=== PATIENT | male | born 1950 | race Caucasian/White ===

== ENCOUNTER 2017-02-02 18:11 | Emergency (ER) | payer OTHER, BC ==
[~2017-02-02] VITALS: Ht 188 cm; Wt 98.7 kg
[~2017-02-02 18:11] MED LIST: AMLO2.5T PO; ASPI81TA28 PO; BTP80 PO; CMD/25 PO; CYAN500T PO; METO1TAB66 PO; PRLSR20 PO; SIMV40TA2 PO; TYL325X PO; WARF5TAB90 PO
[2017-02-02 18:20] VITALS: TEMP 36.7; Ht 188 cm; Wt 98.7 kg
[2017-02-02] MEDS ORDERED: CMD/25 PO (18:49)
[2017-02-02] MEDS ORDERED: ACET-1311 PO (18:49)
[2017-02-02] MEDS ORDERED: SIMV20TA5 PO (18:52)
[2017-02-02] MEDS ORDERED: AMIO200T4 PO (18:52)
[2017-02-02] MEDS ORDERED: LEVO25TA5 PO (18:52)
[2017-02-02] MEDS ORDERED: AMLO-110 PO (18:52)
[2017-02-02] MEDS ORDERED: CHOL1000 PO (18:52)
--- NOTE | 2017-02-02 19:13 | EMERGENCY ROOM VISIT NOTE ---
History Report prepared by Jemal: Rafi Zuluaga Under the Supervision of: Benjamín ChungO. First contact with patient: 18:48 Chief Complaint: DIZZY Stated Complaint: LEFT WRIST TO ELBOW INJURY- Nursing Triage Summary: pt reports missed a step when walking down stairs landing on L fore arm , pain from wrist to elbow , denies striking head or LOC while sitting in weigh chair pt became pale clammy and states Im going to pass out , pt assisted to wc and to A9 History of Present Illness The patient is a 66 year old male who presents to the Emergency Room with complaints of constant, tingling and pain to his left hand beginning around 3 hours ago. The patient states that he was going up the stairs and missed a step. He reports that used his hands to break his fall, and he landed on his hands and knees. The patient notes that his left hand took most of the fall. He states that he went to dinner afterwards and then returned to work. The patient reports that he works at as a floor attendant, and he came to the ED because he could not stand the pain while working. He notes that he experienced diaphoresis , dizziness, and near syncope. The patient states that his right arm hurts from his hand all the way to his elbow. He reports that he felt fine before the fall. The patient denies shoulder pain, neck pain, back pain, hitting his head, and loss of consciousness. He notes that he did drink a soda 2 hours ago because he gets dehydrated easily. The patient states that he has a history of a cholecystectomy, pace maker, and a stent. The nurse reports that the patient was sitting in the waiting room and had another near syncopal episode. States pacemaker checked by moving worker last week. Source of History: patient, nursing staff Onset: about 3 hours ago Position: hand (left) Quality: tingling Timing: constant Associated Symptoms: + diaphoresis, No LOC, No neck pain, No back pain Note: Associated symptoms: dizziness and near loss of consciousness Denies: shoulder pain and hitting his head Review of Systems See HPI for pertinent positives & negatives. A total of 10 systems reviewed and were otherwise negative. Past Medical & Surgical Medical Problems: (1) Atrial fibrillation Social History Smoking Status: Never Smoker Marital Status: Housing Status: lives with family Occupation Status: employed Current/Historical Medications Scheduled Amiodarone Hcl (Cordarone), 200 MG PO DAILY Amlodipine (Norvasc), 5 MG PO DAILY Aspirin (Aspirin Ec), 81 MG PO DAILY Cholecalciferol (Vitamin D3), 1,000 UNITS PO DAILY Cyanocobalamin (Vitamin B-12), 500 MCG PO DAILY Levothyroxine Sodium (Levothyroxine Sodium), 25 MCG PO DAILY Metoprolol Succinate (Toprol Xl), 1 TAB PO DAILY Omeprazole (Prilosec), 20 MG PO QPM Simvastatin (Zocor), 20 MG PO QPM Warfarin Sod (Coumadin), 1 TAB PO 5XWK Warfarin Sod (Coumadin), 1.25 MG PO 2XWK Scheduled PRN Acetaminophen (Tylenol), 650 MG PO Q4H PRN for Pain or Fever Oxycodone/Acetaminophen 5MG/325MG (Percocet 5MG/325MG), 1 TAB PO Q6 PRN for Pain Allergies Coded Allergies: No Known Allergies (Verified , 02/02/17) Physical Exam Vital Signs Date Time Temp Pulse Resp B/P (MAP) Pulse Ox O2 Delivery O2 Flow Rate FiO2 02/02/17 23:04 61 18 137/88 96 02/02/17 21:21 59 139/98 02/02/17 21:21 60 18 139/98 98 Room Air 02/02/17 19:16 62 21 97 02/02/17 19:11 60 19 97 02/02/17 19:06 60 17 97 02/02/17 19:01 60 21 119/83 97 02/02/17 18:56 60 22 96 02/02/17 18:51 60 15 95 02/02/17 18:48 118/81 02/02/17 18:46 60 16 96 02/02/17 18:41 60 19 96 02/02/17 18:36 60 18 96 02/02/17 18:35 60 02/02/17 18:31 118/81 02/02/17 18:29 62 22 105/77 96 Room Air 02/02/17 18:20 36.7 62 18 97 Room Air Physical Exam GENERAL: alert, well appearing, well nourished, no distress, non-toxic EYE EXAM: normal conjunctiva, PERRL and EOM's grossly intact OROPHARYNX: no exudate, no erythema, lips, buccal mucosa, and tongue normal and mucous membranes are moist NECK: supple, no nuchal rigidity, no adenopathy, non-tender LUNGS: Clear to auscultation. Normal chest wall mechanics HEART: no murmurs, S1 normal and S2 normal, pace maker noted to the left anterior, superior chest wall ABDOMEN: abdomen soft, non-tender, normo-active bowel sounds, no masses, no rebound or guarding. BACK: Back is symmetrical on inspection and there is no deformity, no midline tenderness, no CVA tenderness. SKIN: no rashes and no bruising UPPER EXTREMITIES: Pain and edema to the left hand, pulse, motor, sensation intact. Decrease ROM secondary to pain, no pain or deformity to elbow and proximal joint. LOWER EXTREMITIES: No pitting edema. Mild abrasion to the left knee NEURO EXAM: Normal sensorium, cranial nerves II-XII grossly intact, normal speech, no gross weakness of arms, no gross weakness of legs. Medical Decision & Procedures ER Provider Diagnostic Interpretation: Radiology results have been interpreted by the radiologist and reviewed by me. LEFT WRIST MIN 3 VIEWS ROUTINE CLINICAL HISTORY: Left wrist pain following trauma. COMPARISON: None FINDINGS: Alignment of the left carpal bones is anatomic. There is no acute fracture. Deformity of the distal left radius is chronic. IMPRESSION: No acute fracture or dislocation of the left wrist. Electronically signed by: Billy Arevalo M.D. 02/02/2017 7:34 PM Dictated Date/Time: 02/02/2017 7:32 PM LEFT ELBOW MIN 3 VIEWS ROUTINE CLINICAL HISTORY: Left elbow pain following fall. COMPARISON: None FINDINGS: Alignment of left elbow is anatomic. There is spurring of the olecranon at the insertion of the triceps. There is no definite evidence for a left elbow joint effusion. However, there is subtle cortical irregularity of the left radial neck. This suggests a slightly impacted fracture. No additional fractures are identified. IMPRESSION: Suspected minimally impacted left radial neck fracture. Electronically signed by: Billy Arevalo M.D. 02/02/2017 7:32 PM Dictated Date/Time: 02/02/2017 7:31 PM CHEST ONE VIEW PORTABLE CLINICAL HISTORY: 66 years-old Male presenting with trauma, near syncope. TECHNIQUE: Portable upright AP view of the chest was obtained. COMPARISON: None. FINDINGS: Left-sided pacer with leads to the right atrium and right ventricular apex. Mild prominence of the cardiac silhouette. Mild tortuosity of the descending thoracic aorta. Lungs and pleural spaces clear. Osseous structures normal. Cholecystectomy clips noted. IMPRESSION: 1. No acute intrathoracic injury. Electronically signed by: Miguel Zepeda M.D. 02/02/2017 7:31 PM Dictated Date/Time: 02/02/2017 7:29 PM RENAL ULTRASOUND CLINICAL HISTORY: Acute renal failure. COMPARISON STUDY: None. TECHNIQUE: Sonography of the kidneys and the urinary bladder was performed. FINDINGS: The right kidney measures 9.6 x 4.5 x 4.9 cm and the left measures 10.4 x 5.1 x 4 cm. The kidneys are echogenic. There is moderate to marked renal cortical thinning. There is no hydronephrosis. A 1.3 cm right renal cyst is noted. Neither ureteral jet was identified. The bladder was otherwise normal. IMPRESSION: 1. No hydronephrosis. 2. Echogenic kidneys with moderate to marked bilateral renal cortical thinning. Electronically signed by: Billy Arevalo M.D. 02/02/2017 9:55 PM Dictated Date/Time: 02/02/2017 9:54 PM Laboratory Results 02/02/17 18:30 Red Blood Count 4.47, Mean Corpuscular Volume 87.9, Mean Corpuscular Hemoglobin 30.0, Mean Corpuscular Hemoglobin Concent 34.1, Mean Platelet Volume 10.7, Neutrophils (%) (Auto) 65.5, Lymphocytes (%) (Auto) 24.1, Monocytes (%) (Auto) 6.7, Eosinophils (%) (Auto) 3.2, Basophils (%) (Auto) 0.5, Neutrophils # (Auto) 4.11, Lymphocytes # (Auto) 1.51, Monocytes # (Auto) 0.42, Eosinophils # (Auto) 0.20, Basophils # (Auto) 0.03 02/02/17 18:30 Test 02/02/17 18:30 02/02/17 21:25 02/02/17 22:16 White Blood Count 6.27 K/uL (4.8-10.8) Red Blood Count 4.47 M/uL (4.7-6.1) Hemoglobin 13.4 g/dL (14.0-18.0) Hematocrit 39.3 % (42-52) Mean Corpuscular Volume 87.9 fL (80-100) Mean Corpuscular Hemoglobin 30.0 pg (25-34) Mean Corpuscular Hemoglobin Concent 34.1 g/dl (32-36) Platelet Count 201 K/uL (130-400) Mean Platelet Volume 10.7 fL (7.4-10.4) Neutrophils (%) (Auto) 65.5 % Lymphocytes (%) (Auto) 24.1 % Monocytes (%) (Auto) 6.7 % Eosinophils (%) (Auto) 3.2 % Basophils (%) (Auto) 0.5 % Neutrophils # (Auto) 4.11 K/uL (1.4-6.5) Lymphocytes # (Auto) 1.51 K/uL (1.2-3.4) Monocytes # (Auto) 0.42 K/uL (0.11-0.59) Eosinophils # (Auto) 0.20 K/uL (0-0.5) Basophils # (Auto) 0.03 K/uL (0-0.2) RDW Standard Deviation 46.2 fL (36.4-46.3) RDW Coefficient of Variation 14.3 % (11.5-14.5) Immature Granulocyte % (Auto) 0.0 % Immature Granulocyte # (Auto) 0.00 K/uL (0.00-0.02) Prothrombin Time 29.4 SECONDS (9.0-12.0) Prothromb Time International Ratio 2.6 (0.9-1.1) Anion Gap 9.0 mmol/L (3-11) Est Creatinine Clear Calc Drug Dose 34.6 ml/min Estimated GFR () 28.3 Estimated GFR (Non- 24.4 BUN/Creatinine Ratio 14.6 (10-20) Calcium Level 8.8 mg/dl (8.5-10.1) Total Bilirubin 0.4 mg/dl (0.2-1) Aspartate Amino Transf (AST/SGOT) 21 U/L (15-37) Alanine Aminotransferase (ALT/SGPT) 23 U/L (12-78) Alkaline Phosphatase 96 U/L (45-117) Troponin I < 0.015 ng/ml (0-0.045) Pro-B-Type Natriuretic Peptide 221 pg/ml (0-900) Total Protein 6.8 gm/dl (6.4-8.2) Albumin 3.6 gm/dl (3.4-5.0) Globulin 3.2 gm/dl (2.5-4.0) Albumin/Globulin Ratio 1.1 (0.9-2) Urine Color YELLOW Urine Appearance CLEAR (CLEAR) Urine pH 5.5 (4.5-7.5) Urine Specific [place] 1.020 (1.000-1.030) Urine Protein NEG (NEG) Urine Glucose (UA) NEG (NEG) Urine Ketones TRACE (NEG) Urine Occult Blood NEG (NEG) Urine Nitrite NEG (NEG) Urine Bilirubin NEG (NEG) Urine Urobilinogen NEG (NEG) Urine Leukocyte Esterase SMALL (NEG) Urine WBC (Auto) 5-10 /hpf (0-5) Urine RBC (Auto) 0-4 /hpf (0-4) Urine Hyaline Casts (Auto) 1-5 /lpf (0-5) Urine Epithelial Cells (Auto) 5-10 /lpf (0-5) Urine Bacteria (Auto) NEG (NEG) Bedside Troponin I < 0.030 ng/ml (0-0.045) Laboratory results per my review. Medications Administered Medications (Trade) Dose Ordered Sig/Payam Route Start Time Stop Time Status Last Admin Dose Admin Ondansetron HCl (Zofran Inj) 4 mg NOW STAT IV 02/02/17 20:48 02/02/17 20:50 DC 02/02/17 21:19 4 MG Oxycodone/ Acetaminophen (Percocet 5-325mg Tab) 1 tab NOW ONCE PO 02/02/17 21:00 02/02/17 21:01 DC 02/02/17 21:21 1 TAB ECG Indication: syncope (near) Rate (beats per minute): 62 Rhythm: other (pace maker) Findings: no acute ischemic change, other (Normal QRs and QTs) ED Course 1851: The patient was evaluated in room A09B. A complete history and physical exam was performed. 2044: I updated the patient on his exam findings and test results. He states that he does follow up with a kidney specialist. His last kidney number was 2.3. He is still having pain in the wrist. 2047: Ordered Zofran Inj 4 mg IV 2100: Ordered Oxycodone/Acetaminophen 1 tab PO 0: Upon reevaluation, the patient is feeling better. I discussed the findings and the treatment plan with the patient. She verbalizes agreement and understanding. The patient was discharged home. Medical Decision Differential diagnoses include major intracranial, cervical, spinal, thoracic, abdominal, pelvic and neurologic injury. Fracture, contusion, sprain, strain, laceration, abrasions included as well. Medication Reconciliation: I attest that I have personally reviewed the patient' s current medication list. Blood pressure screening: Patient was found to have a slightly elevated blood pressure due to circumstances. I do not believe that the patient requires hypertension monitoring. Patient well-appearing here, labs and imaging reassuring. Patient made aware of possible subtle fracture noted on x-rays by radiology and placed in a splint sling as a precaution. Patient advised to follow closely with or so. Patient advised to follow-up with family doctor as well as cardiology given near- syncopal event today. No dysrhythmias noted on telemetry and pacemaker spikes noted. Doubt acute dysfunction of patient's device. Patient with no recurrent symptoms while here, was ambulatory with a steady gait and tolerating by mouth at bedside. Discussed symptoms possibly due to dehydration, pain response. Urine specimen suboptimal, patient with no symptoms doubt acute UTI. Troponins times to both negative, doubt ACS. Doubt dissection, tamponade, PE. Patient's INR therapeutic. Doubt occult infectious etiology, bacteremia/ sepsis. Doubt perforation, GI bleed. Doubt mesenteric ischemia. Patient with chronic kidney disease, or racing nephrology and aware of his baseline creatinine. Discussed creatinine level today, and he would like to follow-up with his welt rander as an outpatient. No other changes noted on ultrasound, doubt related to UTI or obstructive uropathy. Patient with localized pain at the right wrist secondary to fall on an outstretched hand. Discussed with patient at bedside symptoms to watch and return for, he verbalized understanding was agreeable with plan. Impression Primary Impression: Dizziness Additional Impressions: Near syncope Fall Left wrist pain Fracture of radial neck, left, closed Chronic kidney disease Scribe Attestation The scribe's documentation has been prepared under my direction and personally reviewed by me in its entirety. I confirm that the note above accurately reflects all work, treatment, procedures, and medical decision making performed by me. Departure Information Dispostion Home / Self-Care Prescriptions Oxycodone/Acetaminophen 5MG/325MG (PERCOCET 5MG/325MG) Tab 1 TAB PO Q6 Y for Pain, #20 TAB Prov: Melody Malloy, 02/02/17 Referrals Deborah Arreola M.D. (PCP) Patient Instructions My [facility] Additional Instructions Please call and follow-up with the orthopedic surgeon and with your family doctor and kidney doctor. You may use the pain medicine as prescribed. Please don't take it and drive. If you have any worsening pain, swelling,numbness/ tingling in the injured arm, develop nausea, chest pain, trouble breathing, vomiting, headaches, vision changes, or you have any other new or concerning symptoms, please return to the emergency room. Problem Qualifiers Additional Impressions: Fall Encounter type: initial encounter Qualified Codes: W19.XXXA - Unspecified fall, initial encounter Fracture of radial neck, left, closed Encounter type: initial encounter Fracture alignment: nondisplaced Qualified Codes: S52.135A - Nondisplaced fracture of neck of left radius, initial encounter for closed fracture Chronic kidney disease Chronic kidney disease stage: unspecified stage Qualified Codes: N18.9 - Chronic kidney disease, unspecified
--- NOTE | 2017-02-02 19:32 | DIAGNOSTIC IMAGING REPORT ---
CHEST ONE VIEW PORTABLE CLINICAL HISTORY: 66 years-old Male presenting with trauma, near syncope. TECHNIQUE: Portable upright AP view of the chest was obtained. COMPARISON: None. FINDINGS: Left-sided pacer with leads to the right atrium and right ventricular apex. Mild prominence of the cardiac silhouette. Mild tortuosity of the descending thoracic aorta. Lungs and pleural spaces clear. Osseous structures normal. Cholecystectomy clips noted. IMPRESSION: 1. No acute intrathoracic injury. Electronically signed by: Miguel Zepeda M.D. 02/02/2017 7:31 PM Dictated Date/Time: 02/02/2017 7:29 PM
--- NOTE | 2017-02-02 19:33 | DIAGNOSTIC IMAGING REPORT ---
LEFT ELBOW MIN 3 VIEWS ROUTINE CLINICAL HISTORY: Left elbow pain following fall. COMPARISON: None FINDINGS: Alignment of left elbow is anatomic. There is spurring of the olecranon at the insertion of the triceps. There is no definite evidence for a left elbow joint effusion. However, there is subtle cortical irregularity of the left radial neck. This suggests a slightly impacted fracture. No additional fractures are identified. IMPRESSION: Suspected minimally impacted left radial neck fracture. Electronically signed by: Billy Arevalo M.D. 02/02/2017 7:32 PM Dictated Date/Time: 02/02/2017 7:31 PM
--- NOTE | 2017-02-02 19:35 | DIAGNOSTIC IMAGING REPORT ---
LEFT WRIST MIN 3 VIEWS ROUTINE CLINICAL HISTORY: Left wrist pain following trauma. COMPARISON: None FINDINGS: Alignment of the left carpal bones is anatomic. There is no acute fracture. Deformity of the distal left radius is chronic. IMPRESSION: No acute fracture or dislocation of the left wrist. Electronically signed by: Billy Arevalo M.D. 02/02/2017 7:34 PM Dictated Date/Time: 02/02/2017 7:32 PM
[2017-02-02 19:57] LABS: BASO % 0.5 %; BASO ABS # 0.03 K/uL (0-0.2); COMPLETE YES; EOS % 3.2 %; HEMATOCRIT 39.3 % (42-52); LYMPH % 24.1 %; LYMPH ABS # 1.51 K/uL (1.2-3.4); MEAN CELL VOLUME 87.9 fL (80-100); MEAN CORPUSCULAR HGB CONC 34.1 g/dl (32-36); MEAN PLATELET VOLUME 10.7 fL (7.4-10.4); MONO % 6.7 %; NEUT % 65.5 %; PLATELET COUNT 201 K/uL (130-400); RED BLOOD COUNT 4.47 M/uL (4.7-6.1); WHITE BLOOD COUNT 6.27 K/uL (4.8-10.8)
[2017-02-02 20:00] LABS: INR 2.6 (0.9-1.1); PROTHROMBIN TIME (PATIENT) 29.4 SECONDS (9.0-12.0)
[2017-02-02 20:04] LABS: ALT/SGPT 23 U/L (12-78); BLOOD UREA NITROGEN 38 mg/dl (7-18); BUN/CREATININE RATIO 14.6 (10-20); CALCIUM 8.8 mg/dl (8.5-10.1); CARBON DIOXIDE 20 mmol/L (21-32); CHLORIDE 113 mmol/L (98-107); GLUCOSE 120 mg/dl (70-99); POTASSIUM 4.4 mmol/L (3.5-5.1); SODIUM 142 mmol/L (136-145)
[2017-02-02 20:09] LABS: ALB/GLOB RATIO 1.1 (0.9-2); ALKALINE PHOSPHATASE 96 U/L (45-117); AST/SGOT 21 U/L (15-37)
[2017-02-02] MEDS ORDERED: ONDANSETRON INJ 2 MG/ML 2 ML VIAL IV STA (20:48)
[2017-02-02] MEDS ORDERED: OXYCODONE/ACETAMINOPHEN 5-325 TAB PO ONE (21:00)
[2017-02-02 21:44] LABS: URINE APPEARANCE CLEAR (CLEAR); URINE BILIRUBIN NEG (NEG); URINE COLOR YELLOW; URINE NITRITE NEG (NEG); URINE PH 5.5 (4.5-7.5); UROBILINOGEN NEG (NEG); ZZUR CULT IF INDIC CLEAN CATCH NO
[2017-02-02 21:49] LABS: MANUAL MICROSCOPIC REQUIRED? NO; REVIEW REQ? NO
--- NOTE | 2017-02-02 21:57 | DIAGNOSTIC IMAGING REPORT ---
RENAL ULTRASOUND CLINICAL HISTORY: Acute renal failure. COMPARISON STUDY: None. TECHNIQUE: Sonography of the kidneys and the urinary bladder was performed. FINDINGS: The right kidney measures 9.6 x 4.5 x 4.9 cm and the left measures 10.4 x 5.1 x 4 cm. The kidneys are echogenic. There is moderate to marked renal cortical thinning. There is no hydronephrosis. A 1.3 cm right renal cyst is noted. Neither ureteral jet was identified. The bladder was otherwise normal. IMPRESSION: 1. No hydronephrosis. 2. Echogenic kidneys with moderate to marked bilateral renal cortical thinning. Electronically signed by: Billy Arevalo M.D. 02/02/2017 9:55 PM Dictated Date/Time: 02/02/2017 9:54 PM
[2017-02-02] MEDS ORDERED: OXYC-57 PO (21:59)
[2017-02-02 23:04] VITALS: BP 137/88; PULSE 61; O2SAT 96
== END 2017-02-02 23:07 | disposition home or self-care (01) ==
LOC: C.EDB 18:12 → C.EDA 23:07
DX: R42 Dizziness and giddiness (principal); R55 Syncope and collapse; W19.XXXA Unspecified fall, initial encounter; M25.532 Pain in left wrist; S52.135A Nondisplaced fracture of neck of left radius, initial encounter for closed fracture; N18.9 Chronic kidney disease, unspecified; Z51.81 Encounter for therapeutic drug level monitoring; Z79.01 Long term (current) use of anticoagulants; Z79.82 Long term (current) use of aspirin; I48.91 Unspecified atrial fibrillation

== ENCOUNTER → 2018-03-08 | Outpatient (CLI) | payer BC ==
[~2018-03-08] MED LIST changes: +ACET-1311 PO; -AMLO2.5T PO; +AMLO5TAB3 PO; -BTP80 PO; +CHOL1000 PO; +LEVO25TA5 PO; +LVQ750 PO; +METO-452 PO; +METO-478 PO; -METO1TAB66 PO; +SIMV20TA5 PO; -SIMV40TA2 PO; -TYL325X PO; -WARF5TAB90 PO
[2018-03-12 15:30] LABS: MICROSOMAL AB <1 IU/ML (<9); TSI <89 % baseline (<140)
== END | disposition home or self-care (01) ==
LOC: C.LAB1850 08:57
PROVIDERS: ATTEND Physician Assistant
DX: E05.90 Thyrotoxicosis, unspecified without thyrotoxic crisis or storm (principal)

== ENCOUNTER → 2018-03-10 | Outpatient (CLI) | payer BC ==
--- NOTE | 2018-03-10 08:09 | DIAGNOSTIC IMAGING REPORT ---
SOFT TISS HEAD/NECK-THYROID CLINICAL HISTORY: 67 years-old Male presenting with HYPERTHYROIDISM, THYROIDITIS. TECHNIQUE: Real-time grayscale and color Doppler ultrasound imaging of the thyroid and base of the neck was performed. COMPARISON: CT chest from 12/25/2017. FINDINGS: Right lobe: Normal echogenicity and echotexture. The right lobe of the thyroid measures 4.2 x 1.9 x 1.8 cm. No parenchymal hyperemia. No nodules. Left lobe: Normal echogenicity and echotexture. The left lobe of the thyroid measures 4.5 x 1.5 x 2.2 cm. No parenchymal hyperemia. Index nodule(s) enumerated below: 1. 0.4 x 0.3 x 0.4 cm interpolar cystic anechoic [id number] nodule with smooth margins. Large comet-tail artifacts suggesting colloid. TI-RADS 1: Benign. Isthmus: The isthmus measures 6 mm in thickness. No parenchymal hyperemia. No nodules. Reference: TI-RADS 1: No biopsy. TI-RADS 2: No biopsy. TI-RADS 3: FNA if > or = to 2.5 cm; follow if > or = to 1.5 cm. TI-RADS 4: FNA if > or = to 1.5 cm; follow if > or = to 1 cm. TI-RADS 5: FNA if > or = to 1 cm; follow if > or = to 0.5 cm. Eloy CARNES, Aramis WD, Darrell CLAUDIO. Thyroid Imaging Reporting and Data System (TI-RADS): A User's Guide. Radiology. 2018;287:29-36. Darrell Davis, Eloy CARNES, Ben PALOMO, et al. Thyroid Ultrasound Reporting Lexicon: White Paper of the ACR Thyroid Imaging, Reporting and Data System (TIRADS) Committee. J Am Luis Radiol. 2015;[id number]. IMPRESSION: Essentially normal thyroid ultrasound with a benign subcentimeter left thyroid lobe cyst. Electronically signed by: Miguel Zepeda M.D. 03/10/2018 8:08 AM Dictated Date/Time: 03/10/2018 8:06 AM
== END | disposition home or self-care (01) ==
LOC: C.ULTR 07:41
PROVIDERS: ATTEND Physician Assistant
DX: E05.90 Thyrotoxicosis, unspecified without thyrotoxic crisis or storm (principal)

== ENCOUNTER 2019-02-20 10:47 | Inpatient (IN) ==
[2019-02-20] MEDS ORDERED: SODIUM CHLORIDE 0.9% 500 ML IV ONE ×2 (11:09→12:23)
[2019-02-20] MEDS ORDERED: FAMOTIDINE 20MG IV PUSH 20 MG/5 ML SYR IV STA (11:09)
[2019-02-20] MEDS ORDERED: PROCHLORPERAZINE 2 ML IV ONE (11:09)
[2019-02-20 11:15] LABS: Basophils # (auto) 0.01 K/uL (0-0.2); Basophils % (auto) 0.2 %; Eosinophils # (auto) 0.03 K/uL (0-0.5); Eosinophils % (auto) 0.5 %; Hematocrit (blood only) 44.2 % (42-52); Hemoglobin 15.6 g/dL (14.0-18.0); Immature Granulocytes # (auto) 0.02 K/uL (0.00-0.02); Immature Granulocytes % (auto) 0.3 %; Lymphocytes # (auto) 0.53 K/uL (1.2-3.4); Lymphocytes % (auto) 8.1 %; Mean Corpuscular Hgb Conc 35.3 g/dL (32-36); Mean Corpuscular Volume 87.2 fL (80-100); Monocytes # (auto) 0.12 K/uL (0.11-0.59); Monocytes % (auto) 1.8 %; Neutrophils % (auto) 89.1 %; Platelet Count 172 K/uL (130-400); RDW Coefficient of Variation 13.7 % (11.5-14.5); RDW Standard Deviation 43.7 fL (36.4-46.3); Red Blood Count 5.07 M/uL (4.7-6.1); White Blood Count 6.51 K/uL (4.8-10.8)
[2019-02-20 11:27] LABS: INR 1.2 (0.9-1.1); Prothrombin Time 11.9 Seconds (9.0-12.0)
[2019-02-20 11:35] LABS: Alanine Aminotransferase 18 U/L (12-78); Albumin Level 3.6 gm/dl (3.4-5.0); Aspartate Aminotransferase 19 U/L (15-37); BUN Creatinine Ratio 18.8 (10-20); Bilirubin Direct 0.2 mg/dl (0-0.2); Blood Urea Nitrogen 36 mg/dl (7-18); Calcium 9.1 mg/dl (8.5-10.1); Carbon Dioxide 25 mmol/L (21-32); Chloride 106 mmol/L (98-107); Creatinine Clr Calc Pharmacy 43.9 ml/min; Est GFR (African American) 40.8; Est GFR (Non-African American) 35.2; Glucose 112 mg/dl (70-99); Magnesium 1.3 mg/dl (1.8-2.4); Potassium 3.8 mmol/L (3.5-5.1); Sodium 140 mmol/L (136-145)
--- NOTE | 2019-02-20 11:39 | XRay Report ---
XR chest 1V portable HISTORY: Atypical Chest Pain COMPARISON: Chest 08/25/2018. Chest CTA 12/25/2017. FINDINGS: Interval development of a right middle lobe airspace opacity. The left lung is clear. The h eart is normal in size. There is left-sided dual-chamber pacemaker. No pleural effusions. No pneumoth orax. IMPRESSION: A new right middle lobe airspace opacity. This likely represents a pneumonia. 1-2 month chest x-ray f ollow-up is recommended to ensure resolution. Electronically signed by: Phillip Lazaro M.D. 02/20/2019 11:38 AM
[2019-02-20 12:10] LABS: Albumin Globulin Ratio 1.1 (0.9-2); Alkaline Phosphatase 124 U/L (45-117); Bilirubin,Total 1.1 mg/dl (0.2-1); Globulin 3.4 gm/dl (2.5-4.0); Phosphorus 1.4 mg/dl (2.5-4.9); Troponin I < 0.015 ng/ml (0-0.045)
[2019-02-20] MEDS ORDERED: POTASSIUM PHOS 3 MMOL/1 ML INFUSION IV STA (12:23)
[2019-02-20] MEDS ORDERED: LEVOFLOXACIN/D5W 750 MG/150 ML BAG IV STA (12:26)
[2019-02-20] MEDS: MAGNESIUM SULFATE / D5W 1 GM/100 ML BAG IV SCH ×2 (12:46→14:20)
[2019-02-20] MEDS ORDERED: POTASSIUM PHOSPHATE 9 MMOL in SODIUM CHLORIDE 0.9% 250 ML IV ONE (13:00)
--- NOTE | 2019-02-20 14:21 | History & Physical Report ---
Date of Service February 20, 2019 Assessment & Plan (1) Pneumonia: -Admit to [facility] -Patient presenting from home with reports of fatigue, feeling feverish, cough, N/V -On presentation, low-grade fever at 37.6, tachycardic, borderline low BP; no leukocytosis, lactic acid normal -Possible early sepsis -? Aspiration from vomiting this morning -Received IV Levaquin in the ED, will start Unasyn due to concerns of possible aspiration -Saturating well on room air -Follow blood cultures (2) Hypomagnesemia: (3) Hypophosphatemia: -Likely due to GI losses -Replace, follow electrolytes (4) CKD (chronic kidney disease), stage IV: -Baseline creatinine ~ 1.6-1.7 -Noted to be 1.9 today -Mild elevation likely prerenal nature secondary to GI losses with vomiting -IVF, follow renal functions (5) Hypertension: -BP borderline low however improving after IVF -Continue home doses of diltiazem and metoprolol with holding parameters in place (6) Atrial fibrillation: -Rate controlled on metoprolol and diltiazem, continue both -Anticoagulated on Eliquis, will continue (7) Tachy-dario syndrome: (8) Pacemaker: -No acute issues (9) GERD (gastroesophageal reflux disease): -Continue PPI (10) DVT prophylaxis: -Anticoagulated on Eliquis History of Present Illness Chief Complaint: Fever, not feeling well Primary Care Provider: Sage Esdrsavj 68-year-old male who presents to the ED with fever and generally not feeling well. Patient reports he has not felt well for about the past 1 month. He reports feeling intermittently feverish however has not been monitoring his temperature. He has had increased fatigue. He has had a nonproductive cough. Patient reports he woke up around 4 AM and felt very nauseous and had a few episodes of vomiting. He denies hematemesis or coffee-ground emesis. No abdominal pain or diarrhea. Patient denies chest pain shortness of breath. No lightheadedness, dizziness, diaphoresis, syncopal events. He denies any urinary symptoms. In the ED, patient had a low-grade fever at 37.6, tachycardic HR 11 0s, BP borderline low, no leukocytosis, lactic acid normal. Hypomagnesemia (1.3) and hypophosphatemia (1.4) are also noted. CXR shows a right middle lobe opacity suggestive of pneumonia. Patient was given IV famotidine, IV Levaquin, IV magnesium and phosphorus replacement, IVF, IV prochlorperazine. Allergies Allergy/AdvReac Type Severity Reaction Status Date / Time No Known Allergies Allergy Verified 02/20/19 11:49 Home Medications Home Medications Medication Instructions Recorded Confirmed Type apixaban 5 mg PO BID 02/20/19 02/20/19 History aspirin [Aspirin Low Dose] 81 mg PO DAILY 02/20/19 02/20/19 History atorvastatin 20 mg PO DAILY 02/20/19 02/20/19 History cholecalciferol (vitamin D3) 1,000 unit PO DAILY 02/20/19 02/20/19 History [Vitamin D3] cyanocobalamin (vitamin B-12) 500 mcg PO DAILY 02/20/19 02/20/19 History diltiazem HCl 120 mg PO DAILY 02/20/19 02/20/19 History levothyroxine 50 mcg PO DAILY 02/20/19 02/20/19 History metoprolol tartrate 75 mg PO BID 02/20/19 02/20/19 History omeprazole 20 mg PO DAILY 02/20/19 02/20/19 History Past Med/Surg History Medical History Hypertension (Chronic) GERD (gastroesophageal reflux disease) (Chronic) CKD (chronic kidney disease), stage IV (Chronic) Hypothyroidism (Chronic) Hyperlipidemia (Chronic) Tachy-dario syndrome (Chronic) Atrial fibrillation (Chronic) Pacemaker (Chronic) Surgical History Hx of cholecystectomy (Chronic) S/P AAA repair (Chronic) Family History Mother Hypertension Social History Preferred Language: Amharic Communication Ability: Effective [employer] Required: No Beliefs That Will Affect Care: None marital status: Current Living Situation: Spouse current occupational status: employed Other Information That Helps Us Care for You: No Feels Safe at Home: Yes Safety Concerns: Feels Safe At This Time Smoking Status: Former smoker Do You Dip or Chew Tobacco: No Second Hand Exposure: No Tobacco Cessation Education Requested by Patient: No Hx Alcohol Use: No Hx Substance Use: No Review of Systems Review of Systems: ROS per HPI, all other systems reviewed and negative Physical Exam Constitutional: WD/WN, vitals as above Eyes: PERRL, conjunctivae normal, anicteric sclerae ENMT: external ear and nose normal, oropharynx normal Respiratory: normal respiratory effort; no respiratory distress Auscultation: + crackles (Mid-lower right lung duque) Cardiovascular: Rate/Rhythm: + tachycardic and + irregularly irregular Vessels: normal peripheral pulses Extremities: no edema Gastrointestinal (Abdomen): normal bowel sounds, soft, nontender, no hepatosplenomegaly Musculoskeletal: no cyanosis or clubbing, extremities motor strength 5/5 Skin: no rashes, warm and dry Neurologic: PERRL, EOMI, accommodation nl, no face palsy, no dysarthria Psychiatric: A+Ox3, euthymic affect Results & Data Vital Signs (Past 12 Hours) Vital Signs Temp Pulse Resp BP Pulse Ox 02/20/19 14:10 96 H 18 93 02/20/19 14:02 37.4 C 102 H 24 92/56 L 97 02/20/19 14:00 99 H 21 97 02/20/19 13:50 105 H 20 98 02/20/19 13:40 104 H 21 97 02/20/19 13:30 113 H 29 H 95 02/20/19 13:20 118 H 24 95 02/20/19 13:10 102 H 21 96 02/20/19 13:00 107 H 21 97/61 L 96 02/20/19 12:50 112 H 22 96 02/20/19 12:40 102 H 24 02/20/19 12:30 107 H 24 96 02/20/19 12:23 106 H 25 H 96 02/20/19 12:21 106 H 26 H 99/62 L 95 02/20/19 12:20 116 H 19 85/69 L 97 02/20/19 12:10 103 H 23 96 02/20/19 12:00 106 H 17 88/66 L 97 02/20/19 11:50 108 H 17 97 02/20/19 11:40 113 H 20 96 02/20/19 11:38 105 H 27 H 105/78 94 02/20/19 11:30 103 H 21 94 02/20/19 11:20 110 H 20 95 02/20/19 11:13 96 02/20/19 11:10 96 H 19 96 02/20/19 11:00 94 H 25 H 95 02/20/19 10:58 37.6 C H 102 H 28 H 101/75 94 02/20/19 10:56 103 H 21 02/20/19 10:54 105 H 25 H 101/75 95 Laboratory Results Short CBC 02/20/19 Range/Units 10:31 WBC 6.51 (4.8-10.8) K/uL Hgb 15.6 (14.0-18.0) g/dL Hct 44.2 (42-52) % Plt Count 172 (130-400) K/uL BMP 02/20/19 10:31 Sodium 140 Potassium 3.8 Chloride 106 Carbon Dioxide 25 BUN 36 H Creatinine 1.90 H Glucose 112 H Calcium 9.1 Cardiac Enzymes 02/20/19 Range/Units 10:31 Troponin I < 0.015 (0-0.045) ng/ml Liver Function 02/20/19 Range/Units 10:31 Total Bilirubin 1.1 H (0.2-1) mg/dl Direct Bilirubin 0.2 (0-0.2) mg/dl AST 19 (15-37) U/L ALT 18 (12-78) U/L Alkaline Phosphatase 124 H (45-117) U/L Albumin 3.6 (3.4-5.0) gm/dl Urine 02/20/19 Range/Units 15:02 Urine Color Yellow Urine Appearance Clear (Clear) Urine pH 5.0 (4.5-7.5) Ur Specific [place] 1.022 (1.000-1.030) Urine Protein Negative (Negative) Urine Glucose (UA) Negative (Negative) Diagnostic Findings CXR IMPRESSION: A new right middle lobe airspace opacity. This likely represents a pneumonia. 1- 2 month chest x-ray follow-up is recommended to ensure resolution. Code Status & VTE Plan Code Status Patient is a full code as per my discussion with him. VTE Prophylaxis Plan VTE Prophylaxis will be ordered: Yes Supervising Physician Co-Signing Physician Notes I saw this patient with the Nurse Practitioner, I participated in the history, physical, review of systems, and physical exam. I reviewed the medications with the patient and the Nurse Practitioner and helped reconcile the medications. I helped take a detailed family and social history as well. I formulated the assessment and plan personally with the Nurse Practitioner went over it with the patient. ROS-No Headache, No Visual Changes, No Nausea, No Vomiting, No Fever, No Chills, No Neck Pain or Stiffness, No Chest Pain, No Palpitations, No SOB, No [place], No Cough, No Sputum, No Wheezing, No Abdominal Pain, No Diarrhea, No Hematemesis, No Hemoptysis, No Unexpected Weight Loss, No Flank pain, No Melena, No Hematochezia, No Frequency, No Urgency, No Burning, No Hematuria, No Rashes, No Diaphoresis. Appetite is Normal Physical Exam Gen-AAO x 3, NAD, Afebrile Head-NCAT, EOMI, PERRLA, Anicteric Sclera, No Posterior Pharyngeal Erythema Neck-Supple, No JVD, No Thyromegaly, No Masses, No LAD, No Bruits Lungs-Clear to Auscultation Bilaterally, No Rales, No Rhonchi, No Wheezing, No Crepitus Chest-No S4, +S1, +S2, No S3, No Murmurs, No Rubs, No Gallops, No Ectopy Abdomen-Soft, Bowel Sounds Present, Non Tender, Non Distended, No Hepatomegaly, No Splenomegaly, No Palpable Masses, No Rebound, No Rigidity, No Guarding Musculoskeletal-Full Range of Motion Bilaterally, No CVAT Extremities-No Cyanosis, No Clubbing, No Edema Nuero-Cranial Nerves II-XII grossly intact, Motor WNL, DTRs WNL, Strength WNL, Non Focal Psych-Normal Mood (1) Pneumonia Laterality: right Lung location: middle lobe of lung Pneumonia type: due to unspecified organism Qualified Code(s): J18.1 - Lobar pneumonia, unspecified organism
[2019-02-20] MEDS ORDERED: ACETAMINOPHEN 325 MG TAB PO PRN (14:54)
[2019-02-20] MEDS: SODIUM CHLORIDE 0.9% 1000ML 1,000 ML IV SCH (15:06)
--- NOTE | 2019-02-20 15:25 | Emergency Department Note ---
Entered by Paola Ovalle acting as a scribe for History of Present Illness General Chief complaint: Illness Stated complaint: illness Time Seen by Provider: 02/20/19 11:05 Source: patient History of Present Illness Onset (ago): hour(s) (this morning) Location: chest Pain Consistency: + other (episode) Relieved By: not by medication (tylenol) Associated symptoms: + denies other symptoms (headache, dysuria) and + other (vomiting, indigestion, dizziness/nausea, chills, urinary leakage) The patient is a 68 year old male that is presenting to the Emergency Room with complaints of an episode of a generalized illness that started this morning around 0300. The patient reports that he has vomiting, indigestion, and dizziness/nausea. He states that he felt something fly into his mouth while he was sleeping last night. He notes that he tried to cough it up but was unable to. He states that he has felt unwell since that time. He reports that he has some associated chills and that he was unable to get warm with 4 blankets on him. He notes that he took some Tylenol without relief of his symptoms. He denies any headache or dysuria. He notes that he leaks urine after he goes to the bathroom but denies any dysuria. He states that he felt well yesterday. He denies being on O2 normally. He states that EMS put him on nasal cannula O2 en route. He denies any known history of prostate issues but does note that his urine stream has been weakening over the past couple of years. Home Medications Home Medications Medication Instructions Recorded Confirmed Type apixaban 5 mg PO BID 02/20/19 02/20/19 History aspirin [Aspirin Low Dose] 81 mg PO DAILY 02/20/19 02/20/19 History atorvastatin 20 mg PO DAILY 02/20/19 02/20/19 History cholecalciferol (vitamin D3) 1,000 unit PO DAILY 02/20/19 02/20/19 History [Vitamin D3] cyanocobalamin (vitamin B-12) 500 mcg PO DAILY 02/20/19 02/20/19 History diltiazem HCl 120 mg PO DAILY 02/20/19 02/20/19 History levothyroxine 50 mcg PO DAILY 02/20/19 02/20/19 History metoprolol tartrate 75 mg PO BID 02/20/19 02/20/19 History omeprazole 20 mg PO DAILY 02/20/19 02/20/19 History Allergies Allergy/AdvReac Type Severity Reaction Status Date / Time No Known Allergies Allergy Verified 02/20/19 11:49 Past Med/Surg History Medical History Hypertension (Chronic) GERD (gastroesophageal reflux disease) (Chronic) CKD (chronic kidney disease), stage IV (Chronic) Hypothyroidism (Chronic) Hyperlipidemia (Chronic) Tachy-dario syndrome (Chronic) Atrial fibrillation (Chronic) Pacemaker (Chronic) Surgical History Hx of cholecystectomy (Chronic) S/P AAA repair (Chronic) Family History Mother Hypertension Social History Preferred Language: Malagasy Communication Ability: Effective Legal Investigator Required: No Beliefs That Will Affect Care: None marital status: Current Living Situation: Spouse current occupational status: employed Other Information That Helps Us Care for You: No Feels Safe at Home: Yes Safety Concerns: Feels Safe At This Time Smoking Status: Former smoker Do You Dip or Chew Tobacco: No Second Hand Exposu re: No Tobacco Cessation Education Requested by Patient: No Hx Alcohol Use: No Hx Substance Use: No Review of Systems See HPI for pertinent positives & negatives. and A total of 10 systems reviewed and were otherwise negative Physical Exam Vital Signs Vital Signs - 24 hr 02/20/19 10:54 02/20/19 10:56 02/20/19 10:58 Temperature 37.6 C H Temperature Source Oral Sepsis Recent Fever Within 48 Hours Yes Sepsis New/Unexplained Change in Mental Status No Sepsis Action Taken by Nursing No Action Required Pulse Rate 105 H 103 H 102 H Pulse Rate from SpO2 Sensor 103 H Respiratory Rate 25 H 21 28 H Respiratory Effort / Characteristics Short of Breath SOB on Exertion Respiratory Depth Shallow Respiratory Pattern Tachypnea Blood Pressure 101/75 101/75 Blood Pressure Mean 83 83 Pulse Oximetry 95 94 Oxygen Delivery Method Room Air Oxygen Flow Rate 02/20/19 11:00 02/20/19 11:10 02/20/19 11:13 Temperature Temperature Source Sepsis Recent Fever Within 48 Hours Sepsis New/Unexplained Change in Mental Status Sepsis Action Taken by Nursing Pulse Rate 94 H 96 H Pulse Rate from SpO2 Sensor 100 H 93 H Respiratory Rate 25 H 19 Respiratory Effort / Characteristics Respiratory Depth Respiratory Pattern Blood Pressure Blood Pressure Mean Pulse Oximetry 95 96 96 Oxygen Delivery Method Nasal Cannula Oxygen Flow Rate 2 02/20/19 11:20 02/20/19 11:30 02/20/19 11:38 Temperature Temperature Source Sepsis Recent Fever Within 48 Hours Sepsis New/Unexplained Change in Mental Status Sepsis Action Taken by Nursing Pulse Rate 110 H 103 H 105 H Pulse Rate from SpO2 Sensor 101 H 108 H 113 H Respiratory Rate 20 21 27 H Respiratory Effort / Characteristics Respiratory Depth Respiratory Pattern Blood Pressure 105/78 Blood Pressure Mean 87 Pulse Oximetry 95 94 94 Oxygen Delivery Method Oxygen Flow Rate 02/20/19 11:40 02/20/19 11:50 02/20/19 12:00 Temperature Temperature Source Sepsis Recent Fever Within 48 Hours Sepsis New/Unexplained Change in Mental Status Sepsis Action Taken by Nursing Pulse Rate 113 H 108 H 106 H Pulse Rate from SpO2 Sensor 111 H 104 H 98 H Respiratory Rate 20 17 17 Respiratory Effort / Characteristics Respiratory Depth Respiratory Pattern Blood Pressure 88/66 L Blood Pressure Mean 73 Pulse Oximetry 96 97 97 Oxygen Delivery Method Oxygen Flow Rate 02/20/19 12:10 02/20/19 12:20 02/20/19 12:21 Temperature Temperature Source Sepsis Recent Fever Within 48 Hours Sepsis New/Unexplained Change in Mental Status Sepsis Action Taken by Nursing Pulse Rate 103 H 116 H 106 H Pulse Rate from SpO2 Sensor 106 H 104 H 107 H Respiratory Rate 23 19 26 H Respiratory Effort / Characteristics Respiratory Depth Respiratory Pattern Blood Pressure 85/69 L 99/62 L Blood Pressure Mean 74 74 Pulse Oximetry 96 97 95 Oxygen Delivery Method Oxygen Flow Rate 02/20/19 12:23 02/20/19 12:30 02/20/19 12:40 Temperature Temperature Source Sepsis Recent Fever Within 48 Hours Sepsis New/Unexplained Change in Mental Status Sepsis Action Taken by Nursing Pulse Rate 106 H 107 H 102 H Pulse Rate from SpO2 Sensor 104 H 106 H Respiratory Rate 25 H 24 24 Respiratory Effort / Characteristics Respiratory Depth Respiratory Pattern Blood Pressure Blood Pressure Mean Pulse Oximetry 96 96 Oxygen Delivery Method Oxygen Flow Rate 02/20/19 12:50 02/20/19 13:00 02/20/19 13:10 Temperature Temperature Source Sepsis Recent Fever Within 48 Hours Sepsis New/Unexplained Change in Mental Status Sepsis Action Taken by Nursing Pulse Rate 112 H 107 H 102 H Pulse Rate from SpO2 Sensor 105 H 104 H 97 H Respiratory Rate 22 21 21 Respiratory Effort / Characteristics Respiratory Depth Respiratory Pattern Blood Pressure 97/61 L Blood Pressure Mean 73 Pulse Oximetry 96 96 96 Oxygen Delivery Method Oxygen Flow Rate 02/20/19 13:20 02/20/19 13:30 02/20/19 13:40 Temperature Temperature Source Sepsis Recent Fever Within 48 Hours Sepsis New/Unexplained Change in Mental Status Sepsis Action Taken by Nursing Pulse Rate 118 H 113 H 104 H Pulse Rate from SpO2 Sensor 98 H 111 H 96 H Respiratory Rate 24 29 H 21 Respiratory Effort / Characteristics Respiratory Depth Respiratory Pattern Blood Pressure Blood Pressure Mean Pulse Oximetry 95 95 97 Oxygen Delivery Method Oxygen Flow Rate GENERAL: Awake, alert, uncomfortable and fatigued appearing, in no distress HENT: Normocephalic, atraumatic. Oropharynx with dry mucous membranes and otherwise unremarkable. EYES: Normal conjunctiva. Sclera non-icteric. NECK: Supple. No nuchal rigidity. FROM. No JVD. RESPIRATORY: Diminished breath sounds in the right lung field. CARDIAC: Regular rate, normal rhythm. Extremities warm and well perfused. Pulses equal. ABDOMEN: Soft, non-distended. No tenderness to palpation. No rebound or guarding. No masses. RECTAL: Deferred. MUSCULOSKELETAL: Chest examination reveals no tenderness. The back is symmetrical on inspection without obvious abnormality. There is no CVA tenderness to palpation. No joint edema. LOWER EXTREMITIES: Calves are equal size bilaterally and non-tender. No edema. No discoloration. NEURO: Normal sensorium. No sensory or motor deficits noted. SKIN: No rash or jaundice noted. Course 1107:The patient was evaluated in room C01B. A complete history and physical examination was performed. 1236: I discussed the patient's case with MELISSA Nathan, who will evaluate the patient for further management and care. 1245: Upon reevaluation, the patient is resting comfortably. I discussed laboratory and radiographic results with the patient. He verbalized agreement of the treatment plan. The patient will be evaluated for further management and care. Consultations Consultation #1: I discussed the patient's case with MELISSA Nathan, who will evaluate the patient for further management and care. Time: 12:36 Administered Medications Sodium Chloride (Nss 1000ml) 1,000 mls @ 100 mls/hr IV .Q10H SANDHYA Stop: 03/22/19 14:53 Last Admin: 02/20/19 15:06 Dose: 100 mls/hr Documented by: [id number] Ampicillin Sodium/Sulbactam Sodium 3,000 mg/ Sodium Chloride 108 mls @ 200 mls/hr IV Q6H SANDHYA; Protocol Stop: 02/27/19 15:59 Last Infusion: 02/20/19 17:05 Dose: 0 mls/hr Documented by: [id number] Admin: 02/20/19 16:21 Dose: 200 mls/hr Documented by: [id number] Cosigned by: [id number] Discontinued Medications Famotidine (Pepcid 20mg Iv Push) 20 mg in 5 mls @ 2.5 mls/min IV NOW STA Stop: 02/20/19 11:10 Last Admin: 02/20/19 11:46 Dose: 2.5 mls/min Documented by: [id number] Prochlorperazine (Compazine) 2 mls @ 1 mls/min IV ONE ONE Stop: 02/20/19 11:10 Last Admin: 02/20/19 11:46 Dose: 1 mls/min Documented by: [id number] Sodium Chloride (Nss) 500 mls @ 999 mls/hr IV .Q31M ONE Stop: 02/20/19 11:39 Last Infusion: 02/20/19 12:23 Dose: 0 mls/hr Documented by: [id number] Admin: 02/20/19 11:46 Dose: 999 mls/hr Documented by: [id number] Magnesium Sulfate/Dextrose (Magnesium Sulfate / D5w) 1 gm in 100 mls @ 100 mls/hr IV Q1H SANDHYA Stop: 02/20/19 14:29 Last Infusion: 02/20/19 16:21 Dose: 0 mls/hr Documented by: [id number] Cosigned by: [id number] Admin: 02/20/19 14:20 Dose: 100 mls/hr Documented by: [id number] Infusion: 02/20/19 14:04 Dose: 0 mls/hr Documented by: [id number] Admin: 02/20/19 12:46 Dose: 100 mls/hr Documented by: [id number] Levofloxacin/Dextrose (Levaquin/D5w) 750 mg in 150 mls @ 100 mls/hr IV NOW STA Stop: 02/20/19 13:55 Last Infusion: 02/20/19 14:20 Dose: 0 mls/hr Documented by: [id number] Admin: 02/20/19 12:46 Dose: 100 mls/hr Documented by: [id number] Sodium Chloride (Nss) 500 mls @ 999 mls/hr IV .Q31M ONE Stop: 02/20/19 12:53 Last Infusion: 02/20/19 13:41 Dose: 0 mls/hr Documented by: [id number] Admin: 02/20/19 12:47 Dose: 999 mls/hr Documented by: [id number] Potassium Phosphate 9 mmol/ (Sodium Chloride) 253 mls @ 88 mls/hr IV ONE ONE Stop: 02/20/19 15:52 Last Admin: 02/20/19 13:38 Dose: 88 mls/hr Documented by: [id number] Potassium Phosphate (Potassium Phosphate Replace) 9 mmol IV NOW STA Stop: 02/20/19 12:24 Last Admin: 02/20/19 13:39 Dose: Not Given Documented by: [id number] Medical Decision Making Differential Diagnosis Differential diagnosis: Etiologies such as metabolic, infection, hypo/hyperglycemia, electrolyte abnormalities, cardiac sources, intracerebral event, toxicologic, neurologic, as well as others were entertained. Medical Records Attestation: I reviewed the patient's medical records. Home Medications Current Medication List: was personally reviewed by me Laboratory Data Attestation: I reviewed the patient's lab results. Result diagrams: 02/20/19 10:31 02/20/19 10:31 Lab Results 02/20/19 02/20/19 02/20/19 Range/Units 10:31 10:31 10:31 WBC 6.51 (4.8-10.8) K/uL RBC 5.07 (4.7-6.1) M/uL Hgb 15.6 (14.0-18.0) g/dL Hct 44.2 (42-52) % MCV 87.2 (80-100) fL MCH 30.8 (25-34) pg MCHC 35.3 (32-36) g/dL RDW Std Deviation 43.7 (36.4-46.3) fL RDW Coeff of Kady 13.7 (11.5-14.5) % Plt Count 172 (130-400) K/uL MPV 11.0 H (7.4-10.4) fL Immature Gran % (Auto) 0.3 % Neut % (Auto) 89.1 % Lymph % (Auto) 8.1 % [place] % (Auto) 1.8 % Eos % (Auto) 0.5 % Baso % (Auto) 0.2 % Immature Gran # (Auto) 0.02 (0.00-0.02) K/uL Neut # (Auto) 5.80 (1.4-6.5) K/uL Lymph # (Auto) 0.53 L (1.2-3.4) K/uL [place] # (Auto) 0.12 (0.11-0.59) K/uL Eos # (Auto) 0.03 (0-0.5) K/uL Baso # (Auto) 0.01 (0-0.2) K/uL PT 11.9 (9.0-12.0) Seconds INR 1.2 H (0.9-1.1) Sodium 140 (136-145) mmol/L Potassium 3.8 (3.5-5.1) mmol/L Chloride 106 (98-107) mmol/L Carbon Dioxide 25 (21-32) mmol/L Anion Gap 9.0 (3-11) BUN 36 H (7-18) mg/dl Creatinine 1.90 H (0.6-1.4) mg/dl Est Cr Clr Drug Dosing 43.9 ml/min Est GFR ( Amer) 40.8 Est GFR (Non-Af Amer) 35.2 BUN/Creatinine Ratio 18.8 (10-20) Glucose 112 H (70-99) mg/dl Lactate (0.4-2.0) mmol/L Calcium 9.1 (8.5-10.1) mg/dl Phosphorus 1.4 L* (2.5-4.9) mg/dl Magnesium 1.3 L (1.8-2.4) mg/dl Total Bilirubin 1.1 H (0.2-1) mg/dl Direct Bilirubin 0.2 (0-0.2) mg/dl AST 19 (15-37) U/L ALT 18 (12-78) U/L Alkaline Phosphatase 124 H (45-117) U/L Troponin I < 0.015 (0-0.045) ng/ml Total Protein 7.0 (6.4-8.2) gm/dl Albumin 3.6 (3.4-5.0) gm/dl Globulin 3.4 (2.5-4.0) gm/dl Albumin/Globulin Ratio 1.1 (0.9-2) Lipase 218 (73-393) U/L 02/20/19 Range/Units 12:43 WBC (4.8-10.8) K/uL RBC (4.7-6.1) M/uL Hgb (14.0-18.0) g/dL Hct (42-52) % MCV (80-100) fL MCH (25-34) pg MCHC (32-36) g/dL RDW Std Deviation (36.4-46.3) fL RDW Coeff of Kady (11.5-14.5) % Plt Count (130-400) K/uL MPV (7.4-10.4) fL Immature Gran % (Auto) % Neut % (Auto) % Lymph % (Auto) % [place] % (Auto) % Eos % (Auto) % Baso % (Auto) % Immature Gran # (Auto) (0.00-0.02) K/uL Neut # (Auto) (1.4-6.5) K/uL Lymph # (Auto) (1.2-3.4) K/uL [place] # (Auto) (0.11-0.59) K/uL Eos # (Auto) (0-0.5) K/uL Baso # (Auto) (0-0.2) K/uL PT (9.0-12.0) Seconds INR (0.9-1.1) Sodium (136-145) mmol/L Potassium (3.5-5.1) mmol/L Chloride (98-107) mmol/L Carbon Dioxide (21-32) mmol/L Anion Gap (3-11) BUN (7-18) mg/dl Creatinine (0.6-1.4) mg/dl Est Cr Clr Drug Dosing ml/min Est GFR ( Amer) Est GFR (Non-Af Amer) BUN/Creatinine Ratio (10-20) Glucose (70-99) mg/dl Lactate 1.2 (0.4-2.0) mmol/L Calcium (8.5-10.1) mg/dl Phosphorus (2.5-4.9) mg/dl Magnesium (1.8-2.4) mg/dl Total Bilirubin (0.2-1) mg/dl Direct Bilirubin (0-0.2) mg/dl AST (15-37) U/L ALT (12-78) U/L Alkaline Phosphatase (45-117) U/L Troponin I (0-0.045) ng/ml Total Protein (6.4-8.2) gm/dl Albumin (3.4-5.0) gm/dl Globulin (2.5-4.0) gm/dl Albumin/Globulin Ratio (0.9-2) Lipase (73-393) U/L Imaging Data Radiologist's Impression: Radiology results as stated below per my review and the radiologist's interpretation: XR chest 1V portable HISTORY: Atypical Chest Pain COMPARISON: Chest 08/25/2018. Chest CTA 12/25/2017. FINDINGS: Interval development of a right middle lobe airspace opacity. The left lung is clear. The heart is normal in size. There is left-sided dual-chamber pacemaker. No pleural effusions. No pneumothorax. IMPRESSION: A new right middle lobe airspace opacity. This likely represents a pneumonia. 1- 2 month chest x-ray follow-up is recommended to ensure resolution. Electronically signed by: Phillip Lazaro M.D. 02/20/2019 11:38 AM ECG Data Attestation: I personally reviewed and interpreted this ECG as follows: Indication: vomiting Rate (beats per minute): 102 Rhythm: atrial fibrillation (with RVR) Findings: + other (ST and T-wave abnormalities); no ST depression, no ST elevation and no acute ischemic change Comparison ECG Date: from (12/26/2017) Change: no significant change Blood Pressure Blood Pressure Findings: Normal blood pressure MDM Narrative The patient is a pleasant 68-year-old gentleman with pmhx of afib on Eliquis, CKD, HTN who presents emergency department with generalized weakness, nausea, cough, dizziness over the past 24 hours per hpi. On arrival patient is fatigued appearing but no acute distress with low-grade temperature of 37.6 with HR 100s and otherwise stable vital signs. Patient appears clinically dry. Diminished BS right lung [place]. Abd benign. EKG with Afib with nonspecific ST abnormalities that are similar to prior though slightly more pronounced. Chest x-ray with right middle lobe infiltrate. WBC within normal limits. Creatinine 1.9 slightly increased from baseline range of values. Chemistry without acidosis. Lactate wnl. Mg 1.3 and phos 1.4 with repletion provided. Troponin negative. UA negative for infection. Patient with brief hypotension in 80s but fluid responsive with additional IVF hydration with BPs 90s/60s, mentating normally and feeling improved. Given no recent admissions will treat with Levofloxacin at this time. Case was discussed with Sylvia Lopez, who evaluate the patient for admission. Impression & Plan Pneumonia, Hypomagnesemia, Hypophosphatemia Critical Care Time Critical Care Time: Yes Total Critical Care Time: 35 I have personally spent greater than 35 minutes of critical care time in the direct management of this patient. This includes bedside care, interpretation of diagnostic studies, and testing, discussion with consultants, patient, and family members, and other required patient management activities. This 35 minutes is in excess of all separately billable procedures. Discharge Plan Visit Data *Final* Discharge Date/Time: 02/20/19 14:10 Chief Complaint: Illness Stated Complaint: illness ED Provider: Roe Wheeler Discharge Problem: Pneumonia, Hypomagnesemia, Hypophosphatemia Patient Disposition: Admitted As Inpatient Discharge Instructions Interventions: ED Discharge Assessment Last Done: 02/20/19 14:10 Discharge Problem: Pneumonia Qualifiers: Pneumonia type: due to unspecified organism Laterality: right Lung location: middle lobe of lung Qualified Code(s): J18.1 - Lobar pneumonia, unspecified organism The scribe's documentation has been prepared under my direction and personally reviewed by me in its entirety. I confirm that the note above accurately reflects all work, treatment, procedures, and medical decision making performed by me.
[2019-02-20 15:44] LABS: Appearance Urine Clear (Clear); Bilirubin Urine Negative (Negative); Blood Urine Negative (Negative); Color Urine Yellow; Glucose Urine UA Negative (Negative); Ketones Urine Negative (Negative); Leukocyte Esterase Urine Negative (Negative); Nitrite Urine Negative (Negative); Protein Urine Negative (Negative); Specific Gravity Urine 1.022 (1.000-1.030); Urobilinogen Urine Negative (Negative)
[2019-02-20] MEDS: AMPICILLIN/SULBACTAM SOD 3,000 MG in 0.9 % SODIUM CHLORIDE 100 ML IV SCH ×2 (16:21→21:57)
[2019-02-20] MEDS: APIXABAN 5 MG TABLET PO SCH (20:32)
[2019-02-20] MEDS: METOPROLOL TARTRATE 25 MG TAB PO SCH ×2 (20:32→20:38)
[2019-02-20] MEDS ORDERED: SODIUM CHLORIDE 0.9% 500 ML IV SCH (21:45)
[2019-02-21] MEDS: SODIUM CHLORIDE 0.9% 1000ML 1,000 ML IV SCH ×2 (00:13→10:19)
[2019-02-21] MEDS: AMPICILLIN/SULBACTAM SOD 3,000 MG in 0.9 % SODIUM CHLORIDE 100 ML IV SCH ×4 (03:41→21:45)
[2019-02-21] MEDS: LEVOTHYROXINE SODIUM 50 MCG TABLET PO SCH (03:42)
[2019-02-21 07:12] LABS: Hematocrit (blood only) 37.2 % (42-52); Hemoglobin 12.6 g/dL (14.0-18.0); Mean Corpuscular Hgb Conc 33.9 g/dL (32-36); Mean Corpuscular Volume 91.2 fL (80-100); Mean Platelet Volume 10.6 fL (7.4-10.4); Platelet Count 138 K/uL (130-400); Red Blood Count 4.08 M/uL (4.7-6.1); White Blood Count 14.12 K/uL (4.8-10.8)
[2019-02-21 07:38] LABS: BUN Creatinine Ratio 15.9 (10-20); Calcium 8.1 mg/dl (8.5-10.1); Creatinine Clr Calc Pharmacy 47.3 ml/min; Est GFR (African American) 44.7; Est GFR (Non-African American) 38.6; Magnesium 1.8 mg/dl (1.8-2.4); Potassium 3.9 mmol/L (3.5-5.1)
[2019-02-21 07:39] LABS: Phosphorus 2.2 mg/dl (2.5-4.9)
[2019-02-21] MEDS: PANTOprazole 40 MG TAB PO SCH (08:00)
[2019-02-21] MEDS: CYANOCOBALAMIN 500 MCG TABLET (VITAMIN B-12) PO SCH (08:00)
[2019-02-21] MEDS: CHOLECALCIFEROL 1,000 UNITS TAB PO SCH (08:00)
[2019-02-21] MEDS: METOPROLOL TARTRATE 25 MG TAB PO SCH ×2 (08:01→20:21)
[2019-02-21] MEDS: ATORVASTATIN 20 MG TAB PO SCH (08:01)
[2019-02-21] MEDS: ASPIRIN 81 MG ECTAB PO SCH (08:01)
[2019-02-21] MEDS: APIXABAN 5 MG TABLET PO SCH ×2 (08:01→20:21)
[2019-02-21] MEDS: dilTIAZem HCl 60 MG TAB PO SCH (08:01)
--- NOTE | 2019-02-21 13:12 | Hospitalist Progress Note ---
Date of Service February 21, 2019 Assessment & Plan (1) Pneumonia: -Patient presenting from home with reports of fatigue, feeling feverish, cough, N/V -On presentation, low-grade fever at 37.6, tachycardic, borderline low BP; no leukocytosis, lactic acid normals -? Aspiration from vomiting -Afebrile , leucocytosis worsening -Discontinue IVF -Received IV Levaquin in the ED--> On IV Unasyn - Day 2 -Follow blood cultures (2) Hypomagnesemia: (3) Hypophosphatemia: -Likely due to GI losses -Resolving -Monitor (4) CKD (chronic kidney disease), stage IV: -Baseline creatinine ~ 1.6-1.7, Near baseline -Slightly elevated at 1.9 on admission, could be sec to vomiting, trending down -Discontinue IVF -Monitor (5) Hypertension: -BP borderline low however improved after IVF -Continue home doses of diltiazem and metoprolol with holding parameters in place (6) Atrial fibrillation: -Rate controlled on metoprolol and diltiazem, continue both -Anticoagulated on Eliquis, will continue (7) Tachy-dario syndrome: (8) Pacemaker: -No acute issues (9) GERD (gastroesophageal reflux disease): -Continue PPI (10) DVT prophylaxis: -Anticoagulated on Eliquis DISPOSITION Likely discharge in AM Subjective Patient is feeling much better and eager to be discharged. Denies any chest pain, sob, cough, fever, chills. Not hypoxic Physical Exam Physical Exam: GENERAL- AAOX3, No acute distress LUNGS- Air entry decreased on right side. Rhonchi + HEART- Regular rate and rhythm. No murmurs EXTREMITIES- Good peripheral pulses, no edema NEUROMUSCULAR- AAOX3, Grossly no focal deficits SKIN- No rashes Results & Data Vital Signs (Past 12 Hours) Vital Signs Temp Pulse Pulse Resp BP Pulse Ox 02/21/19 08:00 36.5 C 107 H 16 113/89 96 02/21/19 07:55 81 118/82 (1) Pneumonia Laterality: right Lung location: middle lobe of lung Pneumonia type: due to unspecified organism Qualified Code(s): J18.1 - Lobar pneumonia, unspecified organism
[2019-02-22] MEDS: AMPICILLIN/SULBACTAM SOD 3,000 MG in 0.9 % SODIUM CHLORIDE 100 ML IV SCH ×2 (04:15→09:28)
[2019-02-22] MEDS: LEVOTHYROXINE SODIUM 50 MCG TABLET PO SCH (04:15)
[2019-02-22] MEDS: CYANOCOBALAMIN 500 MCG TABLET (VITAMIN B-12) PO SCH (09:25)
[2019-02-22] MEDS: ATORVASTATIN 20 MG TAB PO SCH (09:25)
[2019-02-22] MEDS: CHOLECALCIFEROL 1,000 UNITS TAB PO SCH (09:25)
[2019-02-22] MEDS: ASPIRIN 81 MG ECTAB PO SCH (09:26)
[2019-02-22] MEDS: dilTIAZem HCl 60 MG TAB PO SCH (09:26)
[2019-02-22] MEDS: APIXABAN 5 MG TABLET PO SCH (09:26)
[2019-02-22] MEDS: PANTOprazole 40 MG TAB PO SCH (09:26)
[2019-02-22] MEDS: METOPROLOL TARTRATE 25 MG TAB PO SCH (09:26)
[2019-02-22 10:07] LABS: Hemoglobin 12.8 g/dL (14.0-18.0); Mean Corpuscular Volume 89.8 fL (80-100); Mean Platelet Volume 10.4 fL (7.4-10.4); Platelet Count 136 K/uL (130-400); RDW Coefficient of Variation 13.9 % (11.5-14.5); RDW Standard Deviation 45.9 fL (36.4-46.3); Red Blood Count 4.12 M/uL (4.7-6.1); White Blood Count 9.46 K/uL (4.8-10.8)
[2019-02-22 10:23] LABS: BUN Creatinine Ratio 14.5 (10-20); Calcium 8.7 mg/dl (8.5-10.1); Creatinine Clr Calc Pharmacy 51.1 ml/min; Est GFR (African American) 49.1; Est GFR (Non-African American) 42.4; Potassium 3.8 mmol/L (3.5-5.1)
[2019-02-22 10:29] LABS: Mean Corpuscular Hgb Conc 34.6 g/dL (32-36)
--- NOTE | 2019-02-22 12:58 | Hospitalist Progress Note ---
Date of Service February 22, 2019 Assessment & Plan (1) Pneumonia: CXR:A new right middle lobe airspace opacity. This likely represents a pneumonia. 1-2 month chest x-ray follow-up is recommended to ensure resolution. Could have aspirated from vomiting Blood Cultures: No growth to date leucocytosis resolved Received IV fluids Clinically improved Advised repeat chest x-ray in 1 to 2 months to ensure resolution of Pneumonia (2) Hypomagnesemia: (3) Hypophosphatemia: Likely due to GI losses Monitor and replace as needed (4) CKD (chronic kidney disease), stage IV: Baseline Cr: ~ 1.6-1.7 Cr at baseline Monitor renal function (5) Hypertension: BP borderline low which improved with IVF Continue diltiazem, metoprolol with holding parameters (6) Atrial fibrillation: Rate controlled Continue metoprolol,diltiazem On Eliquis for anticoagulation (7) Tachy-dario syndrome: (8) Pacemaker: No acute issues (9) GERD (gastroesophageal reflux disease): Continue PPI (10) DVT prophylaxis: On Eliquis DISPOSITION Plan to discharge home today Subjective Patient is seen and examined at bedside Less cough with minimal expectoration Denies any chest pain, shortness of breath, dizziness, nausea, abdominal pain Eager to get discharged Leukocytosis normalized Review of Systems Review of Systems: All systems reviewed & are unremarkable except as noted in HPI & below Physical Exam Physical Exam: Physical Exam: Vitals signs as noted above General Appearance:Moderately built and nourished, no apparent distress Head: normocephalic, Atraumatic Eyes: normal inspection, EOMI Neck: supple, Trachea midline Respiratory/Chest: Mild decreased breath sounds on right side, CTA Cardiovascular: S1, S2, No murmur Abdomen/GI:Soft, Non tender, Bowel sounds present Extremities/Musculoskelatal:normal inspection, no edema Neurologic/Psych:AAOX3, grossly no focal neurological deficits Skin: normal color, warm Results & Data Vital Signs (Past 12 Hours) Vital Signs Temp Pulse Pulse Resp BP Pulse Ox 02/22/19 09:23 104 H 107/73 02/22/19 07:02 36.7 C 61 16 184/95 H 95 02/22/19 06:58 36.9 C 97 H 16 122/84 93 Laboratory Results Short CBC 02/22/19 Range/Units 09:53 WBC 9.46 (4.8-10.8) K/uL Hgb 12.8 L (14.0-18.0) g/dL Hct 37.0 L (42-52) % Plt Count 136 (130-400) K/uL [facility] 02/22/19 09:53 Sodium 141 Potassium 3.8 Chloride 109 H Carbon Dioxide 25 BUN 24 H Creatinine 1.63 H Glucose 136 H Calcium 8.7 (1) Pneumonia Laterality: right Lung location: middle lobe of lung Pneumonia type: due to unspecified organism Qualified Code(s): J18.1 - Lobar pneumonia, unspecified organism
--- NOTE | 2019-02-22 13:04 | Discharge Summary ---
Date of Service February 22, 2019 Admission HPI Per Admitting Provider 68-year-old male who presents to the ED with fever and generally not feeling well. Patient reports he has not felt well for about the past 1 month. He reports feeling intermittently feverish however has not been monitoring his temperature. He has had increased fatigue. He has had a nonproductive cough. Patient reports he woke up around 4 AM and felt very nauseous and had a few episodes of vomiting. He denies hematemesis or coffee-ground emesis. No abdominal pain or diarrhea. Patient denies chest pain shortness of breath. No lightheadedness, dizziness, diaphoresis, syncopal events. He denies any urinary symptoms. In the ED, patient had a low-grade fever at 37.6, tachycardic HR 110s, BP borderline low, no leukocytosis, lactic acid normal. Hypomagnesemia (1.3) and hypophosphatemia (1.4) are also noted. CXR shows a right middle lobe opacity suggestive of pneumonia. Patient was given IV famotidine, IV Levaquin, IV magnesium and phosphorus replacement, IVF, IV prochlorperazine. Admission Exam Per Admitting Provider Constitutional: WD/WN, vitals as above Eyes: PERRL, conjunctivae normal, anicteric sclerae ENMT: external ear and nose normal, oropharynx normal Respiratory: normal respiratory effort; no respiratory distress Auscultation: + crackles (Mid-lower right lung duque) Cardiovascular: Rate/Rhythm: + tachycardic and + irregularly irregular Vessels: normal peripheral pulses Extremities: no edema Gastrointestinal (Abdomen): normal bowel sounds, soft, nontender, no hepatosplenomegaly Musculoskeletal: no cyanosis or clubbing, extremities motor strength 5/5 Skin: no rashes, warm and dry Neurologic: PERRL, EOMI, accommodation nl, no face palsy, no dysarthria Psychiatric: A+Ox3, euthymic affect Principal Diagnosis Discharge Information Discharge Diagnosis Pneumonia Discharge Goals Decrease discomfort,Improve function,Improve disease control Discharge Activity Limitations Resume your previous actiVITY Discharge Data Allergies Allergy/AdvReac Type Severity Reaction Status Date / Time No Known Allergies Allergy Verified 02/20/19 11:49 Consultations 02/20/19 12:28 ED Decision to Admit Stat Procedures Performed cxr: A new right middle lobe airspace opacity. This likely represents a pneumonia. 1- 2 month chest x-ray follow-up is recommended to ensure resolution. Hospital Course (1) Pneumonia: CXR:A new right middle lobe airspace opacity. This likely represents a pneumonia. 1-2 month chest x-ray follow-up is recommended to ensure resolution. Could have aspirated from vomiting Blood Cultures: No growth to date leucocytosis resolved Received IV fluids Clinically improved Advised repeat chest x-ray in 1 to 2 months to ensure resolution of Pneumonia (2) Hypomagnesemia: (3) Hypophosphatemia: Likely due to GI losses Monitor and replace as needed (4) CKD (chronic kidney disease), stage IV: Baseline Cr: ~ 1.6-1.7 Cr at baseline Monitor renal function (5) Hypertension: BP borderline low which improved with IVF Continue diltiazem, metoprolol with holding parameters (6) Atrial fibrillation: Rate controlled Continue metoprolol,diltiazem On Eliquis for anticoagulation (7) Tachy-dario syndrome: (8) Pacemaker: No acute issues (9) GERD (gastroesophageal reflux disease): Continue PPI (10) DVT prophylaxis: On Eliquis DISPOSITION Plan to discharge home today Total Time Total Time Spent Total Time Spent (In Minutes): 38 MINUTES Discharge Plan Discharge Items Patient Disposition: Home - Self-Care Reason For Visit: PNEUMONIA Discharge Diagnosis: Pneumonia Discharge Goals: Decrease discomfort, Improve disease control and Improve function Activity: Resume your previous activity Exercise/Sports: Gradually increase as tolerated Non-emergency contact: Primary Care Provider Call non-emergency contact if: you have any medication questions, your symptoms worsen, your pain is not controlled, your pain is worsening, your pain is unusual for you, your pain is concerning for you and you have a fever Follow-up/Referrals: Sage Spann M.D. [Primary Care Provider] - Diet: Heart Healthy Add Provider Instructions: Follow-up with your primary care physician Dr. Spann in 1 week as advised Complete the antibiotic course as prescribed Your blood cultures are currently pending at the time of discharge, follow-up with your physician for results. Get repeat chest x-ray in 1 to 2 months to ensure resolution of Pneumonia Prescriptions: New amoxicillin-pot clavulanate [Augmentin] 875-125 mg tablet 1 tab PO BID 7 Days Qty: 14 RF: 0 Continued aspirin [Aspirin Low Dose] 81 mg Tablet,Delayed Release (Dr/Ec) 81 mg PO DAILY RF: 0 levothyroxine 50 mcg Tablet 50 mcg PO DAILY RF: 0 omeprazole 20 mg Capsule,Delayed Release(Dr/Ec) 20 mg PO DAILY RF: 0 cholecalciferol (vitamin D3) [Vitamin D3] 1,000 unit Capsule 1,000 unit PO DAILY RF: 0 apixaban 5 mg Tablet 5 mg PO BID RF: 0 atorvastatin 20 mg tablet 20 mg PO DAILY RF: 0 cyanocobalamin (vitamin B-12) 500 mcg Tablet 500 mcg PO DAILY RF: 0 metoprolol tartrate 50 mg tablet 75 mg PO BID RF: 0 diltiazem HCl 60 mg tablet 120 mg PO DAILY RF: 0 Stand-Alone Forms: [employer] Interactive/Other Patient Handouts: Hypertension Control, Tips Using Less Salt, Choices Low Salt, Pneumonia, DASH Plan Eat Heart Healthy Food, Hypertension Dc, Pneumonia Dc, Diet Low Salt Dc, Foods Heart Healthy Discharge Orders: Discharge Order (Routine); Ordered 02/22/19 Ordered By: Shahab Shanks Admission Data Admit Date/Time: 02/20/19 13:42 Attending Provider: Shahab Shanks Admit Provider: Alonzo Welch Primary Care Provider: Sage Spann Other Providers: Sage Jason ; Hyun Hernadez Service: Medical Other Interventions: Discharge Summary Assessment (RN) Last Done: 02/22/19 13:25 Pending Studies at Discharge: Yes Studies:: Blood cultures DC Date/Time DO NOT enter until pt leaves facility: 02/22/19 13:52
== END 2019-02-22 13:52 | disposition home or self-care (01) | DRG 178 ==
LOC: ED 10:47 → SUATTDRO 13:42 → 3N 13:42

== ENCOUNTER 2019-06-27 13:50 | Inpatient (IN) ==
[2019-06-27] MEDS ORDERED: PIPERACILL/TAZOBAC CONSULT ACTIVE PRN (14:34)
[2019-06-27] MEDS ORDERED: PIPERACILLIN/TAZOBACTAM 4.5 GM/120 ML BAG IV ONE (14:34)
[2019-06-27 14:40] LABS: Basophils # (auto) 0.02 K/uL (0-0.2); Basophils % (auto) 0.4 %; Eosinophils # (auto) 0.17 K/uL (0-0.5); Eosinophils % (auto) 3.7 %; Hematocrit (blood only) 43.5 % (42-52); Hemoglobin 14.5 g/dL (14.0-18.0); Immature Granulocytes # (auto) 0.01 K/uL (0.00-0.02); Immature Granulocytes % (auto) 0.2 %; Lymphocytes # (auto) 1.54 K/uL (1.2-3.4); Lymphocytes % (auto) 33.8 %; Mean Corpuscular Hemoglobin 29.7 pg (25-34); Mean Corpuscular Hgb Conc 33.3 g/dL (32-36); Mean Platelet Volume 10.5 fL (7.4-10.4); Monocytes # (auto) 0.47 K/uL (0.11-0.59); Monocytes % (auto) 10.3 %; Neutrophils # (auto) 2.34 K/uL (1.4-6.5); Neutrophils % (auto) 51.6 %; Platelet Count 172 K/uL (130-400); RDW Coefficient of Variation 14.3 % (11.5-14.5); RDW Standard Deviation 46.7 fL (36.4-46.3); Red Blood Count 4.89 M/uL (4.7-6.1); White Blood Count 4.55 K/uL (4.8-10.8)
[2019-06-27 14:57] LABS: Albumin Level 3.4 gm/dl (3.4-5.0); BUN Creatinine Ratio 17.3 (10-20); Calcium 9.4 mg/dl (8.5-10.1); Creatinine Clr Calc Pharmacy 50.7 ml/min; Est GFR (African American) 49.1; Est GFR (Non-African American) 42.4; Potassium 4.5 mmol/L (3.5-5.1)
[2019-06-27 15:00] LABS: Bilirubin,Total 1.1 mg/dl (0.2-1); Globulin 3.5 gm/dl (2.5-4.0); Total Protein 6.9 gm/dl (6.4-8.2)
--- NOTE | 2019-06-27 15:23 | Surgery Consultation ---
Date of Consultation June 27, 2019 Assessment & Plan (1) Pneumatosis of intestines: He does not have any acute abdominal findings, vitals and CBC are normal. CT report from [facility] indicates pneumatosis of small bowel loop in the pelvis with few tiny foci of peritoneal air. Will review the CT with radiology when it is available. No plans for surgical intervention, can be observed by medical service and evaluated by GI. History of Present Illness History of Present Illness 69 y/o male 2 yr s/p endovascular repair of AAA at [facility] had routine CT yesterday and referred to the ED today for possible small bowel perforation. He denies recent abdominal pain, N/V, fevers or chills, anorexia. He has had "thick" BMs that are darker and less frequent than normal for some time and an occasional feelings of indigestion. Has not had recent colonoscopy. Allergies Allergy/AdvReac Type Severity Reaction Status Date / Time [id number]-[id number] Reductase Allergy Verified 06/27/19 16:19 Inhibitor Home Medications Home Medications Medication Instructions Recorded Confirmed Type aspirin 81 mg tablet,delayed 81 mg PO DAILY tab 03/16/19 06/27/19 History release cholecalciferol (vitamin D3) 25 1,000 unit PO DAILY cap 03/16/19 06/27/19 History mcg (1,000 unit) capsule cyanocobalamin (vitamin B-12) 500 500 mcg PO DAILY tab 03/16/19 06/27/19 History mcg tablet omeprazole 20 mg capsule,delayed 20 mg PO DAILY cap 03/16/19 06/27/19 History release diltiazem HCl 120 mg tablet 120 mg PO DAILY tab 03/28/19 06/27/19 History apixaban [Eliquis] 5 mg PO BID 06/27/19 06/27/19 History atorvastatin 10 mg PO DAILY 06/27/19 06/27/19 History levothyroxine 25 mcg PO DAILYBB 06/27/19 06/27/19 History metoprolol tartrate 50 mg PO BID 06/27/19 06/27/19 History Patient History Medical History Atrial fibrillation (Chronic) CKD (chronic kidney disease), stage IV (Chronic) GERD (gastroesophageal reflux disease) (Chronic) Hyperlipidemia (Chronic) Hypertension (Chronic) Hypothyroidism (Chronic) Pacemaker (Chronic) Tachy-dario syndrome (Chronic) Surgical History Hx of cholecystectomy (Chronic) S/P AAA repair (Chronic) Family History Mother Hypertension Stroke Father Myocardial infarction, Onset Age: 51 Social History Preferred Language: Kazakh Communication Ability: Effective Manager Acquisition Required: No Beliefs That Will Affect Care: None marital status: Current Living Situation: Spouse current occupational status: employed Other Information That Helps Us Care for You: No Feels Safe at Home: Yes Safety Concerns: Feels Safe At This Time Smoking Status: Never smoker Second Hand Exposure: No ; Hx Alcohol Use: No Hx Substance Use: No Review of Systems Constitutional: no fever, no chills, no sweats, no malaise and no anorexia Gastrointestinal: + change in bowel habits; no abdominal pain, no bloating, no early satiety, no nausea, no vomiting, no hematemesis, no dysphagia, no blood in stools and no melena Physical Exam Constitutional: WD/WN, vitals as above Respiratory: normal respiratory effort, lungs clear to auscultation Cardiovascular: RRR, no murmur, no edema Gastrointestinal (Abdomen): Inspection/Auscultation: abdomen normal to inspection and + abdominal surgical scar (RUQ); abdomen not distended Percussion/Palpation: abdomen soft; abdomen nontender Results & Data Vital Signs (Past 12 Hours) Vital Signs Temp Pulse Resp BP Pulse Ox 06/27/19 14:19 96 06/27/19 13:52 36.4 C L 65 18 137/97 96 PG Care Time/CCT Total # of Minutes Spent Total Time Spent with Patient: Total time spent is greater than 50% in coordination of care (as documented) at patient's floor/unit and/or counseling patient:
--- NOTE | 2019-06-27 15:57 | History & Physical Report ---
Date of Service June 27, 2019 Assessment & Plan (1) Pneumatosis of intestines: Recent incidental finding on CT imaging of intraperitoneal free air. General surgery has seen him and in light of his normal exam and asymptomatic state, no procedure is planned at this time. We will continue Eliquis and aspirin. Will allow him to eat as tolerated. With recent stool changes and a gassy state, will continue to watch him overnight for serial abdominal exams and for any decompensation and will have gastroenterology see him in the morning. ABG, blood cultures, lactate are pending and expected to be normal. We will continue Zosyn for antibiotic prophylaxis but expect that this will either be discontinued altogether or downgraded to Flagyl or other antibiotic he can go home on pending follow-up imaging in 1 to 3 months to ensure resolution of imaging findings. Will defer this decision to gastroenterology when they see him. I did discuss the case with both general surgery on-call at [facility] and Dr. Alanis from vascular surgery in [facility]. (2) Hypertension: At goal, continue home regimen including diltiazem 120 mg daily, Lopressor 50 mg p.o. twice daily. (3) CKD (chronic kidney disease), stage IV: At baseline kidney function. Renally dose meds as appropriate and continue to avoid nephrotoxic substances. Low potassium diet ordered. (4) Hypothyroidism: Continue home regimen of Synthroid (5) Atrial fibrillation: Chronic, continue rate control with diltiazem and metoprolol as above. Continue Eliquis. (6) S/P AAA repair: [facility] in 2017, patient needs follow-up with vascular surgery upon discharge. (7) DVT prophylaxis: Eliquis Full code Disposition-likely to home once cleared by gastroenterology Inés Swenson DO [facility] History of Present Illness Chief Complaint: Abnormal CT finding Primary Care Provider: NO PCP The patient is a 69-year-old man who is status post EVAR in [address] scan in preparation for vascular follow-up. He has not been compliant with his q6-month follow-up and was last seen July 2017. The CT scan revealed evidence of pneumatosis intestinalis with possible small bowel perforation. The patient however is asymptomatic aside from a thick pasty bowel for the last 2 days and extensive bloating and gas. He denies any nausea vomiting or issues with tolerating p.o. He denies any fevers, chills, abdominal pain, chest pain, shortness of breath respiratory symptoms or any other issues at this point. I did contact his vascular surgeon in [place] and apprised her of his normal appearance and current lab studies and work-up. She agreed with baseline lactate, ABG and blood cultures as well as GI consultation. I spoke with the general surgery team who feel that at this point there is no need for an upcoming procedure, and we will continue his blood thinners. Allergies Allergy/AdvReac Type Severity Reaction Status Date / Time Zqdizni-Gkn-Kwo Reductase Allergy Verified 06/27/19 16:19 Inhibitor Home Medications Home Medications Medication Instructions Recorded Confirmed Type aspirin 81 mg tablet,delayed 81 mg PO DAILY tab 03/16/19 06/27/19 History release cholecalciferol (vitamin D3) 25 1,000 unit PO DAILY cap 03/16/19 06/27/19 History mcg (1,000 unit) capsule cyanocobalamin (vitamin B-12) 500 500 mcg PO DAILY tab 03/16/19 06/27/19 History mcg tablet omeprazole 20 mg capsule,delayed 20 mg PO DAILY cap 03/16/19 06/27/19 History release diltiazem HCl 120 mg tablet 120 mg PO DAILY tab 03/28/19 06/27/19 History apixaban [Eliquis] 5 mg PO BID 06/27/19 06/27/19 History atorvastatin 10 mg PO DAILY 06/27/19 06/27/19 History levothyroxine 25 mcg PO DAILYBB 06/27/19 06/27/19 History metoprolol tartrate 50 mg PO BID 06/27/19 06/27/19 History Past Med/Surg History Medical History Atrial fibrillation (Chronic) CKD (chronic kidney disease), stage IV (Chronic) GERD (gastroesophageal reflux disease) (Chronic) Hyperlipidemia (Chronic) Hypertension (Chronic) Hypothyroidism (Chronic) Pacemaker (Chronic) Tachy-dario syndrome (Chronic) Surgical History Hx of cholecystectomy (Chronic) S/P AAA repair (Chronic) Family History Mother Hypertension Stroke Father Myocardial infarction, Onset Age: 51 Social History Preferred Language: Tristanian Communication Ability: Effective Setter Induction Heating Equipment Required: No Beliefs That Will Affect Care: None marital status: Current Living Situation: Spouse current occupational status: employed Other Information That Helps Us Care for You: No Feels Safe at Home: Yes Safety Concerns: Feels Safe At This Time Smoking Status: Never smoker Second Hand Exposure: No ; Hx Alcohol Use: No Hx Substance Use: No Review of Systems Review of Systems: All systems reviewed & are unremarkable except as noted in HPI & below Physical Exam Physical Exam: CONSTITUTIONAL: WNWD, vitals as above, generally well- appearing EYES: EOMI bilaterally, PERRL, normal conjunctivae, no scleral icterus ENT: MMM NECK: trachea midline, no lymphadenopathy RESPIRATORY: clear to auscultation bilaterally, no crackles, rales or wheezes, normal respiratory effort CARDIOVASCULAR: regular rate and rhythm, S1 and 2 heard without murmurs, gallops or rubs, no JVD, no peripheral edema GASTROINTESTINAL: soft, nontender, nondistended, no guarding. MUSCULOSKELETAL: strength 5/5 throughout, head is normocephalic and atraumatic SKIN: warm and dry NEUROLOGIC: CN 2-12 grossly intact, no sensory deficit, normal cognition, normal speech, no gross focal deficits. PSYCHIATRIC: alert cooperative and oriented to person, place and time. Results & Data Vital Signs (Past 12 Hours) Vital Signs Temp Pulse Resp BP Pulse Ox 06/27/19 15:30 61 18 95 06/27/19 15:20 63 19 94 06/27/19 15:18 63 22 123/73 95 06/27/19 15:10 65 20 06/27/19 15:06 63 20 06/27/19 14:19 96 06/27/19 13:52 36.4 C L 65 18 137/97 96 Laboratory Results Short CBC 06/27/19 06/27/19 Range/Units 14:25 14:25 WBC 4.55 L (4.8-10.8) K/uL Hgb 14.5 (14.0-18.0) g/dL Hct 43.5 (42-52) % Plt Count 172 (130-400) K/uL Creatinine 1.62 H (0.6-1.4) mg/dl BMP 06/27/19 14:25 Sodium 142 Potassium 4.5 Chloride 107 Carbon Dioxide 31 BUN 28 H Creatinine 1.62 H Glucose 96 Calcium 9.4 Liver Function 06/27/19 Range/Units 14:25 Total Bilirubin 1.1 H (0.2-1) mg/dl AST 20 (15-37) U/L ALT 19 (12-78) U/L Alkaline Phosphatase 119 H (45-117) U/L Albumin 3.4 (3.4-5.0) gm/dl Diagnostic Findings CT ABD/PEL w/ IV and PO contrast (06/26): ANGIOGRAPHIC FINDINGS: THORACIC AORTA: Minimal atherosclerotic vascular calcification. ABDOMINAL AORTA: Status post aorto bi-iliac stent graft placement. Limited evaluation for patency due to the lack of contrast. Redemonstration of aneurysmal dilation of the [place] aorta with maximum caliber of 5.2 x 6.2 cm, previously 5.3 x 6 cm. No significant interval change when compared to previous study. Mild calcific plaque at the origin of the celiac and superior mesenteric arteries with mild progression involving the superior mesenteric artery. Mild atherosclerotic changes in the iliac arteries. LOWER CHEST: HEART(visualized): Trace pericardial effusion. Aortic annular calcification. Coronary calcification. Partially visualized pacer leads. LUNG BASES: Minimal basilar atelectasis. ABDOMEN/PELVIS: LINES AND DEVICES: None LIVER: Hepatic cysts. Too small to characterize hypodensities are also likely tiny cysts. BILE DUCTS: Unremarkable GALLBLADDER: Cholecystectomy. PANCREAS: Unremarkable SPLEEN: Unremarkable ADRENALS: Stable right adrenal myelolipoma. Left adrenal is within normal limits. KIDNEYS/URETERS: Unremarkable BLADDER: Partially distended limiting assessment. BOWEL: Sigmoid diverticulosis. Duodenal diverticula. Findings concerning for pneumatosis involving a small bowel loop in the pelvis on image 295 of series 3. A few tiny foci of peritoneal air concerning for perforation. LYMPH NODES: Unremarkable VESSELS: Atherosclerotic calcifications. REPRODUCTIVE ORGANS: Prostate size in the upper limits of normal range. PERITONEUM/RETROPERITONEUM: Unremarkable ABDOMINAL WALL/SOFT TISSUES: Small fat containing inguinal hernias. BONES: Degenerative osseous changes. Redemonstration of internal fixation hardware in the proximal right femur. IMPRESSION 1. Status post aorta bi-iliac stent graft placement. No significant interval change in the size of [place] aneurysmal sac diameter. No evidence of grass stent migration. 2. Additional findings as described above. ADDENDUM: Findings suggesting pneumatosis in a small bowel loop in the pelvis with trace peritoneal air concerning for ischemic bowel and perforation. .VASCULAR LAB RESULTS DATE OF EXAMINATION: 06/26/19 INDICATION: s/p EVAR This is an interpretation of an exam performed at the [facility]. AORTIC STENT GRAFT DUPLEX EXAMINATION Immediately before proceeding with the vascular lab procedure reported below, the identity of the patient, the correct exam and the correct procedural site were identified. Color flow Doppler and spectral analysis techniques were applied during this ultrasound image examination. The proximal aorta is patent with a velocity of 0.48 m/sec and a diameter of 2.3 cm by 2.3 cm. The proximal aortic graft located in the mid-aorta is patent with a velocity of 0.28 m/sec and a maximum aortic aneurysm sac diameter of 3.9 cm by 4.0 cm. The distal aorta patent with a velocity of 5.4 m/sec and a maximum aortic aneurysm sac diameter of 5.4 cm by 5.4 cm. The right iliac graft limb is patent with a velocity of 0.58 m/sec at the distal stent. The maximum diameter of the right limb is 1.6 cm by 1.6 cm. The right external iliac artery has a velocity of 0.63 m/sec with a triphasic waveform. The left iliac graft limb is patent with a velocity of 0.56 m/sec at the distal stent. The maximum diameter of the left limb is 1.5 cm by 1.5 cm. The left external iliac artery has a velocity of 0.56 m/sec with a triphasic waveform. The aneurysm sac has a maximum transverse dimension of 5.4 cm by 5.4 cm. The aneurysm sac has no color flow within its lumen indicating no evidence of an aneurysm. CONCLUSIONS: 5.4 cm by 5.4 cm aortic aneurysm sac surrounding an abdominal aortic stent graft. Patent abdominal aortic stent graft and stent graft limbs. No evidence of endoleak by color flow duplex in the aneurysm sac.
--- NOTE | 2019-06-27 16:27 | Emergency Department Note ---
Entered by Evita Rodney acting as a scribe for History of Present Illness General Chief complaint: Abnormal Labs/Diagnostic Testing Stated complaint: ABNORMAL CT OF ABD, POSSIBLE HOLE IN INTESTINES Source: patient Mode of arrival: ambulatory Limitations: no limitations History of Present Illness Provider complaint: Abnormal imaging Onset (ago): hour(s) (today) Pain Consistency: + other (episode) Quality: + other (abnormal imaging) Associated symptoms: + other (Additional symptoms: diarrhea. Denies: abdominal pain, urinary symptoms); no chest pain and no nausea/vomiting Treatments prior to arrival: none The patient is a 69 year old male with a history of an aortic aneurysm, cholecystectomy, atrial fibrillation, CKD, GERD, hyperlipidemia, hypertension, hypothyroidism, a pacemaker, and tachy-dario syndrome who presents to the Emergency Room with complaints of an episode of abnormal imaging occurring today. The patient reports that he had a US and CT done at [facility] as part of a routine check up on his stented aortic aneurysm. He states that his vascular surgeon called him back and noted that he might have a "hole in his intestine." He notes that he was referred to the ED for further evaluation. The patient currently complains of diarrhea and increased gas over the past few days but denies any abdominal pain, nausea, vomiting, urinary symptoms, and chest pain. Home Medications Home Medications Medication Instructions Recorded Confirmed Type aspirin 81 mg tablet,delayed 81 mg PO DAILY tab 03/16/19 06/27/19 History release cholecalciferol (vitamin D3) 25 1,000 unit PO DAILY cap 03/16/19 06/27/19 History mcg (1,000 unit) capsule cyanocobalamin (vitamin B-12) 500 500 mcg PO DAILY tab 03/16/19 06/27/19 History mcg tablet omeprazole 20 mg capsule,delayed 20 mg PO DAILY cap 03/16/19 06/27/19 History release diltiazem HCl 120 mg tablet 120 mg PO DAILY tab 03/28/19 06/27/19 History apixaban [Eliquis] 5 mg PO BID 06/27/19 06/27/19 History atorvastatin 10 mg PO DAILY 06/27/19 06/27/19 History levothyroxine 25 mcg PO DAILYBB 06/27/19 06/27/19 History metoprolol tartrate 50 mg PO BID 06/27/19 06/27/19 History Allergies Allergy/AdvReac Type Severity Reaction Status Date / Time Fdluwuy-Dbb-Rfo Reductase Allergy Verified 06/27/19 16:19 Inhibitor Past Med/Surg History Medical History Atrial fibrillation (Chronic) CKD (chronic kidney disease), stage IV (Chronic) GERD (gastroesophageal reflux disease) (Chronic) Hyperlipidemia (Chronic) Hypertension (Chronic) Hypothyroidism (Chronic) Pacemaker (Chronic) Tachy-dario syndrome (Chronic) Surgical History Hx of cholecystectomy (Chronic) S/P AAA repair (Chronic) Family History Mother Hypertension Stroke Father Myocardial infarction, Onset Age: 51 Social History Preferred Language: French Communication Ability: Effective 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 and A total of 10 systems reviewed and were otherwise negative Physical Exam Vital Signs Vital Signs - 24 hr 06/27/19 13:52 06/27/19 14:19 06/27/19 15:06 Temperature 36.4 C L Temperature Source Oral Pulse Rate 65 63 Pulse Rate from SpO2 Sensor Respiratory Rate 18 20 Blood Pressure 137/97 Blood Pressure Mean 110 Pulse Oximetry 96 96 Oxygen Delivery Method Room Air Sepsis Recent Fever Within 48 Hours No Sepsis Action Taken by Nursing No Action Required 06/27/19 15:10 06/27/19 15:18 06/27/19 15:20 Temperature Temperature Source Pulse Rate 65 63 63 Pulse Rate from SpO2 Sensor 62 64 Respiratory Rate 20 22 19 Blood Pressure 123/73 Blood Pressure Mean 85 Pulse Oximetry 95 94 Oxygen Delivery Method Room Air Sepsis Recent Fever Within 48 Hours Sepsis Action Taken by Nursing 06/27/19 15:30 06/27/19 15:40 06/27/19 15:50 Temperature Temperature Source Pulse Rate 61 61 60 Pulse Rate from SpO2 Sensor 61 60 61 Respiratory Rate 18 21 14 Blood Pressure Blood Pressure Mean Pulse Oximetry 95 95 95 Oxygen Delivery Method Sepsis Recent Fever Within 48 Hours Sepsis Action Taken by Nursing 06/27/19 16:00 06/27/19 16:01 06/27/19 16:10 Temperature Temperature Source Pulse Rate 60 60 60 Pulse Rate from SpO2 Sensor 63 60 60 Respiratory Rate 15 18 19 Blood Pressure 117/87 Blood Pressure Mean 95 Pulse Oximetry 97 97 93 Oxygen Delivery Method Sepsis Recent Fever Within 48 Hours Sepsis Action Taken by Nursing GENERAL: Sitting up in bed, disheveled, no distress, non-toxic EYE EXAM: normal conjunctiva OROPHARYNX: no exudate, no erythema, lips, buccal mucosa, and tongue normal and mucous membranes are moist NECK: supple, no nuchal rigidity, no adenopathy, non-tender LUNGS: Clear to auscultation. Normal chest wall mechanics HEART: no murmurs, S1 normal and S2 normal ABDOMEN: abdomen soft, non-tender, normo-active bowel sounds, no masses, no rebound or guarding. BACK: Back is symmetrical on inspection and there is no deformity, no midline tenderness, no CVA tenderness. SKIN: no rashes and no bruising UPPER EXTREMITIES: upper extremities are grossly normal. LOWER EXTREMITIES: No pitting edema. NEURO EXAM: Normal sensorium, cranial nerves II-XII grossly intact, normal speech, no gross weakness of arms, no gross weakness of legs. Gross sensation intact. Course Course ED COURSE: Vital signs were reviewed and showed situational hypertension. The patients medical record was reviewed The above diagnostic studies were performed and reviewed. ED treatments and interventions as stated above. 1405: The patient was evaluated in room B11A. A complete history and physical examination was performed. 1434: I reviewed the patient's case with Sylvia Christine PA-C. Waldo recommends admission to hospitalist and consult with GI. 1534: I reviewed the patient's case with Sylvia Bai PA-C. Dr. Swenson - Sylvia Ellsworth will evaluate the patient for further management. The hospitalist will follow up with GI. Based on the patients age, coexisting illnesses, exam and lab findings the decision to treat as an inpatient was made. The patient remained stable while under my care. The patient will be evaluated for further management. Consultations Consultation #1: I reviewed the patient's case with Sylvia Christine PA-C. Waldo recommends admission to hospitalist and consult with GI. Time: 14:34 Consultation #2: I reviewed the patient's case with Sylvia Bai PA-C. Dr. Swenson - Sylvia Ellsworth will evaluate the patient for further management. The hospitalist will follow up with GI. Time: 15:34 Administered Medications Discontinued Medications Piperacillin Sod/Tazobactam Sod (Zosyn) 4.5 gm in 120 mls @ 240 mls/hr IV NOW ONE; Protocol Stop: 06/27/19 15:03 Last Infusion: 06/27/19 15:49 Dose: 0 mls/hr Documented by: [id number] Admin: 06/27/19 15:01 Dose: 240 mls/hr Documented by: [id number] Medical Decision Making Differential Diagnosis Differential diagnoses includes but is not limited to gastritis, peptic ulcer di sease, GERD, gallbladder disease, pancreatitis, small bowel obstruction, acute coronary syndrome, pericarditis, ischemic bowel, irritable bowel disease, irritable bowel syndrome, appendicitis, diverticulitis, malignancy, hernia, urinary tract infection, torsion, perforation, trauma, infectious. Medical Records Attestation: I reviewed the patient's medical records. Home Medications Current Medication List: was personally reviewed by me Laboratory Data Attestation: I reviewed the patient's lab results. Result diagrams: 06/27/19 14:25 06/27/19 14:25 Lab Results 06/27/19 06/27/19 Range/Units 14:25 14:25 WBC 4.55 L (4.8-10.8) K/uL RBC 4.89 (4.7-6.1) M/uL Hgb 14.5 (14.0-18.0) g/dL Hct 43.5 (42-52) % MCV 89.0 (80-100) fL MCH 29.7 (25-34) pg MCHC 33.3 (32-36) g/dL RDW Std Deviation 46.7 H (36.4-46.3) fL RDW Coeff of Kady 14.3 (11.5-14.5) % Plt Count 172 (130-400) K/uL MPV 10.5 H (7.4-10.4) fL Immature Gran % (Auto) 0.2 % Neut % (Auto) 51.6 % Lymph % (Auto) 33.8 % Scurry % (Auto) 10.3 % Eos % (Auto) 3.7 % Baso % (Auto) 0.4 % Immature Gran # (Auto) 0.01 (0.00-0.02) K/uL Neut # (Auto) 2.34 (1.4-6.5) K/uL Lymph # (Auto) 1.54 (1.2-3.4) K/uL Scurry # (Auto) 0.47 (0.11-0.59) K/uL Eos # (Auto) 0.17 (0-0.5) K/uL Baso # (Auto) 0.02 (0-0.2) K/uL Sodium 142 (136-145) mmol/L Potassium 4.5 (3.5-5.1) mmol/L Chloride 107 (98-107) mmol/L Carbon Dioxide 31 (21-32) mmol/L Anion Gap 4.0 (3-11) BUN 28 H (7-18) mg/dl Creatinine 1.62 H (0.6-1.4) mg/dl Est Cr Clr Drug Dosing 50.7 ml/min Est GFR ( Amer) 49.1 Est GFR (Non-Af Amer) 42.4 BUN/Creatinine Ratio 17.3 (10-20) Glucose 96 (70-99) mg/dl Calcium 9.4 (8.5-10.1) mg/dl Total Bilirubin 1.1 H (0.2-1) mg/dl AST 20 (15-37) U/L ALT 19 (12-78) U/L Alkaline Phosphatase 119 H (45-117) U/L Total Protein 6.9 (6.4-8.2) gm/dl Albumin 3.4 (3.4-5.0) gm/dl Globulin 3.5 (2.5-4.0) gm/dl Albumin/Globulin Ratio 1.0 (0.9-2) Lipase 167 (73-393) U/L Blood Pressure Blood Pressure Findings: Elevated blood pressure Blood Pressure Disposition: elevated BP felt to be situational MDM Narrative Patient is a 69-year-old male who presents the ER referred in by his vascular surgeon as he had imaging to follow-up on AAA stent. Patient notes that they called him and questioned if he had a perforation of his gut. Only complaint is he admits to diarrhea and some mild abdominal discomfort for the past 2 to 3 days but notes that has now resolved today. Denies any chest pain shortness of breath nausea or vomiting. Reviewed CT report from [facility] which showed pneumatosis and free air. Immediately consulted our general surgeon. Patient was given IV fluids and IV Zosyn. They recommend hospitalist admission and requested a GI consult. Discussed with the hospitalist and they will follow-up and consult GI as well. Labs show a mild leukopenia at 4.5 thousand. No significant anemia. BMP with creatinine 1.6. Bilirubin slightly elevated at 1.1. LFTs were unremarkable. Lipase was normal. Patient rested comfortably in the ER and was discussed with the hospitalist and general surgeon and will be brought into the hospital for further work-up. Impression & Plan Pneumatosis of intestines, Diarrhea, Pneumoperitoneum Discharge Plan Visit Data *Final* Discharge Date/Time: 06/27/19 17:18 Chief Complaint: Abnormal Labs/Diagnostic Testing Stated Complaint: ABNORMAL CT OF ABD, POSSIBLE HOLE IN INTESTINES ED Provider: Jorge Doty Discharge Problem: Pneumatosis of intestines, Diarrhea, Pneumoperitoneum Patient Disposition: Admitted As Inpatient Discharge Instructions Interventions: ED Discharge Assessment Last Done: 06/27/19 17:18 Discharge Problem: Diarrhea Qualifiers: Diarrhea type: unspecified type Qualified Code(s): R19.7 - Diarrhea, unspecified The scribe's documentation has been prepared under my direction and personally reviewed by me in its entirety. I confirm that the note above accurately r eflects all work, treatment, procedures, and medical decision making performed by me.
[2019-06-27] MEDS ORDERED: POLYETHYLENE (MIRALAX) 17 GM PACK PO PRN (17:37)
[2019-06-27] MEDS ORDERED: ACETAMINOPHEN 325 MG TAB PO PRN (17:37)
[2019-06-27 18:25] LABS: Base Excess ABG 2.6 mEq/L (-9-1.8); HCO3 ABG 27 mmol/L (19-24); Oxygen Saturation ABG 95.4 % (90-95); PCO2 ABG 40 mmHg (35-46); PO2 ABG 74 mm/Hg (80-95); pH ABG 7.45 (7.35-7.45)
[2019-06-27 18:30] LABS: Allen Test POS (Pos)
[2019-06-27] MEDS: dilTIAZem HCl 60 MG TAB PO SCH (20:33)
[2019-06-27] MEDS: PIPERACILLIN/TAZOBACTAM 3.375 GM in DEXTROSE 5% 100 ML IV SCH (20:33)
[2019-06-27] MEDS: APIXABAN 5 MG TABLET PO SCH (20:34)
[2019-06-27] MEDS: METOPROLOL TARTRATE 50 MG TAB PO SCH (20:34)
[2019-06-27 22:05] LABS: Appearance Urine Clear (Clear); Bilirubin Urine Negative (Negative); Blood Urine Negative (Negative); Color Urine Yellow; Glucose Urine UA Negative (Negative); Ketones Urine Negative (Negative); Leukocyte Esterase Urine Negative (Negative); Nitrite Urine Negative (Negative); Protein Urine Negative (Negative); Specific Gravity Urine 1.019 (1.000-1.030); Urobilinogen Urine Negative (Negative); pH Urine 7.5 (4.5-7.5)
[2019-06-28] MEDS: PIPERACILLIN/TAZOBACTAM 3.375 GM in DEXTROSE 5% 100 ML IV SCH ×2 (04:04→12:06)
[2019-06-28] MEDS: LEVOTHYROXINE SODIUM 25 MCG TABLET PO SCH (05:16)
[2019-06-28 07:04] LABS: Hematocrit (blood only) 42.2 % (42-52); Mean Corpuscular Hemoglobin 28.9 pg (25-34); Mean Corpuscular Hgb Conc 33.2 g/dL (32-36); Mean Corpuscular Volume 87.2 fL (80-100); Mean Platelet Volume 10.4 fL (7.4-10.4); Platelet Count 156 K/uL (130-400); RDW Coefficient of Variation 14.1 % (11.5-14.5); RDW Standard Deviation 45.1 fL (36.4-46.3); Red Blood Count 4.84 M/uL (4.7-6.1); White Blood Count 4.75 K/uL (4.8-10.8)
[2019-06-28 07:39] LABS: BUN Creatinine Ratio 16.9 (10-20); Calcium 9.4 mg/dl (8.5-10.1); Creatinine Clr Calc Pharmacy 54.8 ml/min; Est GFR (African American) 53.9; Est GFR (Non-African American) 46.5; Potassium 3.9 mmol/L (3.5-5.1)
[2019-06-28] MEDS: METOPROLOL TARTRATE 50 MG TAB PO SCH (08:13)
[2019-06-28] MEDS: dilTIAZem HCl 60 MG TAB PO SCH (08:13)
[2019-06-28] MEDS: APIXABAN 5 MG TABLET PO SCH (08:13)
[2019-06-28] MEDS ORDERED: CHOLECALCIFEROL 1,000 UNITS TAB PO SCH (09:00)
[2019-06-28] MEDS ORDERED: PANTOprazole 40 MG TAB PO SCH (09:00)
[2019-06-28] MEDS ORDERED: ASPIRIN 81 MG ECTAB PO SCH (09:00)
[2019-06-28] MEDS ORDERED: ATORVASTATIN 10 MG TAB PO SCH (09:00)
[2019-06-28] MEDS ORDERED: CYANOCOBALAMIN 500 MCG TABLET (VITAMIN B-12) PO SCH (09:00)
--- NOTE | 2019-06-28 11:54 | Gastrointestinal Consultation ---
Date of Consultation June 28, 2019 Assessment & Plan (1) Pneumatosis of intestines: (2) S/P AAA repair: Pt is a 69 y/o male seen for incidental outpt CT scan findings of pneumoatosis coli involving small bowel loop in pelvis concerning for small bowel ischemia/perforation. On exam he is hemodynamically stable, no leukocytosis or elevated lactate. He is denying any other concerning symptoms such as abd pain, n/v, GI bleeding, fever, chills. - No plans for GI intervention at this time. - PCP may consider repeat abd imaging for f/u - Continue antibx support x 7-10 days. - Will sign off, recall prn Supervising Physician Co-Signing Physician Notes I have seen and examined the patient and discussed the management with MELISSA Burks. GI consulted for abnormal outpatient CT on 06/26/19 showing pneumotosis of the colon leading to current admission. 69 yo male with a history of aaa repair in 2017 on eliquis, with mild ckdz, admitted for abnormal outpatient CT. Clinically he endorses no hematemesis, no abdominal pain, no nausea, vomiting, no diarrhea, no hematochezia. He is passing gas. and granddaughter at bedside. PE - well nourished elderly male in nad, HEENT - perrla, CV- rrr no mrg, Pulm- CTAB, Abd - soft nt nd +bs, Ext - no lower leg swelling Outpatient CT abdomen reviewed Labs reviewed- stable hgb, otherwise unremarkable Do not think GI endoscopy is warranted in this situation given reports of pneumatosis - this could be from his prior vascular surgery. He is clinically well appearing. Empiric abx. Would defer further imaging to vascular input if needed. History of Present Illness Reason for Consultation: Pneumatosis intestinalis Requesting Physician: Dr. Shahab Shanks Attending Physician: Dr. Samantha He History of Present Illness Pt is a 69 y/o male who was referred to ED yesterday for further eval after outpt CT scan (at [facility]) showed pneumoatosis intestinalis in pelvis ? small bowel perforation. He also has evidence of sigmoid diverticulosis and duodenal diverticulum. He is s/p EVAR in 2017, had routine CT abd for Vascular appt f/u. The pneumatosis coli was noted incidentally on CT scan. He is denying any fever, chills, abd pain, bloating, n/v symptoms. Report stools are generally soft, pasty but denies any rectal bleeding. He is on Eliquis and ASA, s/p pacemaker for hx of Afib. These meds have been continued while he's admitted and he's been fed regular consistency diet w/o changes in his symptoms above. VS, labs reviewed. He is hemodynamically stable. No signs of leukocytosis, anemia, his lactate is normal. He had been evaluated by Surgery team and no surgical intervention is planned. Allergies Allergy/AdvReac Type Severity Reaction Status Date / Time Vflldzc-Etx-Pje Reductase Allergy Verified 06/27/19 16:19 Inhibitor Home Medications Home Medications Medication Instructions Recorded Confirmed Type aspirin 81 mg tablet,delayed 81 mg PO DAILY tab 03/16/19 06/27/19 History release cholecalciferol (vitamin D3) 25 1,000 unit PO DAILY cap 03/16/19 06/27/19 History mcg (1,000 unit) capsule cyanocobalamin (vitamin B-12) 500 500 mcg PO DAILY tab 03/16/19 06/27/19 History mcg tablet omeprazole 20 mg capsule,delayed 20 mg PO DAILY cap 03/16/19 06/27/19 History release diltiazem HCl 120 mg tablet 120 mg PO DAILY tab 03/28/19 06/27/19 History apixaban [Eliquis] 5 mg PO BID 06/27/19 06/27/19 History atorvastatin 10 mg PO DAILY 06/27/19 06/27/19 History levothyroxine 25 mcg PO DAILYBB 06/27/19 06/27/19 History metoprolol tartrate 50 mg PO BID 06/27/19 06/27/19 History Patient History Medical History Atrial fibrillation (Chronic) CKD (chronic kidney disease), stage IV (Chronic) GERD (gastroesophageal reflux disease) (Chronic) Hyperlipidemia (Chronic) Hypertension (Chronic) Hypothyroidism (Chronic) Pacemaker (Chronic) Tachy-dario syndrome (Chronic) Surgical History Hx of cholecystectomy (Chronic) S/P AAA repair (Chronic) Family History Mother Hypertension Stroke Father Myocardial infarction, Onset Age: 51 Social History Preferred Language: [place] Communication Ability: Effective 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 Beliefs That Will Affect Care: None marital status: Current Living Situation: Spouse current occupational status: employed Other Information That Helps Us Care for You: No Feels Safe at Home: Yes Safety Concerns: Feels Safe At This Time Smoking Status: Never smoker Second Hand Exposure: No ; Hx Alcohol Use: No Hx Substance Use: No Review of Systems Review of Systems: All systems reviewed & are unremarkable except as noted in HPI & below Physical Exam Constitutional: WD/WN, vitals as above well groomed, cooperative and comfortable Eyes: PERRL, conjunctivae normal, anicteric sclerae ENMT: external ear and nose normal, oropharynx normal Respiratory: normal respiratory effort, lungs clear to auscultation Cardiovascular: RRR, no murmur, no edema Gastrointestinal (Abdomen): normal bowel sounds, soft, nontender, no hepatosplenomegaly Skin: no rashes, warm and dry + jaundice Psychiatric: A+Ox3, euthymic affect Lymphatic: no lymphedema Results & Data Vital Signs (Past 12 Hours) Vital Signs Temp Pulse Pulse Resp BP Pulse Ox 06/28/19 11:25 36.7 C 57 L 18 122/85 93 06/28/19 08:00 73 06/28/19 07:49 36.8 C 63 18 115/75 97 06/28/19 00:46 65
--- NOTE | 2019-06-28 13:59 | Surgery Progress Note ---
Date of Service June 28, 2019 Assessment & Plan (1) Pneumatosis of intestines: ? etiology. idiopathic. no indication for surgical intervention ok from my standpoint for d/c f/u with pcp. Subjective pt seen. feeling fine/no complaints. no abdominal pain. no n/v Physical Exam Physical Exam: alert. nad no respiratory distress abd: soft. nt. nd. no g/r/r ext: no c/c/e Results & Data Vital Signs (Past 12 Hours) Vital Signs Temp Pulse Pulse Resp BP Pulse Ox 06/28/19 11:25 36.7 C 57 L 18 122/85 93 06/28/19 08:00 73 06/28/19 07:49 36.8 C 63 18 115/75 97 PG Care Time/CCT Total # of Minutes Spent Total Time Spent with Patient: Total time spent is greater than 50% in coordination of care (as documented) at patient's floor/unit and/or counseling patient:
--- NOTE | 2019-06-28 15:54 | Hospitalist Progress Note ---
Date of Service June 28, 2019 Assessment & Plan (1) Pneumatosis of intestines: Pneumatosis intestinalis Incidental finding on outpatient CT imaging No indication for surgery/intervention as per surgery Appreciate GI, surgery input On Zosyn empirically Plan to discharge on p.o. antibiotics as per GI recommendations May need repeat CT scan as outpatient--to be determined by vascular Advised patient to seek immediate medical attention if he develops any symptoms (2) Hypertension: Stable Continue diltiazem 120 mg daily, Lopressor 50 mg p.o. BID (3) CKD (chronic kidney disease), stage IV: Cr at baseline Monitor renal function Avoid nephrotoxic agents as able (4) Hypothyroidism: Continue levothyroxine (5) Atrial fibrillation: Chronic Continue diltiazem, metoprolol On Eliquis for anticoagulation (6) S/P AAA repair: EVAR in 2017, patient needs follow-up with vascular surgery upon discharge. (7) DVT prophylaxis: Eliquis CODE STATUS Full code Disposition Plan to discharge home today Subjective Patient is seen and examined at bedside Doing well this morning Denies any nausea, vomiting, abdominal pain, diarrhea, chest pain, shortness of breath Discussed with gastroenterology today Family at bedside Offers no other complaints Review of Systems Review of Systems: All systems reviewed & are unremarkable except as noted in HPI & below Physical Exam Physical Exam: Physical Exam: Vitals signs as noted above General Appearance:Moderately built and nourished, no apparent distress Head: normocephalic, Atraumatic Eyes: normal inspection, EOMI Neck: supple, Trachea midline Respiratory/Chest: Normal breath sounds, CTA Cardiovascular: S1, S2, No murmur Abdomen/GI:Soft, Non tender, Bowel sounds present Extremities/Musculoskelatal:normal inspection, no edema Neurologic/Psych:AAOX3, grossly no focal neurological deficits Skin: normal color, warm Results & Data Vital Signs (Past 12 Hours) Vital Signs Temp Pulse Pulse Resp BP BP Pulse Ox 06/28/19 15:26 36.8 C 64 20 124/85 97 06/28/19 11:25 36.7 C 57 L 18 122/85 93 06/28/19 08:00 73 06/28/19 07:49 36.8 C 63 18 115/75 97 Laboratory Results Short CBC 06/28/19 Range/Units 06:33 WBC 4.75 L (4.8-10.8) K/uL Hgb 14.0 (14.0-18.0) g/dL Hct 42.2 (42-52) % Plt Count 156 (130-400) K/uL BMP 06/28/19 06:33 Sodium 138 Potassium 3.9 Chloride 106 Carbon Dioxide 27 BUN 25 H Creatinine 1.50 H Glucose 97 Calcium 9.4 Urine 06/27/19 Range/Units 21:35 Urine Color Yellow Urine Appearance Clear (Clear) Urine pH 7.5 (4.5-7.5) Ur Specific Sundance 1.019 (1.000-1.030) Urine Protein Negative (Negative) Urine Glucose (UA) Negative (Negative)
--- NOTE | 2019-06-28 16:10 | Discharge Summary ---
Date of Service June 28, 2019 Admission HPI Per Admitting Provider The patient is a 69-year-old man who is status post EVAR in [address] scan in preparation for vascular follow-up. He has not been compliant with his q6-month follow-up and was last seen July 2017. The CT scan revealed evidence of pneumatosis intestinalis with possible small bowel perforation. The patient however is asymptomatic aside from a thick pasty bowel for the last 2 days and extensive bloating and gas. He denies any nausea vomiting or issues with tolerating p.o. He denies any fevers, chills, abdominal pain, chest pain, shortness of breath respiratory symptoms or any other issues at this point. I did contact his vascular surgeon in [place] and apprised her of his normal appearance and current lab studies and work-up. She agreed with baseline lactate, ABG and blood cultures as well as GI consultation. I spoke with the general surgery team who feel that at this point there is no need for an upcoming procedure, and we will continue his blood thinners. Admission Exam Per Admitting Provider CONSTITUTIONAL: WNWD, vitals as above, generally well-appearing EYES: EOMI bilaterally, PERRL, normal conjunctivae, no scleral icterus ENT: MMM NECK: trachea midline, no lymphadenopathy RESPIRATORY: clear to auscultation bilaterally, no crackles, rales or wheezes, normal respiratory effort CARDIOVASCULAR: regular rate and rhythm, S1 and 2 heard without murmurs, gallops or rubs, no JVD, no peripheral edema GASTROINTESTINAL: soft, nontender, nondistended, no guarding. MUSCULOSKELETAL: strength 5/5 throughout, head is normocephalic and atraumatic SKIN: warm and dry NEUROLOGIC: CN 2-12 grossly intact, no sensory deficit, normal cognition, normal speech, no gross focal deficits. PSYCHIATRIC: alert cooperative and oriented to person, place and time. Principal Diagnosis Pneumatosis intestinalis Discharge Data Allergies Allergy/AdvReac Type Severity Reaction Status Date / Time Dyipikt-Fdh-Tvy Reductase Allergy Verified 06/27/19 16:19 Inhibitor Consultations 06/27/19 14:34 Consult General Surgery Stat 06/27/19 15:32 ED Decision to Admit Stat 06/27/19 17:37 Consult Case Management - Discharge Planning Routine Consult Gastroenterology Routine Hospital Course (1) Pneumatosis of intestines: Pneumatosis intestinalis Incidental finding on outpatient CT imaging No indication for surgery/intervention as per surgery Appreciate GI, surgery input On Zosyn empirically Plan to discharge on p.o. antibiotics as per GI recommendations May need repeat CT scan as outpatient--to be determined by vascular Advised patient to seek immediate medical attention if he develops any symptoms (2) Hypertension: Stable Continue diltiazem 120 mg daily, Lopressor 50 mg p.o. BID (3) CKD (chronic kidney disease), stage IV: Cr at baseline Monitor renal function Avoid nephrotoxic agents as able (4) Hypothyroidism: Continue levothyroxine (5) Atrial fibrillation: Chronic Continue diltiazem, metoprolol On Eliquis for anticoagulation (6) S/P AAA repair: EVAR in 2017, patient needs follow-up with vascular surgery upon discharge. (7) DVT prophylaxis: Eliquis CODE STATUS Full code Disposition Plan to discharge home today Total Time Total Time Spent Total Time Spent (In Minutes): 38 minutes Total Time Includes: Examination of the Patient, Discharge Planning, Medication Reconciliation, Communication With Other Providers and Other Discharge Plan Discharge Items Patient Disposition: Home - Self-Care Reason For Visit: PNEUMATOSIS OF INTESTINES Discharge Diagnosis: Pneumatosis intestinalis Activity: Resume your previous activity Exercise/Sports: Gradually increase as tolerated Non-emergency contact: Primary Care Provider and Surgeon Call non-emergency contact if: you have any medication questions, your symptoms worsen, your pain is not controlled, your pain is worsening, your pain is unusual for you, your pain is concerning for you and you have a fever Follow-up/Referrals: PCP,NO [Primary Care Provider] - Diet: Heart Healthy Addtl Attending Provider Instructions: Follow-up with your primary care physician at [place] in 1 week as advised Get repeat CT abdomen as per the recommendations of your vascular surgeon and follow-up with results in 2 weeks Complete the antibiotic course as prescribed. Seek immediate medical attention if your symptoms reoccur or worsen Pending Studies at Discharge: No Stand-Alone Forms: My [employer], Work/School Release (Inpt), Smoking Cessation Medications and DC Order Prescriptions: New amoxicillin-pot clavulanate 875-125 mg Tablet 1 tab PO BIDM Qty: 12 RF: 0 Continued diltiazem HCl 120 mg tablet 120 mg PO DAILY RF: 0 aspirin [Aspirin Low Dose] 81 mg tablet,delayed release (DR/EC) 81 mg PO DAILY RF: 0 omeprazole 20 mg capsule,delayed release(DR/EC) 20 mg PO DAILY RF: 0 cyanocobalamin (vitamin B-12) 500 mcg tablet 500 mcg PO DAILY RF: 0 cholecalciferol (vitamin D3) [Vitamin D3] 1,000 unit capsule 1,000 unit PO DAILY RF: 0 metoprolol tartrate 50 mg tablet 50 mg PO BID RF: 0 atorvastatin 20 mg tablet 10 mg PO DAILY RF: 0 Eliquis 5 mg tablet 5 mg PO BID RF: 0 levothyroxine 25 mcg capsule 25 mcg PO DAILYBB RF: 0 Discharge Orders: Discharge Order (Routine); Ordered 06/28/19 Ordered By: Shahab Shanks Admission Data Admit Date/Time: 06/27/19 16:20 Attending Provider: Shahab Shanks Admit Provider: Inés Swenson Primary Care Provider: PCP,NO Other Providers: Azar Villalta ; Inés Swenson ; Samantha He Other Interventions: Discharge Summary Assessment (RN) Last Done: 06/28/19 16:17 DC Date/Time DO NOT enter until pt leaves facility: 06/28/19 17:20
[2019-06-28] MEDS ORDERED: AMOXICILLIN/CLAVULANATE 875 MG TAB PO SCH (17:00)
== END 2019-06-28 17:20 | disposition home or self-care (01) | DRG 394 ==
LOC: ED 13:50 → 2N 16:20 → INTOOBSV 16:20 → SUATTDRO 16:20 → OBSVTOIN 16:20 → 2N 17:18

== ENCOUNTER 2025-02-05 06:25 | Inpatient (IN) ==
--- NOTE | 2025-02-05 06:52 | Emergency Department Note ---
Impression & Plan BRBPR (bright red blood per rectum) ED Provider Note HISTORY OF PRESENT ILLNESS: Patient is a 74-year-old male presenting with bright red blood per rectum. Patient reports he had a colonoscopy on 02/20/2025 at [facility]. He reports he had a few polyps removed. He states that he initially had some very small amounts of blood with his stools and bowel movements initially after the procedure, as he was told he might. However, he states that he stopped bleeding from his rectum over the last few days and was doing well. However, he woke up this morning at 4 AM with the urge to defecate and went to the bathroom and had a bright red bloody bowel movement. He reports he is had 4 episodes of bright red bloody stool over the last 2 hours. He states that there is no stool in the bowel movement is just liquid bright red blood with occasional clots. Patient is on Eliquis but reports he has not taken his dose today. He does report some left lower quadrant abdominal pain. Denies any nausea or vomiting. Denies any lightheadedness or dizziness. He reports just feeling generally unwell. ROS: as above PHYSICAL EXAM: Constitutional: Patient appears in no acute distress. HENT: Head: Normocephalic and atraumatic. Eyes: EOMI, PERRL Mouth/Throat: Mucous membranes moist. Neck: Trachea midline. Neck supple. Cardiovascular: RRR, No murmurs, rubs or gallops. Intact distal pulses. Pulmonary/Chest: No respiratory distress. Breath sounds clear and equal bilaterally. No wheezes or rales. Abdominal: Abdomen soft, no rebound or guarding. LLQ TTP Musculoskeletal: No edema, tenderness or deformity noted. Skin: Warm and dry. No rash, erythema, pallor or cyanosis Psychiatric: Appropriate mood and affect for situation. Neurological: Alert and keenly responsive. CN II-XII grossly intact, moving all extremities equally and fully. MDM: - Vitals signs showed tachycardia - History obtained via patient. History as above. - Chronic conditions affecting care: Atrial fibrillation; tachy-dario syndrome (s/p pacemaker); HLD; CKD; AAA (s/p repair); HTN - Differential diagnoses include, but are not limited to: Diverticular bleed; bleed from polyp removal site; coagulopathy; hemorrhage - Order placed for continuous cardiac monitoring. At this time, monitor showed rate of 81 bpm with normal sinus rhythm, per my interpretation. - External medical records reviewed. Colonoscopy report from [facility] dated 01/24/2025 was reviewed. Patient had a flexible sigmoidoscopy for therapy of colon polyps performed. Patient had removal of a 50 mm polyp in the anorectum which was removed via endoscopic submucosal dissection. Also had some endoscopic suturing performed for closure. - Laboratory workup interpreted by myself showed normal WBC; stable hemoglobin (13.8); stable electrolytes; YOVANA on CKD (Cr 1.70); normal AST/ALT; normal lipase - Type and screen ordered - CT abdomen/pelvis with IV contrast showed no active extravasation, but noted to have hyperdense material in the rectosigmoid lumen concerning for blood products. Noted to have metallic foreign body or surgical clip in the rectum. 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 The vessels opacified distally by retrograde flow per radiology. - Patient had 3+ episodes of bright red blood per rectum in the emergency department and required multiple changes by nursing staff. - Discussed case with welding rod coater on-call, Dr. Gatica, at 9:07 AM. He reports that they will do an unprepped flex sigmoidoscopy emergently. - Patient will require mission to hospitalist service postprocedure. - Discussion was had with case management rn about patient's case and need for admission - Hospitalist consulted for admission at 09:09 AM - [facility] ASSESSMENT AND PLAN: Diagnosis: Bright red blood per rectum Plan: to OR with GI then admit Past Med/Surg History Problem List (Updated 02/05/25 @ 09:29 by Haven Harman MD) BRBPR (bright red blood per rectum) (Acute) Rectal bleeding Pneumoperitoneum (Acute) Pneumatosis of intestines (Acute) Hypertension (Chronic) Hx of cholecystectomy (Chronic) S/P AAA repair (Chronic) GERD (gastroesophageal reflux disease) (Chronic) CKD (chronic kidney disease), stage IV (Chronic) Hypothyroidism (Chronic) Hyperlipidemia (Chronic) Pneumonia (Acute) Hypomagnesemia (Acute) Hypophosphatemia (Acute) Tachy-dario syndrome (Chronic) Atrial fibrillation (Chronic) Pacemaker (Chronic) Family History Mother Hypertension Stroke Father Myocardial infarction, Onset Age: 51 Social History Smoking Status: Former smoker Second Hand Exposure: No; Do You Dip or Chew Tobacco: No; Hx Alcohol Use: No Hx Substance Use: No Preferred Language: Khmer Communication Ability: Effective [employer] Required: No Beliefs That Will Affect Care: None marital status: Current Living Situation: Spouse current occupational status: employed Feels Safe at Home: Yes Assistive Devices: None Allergies Allergies Allergy/AdvReac Type Severity Reaction Status Date / Time Sfzdjys-ULR-UaV Reductase Allergy Verified 02/05/25 08:29 Inhibitor [Ueipapw-Wbd-Dur Reductase Inhibitor] Home Meds Home Medications Medication Instructions Recorded Confirmed cyanocobalamin (vitamin B-12) 500 500 mcg PO DAILY 03/16/19 02/05/25 mcg tablet omeprazole 20 mg capsule,delayed 20 mg PO DAILY 03/16/19 02/05/25 release apixaban 5 mg tablet (Eliquis) 5 mg PO BID 06/27/19 02/05/25 levothyroxine 25 mcg capsule 25 mcg PO DAILYBB 06/27/19 02/05/25 budesonide-formoterol HFA 80 1 inh inhalation BID 04/06/23 02/05/25 mcg-4.5 mcg/actuation aerosol inhaler (Symbicort) rosuvastatin 40 mg tablet 40 mg PO DAILY 04/06/23 02/05/25 diltiazem HCl 120 mg 120 mg PO QAM 02/05/25 02/05/25 capsule,extended release 24 hr metoprolol tartrate 50 mg tablet 50 mg PO BID 02/05/25 02/05/25 Previous Rx's Medication Instructions Recorded cholecalciferol (vitamin D3) 25 1,000 unit PO DAILY #30 caps 04/11/20 mcg (1,000 unit) capsule (Vitamin D3) Results & Data (ED) Vital Signs Vital Signs - 24 hr 02/05/25 06:27 02/05/25 06:36 02/05/25 07:04 Temperature 36.9 C Temperature Source Temporal Artery Scan Pulse Rate 77 94 H Pulse Rate [Apical] Pulse Rhythm Regular Pulse Strength Normal Respiratory Rate 18 Respiratory Effort / Characteristics Non-Labored Spontaneous Respiratory Depth Normal Respiratory Pattern Regular Blood Pressure 103/73 Blood Pressure [Right Arm] Blood Pressure Mean 83 Blood Pressure Mean [Right Arm] Blood Pressure Position Sitting Blood Pressure Position [Right Arm] Pulse Oximetry 96 95 Oxygen Delivery Method Room Air Room Air Sepsis Recent Fever Within 48 Hours No Sepsis New/Unexplained Change in Mental Status N/A Sepsis Action Taken by Nursing No Action Required 02/05/25 08:13 Temperature Temperature Source Pulse Rate Pulse Rate [Apical] 81 Pulse Rhythm Pulse Strength Respiratory Rate 16 Respiratory Effort / Characteristics Non-Labored Spontaneous Respiratory Depth Normal Respiratory Pattern Blood Pressure Blood Pressure [Right Arm] 144/88 H Blood Pressure Mean Blood Pressure Mean [Right Arm] 106 Blood Pressure Position Blood Pressure Position [Right Arm] Semi-fowlers Pulse Oximetry 99 Oxygen Delivery Method Room Air Sepsis Recent Fever Within 48 Hours Sepsis New/Unexplained Change in Mental Status Sepsis Action Taken by Nursing Laboratory Data 02/05/25 06:43 02/05/25 06:43 Lab Results 02/05/25 Range/Units 06:43 WBC 7.72 (4.8-10.8) K/ul RBC 4.73 (4.70-6.10) M/uL Hgb 13.8 L (14.0-18.0) g/dl Hct 41.3 L (42.0-52.0) % MCV 87.3 (80.0-100.0) fL MCH 29.2 (25.0-34.0) pg MCHC 33.4 (32.0-36.0) g/dL RDW Std Deviation 45.6 (36.4-46.3) fL RDW Coeff of Kady 14.2 (11.5-14.5) % Plt Count 224 (130-400) K/uL MPV 10.3 (9.4-12.4) fL Immature Gran % (Auto) 0.3 % Neut % (Auto) 68.5 % Lymph % (Auto) 19.9 % Conway % (Auto) 8.9 % Eos % (Auto) 1.6 % Baso % (Auto) 0.8 % Neut # (Auto) 5.29 (1.40-6.50) K/uL Lymph # (Auto) 1.54 (1.20-3.40) K/uL Conway # (Auto) 0.69 H (0.11-0.59) K/uL Eos # (Auto) 0.12 (0.00-0.50) K/uL Baso # (Auto) 0.06 (0.00-0.20) K/uL Immature Gran # (Auto) 0.02 (0.01-0.20) K/uL Sodium 142 (136-145) mmol/L Potassium 3.5 (3.5-5.1) mmol/L Chloride 109 H (98-107) mmol/L Carbon Dioxide 26 (21-32) mmol/L Anion Gap 7 (3-11) BUN 24 H (6-23) mg/dl Creatinine 1.70 H (0.6-1.4) mg/dl Est Cr Clr Drug Dosing 44.9 ml/min eGFR 41.52 BUN/Creatinine Ratio 14.1 (10-20) Glucose 98 (70-99(Fasting)) mg/dl Lactate 1.0 (0.4-2.0) mmol/L Calcium 8.6 (8.6-10.3) mg/dl Total Bilirubin 0.9 (0.2-1.0) mg/dl AST 16 (13-39) U/L ALT 10 (7-52) U/L Alkaline Phosphatase 59 (34-104) U/L Total Protein 6.5 (6.0-8.3) gm/dl Albumin 3.5 (3.4-5.0) gm/dl Globulin 3.0 (2.5-4.0) gm/dl Albumin/Globulin Ratio 1.2 (0.9-2) Lipase 27 (11-82) U/L Blood Type A Positive Antibody Screen NEGATIVE Administered Medications Discontinued Medications Ioversol (Optiray 320 125ml) 120 ml IV ONCE ONE Stop: 02/05/25 08:04 Last Admin: 02/05/25 08:03 Dose: 120 ml Documented By: BR Imaging Data Radiologist's Impression: Abdomen/Pelvis CTA 02/05/25 06:44 CT ANGIOGRAM OF THE ABDOMEN AND PELVIS CLINICAL HISTORY: Left lower quadrant abdominal pain. Hematochezia. COMPARISON STUDY: Abdominal CT dated 06/26/2019 TECHNIQUE: Following the IV administration of 120 cc of Optiray 320, CT angiogram of the abdomen and pelvis was performed from the lung bases the proximal femora. Images are reviewed in the axial, sagittal, and coronal planes. 3-D MIPS images are created and assessed. IV contrast was administered without complication. A dose lowering technique was utilized adhering to the principles of ALARA. CT DOSE: 1665.94 mGy.cm FINDINGS: Lower chest: The heart is enlargement noting a small pericardial effusion. Pacemaker leads are in place. The coronary arteries are densely calcified. There is bibasilar scarring/atelectasis. No airspace consolidation or pleural effusion is identified. There is a small hiatal hernia. Liver: The contrast-enhanced liver is normal in size, contour, and attenuation. There is no intrahepatic biliary ductal dilatation. The main portal veins appear patent. There is a 4.5 cm left lobe cyst. Additional subcentimeter hepatic hypodensities also likely represent cysts but are too small for definitive characterization. Gallbladder: Surgically absent noting clips in the gallbladder fossa. Spleen: Normal in size and attenuation noting heterogeneous arterial phase enhancement. Pancreas: Moderately atrophic and grossly unremarkable. Adrenal glands: A 4.3 cm right adrenal lesion containing macroscopic fat is similar to previous. The left adrenal gland is normal in appearance. Kidneys: The contrast enhanced kidneys demonstrate cortical atrophy and are without hydronephrosis. The kidneys enhance symmetrically. There are 2 indeterminate lesions arising from the lower pole of the right kidney which measure up to 2.3 cm. Abdominal aorta and iliac arteries: There is advanced atherosclerotic calcification of the abdominal aorta. The patient is status post aortobiiliac stent graft repair of an infrarenal abdominal aortic aneurysm. The residual aneurysm sac measures 5.4 x 5.2 cm (AP x transverse). The stent graft is widely patent. There is no evidence of endoleak on this single phase examination. The abdominal aorta is normal in course and caliber. The iliac arteries are widely patent bilaterally. Major branches of the abdominal aorta: The celiac trunk and superior mesenteric artery are patent. 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 This is opacified distally via retrograde flow. Hepatic arterial anatomy is conventional. The splenic artery is patent. There are 2 right renal arteries and a single left renal artery. These arise from the interstices of the stent and are patent. There is at least moderate stenosis at the origin of the dominant right renal artery. Bowel: There is moderate colonic diverticulosis without CT evidence of acute diverticulitis. No bowel obstruction is seen. A metallic foreign body/clip is noted in the rectum. Moderate fecal retention is seen throughout the colon. There are large duodenal diverticula. The appendix is well-visualized and normal. There is mild wall thickening of the rectosigmoid with surrounding infiltration. Hyperdense intraluminal material within the rectosigmoid there is an blood products. No active extravasation is seen at this time. Peritoneum: There is no intraperitoneal free air or abdominal ascites. There is a fat-containing umbilical hernia. Lymphadenopathy: None. Pelvic viscera: The prostate gland is enlarged and heterogeneous. The bladder wall is thickened/trabeculated indicating chronic outlet obstruction. There are bilateral fat-containing groin hernias. Skeletal structures: The skeletal structures are osteopenic. There is mild lumbosacral spondylosis. Degenerative sclerosis is seen in the sacroiliac joints. No lytic or blastic bony lesions are seen. Chronic deformity and postsurgical change is noted in the right proximal femur. There are chronic/healed right-sided rib fractures. IMPRESSION: 1. A metallic foreign body or surgical clip is noted in the rectum. Correlate clinically. 2. There is mild wall thickening of the rectosigmoid colon with surrounding infiltration. Correlate clinically for evidence of a nonspecific proctocolitis. 3. Mildly hyperdense material within the rectosigmoid lumen may represent blood products. There is no contrast extravasation to suggest active GI bleeding at the time of examination. 4. Colonic diverticulosis without CT evidence of acute diverticulitis. 5. The patient is status post aortobiiliac stent graft repair of an infrarenal abdominal aortic aneurysm. The residual aneurysm sac measures 5.4 x 5.2 cm. 6. There is at least moderate stenosis at the origin of the dominant right renal artery. 7. 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 The vessel is opacified distally by retrograde flow. 8. Cardiomegaly noting a small to moderate pericardial effusion. 9. There are 2 indeterminate right lower pole renal lesions which likely represent cysts but are difficult to definitively characterize. A nonemergent renal ultrasound is recommended in follow-up. 10. Additional findings as above. ACT 112: Negative or not required by law. Electronically signed by: Willie Maurer M.D. 02/05/2025 8:50 AM Discharge Plan Visit Data Chief Complaint: Rectal Bleed Stated Complaint: RECTAL BLEED ED Provider: Haven Harman Discharge Problem: BRBPR (bright red blood per rectum) Condition: Serious Forms Stand Alone Forms: My [facility] [employer] IP Prescriptions Prescriptions: No Action cholecalciferol (vitamin D3) [Vitamin D3] 25 mcg (1,000 unit) capsule 1,000 unit PO DAILY Qty: 30 5RF omeprazole 20 mg capsule,delayed release(DR/EC) 20 mg PO DAILY cyanocobalamin (vitamin B-12) 500 mcg tablet 500 mcg PO DAILY Eliquis 5 mg tablet 5 mg PO BID levothyroxine 25 mcg capsule 25 mcg PO DAILYBB rosuvastatin 40 mg Tablet 40 mg PO DAILY budesonide-formoterol [Symbicort] 80-4.5 mcg/actuation Hfa Aerosol Inhaler 1 inh INHALATION BID metoprolol tartrate 50 mg tablet 50 mg PO BID diltiazem HCl 120 mg capsule,extended release 24hr 120 mg PO QAM Referrals Referrals: Palomo [place], [facility] [Outside Practitioners] -
[2025-02-05 06:57] LABS: Hematocrit (blood only) 41.3 % (42.0-52.0); Hemoglobin 13.8 g/dl (14.0-18.0); Immature Granulocytes # (auto) 0.02 K/uL (0.01-0.20); Immature Granulocytes % (auto) 0.3 %; Mean Corpuscular Hemoglobin 29.2 pg (25.0-34.0); Mean Corpuscular Volume 87.3 fL (80.0-100.0); Platelet Count 224 K/uL (130-400); RDW Standard Deviation 45.6 fL (36.4-46.3); Red Blood Count 4.73 M/uL (4.70-6.10); White Blood Count 7.72 K/ul (4.8-10.8)
[2025-02-05 07:27] LABS: Alanine Aminotransferase 10.0 U/L (7-52); Albumin Globulin Ratio 1.2 (0.9-2); Alkaline Phosphatase 59.0 U/L (34-104); Anion Gap 7.0 (3-11); Bilirubin,Total 0.9 mg/dl (0.2-1.0); Blood Urea Nitrogen 24.0 mg/dl (6-23); Calcium 8.6 mg/dl (8.6-10.3); Carbon Dioxide 26.0 mmol/L (21-32); Chloride 109.0 mmol/L (98-107); Creatinine Clr Calc Pharmacy 44.9 ml/min; Globulin 3.0 gm/dl (2.5-4.0); Glucose 98.0 mg/dl (70-99(Fasting)); Lipase 27.0 U/L (11-82); Potassium 3.5 mmol/L (3.5-5.1); Sodium 142.0 mmol/L (136-145); Total Protein 6.5 gm/dl (6.0-8.3)
[2025-02-05] MEDS: OPTIRAY 320 125ml IV ONE (08:03)
--- NOTE | 2025-02-05 08:51 | CT Scan Report ---
CT ANGIOGRAM OF THE ABDOMEN AND PELVIS CLINICAL HISTORY: Left lower quadrant abdominal pain. Hematochezia. COMPARISON STUDY: Abdominal CT dated 06/26/2019 TECHNIQUE: Following the IV administration of 120 cc of Optiray 320, CT angiogram of the abdomen and pelvis was performed from the lung bases the proximal femora. Images are reviewed in the axial, sagit pepe, and coronal planes. 3-D MIPS images are created and assessed. IV contrast was administered witho ut complication. A dose lowering technique was utilized adhering to the principles of ALARA. CT DOSE: 1665.94 mGy.cm FINDINGS: Lower chest: The heart is enlargement noting a small pericardial effusion. Pacemaker leads are in claire ce. The coronary arteries are densely calcified. There is bibasilar scarring/atelectasis. No airspace consolidation or pleural effusion is identified. There is a small hiatal hernia. Liver: The contrast-enhanced liver is normal in size, contour, and attenuation. There is no intrahepa tic biliary ductal dilatation. The main portal veins appear patent. There is a 4.5 cm left lobe cyst. Additional subcentimeter hepatic hypodensities also likely represent cysts but are too small for def initive characterization. Gallbladder: Surgically absent noting clips in the gallbladder fossa. Spleen: Normal in size and attenuation noting heterogeneous arterial phase enhancement. Pancreas: Moderately atrophic and grossly unremarkable. Adrenal glands: A 4.3 cm right adrenal lesion containing macroscopic fat is similar to previous. The left adrenal gland is normal in appearance. Kidneys: The contrast enhanced kidneys demonstrate cortical atrophy and are without hydronephrosis. T he kidneys enhance symmetrically. There are 2 indeterminate lesions arising from the lower pole of th e right kidney which measure up to 2.3 cm. Abdominal aorta and iliac arteries: There is advanced atherosclerotic calcification of the abdominal aorta. The patient is status post aortobiiliac stent graft repair of an infrarenal abdominal aortic a neurysm. The residual aneurysm sac measures 5.4 x 5.2 cm (AP x transverse). The stent graft is widely patent. There is no evidence of endoleak on this single phase examination. The abdominal aorta is no rmal in course and caliber. The iliac arteries are widely patent bilaterally. Major branches of the abdominal aorta: The celiac trunk and superior mesenteric artery are patent. 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 This is opacified distally via retrograde flow. Hepatic arterial anatomy is conventional. The spleni c artery is patent. There are 2 right renal arteries and a single left renal artery. These arise from the interstices of the stent and are patent. There is at least moderate stenosis at the origin of th e dominant right renal artery. Bowel: There is moderate colonic diverticulosis without CT evidence of acute diverticulitis. No bowel obstruction is seen. A metallic foreign body/clip is noted in the rectum. Moderate fecal retention i s seen throughout the colon. There are large duodenal diverticula. The appendix is well-visualized a nd normal. There is mild wall thickening of the rectosigmoid with surrounding infiltration. Hyperdens e intraluminal material within the rectosigmoid there is an blood products. No active extravasation i s seen at this time. Peritoneum: There is no intraperitoneal free air or abdominal ascites. There is a fat-containing umbi lical hernia. Lymphadenopathy: None. Pelvic viscera: The prostate gland is enlarged and heterogeneous. The bladder wall is thickened/trabe culated indicating chronic outlet obstruction. There are bilateral fat-containing groin hernias. Skeletal structures: The skeletal structures are osteopenic. There is mild lumbosacral spondylosis. D egenerative sclerosis is seen in the sacroiliac joints. No lytic or blastic bony lesions are seen. Ch ronic deformity and postsurgical change is noted in the right proximal femur. There are chronic/heale d right-sided rib fractures. IMPRESSION: 1. A metallic foreign body or surgical clip is noted in the rectum. Correlate clinically. 2. There is mild wall thickening of the rectosigmoid colon with surrounding infiltration. Correlate c linically for evidence of a nonspecific proctocolitis. 3. Mildly hyperdense material within the rectosigmoid lumen may represent blood products. There is no contrast extravasation to suggest active GI bleeding at the time of examination. 4. Colonic diverticulosis without CT evidence of acute diverticulitis. 5. The patient is status post aortobiiliac stent graft repair of an infrarenal abdominal aortic aneur ysm. The residual aneurysm sac measures 5.4 x 5.2 cm. 6. There is at least moderate stenosis at the origin of the dominant right renal artery. 7. 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 The vessel is opacified distally by retrograde flow. 8. Cardiomegaly noting a small to moderate pericardial effusion. 9. There are 2 indeterminate right lower pole renal lesions which likely represent cysts but are diff icult to definitively characterize. A nonemergent renal ultrasound is recommended in follow-up. 10. Additional findings as above. ACT 112: Negative or not required by law. Electronically signed by: Willie Maurer M.D. 02/05/2025 8:50 AM
--- NOTE | 2025-02-05 09:21 | Gastrointestinal Consultation ---
Date of Consultation February 05, 2025 Assessment & Plan (1) Rectal bleeding: (2) Acute blood loss anemia: (3) On anticoagulant therapy: (4) Hemorrhage of colon following colonoscopy: Plan Patient presents to the ED this morning with several episodes of rectal bleeding that started this morning. He reports a recent colonoscopy on 01/24 at [facility] with removal of a large polyp. He is on eliquis with last dosage being last evening. Case discussed with Dr. Gatica. - will plan for unprepped flex sig this morning for further evaluation. - follow hgb/hct. transfuse as needed. - further recommendations to follow. Supervising Physician Co-Signing Physician Notes Patient seen and examined with ALEXUS Orta as above and agree with assessment and plan. Abd: Bert, NT, ND, +BS Discussed case with Dr. Moraes at [facility] who performed his prior colonoscopy with large anorectal polyp removal. Patient did have closure post-polypectomy with endo sutures. 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 Will proceed with emergent flex sig in attempt to identify and stop bleeding source Will need to hold Eliquis for 5 days Further recommendations following above noted testing. History of Present Illness Reason for Consultation: rectal bleeding Requesting Physician: ED History of Present Illness Patient is a 74 year old male who presented to the ED this morning with sudden onset of large amounts of bright red blood per rectum. Patient reports he had a colonoscopy on 01/24/2025 at [facility] where he reports having had a large polyp removed. He states that he initially had some very small amounts of blood with his stools initially, but this had improved until this morning. He reports having passed several blood bowel movements this morning with clots. he does use eliquis as an outpatient with his last dosage being last evening. He has not had anything to eat or drink since last night. no nausea, vomiting, abdominal pain, melena, chest pain, sob. 02/05/25 Hgb 13.8, hct 41.3. Na 142, K 3.5, BUN 24, Creatinine 1.7. LFTs unremarkable. Lipase 27. EGD at [facility] 01/24/25 One 50 mm polyp in the anorectum, removed with endoscopic submucosal dissection. Resected and retrieved. Endoscopic suturing performed for closure. Allergies Allergy/AdvReac Type Severity Reaction Status Date / Time Dincokv-JYX-GiX Reductase Allergy Verified 02/05/25 08:29 Inhibitor [Alsxnpt-Lng-Ohs Reductase Inhibitor] Home Medications Medication Instructions Recorded Confirmed Type cyanocobalamin (vitamin B-12) 500 500 mcg PO DAILY 03/16/19 02/05/25 History mcg tablet omeprazole 20 mg capsule,delayed 20 mg PO DAILY 03/16/19 02/05/25 History release apixaban 5 mg tablet (Eliquis) 5 mg PO BID 06/27/19 02/05/25 History levothyroxine 25 mcg capsule 25 mcg PO DAILYBB 06/27/19 02/05/25 History cholecalciferol (vitamin D3) 25 1,000 unit PO DAILY #30 caps 04/11/20 02/05/25 Rx mcg (1,000 unit) capsule (Vitamin D3) budesonide-formoterol HFA 80 1 inh inhalation BID 04/06/23 02/05/25 History mcg-4.5 mcg/actuation aerosol inhaler (Symbicort) rosuvastatin 40 mg tablet 40 mg PO DAILY 04/06/23 02/05/25 History diltiazem HCl 120 mg 120 mg PO QAM 02/05/25 02/05/25 History capsule,extended release 24 hr metoprolol tartrate 50 mg tablet 50 mg PO BID 02/05/25 02/05/25 History Patient History Family History Mother Hypertension Stroke Father Myocardial infarction, Onset Age: 51 Social History Smoking Status: Former smoker Second Hand Exposure: No; Do You Dip or Chew Tobacco: No; Hx Alcohol Use: No Hx Substance Use: No Preferred Language: Senegalese Communication Ability: Effective 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 Beliefs That Will Affect Care: None marital status: Current Living Situation: Spouse current occupational status: employed Feels Safe at Home: Yes Assistive Devices: None Review of Systems Review of Systems: All systems reviewed & are unremarkable except as noted in HPI & below Physical Exam Constitutional: WD/WN, vitals as above Respiratory: normal respiratory effort, lungs clear to auscultation Cardiovascular: Rate/Rhythm: regular rate and regular rhythm Gastrointestinal (Abdomen): normal bowel sounds, soft, nontender, no hepa tosplenomegaly Psychiatric: Orientation: alert and oriented x 3 Affect: euthymic affect Results & Data Vital Signs (Past 12 Hours) Vital Signs Temp Pulse Pulse Resp BP BP Pulse Ox 02/05/25 08:13 81 16 144/88 H 99 02/05/25 07:04 95 02/05/25 06:36 94 H 02/05/25 06:27 98.4 F 77 18 103/73 96 O2 Del Method 02/05/25 08:13 Room Air 02/05/25 07:04 Room Air 02/05/25 06:36 02/05/25 06:27 Room Air Coding Level of Care Code 30426 INT INP/OBS CARE 2/55MIN Diagnoses Rectal bleeding K62.5 Acute blood loss anemia D62 On anticoagulant therapy Z79.01 Hemorrhage of colon following colonoscopy K91.840
[2025-02-05] MEDS ORDERED: PANTOPRAZOLE BOLUS/DRIP IV STA (09:35)
[2025-02-05] MEDS ORDERED: SODIUM CHLORIDE 0.9% 100 ML IV PRN (09:38)
[2025-02-05] MEDS ORDERED: SUCCINYLCHOLINE CHLORIDE 20 MG/ML 10 ML VIAL IV ONE (09:54)
[2025-02-05] MEDS ORDERED: PROPOFOL IV EMULSION 10 MG/ML 20 ML VIAL IV ONE (09:54)
[2025-02-05] MEDS ORDERED: LIDOCAINE 2% 2 ML VIAL/AMP(20MG/ML) INFIL ONE (09:55)
[2025-02-05] MEDS ORDERED: ATROPINE SULFATE 0.4 MG/ML 1 ML VIAL ONE (09:55)
--- NOTE | 2025-02-05 09:56 | History & Physical Report ---
Date of Service February 05, 2025 Assessment & Plan (1) Rectal bleeding: (2) Abnormal computed tomography angiography (CTA) of abdomen and pelvis: Plan Patient is a 74-year-old male with past medical history significant for AAA s/p EVAR in September 2016, permanent atrial fibrillation anticoagulated on Eliquis, CHB s/p pacemaker placement, history of nonischemic cardiomyopathy with reduced EF [TTE 02/2024: LVEF = 55%], left atrial enlargement, aortic valve sclerosis, HTN, HLD, hiatal hernia with GERD, CKD stage IIIb [baseline Cr 1.6-1.9] and other problems listed below who presented to the ED with complaint of diffuse rectal bleeding which began around 4AM this morning. #Rectal bleeding #History of recent colonscopy w/ polyp removal on 01/24/25 CTA abd/pelvis: mild wall thickening of the rectosigmoid colon w/ surrounding infiltration, mildly hyperdense material within the rectosigmoid lumen may represent blood products (there is no contrast extravasation to suggest active GI bleeding at the time of examination) Recent colonscopy performed at [facility] on 01/24/25, Dr. Moraes -50mm polyp in the anorectum removed via endoscopic submucosal dissection with endoscopic suturing required for closure -Pathology consistent with a tubulovillous adenoma Hgb 13.8 on admission GI consulted Case discussed b/n ED provider and GIDr. Case -Plan for unprepped flex sig this AM for further eval IV PPI bolus/drip ordered; hold home po PPI for now Hold Eliquis Follow H/H trend Q6H Will need to consider transfusion if Hgb drops <8 (coronary artery dense calcification noted on abd/pelvis CTA); no indication for transfusion at this time #Incidental CTA abd/pelvis findings 1. Cardiomegaly w/ small to moderate pericardial effusion -Pt asymptomatic in this regard; denies any CP/SOB -Prior TTE, 02/2024: LVEF = 55%, mildly increased concentric LV wall thick ness, mildly enlarged LA, mild AR, mild MR, mild TR, mildly enlarged aortic root/proximal ascending thoracic aorta -Check routine TTE --> ? poss cards eval pending these results 2. 4.5cm left lobe liver cyst -LFTs unremarkable -Outpt liver US advised 3. 4.3 cm right adrenal lesion containing macroscopic fat is similar to previous -Outpt monitoring advised 4. Advanced atherosclerotic calcification of the abdominal aorta -Continue statin therapy 5. 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 Moderate stenosis at the origin of the dominant right renal artery 7. 2 indeterminate right lower pole renal lesions which likely represent cysts but are difficult to definitively characterize -Outpt renal US advised -Renal fx currently stable, continue to monitor 8. Bladder wall is thickened/trabeculated indicating chronic outlet obstruction -Currently urinating w/o issue, continue to monitor #HTN #Permanent afib Holding Eliquis ISO above --> resume when able Continue BB w/ hold parameters Hold Cardizem for now, re: marginal BP --> resume when able Telemetry monitoring #HLD Continue statin #CKD stage IIIb Cr stable, baseline Cr 1.6-1.9 per chart review Continue to monitor Avoid nephrotoxic agents when able #Hypothyroidism Continue levothyroxine Check AM TSH/reflex T4 #Asthma No s/sx of acute exacerbation Continue home inhaler #H/o AAA s/p EVAR in 09/2016 F/w [facility] vasc surgery; appears stable --> residual aneurysm sac measures 5.4 x 5.2cm on abd/pelvis CTA DVT Prophylaxis: SCDs/TEDs only ISO above, Eliquis on hold PCP: Mariano Spicer MD Disposition: Admit to PCU Patient seen in collaboration with Dr. Duenas. Please see addendum. I spent a total of 64 minutes coordinating, documenting, and providing care for this patient excluding time spent in the performance of separately billed services or time spent by another provider/QHP. This included personally review ing all current laboratories and imaging studies, medical reconciliation, outpatient chart review and discussion with specialists. This chart was completed in part utilizing Speech Voice Recognition Software. Grammatical errors, random word insertions, pronoun errors, and incomplete sentences are an occasional consequence of this system due to software limitations, ambient noise, and hardware issues. Any formal questions or concerns about the content, text, or information contained within the body of this dictation should be directly addressed to the provider for clarification. History of Present Illness Chief Complaint: Rectal bleeding Primary Care Provider: Mariano Spicer MD Patient is a 74-year-old male with past medical history significant for AAA s/p EVAR in September 2016, permanent atrial fibrillation anticoagulated on Eliquis, CHB s/p pacemaker placement, history of nonischemic cardiomyopathy with reduced EF [TTE 02/2024: LVEF = 55%], left atrial enlargement, aortic valve sclerosis, HTN, HLD, hiatal hernia with GERD, CKD stage IIIb [baseline Cr 1.6-1.9] and other problems listed below who presented to the ED with complaint of diffuse rectal bleeding. History obtained from the patient, discussion with the ED provider and associated chart review. Patient endorses diffuse, anisha red rectal bleeding which started spontaneously this morning around 4AM and has since then been incessant in nature. Mentions it awoke him from sleep. Currently on anticoagulation therapy with Eliquis 5mg BID given history of permanent atrial fibrillation. Last took Eliquis yesterday around 8PM. Has not yet taken any of his home medications today. Denies any lightheadedness/dizziness, SOB or chest pain. Describes some mild cramping in his left lower abdominal region. Recently underwent colonoscopy performed by Dr. Moraes at [facility] on 01/24/2025. Had a 50mm polyp in the anorectum removed via endoscopic submucosal dissection with endoscopic suturing required for closure. Pathology consistent with a tubulovillous adenoma. Patient states he initially had a small amount of anisha blood in his stools following the colonoscopy however this resolved in 1-2 days. This morning is the first time he has experienced any further rectal bleeding since the procedure. Allergies Allergy/AdvReac Type Severity Reaction Status Date / Time Ldgnrxg-CTQ-HhQ Reductase Allergy Verified 02/05/25 08:29 Inhibitor [Psxpzan-Eej-Llq Reductase Inhibitor] Home Medications Medication Instructions Recorded Confirmed Type cyanocobalamin (vitamin B-12) 500 500 mcg PO DAILY 03/16/19 02/05/25 History mcg tablet omeprazole 20 mg capsule,delayed 20 mg PO DAILY 03/16/19 02/05/25 History release apixaban 5 mg tablet (Eliquis) 5 mg PO BID 06/27/19 02/05/25 History levothyroxine 25 mcg capsule 25 mcg PO DAILYBB 06/27/19 02/05/25 History cholecalciferol (vitamin D3) 25 1,000 unit PO DAILY #30 caps 04/11/20 02/05/25 Rx mcg (1,000 unit) capsule (Vitamin D3) budesonide-formoterol HFA 80 1 inh inhalation BID 04/06/23 02/05/25 History mcg-4.5 mcg/actuation aerosol inhaler (Symbicort) rosuvastatin 40 mg tablet 40 mg PO DAILY 04/06/23 02/05/25 History diltiazem HCl 120 mg 120 mg PO QAM 02/05/25 02/05/25 History capsule,extended release 24 hr metoprolol tartrate 50 mg tablet 50 mg PO BID 02/05/25 02/05/25 History Past Med/Surg History Problem List (Updated 02/05/25 @ 10:32 by Treasure Gomez PA-C) Abnormal computed tomography angiography (CTA) of abdomen and pelvis Hemorrhage of colon following colonoscopy On anticoagulant therapy Acute blood loss anemia BRBPR (bright red blood per rectum) (Acute) Rectal bleeding Pneumoperitoneum (Acute) Pneumatosis of intestines (Acute) Hypertension (Chronic) Hx of cholecystectomy (Chronic) S/P AAA repair (Chronic) GERD (gastroesophageal reflux disease) (Chronic) CKD (chronic kidney disease), stage IV (Chronic) Hypothyroidism (Chronic) Hyperlipidemia (Chronic) Pneumonia (Acute) Hypomagnesemia (Acute) Hypophosphatemia (Acute) Tachy-dario syndrome (Chronic) Atrial fibrillation (Chronic) Pacemaker (Chronic) Family History Mother Hypertension Stroke Father Myocardial infarction, Onset Age: 51 Social History Smoking Status: Former smoker Second Hand Exposure: No; Do You Dip or Chew Tobacco: No; Hx Alcohol Use: No Hx Substance Use: No Preferred Language: Arabic Communication Ability: Effective Display Artist Required: No Beliefs That Will Affect Care: None marital status: Current Living Situation: Spouse current occupational status: employed Feels Safe at Home: Yes Assistive Devices: None Review of Systems Review of Systems: At least ten systems reviewed and negative, except as noted in the HPI. Physical Exam Physical Exam: General: Elderly M, NAD, laying down in bed, A&Ox3, pleasant, conversing appropriately, family at bedside. HEENT: Normocephalic, atraumatic, external ear and nose normal, oropharynx moist. Respiratory: Normal respiratory effort, lungs clear to auscultation bilaterally, no accessory muscle use. Cardiovascular: Regular rate, rhythm, normal peripheral pulses, no BLE edema. Abdomen/GI: Active bowel sounds, soft, nontender to palpation in all quadrants. Extremities/MSK: No cyanosis or clubbing, extremities motor strength intact, moves all extremities. Neurologic: No overt focal deficits, CN's II-XI not formally tested but appear grossly intact bilaterally. Results & Data Results & Data Vital Signs (Past 12 Hours) Vital Signs Temp Pulse Pulse Resp BP BP Pulse Ox 02/05/25 08:13 81 16 144/88 H 99 02/05/25 07:04 95 02/05/25 06:36 94 H 02/05/25 06:27 36.9 C 77 18 103/73 96 O2 Del Method 02/05/25 08:13 Room Air 02/05/25 07:04 Room Air 02/05/25 06:36 02/05/25 06:27 Room Air Laboratory Results Short CBC 02/05/25 Range/Units 06:43 WBC 7.72 (4.8-10.8) K/ul Hgb 13.8 L (14.0-18.0) g/dl Hct 41.3 L (42.0-52.0) % Plt Count 224 (130-400) K/uL BMP 02/05/25 06:43 Sodium 142 Potassium 3.5 Chloride 109 H Carbon Dioxide 26 BUN 24 H Creatinine 1.70 H Glucose 98 Calcium 8.6 Liver Function 02/05/25 Range/Units 06:43 Total Bilirubin 0.9 (0.2-1.0) mg/dl AST 16 (13-39) U/L ALT 10 (7-52) U/L Alkaline Phosphatase 59 (34-104) U/L Albumin 3.5 (3.4-5.0) gm/dl Diagnostic Findings Abdomen/Pelvis CTA 02/05/25 06:44 CT ANGIOGRAM OF THE ABDOMEN AND PELVIS CLINICAL HISTORY: Left lower quadrant abdominal pain. Hematochezia. COMPARISON STUDY: Abdominal CT dated 06/26/2019 TECHNIQUE: Following the IV administration of 120 cc of Optiray 320, CT angiogram of the abdomen and pelvis was performed from the lung bases the proximal femora. Images are reviewed in the axial, sagittal, and coronal planes. 3-D MIPS images are created and assessed. IV contrast was administered without complication. A dose lowering technique was utilized adhering to the principles of ALARA. CT DOSE: 1665.94 mGy.cm FINDINGS: Lower chest: The heart is enlargement noting a small pericardial effusion. Pacemaker leads are in place. The coronary arteries are densely calcified. There is bibasilar scarring/atelectasis. No airspace consolidation or pleural effusion is identified. There is a small hiatal hernia. Liver: The contrast-enhanced liver is normal in size, contour, and attenuation. There is no intrahepatic biliary ductal dilatation. The main portal veins appear patent. There is a 4.5 cm left lobe cyst. Additional subcentimeter hepatic hypodensities also likely represent cysts but are too small for definitive characterization. Gallbladder: Surgically absent noting clips in the gallbladder fossa. Spleen: Normal in size and attenuation noting heterogeneous arterial phase enhancement. Pancreas: Moderately atrophic and grossly unremarkable. Adrenal glands: A 4.3 cm right adrenal lesion containing macroscopic fat is similar to previous. The left adrenal gland is normal in appearance. Kidneys: The contrast enhanced kidneys demonstrate cortical atrophy and are without hydronephrosis. The kidneys enhance symmetrically. There are 2 indeterminate lesions arising from the lower pole of the right kidney which measure up to 2.3 cm. Abdominal aorta and iliac arteries: There is advanced atherosclerotic calcification of the abdominal aorta. The patient is status post aortobiiliac stent graft repair of an infrarenal abdominal aortic aneurysm. The residual aneurysm sac measures 5.4 x 5.2 cm (AP x transverse). The stent graft is widely patent. There is no evidence of endoleak on this single phase examination. The abdominal aorta is normal in course and caliber. The iliac arteries are widely patent bilaterally. Major branches of the abdominal aorta: The celiac trunk and superior mesenteric artery are patent. 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 This is opacified distally via retrograde flow. Hepatic arterial anatomy is conventional. The splenic artery is patent. There are 2 right renal arteries and a single left renal artery. These arise from the interstices of the stent and are patent. There is at least moderate stenosis at the origin of the dominant right renal artery. Bowel: There is moderate colonic diverticulosis without CT evidence of acute diverticulitis. No bowel obstruction is seen. A metallic foreign body/clip is noted in the rectum. Moderate fecal retention is seen throughout the colon. There are large duodenal diverticula. The appendix is well-visualized and normal. There is mild wall thickening of the rectosigmoid with surrounding infiltration. Hyperdense intraluminal material within the rectosigmoid there is an blood products. No active extravasation is seen at this time. Peritoneum: There is no intraperitoneal free air or abdominal ascites. There is a fat-containing umbilical hernia. Lymphadenopathy: None. Pelvic viscera: The prostate gland is enlarged and heterogeneous. The bladder wall is thickened/trabeculated indicating chronic outlet obstruction. There are bilateral fat-containing groin hernias. Skeletal structures: The skeletal structures are osteopenic. There is mild lumbosacral spondylosis. Degenerative sclerosis is seen in the sacroiliac joints. No lytic or blastic bony lesions are seen. Chronic deformity and postsurgical change is noted in the right proximal femur. There are chronic/healed right-sided rib fractures. IMPRESSION: 1. A metallic foreign body or surgical clip is noted in the rectum. Correlate clinically. 2. There is mild wall thickening of the rectosigmoid colon with surrounding infiltration. Correlate clinically for evidence of a nonspecific proctocolitis. 3. Mildly hyperdense material within the rectosigmoid lumen may represent blood products. There is no contrast extravasation to suggest active GI bleeding at the time of examination. 4. Colonic diverticulosis without CT evidence of acute diverticulitis. 5. The patient is status post aortobiiliac stent graft repair of an infrarenal abdominal aortic aneurysm. The residual aneurysm sac measures 5.4 x 5.2 cm. 6. There is at least moderate stenosis at the origin of the dominant right renal artery. 7. 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 The vessel is opacified distally by retrograde flow. 8. Cardiomegaly noting a small to moderate pericardial effusion. 9. There are 2 indeterminate right lower pole renal lesions which likely represent cysts but are difficult to definitively characterize. A nonemergent renal ultrasound is recommended in follow-up. 10. Additional findings as above. ACT 112: Negative or not required by law. Electronically signed by: Willie Maurer M.D. 02/05/2025 8:50 AM Medications Administered Discontinued Medications Ioversol (Optiray 320 125ml) 120 ml IV ONCE ONE Stop: 02/05/25 08:04 Last Admin: 02/05/25 08:03 Dose: 120 ml Documented By: BRM Code Status & VTE Plan Code Status FULL CODE - As per direct discussion w/ the pt at bedside in the ED. VTE Prophylaxis Plan VTE Prophylaxis will be ordered: Yes Supervising Physician Co-Signing Physician Notes Attending addendum: The patient was seen and examined in telemetry infusion Recently he has had colonoscopy and removal of a 50 mm polyp and he was put back on Eliquis following the procedure in due time. He came to the emergency room with bright rectal bleed since this morning without any other associated symptoms He was taken to the OR for emergent sigmoidoscopy On examination Lying in bed without any acute distress Hemodynamically stable Chestclear to auscultate bilaterally HeartS1-S2, regular Abdomenbenign Extremitiesno edema His admission labs, medications and imaging studies reviewed Hemoglobin remains stable and hemoglobin is stable as well without any acute symptoms Assessment plan Resent Colonoscopy and removal of a huge polyp Bright red rectal bleed- status post sigmoidoscopy and cauterization of the oozing area in the rectum Will observe for at least 24 hours to make sure hemoglobin is stable before discharge Syncopal episodes(Vagovegal)has had 1 episode of syncope in the emergency room when the blood pressure went down to 50s and the patient received fluid bolus and also 2 units of PRBC Another syncopal episode happened at the bathroom following the procedure and when the patient was in the floor He went to move bowel and had to strain during bowel movement and ended up with loss of consciousness preceded by dizziness and no other symptoms Code purple was called and he was a stabilized on lying down and receiving some IV fluidwill get an EKG and also troponin and CBC will be checked Agree with assessment plan as outlined above by Treasure Vizcaino PA-C and take the full responsibility of care in the hospital Dr Alejandro Duenas
[2025-02-05 10:09] LABS: INR 1.1 (0.9-1.1); Prothrombin Time 12.2 Seconds (9.0-12.0)
[2025-02-05] MEDS: SODIUM CHLORIDE 0.9% 1,000 ML IV STA (10:31)
--- NOTE | 2025-02-05 10:35 | Anesthesiology Consultation ---
Date of Service February 05, 2025 Assessment & Plan Chart Review Chart Review: Acceptable Risk for Surgery Consults Requested none History Surgery Operation Date: 02/05/25 10:55 Proposed Procedures p Flexible Sigmoidoscopy - Dylan Hua Case, DO Height/Weight Height: 6 ft 3 in Weight: 100.7 kg Allergies Allergy/AdvReac Type Severity Reaction Status Date / Time Unxxeiv-HGE-MoY Reductase Allergy Verified 02/05/25 08:29 Inhibitor [Kojesmq-Xff-Qmz Reductase Inhibitor] Medications Home Medications Medication Instructions Recorded Confirmed Last Taken cyanocobalamin (vitamin B-12) 500 500 mcg PO DAILY 03/16/19 02/05/25 02/04/25 mcg tablet omeprazole 20 mg capsule,delayed 20 mg PO DAILY 03/16/19 02/05/25 02/04/25 release apixaban 5 mg tablet (Eliquis) 5 mg PO BID 06/27/19 02/05/25 02/04/25 levothyroxine 25 mcg capsule 25 mcg PO DAILYBB 06/27/19 02/05/25 02/04/25 cholecalciferol (vitamin D3) 25 1,000 unit PO DAILY #30 caps 04/11/20 02/05/25 02/04/25 mcg (1,000 unit) capsule (Vitamin D3) budesonide-formoterol HFA 80 1 inh inhalation BID 04/06/23 02/05/25 02/04/25 mcg-4.5 mcg/actuation aerosol inhaler (Symbicort) rosuvastatin 40 mg tablet 40 mg PO DAILY 04/06/23 02/05/25 02/04/25 diltiazem HCl 120 mg 120 mg PO QAM 02/05/25 02/05/25 Unknown capsule,extended release 24 hr metoprolol tartrate 50 mg tablet 50 mg PO BID 02/05/25 02/05/25 02/04/25 Active Medications Generic Name Dose Route Start Last Admin Trade Name Freq PRN Reason Stop Dose Admin Sodium Chloride 1,000 mls @ 15 mls/hr 02/05/25 10:27 02/05/25 10:31 Nss IV 02/06/25 10:26 15 mls/hr .Q24H STA Administration NPO Date Last Intake of Fluids: 02/04/25 Time Last Intake of Fluids: 20:00 Date Last Intake of Solids: 02/04/25 Time Last Intake of Solids: 18:00 Past Family History Family History Mother Hypertension Stroke Father Myocardial infarction, Onset Age: 51 Social History Smoking Status: Former smoker Do You Dip or Chew Tobacco: No Hx Alcohol Use: No Hx Substance Use: No substance use type: does not use Physical Exam Vital Signs Last Vital Signs Temp 36.5 C 02/05/25 10:20 Pulse 86 02/05/25 10:20 Resp 20 02/05/25 10:20 BP 127/79 02/05/25 10:20 Pulse Ox 98 02/05/25 10:20 O2 Del Method Room Air 02/05/25 10:20 Testing Laboratory Results 02/05/25 06:43 02/05/25 06:43 PT 12.2 Seconds (9.0-12.0) H 02/05/25 06:44 INR 1.1 (0.9-1.1) 02/05/25 06:44 Blood Type A Positive 02/05/25 06:43 Antibody Screen NEGATIVE 02/05/25 06:43
[2025-02-05] MEDS ORDERED: PROMETHAZINE HCL 6.25 MG in SODIUM CHLORIDE 0.9% 50 ML IV PRN (10:36)
[2025-02-05] MEDS ORDERED: ATROPINE SULFATE 0.1 MG/ML 10ML SYR IV PRN (10:36)
[2025-02-05] MEDS ORDERED: ONDANSETRON INJ 2 MG/ML 2 ML VIAL IV PRN ×2 (10:36→13:37)
[2025-02-05] MEDS ORDERED: HYDROmorphone INJ 2 MG/ML SYR/VIAL IV PRN (10:36)
[2025-02-05] MEDS ORDERED: PHENYLEPHRINE 100MCG/ML 5ML SYR ONE ×2 (10:50→11:28)
--- NOTE | 2025-02-05 11:31 | Communication Note ---
Date of Service: February 05, 2025 Patient was taken to OR 2 and unprepped flex sig was performed. A large ulcerated area with retained suture material was noted. The ulcer was covered initially with a large adherent clot. The base of the ulcer was injected with epinephrine to control active bleeding, as well as placement of 3 endoclips. The clot was carefully removed whice revealed a visible vessel. This was treated with cautery via heater probe. There was no active bleeding at the end of the procedure. Plan: Recommend Broad spectrum Abx coverage for 5 days. Recommend holding Eliquis for 5 days. Clear liquid diet today. Further recommendations to follow.
--- NOTE | 2025-02-05 11:56 | Communication Note ---
Date of Service: February 05, 2025 Addendum to H&P: Patient with significant drop in BP down to 56/39 at its lowest around 9:34AM. This was not alerted to the undersigned provider. ED provider, Dr. Harman, was made aware and a bolus of IV fluids was promptly administered with improvement of the patient's blood pressure to 127/98 around 9:43AM. Dr. Harman also ordered 2U of PRBCs which have since been transfused. Once stabilized, patient was transferred to the OR where he underwent unprepped flex sigmoidoscopy performed by Dr. Gatica. This was notable for a large ulcerated area which was injected with epinephrine to control active bleeding and 3 Endoclips were placed. There was a visible clot adhered to this area which was removed and additional areas of active bleeding were treated with cautery. There was no active bleeding at the end of the procedure. Discussed GI recommendations moving forward with GI UMANG, Jamari Schwarz, via TT. Plan to cover empirically with broad-spectrum antibiotics including IV Cipro/Flagyl x 5 days. Clear liquid diet for now. Hold Eliquis x 5 days. Will hold BB for now in addition to diltiazem with routine BP monitoring. Will hold off on additional PRBC transfusions for now pending H/H trend. Treasure Gomez PA-C [facility] Medicine Service Evaluated by me and agree with the assessmentand plan. Dr Alejandro Duenas
--- NOTE | 2025-02-05 12:51 | GI REPORT ---
[facility] Patient: OSCAR CAGE : 1950 Sex at : Male Age: 74 Years Procedure: Flexible Sigmoidoscopy Date: 02/05/2025 Attending Physician: Dylan Gatica DO Referring MD: Haven Harman Md Indications: - Rectal hemorrhage - Treatment of bleeding from polypectomy site Medications: - See the Anesthesia note for documentation of the administered medications Complications: - No immediate complications. Estimated Blood Loss: - Estimated blood loss: Greater than 100 mL. Procedure: - Prior to the procedure, a History and Physical was performed, and patient medications and allergies were reviewed. The patient's tolerance of previous anesthesia was also reviewed. The risks and benefits of the procedure and the sedation options and risks were discussed with the patient. All questions were answered, and informed consent was obtained. Prior Anticoagulants: The patient has taken Eliquis (apixaban), last dose was 1 day prior to procedure. ASA Grade Assessment: III - A patient with severe systemic disease. After reviewing the risks and benefits, the patient was deemed in satisfactory condition to undergo the procedure. - The pediatric colonoscope was introduced through the anus and advanced to the sigmoid colon. - The flexible sigmoidoscopy was accomplished without difficulty. - The patient tolerated the procedure well. Findings: - Spurting blood was seen in the distal rectum, secondary to previous polypectomy procedure. Area was successfully injected with 6 mL of a 0.1 mg/mL solution of epinephrine for hemostasis. For hemostasis, three hemostatic clips were successfully placed. Clip loading dock helper: [employer]. Fulguration to ablate the lesion to prevent bleeding by heater probe was successful. Impression: - Bleeding in the distal rectum secondary to previous polypectomy. Injected. Clips were placed. Clip loading dock helper: [employer]. Treated with a heater probe. - No specimens collected. Recommendation: - Admit the patient to [facility] care. - Clear liquid diet today. - Resume Eliquis (apixaban) at prior dose in 5 days. - Continue present medications Start Cipro/Flagyl for 5 days. Procedure Code(s): - 90664-28, Sigmoidoscopy, flexible; with control of bleeding, any method Diagnosis Code(s): - K62.5, Hemorrhage of anus and rectum - K91.840, Postprocedural hemorrhage of a digestive system organ or structure following a digestive system procedure CPT(R) - 2023 copyright [employer]. All Rights Reserved. The CPT codes, CCI edits and ICD codes generated are intended as suggestions and were generated based on input data. These codes are preliminary and upon project engineering manager review may be revised to meet current compliance and payer requirements. The provider is responsible for the final determination of appropriate codes, and modifiers. Dr. Dylan Gatica, DO This document has been electronically signed. Note Initiated:02/05/2025 Note Completed:02/05/2025 12:50 PM \\[email or web address]\Central\InterfaceData\Data\Provation\Results\LIVE\[id number]
[2025-02-05] MEDS ORDERED: POLYETHYLENE (MIRALAX) 17 GM PACK PO PRN (13:37)
[2025-02-05] MEDS ORDERED: MAGNESIUM HYDROXIDE SUSP 30 ML UDC PO PRN (13:37)
[2025-02-05] MEDS ORDERED: ACETAMINOPHEN 325 MG TAB PO PRN (13:37)
[2025-02-05] MEDS: PANTOprazole 40 MG in DEXTROSE 5% MINI-B 100 ML IV SCH (13:41)
[2025-02-05] MEDS: SODIUM CHLORIDE 0.9% 1,000 ML IV SCH (13:55)
[2025-02-05] MEDS: CIPROFLOXACIN / D5W 400 MG/200 ML BAG IV SCH (14:06)
[2025-02-05 14:15] LABS: Hematocrit (blood only) 36.6 % (42.0-52.0); Hemoglobin 12.2 g/dl (14.0-18.0)
[2025-02-05] MEDS: metroNIDAZOLE 500 MG/100 ML BAG IV SCH (15:19)
--- NOTE | 2025-02-05 18:59 | Communication Note ---
Date of Service: February 05, 2025 Patient had been called a code purple earlier this afternoon around 2PM after significant icing while on the toilet. Suspect vasovagal reaction while strain ing during defecation in the setting of rectal bleeding. IVF initiated and patient placed on bedrest. Repeat BP following syncopal event in the 120s/80s and patient appeared to be back at his baseline shortly following this. TTE completed after CTA chest/pelvis raised concern for a possible small to moderate pericardial effusion. TTE: LVEF = >70%, moderate concentric LVH, moderately dilated LA, mild AR, mild MR, trivial loculated anterior pericardial effusion. No evidence of cardiac tamponade. -Will hold off on inpatient cardiology evaluation for now. Will need serial TTEs as an outpatient to monitor this. Repeat Hgb 12.2 at 14:02 --> no need for additional transfusions at this time, continue to monitor H/H trend. Treasure Gomez PA-C [facility] Medicine Team Above noted and attended. Agree with the assessment and plan. Dr Alejandro Duenas
[2025-02-05] MEDS: FLUTICASONE/VILANTEROL 100/25MCG 14 PUFFS/INHALER INH SCH (20:34)
[2025-02-05] MEDS ORDERED: METOPROLOL TARTRATE 50 MG TAB PO SCH (21:00)
[2025-02-05 21:41] LABS: Hematocrit (blood only) 32.3 % (42.0-52.0); Hemoglobin 11.1 g/dl (14.0-18.0)
[2025-02-06] MEDS: DIGOXIN 250 MCG in SYRINGE 9 ML IV STA (00:30)
[2025-02-06] MEDS: POTASSIUM CHLORIDE 20 MEQ in LACTATED RINGER'S 1,000 ML IV ONE (00:30)
[2025-02-06] MEDS: POTASSIUM CHLORIDE CRTAB 20 MEQ TABCR PO STA (00:30)
[2025-02-06 00:35] LABS: Magnesium 1.8 mg/dl (1.7-2.4)
[2025-02-06 01:52] LABS: Hematocrit (blood only) 31.6 % (42.0-52.0); Hemoglobin 10.7 g/dl (14.0-18.0)
[2025-02-06] MEDS ORDERED: POTASSIUM CHLORIDE CRTAB 20 MEQ TABCR PO ONE (02:00)
[2025-02-06 02:41] LABS: Appearance Urine Clear (Clear); Bacteria Urine Automated None Seen (None Seen); Cast Urine Automated 0-2 /lpf (0-2); Epithelial Cell Urine Auto 0-2 /hpf (0-2); Glucose Urine UA Negative (Negative); RBC Urine Automated 0-2 /hpf (0-2); WBC Urine Automated 0-5 /hpf (0-5)
[2025-02-06] MEDS: LEVOTHYROXINE SODIUM 25 MCG TABLET PO SCH (05:13)
[2025-02-06] MEDS: METOPROLOL TARTRATE 25 MG TAB PO STA (05:13)
[2025-02-06] MEDS: MAGNESIUM SULFATE / D5W 1 GM/100 ML BAG IV ONE (05:13)
[2025-02-06 05:40] LABS: Hematocrit (blood only) 29.7 % (42.0-52.0); Hemoglobin 9.9 g/dl (14.0-18.0); Immature Granulocytes # (auto) 0.03 K/uL (0.01-0.20); Immature Granulocytes % (auto) 0.5 %; Mean Corpuscular Hemoglobin 28.4 pg (25.0-34.0); Mean Corpuscular Volume 85.3 fL (80.0-100.0); Platelet Count 145 K/uL (130-400); RDW Standard Deviation 47.7 fL (36.4-46.3); Red Blood Count 3.48 M/uL (4.70-6.10); White Blood Count 6.57 K/ul (4.8-10.8)
[2025-02-06 05:57] LABS: Alanine Aminotransferase 6.0 U/L (7-52); Albumin Globulin Ratio 1.3 (0.9-2); Alkaline Phosphatase 37.0 U/L (34-104); Anion Gap 3.0 (3-11); Bilirubin,Total 0.8 mg/dl (0.2-1.0); Blood Urea Nitrogen 21.0 mg/dl (6-23); Calcium 7.2 mg/dl (8.6-10.3); Carbon Dioxide 24.0 mmol/L (21-32); Chloride 112.0 mmol/L (98-107); Creatinine Clr Calc Pharmacy 56.8 ml/min; Globulin 1.8 gm/dl (2.5-4.0); Glucose 130.0 mg/dl (70-99(Fasting)); Magnesium 2.3 mg/dl (1.7-2.4); Potassium 3.7 mmol/L (3.5-5.1); Sodium 139.0 mmol/L (136-145); Total Protein 4.2 gm/dl (6.0-8.3)
[2025-02-06 06:12] LABS: Thyroid Stimulating Hormone 2.214 uIu/ml (0.300-4.500)
[2025-02-06] MEDS: CYANOCOBALAMIN (B-12) 500 MCG TABLET PO SCH (08:12)
[2025-02-06] MEDS: CHOLECALCIFEROL 25 MCG (1000 UNITS) TAB PO SCH (08:12)
[2025-02-06] MEDS: ROSUVASTATIN CALCIUM 20 MG TAB PO SCH (08:12)
[2025-02-06] MEDS ORDERED: SODIUM PHOSPHATE 3 MMOL/1 ML INFUSION IV STA (08:48)
[2025-02-06] MEDS ORDERED: METOPROLOL TARTRATE 25 MG TAB PO SCH (09:00)
[2025-02-06] MEDS: CALCIUM GLUCONATE 1,000 MG/60 ML BAG IV STA (09:36)
[2025-02-06] MEDS: SODIUM PHOSPHATE 12 MMOL in SODIUM CHLORIDE 0.9% 250 ML IV ONE (09:48)
[2025-02-06 10:43] LABS: Hematocrit (blood only) 33.3 % (42.0-52.0); Hemoglobin 11.1 g/dl (14.0-18.0)
--- NOTE | 2025-02-06 12:54 | Electrocardiogram Report ---
Test Reason : Blood Pressure : */* mmHG Vent. Rate : 81 BPM Atrial Rate : * BPM P-R Int : * ms QRS Dur : 102 ms QT Int : 428 ms P-R-T Axes : * 7 -76 degrees QTcB Int : 497 ms Atrial fibrillation with premature ventricular or aberrantly conducted complexes QTcB >= 480 msec Abnormal ECG When compared with ECG of 06-Mar-2019 13:09, Atrial fibrillation has replaced Electronic ventricular pacemaker Confirmed by Jasiel Flores ([id number]) on 02/06/2025 12:53:57 PM Referred By: REFERRED SELF Confirmed By: Jasiel Flores
--- NOTE | 2025-02-06 13:21 | Gastroenterology Progress Note ---
Date of Service February 06, 2025 Assessment & Plan (1) BRBPR (bright red blood per rectum): (2) Hemorrhage of colon following colonoscopy: Plan -Continue to monitor H/H -Continue Cipro & Flagyl for a total of 5 days -Continue to hold Eliquis for a total of 5 days -Patient currently on a liquid diet -Continue to monitor rectal bleeding ADDENDUM: Worsening bleeding this afternoon. Will make NPO and take for flex sig this afternoon. Admission and Anticipated Discharge Date Admission Date: February 05, 2025 Supervising Physician Co-Signing Physician Notes Agree with ALEXUS Sen as above Patient with large amount of Bright red blood per rectum Abd: Soft, NT, ND, +BS Patient last had clear liquids at noon Will proceed with unprepped flex sig now to control acute blood loss at present. Subjective Patient is a 74 yo male with post-polypectomy bleed. He underwent an unprepped flex sig on 02/05 for treatment. Hgb dipped to 9.9 this AM, but has since been rechecked and is 11.1. Patient denies abdominal pain. He is eating a liquid diet at the time of my visit. He notes that he is still having some BRBPR, but it is lessening in severity. Review of Systems Gastrointestinal: + blood in stools; no abdominal pain Physical Exam Gastrointestinal (Abdomen): normal bowel sounds, soft, nontender, no hepatosplenomegaly Results & Data Results & Data Vital Signs (Past 12 Hours) Vital Signs Temp Pulse Resp BP BP Pulse Ox O2 Del Method 02/06/25 11:18 36.4 C L 106 H 18 116/81 94 Room Air 02/06/25 07:21 36.7 C 77 18 115/80 98 Room Air 02/06/25 03:40 36.9 C 68 18 107/72 96 Room Air PG Care Time/CCT Total # of Minutes Spent Total Time Spent with Patient: Total time spent is greater than 50% in coordination of care (as documented) at patient's floor/unit and/or counseling patient: Coding Level of Care Code 18856 SUB INP/OBS CARE 3/50MIN Diagnoses BRBPR (bright red blood per rectum) K62.5 Hemorrhage of colon following colonoscopy K91.840
--- NOTE | 2025-02-06 15:45 | Anesthesiology Consultation ---
Date of Service February 06, 2025 Assessment & Plan (1) Encounter for pre-operative examination: Chart Review Chart Review: Acceptable Risk for Surgery History Surgery Operation Date: 02/05/25 10:55 Proposed Procedures p Flexible Sigmoidoscopy Lily Hua Case, DO Operation Date: 02/06/25 16:45 Proposed Procedures p Flexible Sigmoidoscopy Dr En Hua Case, DO Height/Weight Height: 6 ft 3 in Weight: 102.7 kg Allergies Allergy/AdvReac Type Severity Reaction Status Date / Time Klleeja-ICU-AyZ Reductase Allergy Verified 02/05/25 08:29 Inhibitor [Jdbevip-Dnw-Afi Reductase Inhibitor] Medications Home Medications Medication Instructions Recorded Confirmed Last Taken cyanocobalamin (vitamin B-12) 500 500 mcg PO DAILY 03/16/19 02/05/25 02/04/25 mcg tablet omeprazole 20 mg capsule,delayed 20 mg PO DAILY 03/16/19 02/05/25 02/04/25 release apixaban 5 mg tablet (Eliquis) 5 mg PO BID 06/27/19 02/05/25 02/04/25 levothyroxine 25 mcg capsule 25 mcg PO DAILYBB 06/27/19 02/05/25 02/04/25 cholecalciferol (vitamin D3) 25 1,000 unit PO DAILY #30 caps 04/11/20 02/05/25 02/04/25 mcg (1,000 unit) capsule (Vitamin D3) budesonide-formoterol HFA 80 1 inh inhalation BID 04/06/23 02/05/25 02/04/25 mcg-4.5 mcg/actuation aerosol inhaler (Symbicort) rosuvastatin 40 mg tablet 40 mg PO DAILY 04/06/23 02/05/25 02/04/25 diltiazem HCl 120 mg 120 mg PO QAM 02/05/25 02/05/25 Unknown capsule,extended release 24 hr metoprolol tartrate 50 mg tablet 50 mg PO BID 02/05/25 02/05/25 02/04/25 Active Medications Generic Name Dose Route Start Last Admin Trade Name Freq PRN Reason Stop Dose Admin Cyanocobalamin 500 mcg 02/06/25 09:00 02/06/25 08:12 Cyanocobalamin (B-12) 500 Mcg Tablet PO 03/08/25 08:59 500 mcg DAILY SANDHYA Administration Fluticasone/Vilanterol 1 puffs 02/05/25 21:00 02/05/25 20:34 Fluticasone/Vilanterol 100/25mcg 14 Puffs/Inhaler INH 03/07/25 20:59 1 puffs Q24H SANDHYA Administration Protocol Pantoprazole Sodium 40 mg/ 100 mls @ 20 mls/hr 02/05/25 10:00 02/06/25 12:52 Dextrose IV 03/07/25 09:59 8 mg/hr Q5H SANDHYA 20 mls/hr Administration 8 MG/HR Ciprofloxacin 400 mg in 200 mls @ 100 mls/hr 02/05/25 14:00 02/06/25 14:14 Cipro / D5w IV 02/15/25 13:59 100 mls/hr Q12H SANDHYA Administration Protocol Metronidazole 500 mg in 100 mls @ 100 mls/hr 02/05/25 14:00 02/06/25 15:45 Flagyl IV 02/15/25 13:59 Infused Q12H SANDHYA Infusion Protocol Levothyroxine Sodium 25 mcg 02/06/25 06:30 02/06/25 05:13 Levothyroxine Sodium 25 Mcg Tablet PO 03/08/25 06:29 25 mcg DAILYBB SANDHYA Administration Rosuvastatin Calcium 40 mg 02/06/25 09:00 02/06/25 08:12 Rosuvastatin Calcium 20 Mg Tab PO 03/08/25 08:59 40 mg DAILY SANDHYA Administration Vitamin D 25 mcg 02/06/25 09:00 02/06/25 08:12 Cholecalciferol 25 Mcg (1000 Units) Tab PO 03/08/25 08:59 25 mcg DAILY SANDHYA Administration NPO Date Last Intake of Fluids: 02/04/25 Time Last Intake of Fluids: 20:00 Date Last Intake of Solids: 02/04/25 Time Last Intake of Solids: 18:00 Past Medical History Medical History (Updated 02/06/25 @ 16:09 by Keanu Mcgarry MD) Pacemaker Atrial fibrillation Hypertension CKD (chronic kidney disease), stage IV GERD (gastroesophageal reflux disease) Pneumatosis of intestines On anticoagulant therapy Acute blood loss anemia Past Family History Family History Mother Hypertension Stroke Father Myocardial infarction, Onset Age: 51 Past Surgical History Surgical History (Updated 02/06/25 @ 16:06 by Keanu Mcgarry MD) S/P AAA repair Hx of cholecystectomy Social History Smoking Status: Never smoker Do You Dip or Chew Tobacco: No Hx Alcohol Use: No Hx Substance Use: No substance use type: does not use Physical Exam Vital Signs Last Vital Signs Temp 36.6 C 02/06/25 15:59 Pulse 128 H 02/06/25 15:59 Resp 18 02/06/25 15:59 BP 127/77 02/06/25 15:59 Pulse Ox 98 02/06/25 15:59 O2 Del Method Room Air 02/06/25 15:59 Testing Laboratory Results 02/06/25 10:17 02/06/25 05:21 PT 12.2 Seconds (9.0-12.0) H 02/05/25 06:44 INR 1.1 (0.9-1.1) 02/05/25 06:44 Urine Color Yellow 02/06/25 02:08 Urine Appearance Clear (Clear) 02/06/25 02:08 Urine pH 5.0 (4.5-7.5) 02/06/25 02:08 Ur Specific Ione > 1.045 (1.000-1.030) H 02/06/25 02:08 Urine Protein Trace (Negative) H 02/06/25 02:08 Urine Glucose (UA) Negative (Negative) 02/06/25 02:08 Urine Ketones Trace (Negative) H 02/06/25 02:08 Urine Nitrite Negative (Negative) 02/06/25 02:08 Ur Leukocyte Esterase Negative (Negative) 02/06/25 02:08 Urine WBC (Auto) 0-5 /hpf (0-5) 02/06/25 02:08 Urine RBC (Auto) 0-2 /hpf (0-2) 02/06/25 02:08 U Hyaline Cast (Auto) 0-2 /lpf (0-2) 02/06/25 02:08 U Epithel Cells (Auto) 0-2 /hpf (0-2) 02/06/25 02:08 Urine Bacteria (Auto) None Seen (None Seen) 02/06/25 02:08 Blood Type A Positive 02/05/25 06:43 Antibody Screen NEGATIVE 02/05/25 06:43 02/06/25 02/06/25 11:57 07:58 POC Glucose 108 H 103 H Electrocardiogram Date: 02/05/25 Findings: + AFIB @ (81) Echocardiogram Date: 02/05/25 EF: >70% Other Findings: + LVH (moderate) Valvular Disease: + AI (mild) and + MR (mild) trivial effusion, no evidence tamponade
--- NOTE | 2025-02-06 16:45 | Hospitalist Progress Note ---
Date of Service February 06, 2025 Assessment & Plan (1) Rectal bleeding: (2) Abnormal computed tomography angiography (CTA) of abdomen and pelvis: Plan Patient is a 74-year-old male with past medical history significant for AAA s/p EVAR in September 2016, permanent atrial fibrillation anticoagulated on Eliquis, CHB s/p pacemaker placement, history of nonischemic cardiomyopathy with reduced EF [TTE 02/2024: LVEF = 55%], left atrial enlargement, aortic valve sclerosis, HTN, HLD, hiatal hernia with GERD, CKD stage IIIb [baseline Cr 1.6-1.9] and other problems listed below who presented to the ED with complaint of diffuse rectal bleeding which began around 4AM this morning. #Lower GI Bleeding, Rectum #History of recent colonscopy w/ polyp removal on 01/24/25 -CTA abd/pelvis: mild wall thickening of the rectosigmoid colon w/ surrounding infiltration, mildly hyperdense material within the rectosigmoid lumen may represent blood products (there is no contrast extravasation to suggest -active GI bleeding at the time of examination) -Recent colonscopy performed at [facility] on 01/24/25, Dr. Moraes -50mm polyp in the anorectum removed via endoscopic submucosal dissection with endoscopic suturing required for closure -Pathology consistent with a tubulovillous adenoma -Hgb 13.8 on admission -recurrent bleeding this morning post sigmoidoscopy yesterday Plan: -GI consulted, discussed case with GI today -repeat flex sign today -IV PPI bolus/drip ordered; hold home po PPI for now -Hold Eliquis -Follow H/H trend Q6H #Incidental CTA abd/pelvis findings 1. Cardiomegaly w/ small to moderate pericardial effusion -Pt asymptomatic in this regard; denies any CP/SOB -Prior TTE, 02/2024: LVEF = 55%, mildly increased concentric LV wall thickness, mildly enlarged LA, mild AR, mild MR, mild TR, mildly enlarged aortic root/proximal ascending thoracic aorta -Check routine TTE --> ? poss cards eval pending these results 2. 4.5cm left lobe liver cyst -LFTs unremarkable -Outpt liver US advised 3. 4.3 cm right adrenal lesion containing macroscopic fat is similar to previous -Outpt monitoring advised 4. Advanced atherosclerotic calcification of the abdominal aorta -Continue statin therapy 5. 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 Moderate stenosis at the origin of the dominant right renal artery 7. 2 indeterminate right lower pole renal lesions which likely represent cysts but are difficult to definitively characterize -Outpt renal US advised -Renal fx currently stable, continue to monitor 8. Bladder wall is thickened/trabeculated indicating chronic outlet obstruction -Currently urinating w/o issue, continue to monitor #HTN #Permanent afib -Holding Eliquis ISO above --> resume when able -Continue BB w/ hold parameters #HLD -Continue statin #CKD stage IIIb -Cr stable, baseline Cr 1.6-1.9 per chart review #Hypothyroidism -Continue levothyroxine #Asthma -No s/sx of acute exacerbation #H/o AAA s/p EVAR in 09/2016 -F/w [facility] vasc surgery; appears stable --> residual aneurysm sac measures 5.4 x 5.2cm on abd/pelvis CTA I spent a total of 50 minutes in direct patient care, including [id number] time with the patient and/or family, reviewing medical records, ordering and reviewing diagnostic tests, and coordinating care with other healthcare providers. This time includes: history taking, physical examination, medical decision making, counseling, ECG interpretation, imaging interpretation, lab interpretation, orders, and education, excluding time spent in the performance of separately billed services. Admission and Anticipated Discharge Date Admission Date: February 05, 2025 Subjective Patient seen and examined at bedside. Family present at bedside as well. Still having active rectal bleeding, bright red blood per rectum, lightheaded this morning on standing up. Review of Systems Review of Systems: CONSTITUTIONAL: Patient denies fevers, chills, sweats and weight changes. EYES: Patient denies any visual symptoms. EARS, NOSE, AND THROAT: No difficulties with hearing. No symptoms of rhinitis or sore throat. CARDIOVASCULAR: Patient denies chest pains, palpitations, orthopnea and paroxysmal nocturnal dyspnea. RESPIRATORY: No dyspnea on exertion, no wheezing or cough. GI: rectal bleeding, anisha red blood per rectum : No urinary hesitancy or dribbling. No nocturia or urinary frequency. No abnormal urethral discharge. MUSCULOSKELETAL: No myalgias or arthralgias. NEUROLOGIC: No chronic headaches, no seizures. Patient denies numbness, tingling or weakness. PSYCHIATRIC: Patient denies problems with mood disturbance. No problems with anxiety. ENDOCRINE: No excessive urination or excessive thirst. DERMATOLOGIC: Patient denies any rashes or skin changes. Physical Exam Physical Exam: Gen: A&O 3 NAD HEENT: NCAT, EOMI, not icteric. External ears normal. No rhinorrhea. Moist mucous membranes. Neck: Supple, full range of motion, no observable masses, No meningeal sign. Lungs: No Respiratory distress. CV: tachycardic, regular rhythm Abdomen: Soft, nondistended, No rebound tenderness. MSK: No joint swelling, no redness. Skin: No rashes, petechiae, lesions. Normal color per patient. Neuro: Normal Gait, Grossly intact. Psych: Appropriate for situation. Results & Data Results & Data Vital Signs (Past 12 Hours) Vital Signs Temp Pulse Pulse Resp BP BP Pulse Ox 02/06/25 16:41 110 H 02/06/25 15:59 36.6 C 128 H 18 127/77 98 02/06/25 15:15 36.3 C L 93 H 16 149/88 H 96 02/06/25 11:18 36.4 C L 106 H 18 116/81 94 02/06/25 07:21 36.7 C 77 18 115/80 98 O2 Del Method 02/06/25 16:41 02/06/25 15:59 Room Air 02/06/25 15:15 Room Air 02/06/25 11:18 Room Air 02/06/25 07:21 Room Air Laboratory Results -personally reviewed, Hgb declining, creatinine stablized Medications Administered Cyanocobalamin (Cyanocobalamin (B-12) 500 Mcg Tablet) 500 mcg PO DAILY SANDHYA Stop: 03/08/25 08:59 Last Admin: 02/06/25 08:12 Dose: 500 mcg Documented By: CARLIE Fluticasone/Vilanterol (Fluticasone/Vilanterol 100/25mcg 14 Puffs/Inhaler) 1 puffs INH Q24H SANDHYA; Protocol Stop: 03/07/25 20:59 Last Admin: 02/05/25 20:34 Dose: 1 puffs Documented By: ELOY Pantoprazole Sodium 40 mg/ (Dextrose) 100 mls @ 20 mls/hr IV Q5H [facility] Stop: 03/07/25 09:59 Last Admin: 02/06/25 12:52 Dose: 8 mg/hr, 20 mls/hr Documented By: Infusion: 02/06/25 12:52 Dose: Infused Documented By: Admin: 02/06/25 08:10 Dose: 8 mg/hr, 20 mls/hr Documented By: Infusion: 02/06/25 07:55 Dose: Infused Documented By: Admin: 02/06/25 02:55 Dose: 8 mg/hr, 20 mls/hr Documented By: Infusion: 02/06/25 02:55 Dose: Infused Documented By: Admin: 02/05/25 22:07 Dose: 8 mg/hr, 20 mls/hr Documented By: Infusion: 02/05/25 22:07 Dose: Infused Documented By: Admin: 02/05/25 17:46 Dose: 8 mg/hr, 20 mls/hr Documented By: Infusion: 02/05/25 17:46 Dose: Infused Documented By: Admin: 02/05/25 13:41 Dose: 8 mg/hr, 20 mls/hr Documented By: MIKE Ciprofloxacin (Cipro / D5w) 400 mg in 200 mls @ 100 mls/hr IV Q12H SANDHYA; Protocol Stop: 02/15/25 13:59 Last Admin: 02/06/25 14:14 Dose: 100 mls/hr Documented By: Infusion: 02/06/25 04:38 Dose: Infused Documented By: Admin: 02/06/25 01:38 Dose: 100 mls/hr Documented By: Infusion: 02/05/25 16:08 Dose: Infused Documented By: Admin: 02/05/25 14:06 Dose: 100 mls/hr Documented By: MIKE Metronidazole (Flagyl) 500 mg in 100 mls @ 100 mls/hr IV Q12H SANDHYA; Protocol Stop: 02/15/25 13:59 Last Infusion: 02/06/25 15:45 Dose: Infused Documented By: Admin: 02/06/25 14:14 Dose: 100 mls/hr Documented By: Infusion: 02/06/25 02:42 Dose: Infused Documented By: Admin: 02/06/25 01:38 Dose: 100 mls/hr Documented By: Infusion: 02/05/25 16:20 Dose: Infused Documented By: Admin: 02/05/25 15:19 Dose: 100 mls/hr Documented By: MIKE Levothyroxine Sodium (Levothyroxine Sodium 25 Mcg Tablet) 25 mcg PO DAILYBB [facility] Stop: 03/08/25 06:29 Last Admin: 02/06/25 05:13 Dose: 25 mcg Documented By: ELOY Rosuvastatin Calcium (Rosuvastatin Calcium 20 Mg Tab) 40 mg PO DAILY SANDHYA Stop: 03/08/25 08:59 Last Admin: 02/06/25 08:12 Dose: 40 mg Documented By: CARLIE Vitamin D (Cholecalciferol 25 Mcg (1000 Units) Tab) 25 mcg PO DAILY SANDHYA Stop: 03/08/25 08:59 Last Admin: 02/06/25 08:12 Dose: 25 mcg Documented By: CARLIE
[2025-02-06] MEDS ORDERED: SODIUM CHLORIDE 0.9% 100 ML IV PRN ×2 (16:59→20:35)
--- NOTE | 2025-02-06 17:01 | GI REPORT ---
[facility] Patient: OSCAR CAGE : 1950 Sex at : Male Age: 74 Years Procedure: Flexible Sigmoidoscopy Date: 02/06/2025 Attending Physician: Dylan Gatica DO Referring MD: Referred Self Indications: - Rectal hemorrhage - Treatment of bleeding from polypectomy site Medications: - See the Anesthesia note for documentation of the administered medications Complications: - Moderate bleeding Estimated Blood Loss: - Estimated blood loss: 200 mL. Procedure: - Prior to the procedure, a History and Physical was performed, and patient medications and allergies were reviewed. The patient's tolerance of previous anesthesia was also reviewed. The risks and benefits of the procedure and the sedation options and risks were discussed with the patient. All questions were answered, and informed consent was obtained. Prior Anticoagulants: The patient has taken Eliquis (apixaban), last dose was 2 days prior to procedure. ASA Grade Assessment: 3E - A patient with severe systemic disease, undergoing an emergency procedure. After reviewing the risks and benefits, the patient was deemed in satisfactory condition to undergo the procedure. - The pediatric colonoscope was introduced through the anus and advanced to the rectum. - The patient tolerated the procedure. - The flexible sigmoidoscopy was performed with moderate difficulty due to excessive bleeding. Findings: - A single (solitary) 30 mm ulcer was found in the distal rectum. Spurting bleeding was present. Stigmata of recent bleeding were present. Area was unsuccessfully injected with 6 mL of a 0.1 mg/mL solution of epinephrine for hemostasis. For hemostasis, three hemostatic clips were successfully placed. Clip vocal music teacher: [employer]. Fulguration to ablate the lesion by heater probe was unsuccessful. Impression: - A single (solitary) ulcer in the distal rectum. Treatment not successful. Clips were placed. Clip vocal music teacher: [employer]. Treated with a heater probe. Treatment not successful. - No specimens collected. Recommendation: - Transport patient to OR, as patient had active bleeding despite maximum endoscopic maneuvers. Patient discussed with Dr. Kessler who was at the bedside while procedure was performed. Procedure Code(s): - 84960-76,52, Sigmoidoscopy, flexible; with control of bleeding, any method Diagnosis Code(s): - K62.5, Hemorrhage of anus and rectum - K91.840, Postprocedural hemorrhage of a digestive system organ or structure following a digestive system procedure - K62.6, Ulcer of anus and rectum - K91.61, Intraoperative hemorrhage and hematoma of a digestive system organ or structure complicating a digestive system procedure CPT(R) - 2023 copyright [employer]. All Rights Reserved. The CPT codes, CCI edits and ICD codes generated are intended as suggestions and were generated based on input data. These codes are preliminary and upon it operations specialist review may be revised to meet current compliance and payer requirements. The provider is responsible for the final determination of appropriate codes, and modifiers. Dr. Dylan Gatica, DO This document has been electronically signed. Note Initiated:02/06/2025 Note Completed:02/06/2025 5:00 PM \\[email or web address]\Central\InterfaceData\Data\Provation\Results\LIVE\[id number]
[2025-02-06] MEDS ORDERED: SUCCINYLCHOLINE CHLORIDE 20 MG/ML 10 ML VIAL IV ONE (17:06)
[2025-02-06] MEDS ORDERED: LIDOCAINE 2% 2 ML VIAL/AMP(20MG/ML) INFIL ONE (17:06)
[2025-02-06] MEDS ORDERED: PROPOFOL IV EMULSION 10 MG/ML 20 ML VIAL IV ONE (17:06)
[2025-02-06] MEDS ORDERED: ROCURONIUM BROMIDE 10 MG/ML 5 ML VIAL IV ONE (17:08)
[2025-02-06] MEDS ORDERED: PHENYLEPHRINE 100MCG/ML 5ML SYR ONE (17:11)
[2025-02-06] MEDS ORDERED: ETOMIDATE 2 MG/ML 20 ML VIAL IV ONE (17:12)
[2025-02-06] MEDS ORDERED: VASOPRESSIN 20 UNIT/ML VIAL ONE (17:48)
[2025-02-06] MEDS ORDERED: SUGAMMADEX SODIUM 200 MG/2 ML VIAL IV ONE ×2 (17:59)
[2025-02-06] MEDS: GELATIN SPONGE SZ 100 ONE (18:02)
[2025-02-06] MEDS: THROMBIN 5000 UNITS KIT ONE (18:02)
--- NOTE | 2025-02-06 18:18 | Operative Report ---
PG Post Operative Report Pre & Post Diagnosis Operation Date: 02/06/25 16:45 Pre-Op Diagnosis: RECTAL BLEEDING/LGIB Post-Op Diagnosis: post polypectomy bleed I identified the patient and participated in the time-out.: Yes Procedure Operation Date: 02/06/25 16:45 Actual Procedures p EGD Hemostasis - Dylan Gatica, DO Surgeon Leonor Kessler DO Wallpaper Printer No rn surgical Estimated Blood Loss 0 Findings See Below Bleeding had stopped from the pressure dressing that was applied in the endoscopy suite. Clips placed endoscopically were still present. Cauterized tissue. Specimens None Anesthesia Type General Complications No immediate complications Indications Active brisk bleeding with inability to control endoscopically in the GI suite Description of Procedure The patient was brought emergently back to the operating room from the endoscopy suite as there was significant ongoing bleeding from a vessel and the lower part of the rectum that was unable to be controlled by the network architect manager endoscopically. Due to the emergent nature of the situation at that time, the patient bypassed preoperative holding and was taken straight to the operating room theater. In the operating room, he was administered general anesthesia and a secure airway was established. He was then placed on the operating room table in prone, jackknife position. The previously placed pressure gauze was removed and the area was prepped and draped in typical sterile fashion. A Brigitte Eaton retractor was inserted into the rectum and the area of concern was identified by cautery of the tissues and surrounding endoscopically placed clips. There was no further active bleeding. There was some old blood in the rectal vault and clot. A Gelfoam soaked with thrombin was inserted into the rectal vault and the Brigitte Eaton retractor was removed. The patient was awakened from anesthesia, the secure airway removed and is transferred to the ICU for closer monitoring secondary to his cardiac risks. I attest to the content of the Intraoperative Record and any orders documented therein. Any exceptions are noted below.
[2025-02-06] MEDS: ONDANSETRON INJ 2 MG/ML 2 ML VIAL IV PRN (18:24)
[2025-02-06] MEDS ORDERED: NALOXONE HCL 0.4 MG/1 ML VIAL/CARP IV PRN (18:32)
[2025-02-06] MEDS ORDERED: ATROPINE SULFATE 0.1 MG/ML 10ML SYR IV PRN (18:32)
[2025-02-06] MEDS ORDERED: FLUMAZENIL 0.1 MG/1 ML 10 ML VIAL IV PRN (18:32)
[2025-02-06] MEDS ORDERED: PROMETHAZINE HCL 6.25 MG in SODIUM CHLORIDE 0.9% 50 ML IV PRN (18:32)
[2025-02-06] MEDS ORDERED: STAT IV/IM STA (18:40)
[2025-02-06] MEDS: PROTHROMBIN COMP CONC- KCENTRA 2,000 UNITS in SYRINGE 0 ML IV STA (19:05)
--- NOTE | 2025-02-06 19:38 | Anesthesiology Progress Note ---
Date of Service February 06, 2025 Anesthesia Post Procedure Vital Signs Vital Signs: Temp Pulse Pulse Resp BP BP Pulse Ox 02/06/25 19:30 109 H 13 101/69 100 02/06/25 19:20 92 H 21 105/72 100 02/06/25 19:10 36.3 C L 115 H 19 94/65 L 100 02/06/25 19:00 107 H 16 103/67 100 02/06/25 18:50 92 H 18 90/68 L 92 02/06/25 18:40 105 H 21 83/69 L 94 02/06/25 18:30 90 18 109/72 99 02/06/25 18:22 36 C L 101 H 17 94/76 L 96 02/06/25 17:14 87 14 69/47 L 95 02/06/25 17:09 83 14 95/61 L 95 02/06/25 16:41 110 H 02/06/25 15:59 36.6 C 128 H 18 127/77 98 02/06/25 15:15 36.3 C L 93 H 16 149/88 H 96 02/06/25 11:18 36.4 C L 106 H 18 116/81 94 02/06/25 07:21 36.7 C 77 18 115/80 98 02/06/25 03:40 36.9 C 68 18 107/72 96 02/06/25 00:30 139 H 02/05/25 22:37 37.0 C 89 18 103/64 95 O2 Del Method O2 Flow Rate 02/06/25 19:30 Nasal Cannula 2 02/06/25 19:20 Nasal Cannula 2 02/06/25 19:10 Nasal Cannula 2 02/06/25 19:00 Nasal Cannula 2 02/06/25 18:50 Nasal Cannula 2 02/06/25 18:40 Nasal Cannula 2 02/06/25 18:30 Nasal Cannula 2 02/06/25 18:22 Nasal Cannula 2 02/06/25 17:14 Nasal Cannula 5 02/06/25 17:09 Nasal Cannula 5 02/06/25 16:41 02/06/25 15:59 Room Air 02/06/25 15:15 Room Air 02/06/25 11:18 Room Air 02/06/25 07:21 Room Air 02/06/25 03:40 Room Air 02/06/25 00:30 02/05/25 22:37 Room Air Pain Intensity Rectal: Pain Intensity: 3 Transfer of Care Handoff Completed per policy Notes Mental Status: alert / awake / arousable Patient Amnestic to Procedure: Yes Nausea / Vomiting: adequately controlled Pain: adequately controlled Airway Patency, RR, SpO2: stable & adequate BP & HR: stable & adequate Hydration State: stable & adequate Anesthetic Complications: no major complications apparent
[2025-02-06] MEDS: LIDOCAINE 2% 2 ML VIAL/AMP(20MG/ML) INFIL ONE (20:09)
[2025-02-06] MEDS: PROPOFOL IV EMULSION 10 MG/ML 20 ML VIAL IV ONE (20:09)
[2025-02-06] MEDS: PHENYLEPHRINE HCL 10 MG/ML VIAL ONE (20:09)
[2025-02-06 20:33] LABS: Hematocrit (blood only) 22.3 % (42.0-52.0); Hemoglobin 7.5 g/dl (14.0-18.0); Mean Corpuscular Hemoglobin 29.8 pg (25.0-34.0); Mean Corpuscular Volume 88.5 fL (80.0-100.0); Platelet Count 134 K/uL (130-400); RDW Standard Deviation 50.5 fL (36.4-46.3); Red Blood Count 2.52 M/uL (4.70-6.10); White Blood Count 7.52 K/ul (4.8-10.8)
[2025-02-06 20:41] LABS: Acanthocytes 2+; Immature Granulocytes # (auto) 0.05 K/uL (0.01-0.20); Immature Granulocytes % (auto) 0.7 %; Ovalocytes 1+
--- NOTE | 2025-02-06 20:44 | Critical Care Consultation ---
Date of Consultation February 06, 2025 Assessment & Plan (1) Rectal bleeding: (2) Hemorrhage of colon following colonoscopy: (3) Acute blood loss anemia: (4) Hypotension due to blood loss: Plan Reason Critically Ill: 1. Acute blood loss anemia 2. Rectal hemorrhage following colonoscopy 3. Hypotension 2/2 #1 4. CKD III Neuro - CAM ICU: Negative RASS GOAL 0 APAP PRN Cardiac - Hold antihypertensives pending clinical improvement, expect tachycardia to improve with resuscitation Continue to hold Eliquis Continue statin when taking PO MAP goal > 65mmHg 1U PRBC now, gentle IVF overnight Respiratory - HOB 30, aspiration precautions IS/Flutter SpO2 goal > 92% GI - Diet: NPO SUP: PPI infusion stopped, no indication with LGIB. Restart home PPI when taking PO Bowel regimen: Held Transfer for IR intervention if further bleeding. D/w Dr. Kessler GI on board, appreciate continued recommendations RENAL/LYTES - Repeat BMP pending Replete electrolytes as indicated White for accurate I/Os. Removal when clinically feasible Maintain net even to net negative ENDO - No acute concerns BG 140-180 per SCCM guidelines ISS if needed while inpatient HEME - Acute blood loss anemia Eliquis held ID - Continue Ciprofloxacin and Flagyl per GI x total 5 days Culture as indicated, UA WNL, WBC WNL LINES/TUBES/DRAINS - PIV x2 DVT PROPHYLAXIS - Contraindicated with active hemorrhage DISPOSITION - ICU pending clinical improvement CODE STATUS - FULL I have personally spent 38 minutes of critical care time in the direct management of this patient. This is a life/limb threatening event. This includes time spent evaluating patient, direct bedside care, chart review, placing orders, interpretation of diagnostic studies, discussion with consultants, patient, and family members, as well as other required patient management activities. This time is exclusive of all separately billable procedures, and teaching time and separate from and in addition to any other critical care service time. Thank you for allowing us to participate in the care of this patient. Please refer to my attending physician's documentation for any further recommendations. Supervising Physician Co-Signing Physician Notes Patient seen and examined. EMR reviewed. Discussed with overnight critical care DANIEL and agree with assessment and plan as noted. Please refer to my progress note from 02/07/2025 for additional details. History of Present Illness Reason for Consultation: Lower GI bleeding Requesting Physician: Checo Attending Physician: Jose Salazar MD History of Present Illness Mr. Bebo Andrew is a pleasant 74YOM with a history of permanent atrial fibrillation on Eliquis, AAA s/p EVAR, tachybrady syndrome s/p PPM, NICM (55%), HTN/HLD, hiatal hernia, CKD III (1.6-1.9) who was admitted to [facility] on 02/05/2025 with diffuse LGIB with recent polypectomy (01/24/25). Patient underwent sigmoidoscopy revealing large rectal ulcer which was treated with cautery, injection of epinephrine and placement of 3 hemostatic clips with hemostasis. Earlier this afternoon the patient developed recurrent rectal hemorrhage. Repeat Sigmoidoscopy with inability to endoscopically control bleeding, thus pressure dressing placed and patient transferred emergently to OR. The rectum was directly visualized with apparent hemostasis with prior intervention. Dr. Kessler placed Gelfoam embedded with thrombin into rectal vault. Per MAR, patient received small doses of vasopressor. No PRBC administered. Transferred to ICU for continuation of care. Patient was seen in ICU 103. He is AAOx3. No current complaints. Specifically denies abdominal pain, shortness of breath, chest pain. Does have some dizziness, rectal fullness. Requesting white catheter as he needs to sit up to urinate and feels he will syncopate with movement. Orthostatic with significant tachycardia with any movement. HR 120-170. SBP 82. Transfusing 1U PRBC now, 2g calcium gluconate. HGB 7.5 from 11.1. Repeat BMP pending. Allergies Allergy/AdvReac Type Severity Reaction Status Date / Time Etdtarl-TTI-JmA Reductase Allergy Verified 02/05/25 08:29 Inhibitor [Hkgojsj-Cmw-Hbc Reductase Inhibitor] Home Medications Medication Instructions Recorded Confirmed Type cyanocobalamin (vitamin B-12) 500 500 mcg PO DAILY 03/16/19 02/05/25 History mcg tablet omeprazole 20 mg capsule,delayed 20 mg PO DAILY 03/16/19 02/05/25 History release apixaban 5 mg tablet (Eliquis) 5 mg PO BID 06/27/19 02/05/25 History levothyroxine 25 mcg capsule 25 mcg PO DAILYBB 06/27/19 02/05/25 History cholecalciferol (vitamin D3) 25 1,000 unit PO DAILY #30 caps 04/11/20 02/05/25 Rx mcg (1,000 unit) capsule (Vitamin D3) budesonide-formoterol HFA 80 1 inh inhalation BID 04/06/23 02/05/25 History mcg-4.5 mcg/actuation aerosol inhaler (Symbicort) rosuvastatin 40 mg tablet 40 mg PO DAILY 04/06/23 02/05/25 History diltiazem HCl 120 mg 120 mg PO QAM 02/05/25 02/05/25 History capsule,extended release 24 hr metoprolol tartrate 50 mg tablet 50 mg PO BID 02/05/25 02/05/25 History Patient History Medical History (Updated 02/06/25 @ 21:07 by Lala Galo PA-C) Pacemaker Atrial fibrillation Hypertension CKD (chronic kidney disease), stage IV GERD (gastroesophageal reflux disease) Pneumatosis of intestines On anticoagulant therapy Surgical History (Updated 02/06/25 @ 16:06 by Keanu Mcgarry MD) S/P AAA repair Hx of cholecystectomy Family History Mother Hypertension Stroke Father Myocardial infarction, Onset Age: 51 Social History Smoking Status: Never smoker Second Hand Exposure: No; Do You Dip or Chew Tobacco: No; Hx Alcohol Use: No Hx Substance Use: No Preferred Language: Slovenian Communication Ability: Effective Relay Motorman Required: No Beliefs That Will Affect Care: None marital status: Current Living Situation: Spouse and Other Current Living Situation Comment: Lives with daughter as well as current occupational status: employed Other Information That Helps Us Care for You: No Feels Safe at Home: Yes Safety Concerns: Feels Safe At This Time Assistive Devices: None Review of Systems Review of Systems: All systems reviewed & are unremarkable except as noted in Subjective Physical Exam Constitutional: well developed, + frail appearing and cooperative; + not appropriately hydrated and not in distress Eyes: PERRL, conjunctivae normal, anicteric sclerae ENMT: Dry MM. Neck: trachea midline, no thyromegaly Respiratory: normal respiratory effort Auscultation: lungs clear to auscultation bilaterally Cardiovascular: Rate/Rhythm: + tachycardic and + irregularly irregular Heart Sounds: + murmur Vessels: no JVD Extremities: no edema Capillary refill 2-3 seconds. Gastrointestinal (Abdomen): Inspection/Auscultation: abdomen normal to inspection and + hyperactive bowel sounds Percussion/Palpation: abdomen soft; no guarding and abdomen not rigid Rectal packing in place without bleeding Musculoskeletal: no cyanosis or clubbing, extremities motor strength 5/5 Skin: + turgor decreased; no rashes, no lesion s and no ulcers Neurologic: PERRL, EOMI, accommodation nl, no face palsy, no dysarthria Genitourinary: WNL Results & Data Results & Data Vital Signs (Past 12 Hours) Vital Signs Temp Pulse Pulse Resp BP BP Pulse Ox 02/06/25 19:40 113 H 15 95/72 L 99 02/06/25 19:30 109 H 13 101/69 100 02/06/25 19:20 92 H 21 105/72 100 02/06/25 19:10 36.3 C L 115 H 19 94/65 L 100 02/06/25 19:00 107 H 16 103/67 100 02/06/25 18:50 92 H 18 90/68 L 92 02/06/25 18:40 105 H 21 83/69 L 94 02/06/25 18:30 90 18 109/72 99 02/06/25 18:22 36 C L 101 H 17 94/76 L 96 02/06/25 17:14 87 14 69/47 L 95 02/06/25 17:09 83 14 95/61 L 95 02/06/25 16:41 110 H 02/06/25 15:59 36.6 C 128 H 18 127/77 98 02/06/25 15:15 36.3 C L 93 H 16 149/88 H 96 02/06/25 11:18 36.4 C L 106 H 18 116/81 94 O2 Del Method O2 Flow Rate 02/06/25 19:40 Nasal Cannula 2 02/06/25 19:30 Nasal Cannula 02/06/25 19:20 Nasal Cannula 2 02/06/25 19:10 Nasal Cannula 2 02/06/25 19:00 Nasal Cannula 2 02/06/25 18:50 Nasal Cannula 2 02/06/25 18:40 Nasal Cannula 2 02/06/25 18:30 Nasal Cannula 2 02/06/25 18:22 Nasal Cannula 2 02/06/25 17:14 Nasal Cannula 5 02/06/25 17:09 Nasal Cannula 5 02/06/25 16:41 02/06/25 15:59 Room Air 02/06/25 15:15 Room Air 02/06/25 11:18 Room Air Laboratory Results Reviewed Diagnostic Findings Reviewed Medications Administered See MAR Coding Level of Care Code 75432 IN/OBS CONSULT LVL 4,60M Diagnoses Rectal bleeding K62.5 Hemorrhage of colon following colonoscopy K91.840 Acute blood loss anemia D62 Hypotension due to blood loss I95.89; R58 Time Spent (min) 38
[2025-02-06 21:12] LABS: Anion Gap 7.0 (3-11); Blood Urea Nitrogen 17.0 mg/dl (6-23); Calcium 7.5 mg/dl (8.6-10.3); Carbon Dioxide 22.0 mmol/L (21-32); Chloride 112.0 mmol/L (98-107); Creatinine Clr Calc Pharmacy 57.5 ml/min; Glucose 116.0 mg/dl (70-99(Fasting)); Magnesium 1.6 mg/dl (1.7-2.4); Potassium 3.7 mmol/L (3.5-5.1); Sodium 141.0 mmol/L (136-145)
[2025-02-06] MEDS: CALCIUM GLUCONATE 1,000 MG/60 ML BAG IV SCH (21:26)
[2025-02-06] MEDS: METOPROLOL TARTRATE 25 MG TAB PO SCH (21:28)
[2025-02-06] MEDS: LACTATED RINGER'S 1,000 ML IV SCH (22:16)
[2025-02-06] MEDS: POTASSIUM CHLORIDE / WTR 10 MEQ/100 ML PLCT IV SCH (22:18)
[2025-02-06] MEDS: MAGNESIUM SULFATE / D5W 1 GM/100 ML BAG IV SCH (22:19)
[2025-02-07 00:15] LABS: Hematocrit (blood only) 29.5 % (42.0-52.0); Hemoglobin 10.1 g/dl (14.0-18.0)
[2025-02-07] MEDS: METOPROLOL TARTRATE 25 MG TAB PO SCH (01:55)
[2025-02-07 04:48] LABS: Hematocrit (blood only) 28.0 % (42.0-52.0); Hemoglobin 9.3 g/dl (14.0-18.0); Mean Corpuscular Hemoglobin 28.4 pg (25.0-34.0); Mean Corpuscular Volume 85.6 fL (80.0-100.0); Platelet Count 140 K/uL (130-400); RDW Standard Deviation 47.0 fL (36.4-46.3); Red Blood Count 3.27 M/uL (4.70-6.10); White Blood Count 7.06 K/ul (4.8-10.8)
[2025-02-07 05:00] LABS: Anion Gap 3.0 (3-11); Blood Urea Nitrogen 15.0 mg/dl (6-23); Calcium 7.3 mg/dl (8.6-10.3); Carbon Dioxide 22.0 mmol/L (21-32); Chloride 113.0 mmol/L (98-107); Creatinine Clr Calc Pharmacy 57.9 ml/min; Glucose 128.0 mg/dl (70-99(Fasting)); Magnesium 2.3 mg/dl (1.7-2.4); Potassium 3.9 mmol/L (3.5-5.1); Sodium 138.0 mmol/L (136-145)
--- NOTE | 2025-02-07 10:14 | Critical Care Progress Note ---
Date of Service February 07, 2025 Assessment & Plan (1) Rectal bleeding: (2) Hemorrhage of colon following colonoscopy: (3) Acute blood loss anemia: (4) Hypotension due to blood loss: Plan Impression: 74-year-old male with rectal bleed treated with sigmoidoscopy and taken to the OR last night. Bleeding appeared controlled in the OR and thrombin-soaked Gelfoam was applied to the rectal vault. He was observed in the ICU overnight due to the A-fib. This morning he is doing well. No evidence of recurrent bleeding. He did receive 1 unit of packed cells overnight. Recommendations: Neuro -no current issues Cardiac -A-fib with RVR. He is on a low-dose of metoprolol but blood pressures are marginal. Given his rectal bleeding, he is not a candidate for anticoagulation which makes cardioversion or amiodarone somewhat less appealing. Will continue IV metoprolol as needed. Other considerations would be digoxin. Given his complexities, will consult cardiology for additional management. Holding Eliquis given bleeding Respiratory -no current issue GI -okay to advance diet. Restart PPI. If additional bleeding, the patient will need to go to a tertiary facility for consideration of interventional radiology as endoscopic options have been exhausted at our facility RENAL/LYTES -mild renal insufficiency. Continue to renally dose medications. Electrolytes, fluid status, and acid-base status acceptable. Discontinue Macario catheter ENDO - No acute concerns BG 140-180 per SCCM guidelines ISS if needed while inpatient HEME -rectal bleed. Continue to monitor serial hemoglobin and hematocrit. Last coagulation panel performed 2 days ago was adequate. If ongoing bleeding, repeating coagulation panel and checking fibrinogen would be appropriate. ID -patient was placed on Cipro and Flagyl by GI defer antibiotics to them LINES/TUBES/DRAINS - PIV x2 DVT PROPHYLAXIS - Contraindicated with active hemorrhage DISPOSITION - Okay to return to floor. Critical care services will sign off Admission and Anticipated Discharge Date Admission Date: February 05, 2025 Subjective Patient seen and examined. EMR reviewed. The patient reports he is doing well. He is not having any abdominal pain. He is not had any additional rectal bleeding since arriving to the ICU. He does feel some palpitations and went up to a chair this morning did develop rapid ventricular response which was symptomatic. He is not a candidate for anticoagulation. He has not been seen by cardiology. Review of Systems Review of Systems: All systems reviewed & are unremarkable except as noted in Subjective Physical Exam Constitutional: WD/WN, vitals as above Neck: trachea midline, no thyromegaly Respiratory: normal respiratory effort, lungs clear to auscultation Cardiovascular: Rate/Rhythm: + tachycardic and + irregularly irregular Heart Sounds: normal S1 and normal S2 Extremities: no edema Gastrointestinal (Abdomen): normal bowel sounds, soft, nontender, no hepatosplenomegaly Musculoskeletal: Extremities: extremities normal to inspection Skin: no rashes, warm and dry Neurologic: Nonfocal exam Lymphatic: no cervical lymphadenopathy Results & Data Results & Data Vital Signs (Past 12 Hours) Vital Signs Temp Pulse Resp BP Pulse Ox O2 Del Method O2 Flow Rate 02/07/25 08:57 120 H 02/07/25 08:00 114/69 02/07/25 08:00 37.4 C 121 H 16 91 02/07/25 07:30 Nasal Cannula 2 02/07/25 07:00 96/71 L 02/07/25 07:00 37.4 C 112 H 12 97 02/07/25 06:42 37.4 C 104 H 20 94 02/07/25 06:30 92/64 L 02/07/25 06:18 37.4 C 121 H 21 92 02/07/25 06:00 37.3 C 109 H 15 95 02/07/25 06:00 111/72 02/07/25 05:39 37.3 C 106 H 14 97 02/07/25 05:09 37.3 C 90 17 96 02/07/25 04:45 37.3 C 93 H 15 95 02/07/25 04:32 107/71 02/07/25 04:15 37.3 C 97 H 24 94 02/07/25 04:03 37.3 C 95 H 15 95 02/07/25 04:00 103/71 02/07/25 03:36 37.3 C 114 H 18 87 L 02/07/25 03:30 37.3 C 95 H 22 89 L 02/07/25 03:30 99/71 L 02/07/25 03:00 37.3 C 106 H 23 88 L 02/07/25 02:36 86/66 L 02/07/25 02:36 86/66 L 02/07/25 02:36 37.2 C 128 H 18 88 L 02/07/25 02:30 83/71 L 02/07/25 02:30 37.2 C 140 H 14 95 02/07/25 02:27 37.2 C 144 H 21 93 02/07/25 02:00 103/68 02/07/25 01:57 37.3 C 138 H 21 93 02/07/25 01:36 37.2 C 115 H 22 94 02/07/25 01:06 37.2 C 124 H 14 94 02/07/25 01:01 119/76 02/07/25 00:39 37.1 C 138 H 16 96 02/07/25 00:32 90/67 L 02/07/25 00:30 37.1 C 138 H 15 94 02/07/25 00:09 37.1 C 152 H 25 H 95 02/07/25 00:00 121 H 02/07/25 00:00 150/82 H 02/06/25 23:42 37.0 C 120 H 10 L 94 02/06/25 23:39 37.0 C 128 H 17 95 02/06/25 23:31 132/80 02/06/25 23:03 37 C 129 H 15 101/80 95 02/06/25 23:00 101/80 Critical Care Results & Data Vital Signs (Past 12 Hours) Vital Signs Temp Pulse Resp BP Pulse Ox O2 Del Method O2 Flow Rate 02/07/25 08:57 120 H 02/07/25 08:00 114/69 02/07/25 08:00 37.4 C 121 H 16 91 02/07/25 07:30 Nasal Cannula 2 02/07/25 07:00 96/71 L 02/07/25 07:00 37.4 C 112 H 12 97 02/07/25 06:42 37.4 C 104 H 20 94 02/07/25 06:30 92/64 L 02/07/25 06:18 37.4 C 121 H 21 92 02/07/25 06:00 37.3 C 109 H 15 95 02/07/25 06:00 111/72 02/07/25 05:39 37.3 C 106 H 14 97 02/07/25 05:09 37.3 C 90 17 96 02/07/25 04:45 37.3 C 93 H 15 95 02/07/25 04:32 107/71 02/07/25 04:15 37.3 C 97 H 24 94 02/07/25 04:03 37.3 C 95 H 15 95 02/07/25 04:00 103/71 02/07/25 03:36 37.3 C 114 H 18 87 L 02/07/25 03:30 37.3 C 95 H 22 89 L 02/07/25 03:30 99/71 L 02/07/25 03:00 37.3 C 106 H 23 88 L 02/07/25 02:36 86/66 L 02/07/25 02:36 86/66 L 02/07/25 02:36 37.2 C 128 H 18 88 L 02/07/25 02:30 83/71 L 02/07/25 02:30 37.2 C 140 H 14 95 02/07/25 02:27 37.2 C 144 H 21 93 02/07/25 02:00 103/68 02/07/25 01:57 37.3 C 138 H 21 93 02/07/25 01:36 37.2 C 115 H 22 94 02/07/25 01:06 37.2 C 124 H 14 94 02/07/25 01:01 119/76 02/07/25 00:39 37.1 C 138 H 16 96 02/07/25 00:32 90/67 L 02/07/25 00:30 37.1 C 138 H 15 94 02/07/25 00:09 37.1 C 152 H 25 H 95 02/07/25 00:00 121 H 02/07/25 00:00 150/82 H 02/06/25 23:42 37.0 C 120 H 10 L 94 02/06/25 23:39 37.0 C 128 H 17 95 02/06/25 23:31 132/80 02/06/25 23:03 37 C 129 H 15 101/80 95 02/06/25 23:00 101/80 Lab & Micro Results (Past 24 Hours) RBC 3.27 M/uL (4.70-6.10) L 02/07/25 WBC 7.06 K/ul (4.8-10.8) 02/07/25 Hgb 9.3 g/dl (14.0-18.0) L 02/07/25 Hct 28.0 % (42.0-52.0) L 02/07/25 MCV 85.6 fL (80.0-100.0) 02/07/25 MCH 28.4 pg (25.0-34.0) 02/07/25 MCHC 33.2 g/dL (32.0-36.0) 02/07/25 RDW Standard Deviation 47.0 fL (36.4-46.3) H 02/07/25 RDW Coefficient of Variation 15.1 % (11.5-14.5) H 02/07/25 Plt Count 140 K/uL (130-400) 02/07/25 MPV 10.7 fL (9.4-12.4) 02/07/25 Neutrophils (%) (Auto) 77.9 % 02/06/25 Lymphocytes (%) (Auto) 11.3 % 02/06/25 Monocytes # (Auto) 0.62 K/uL (0.11-0.59) H 02/06/25 Eosinophils # (Auto) 0.11 K/uL (0.00-0.50) 02/06/25 Immature Granulocyte % (Auto) 0.7 % 02/06/25 Neutrophils # (Auto) 5.86 K/uL (1.40-6.50) 02/06/25 Lymphocytes # (Auto) 0.85 K/uL (1.20-3.40) L 02/06/25 Monocytes # (Auto) 0.62 K/uL (0.11-0.59) H 02/06/25 Eosinophils # (Auto) 0.11 K/uL (0.00-0.50) 02/06/25 Basophils # (Auto) 0.03 K/uL (0.00-0.20) 02/06/25 Immature Granulocyte # (Auto) 0.05 K/uL (0.01-0.20) 5 Echinocytes 1+ 02/06/25 Ovalocytes 1+ 02/06/25 Acanthocytes 2+ 02/06/25 Na 138 mmol/L (136-145) 02/07/25 K 3.9 mmol/L (3.5-5.1) 02/07/25 Cl 113 mmol/L (98-107) H 02/07/25 CO2 22 mmol/L (21-32) 07/17/25 Anion Gap 3 (3-11) 02/07/25 BUN 15 mg/dl (6-23) 02/07/25 Creatinine 1.43 mg/dl (0.6-1.4) H 02/07/25 BUN/Creatinine Ratio 10.5 (10-20) 02/07/25 Glu 128 mg/dl (70-99(Fasting)) H 02/07/25 Ca 7.3 mg/dl (8.6-10.3) L 02/07/25 Phosphorus Level 2.8 mg/dl (2.5-4.9) 02/07/25 Mg 2.3 mg/dl (1.7-2.4) 02/07/25 04:24 Calcium Level 7.3 mg/dl (8.6-10.3) L 02/07/25 04:24 I & O Totals 24 Hours 02/06/25 02/07/25 02/08/25 06:59 06:59 06:59 Intake Total 3141.750 / 3141.750 5134.416 / 5134.416 Output Total 376 / 376 527 / 527 Balance 2765.750 / 2765.750 4607.416 / 4607.416 Cumulative 02/05/25 06:25 thru 02/07/25 06:00 Intake Total 8276.166 Output Total 903 Balance 7373.166 RT Ventilator Mngmt (Last Documented) Ventilator Ordered Settings Respiratory Rate 16 02/07/25 08:00 Ventilator - PT Measurements Respiratory Rate 16 Coding Level of Care Code 24537 SUB INP/OBS CARE 2/35MIN Diagnoses Rectal bleeding K62.5 Hemorrhage of colon following colonoscopy K91.840 Acute blood loss anemia D62 Hypotension due to blood loss I95.89; R58
--- NOTE | 2025-02-07 11:14 | Gastroenterology Progress Note ---
Date of Service February 07, 2025 Assessment & Plan (1) Hemorrhage of colon following colonoscopy: Plan: -Continue to monitor H/H -Continue to monitor for GI bleeding -Continue IV Cipro & Flagyl x 5 days as previously advised -Continue to hold anticoagulation -If patient re-bleeds, would need to transfer for IR intervention Admission and Anticipated Discharge Date Admission Date: February 05, 2025 Supervising Physician Co-Signing Physician Notes Patient seen and examined and agree with ALEXUS Sen as above Feeling better today. Only a small amount of bright red blood with BM Abd: Soft, NT, ND, +BS Continue current therapy and supportive care Appreciate input from Dr. Kessler Subjective Patient is a 74 yo male with a post-polypectomy bleed. He returned for a repeat flex sig on 02/06 for ongoing bleeding that was ultimately not amenable to [facility] er endoscopic treatment after clips and APC. He went to the OR and bleeding was improved. He was packed with gel foam. He has not bled overnight. Eliquis was reversed and anticoagulation is on hold. H/H presently 9.3/28.0. Patient notes he is feeling better from a GI standpoint. He notes he is not having further GI bleeding at this time. Review of Systems Constitutional: no fever and no chills Cardiovascular: no chest pain Gastrointestinal: no blood in stools Physical Exam Constitutional: well developed Respiratory: normal respiratory effort Gastrointestinal (Abdomen): normal bowel sounds, soft, nontender, no hepatosplenomegaly Results & Data Results & Data Vital Signs (Past 12 Hours) Vital Signs Temp Pulse Resp BP Pulse Ox O2 Del Method O2 Flow Rate 02/07/25 08:57 120 H 02/07/25 08:00 114/69 02/07/25 08:00 37.4 C 121 H 16 91 02/07/25 07:30 Nasal Cannula 2 02/07/25 07:00 96/71 L 02/07/25 07:00 37.4 C 112 H 12 97 02/07/25 06:42 37.4 C 104 H 20 94 02/07/25 06:30 92/64 L 02/07/25 06:18 37.4 C 121 H 21 92 02/07/25 06:00 37.3 C 109 H 15 95 02/07/25 06:00 111/72 02/07/25 05:39 37.3 C 106 H 14 97 02/07/25 05:09 37.3 C 90 17 96 02/07/25 04:45 37.3 C 93 H 15 95 02/07/25 04:32 107/71 02/07/25 04:15 37.3 C 97 H 24 94 02/07/25 04:03 37.3 C 95 H 15 95 02/07/25 04:00 103/71 02/07/25 03:36 37.3 C 114 H 18 87 L 02/07/25 03:30 37.3 C 95 H 22 89 L 02/07/25 03:30 99/71 L 02/07/25 03:00 37.3 C 106 H 23 88 L 02/07/25 02:36 86/66 L 02/07/25 02:36 86/66 L 02/07/25 02:36 37.2 C 128 H 18 88 L 02/07/25 02:30 83/71 L 02/07/25 02:30 37.2 C 140 H 14 95 02/07/25 02:27 37.2 C 144 H 21 93 02/07/25 02:00 103/68 02/07/25 01:57 37.3 C 138 H 21 93 02/07/25 01:36 37.2 C 115 H 22 94 02/07/25 01:06 37.2 C 124 H 14 94 02/07/25 01:01 119/76 02/07/25 00:39 37.1 C 138 H 16 96 02/07/25 00:32 90/67 L 02/07/25 00:30 37.1 C 138 H 15 94 02/07/25 00:09 37.1 C 152 H 25 H 95 02/07/25 00:00 121 H 02/07/25 00:00 150/82 H 02/06/25 23:42 37.0 C 120 H 10 L 94 02/06/25 23:39 37.0 C 128 H 17 95 02/06/25 23:31 132/80 PG Care Time/CCT Total # of Minutes Spent Total Time Spent with Patient: Total time spent is greater than 50% in coordination of care (as documented) at patient's floor/unit and/or counseling patient: Coding Level of Care Code 23864 SUB INP/OBS CARE 3/50MIN Diagnoses Hemorrhage of colon following colonoscopy K91.840
--- NOTE | 2025-02-07 11:25 | Surgery Progress Note ---
Date of Service February 07, 2025 Assessment & Plan (1) Acute blood loss anemia: Plan: No evidence of bleeding post procedures thus far. Contnue to follow up H/H Surgery will follow peripherally, please call with questions or concerns If he bleeds again, recommend packing the rectum with pressure gauze and transfer for embolization. (2) Rectal bleeding: Admission and Anticipated Discharge Date Admission Date: February 05, 2025 Subjective I have seen this patient this am. As per nursing and the patient, there has been no further rectal bleeding. Physical Exam Constitutional: + ill appearing and average body habitus ; not in distress and not diaphoretic Respiratory: normal respiratory effort; no respiratory distress and no labored breathing Cardiovascular: Rate/Rhythm: + tachycardic Extremities: + edema Psychiatric: Orientation: alert and oriented x 3 Results & Data Vital Signs (Past 12 Hours) Vital Signs Temp Pulse Resp BP Pulse Ox O2 Del Method O2 Flow Rate 02/07/25 08:57 120 H 02/07/25 08:00 114/69 02/07/25 08:00 37.4 C 121 H 16 91 02/07/25 07:30 Nasal Cannula 2 02/07/25 07:00 96/71 L 02/07/25 07:00 37.4 C 112 H 12 97 02/07/25 06:42 37.4 C 104 H 20 94 02/07/25 06:30 92/64 L 02/07/25 06:18 37.4 C 121 H 21 92 02/07/25 06:00 37.3 C 109 H 15 95 02/07/25 06:00 111/72 02/07/25 05:39 37.3 C 106 H 14 97 02/07/25 05:09 37.3 C 90 17 96 02/07/25 04:45 37.3 C 93 H 15 95 02/07/25 04:32 107/71 02/07/25 04:15 37.3 C 97 H 24 94 02/07/25 04:03 37.3 C 95 H 15 95 02/07/25 04:00 103/71 02/07/25 03:36 37.3 C 114 H 18 87 L 02/07/25 03:30 37.3 C 95 H 22 89 L 02/07/25 03:30 99/71 L 02/07/25 03:00 37.3 C 106 H 23 88 L 02/07/25 02:36 86/66 L 02/07/25 02:36 86/66 L 02/07/25 02:36 37.2 C 128 H 18 88 L 02/07/25 02:30 83/71 L 02/07/25 02:30 37.2 C 140 H 14 95 02/07/25 02:27 37.2 C 144 H 21 93 02/07/25 02:00 103/68 02/07/25 01:57 37.3 C 138 H 21 93 02/07/25 01:36 37.2 C 115 H 22 94 02/07/25 01:06 37.2 C 124 H 14 94 02/07/25 01:01 119/76 02/07/25 00:39 37.1 C 138 H 16 96 02/07/25 00:32 90/67 L 02/07/25 00:30 37.1 C 138 H 15 94 02/07/25 00:09 37.1 C 152 H 25 H 95 02/07/25 00:00 121 H 02/07/25 00:00 150/82 H 02/06/25 23:42 37.0 C 120 H 10 L 94 02/06/25 23:39 37.0 C 128 H 17 95 02/06/25 23:31 132/80 PG Care Time/CCT Total # of Minutes Spent Total Time Spent with Patient: Total time spent is greater than 50% in coordination of care (as documented) at patient's floor/unit and/or counseling patient: Coding Level of Care Code 74542 Post Operative Follow-Up Diagnoses Acute blood loss anemia D62 Rectal bleeding K62.5
[2025-02-07] MEDS: METOPROLOL TARTRATE 1 MG/ML VIAL IV STA (11:44)
--- NOTE | 2025-02-07 12:44 | Cardiology Consultation ---
Date of Consultation February 07, 2025 Assessment & Plan (1) Hypotension due to blood loss: (2) Hemorrhage of colon following colonoscopy: (3) Chronic atrial fibrillation: (4) Pacemaker: Plan Patient admitted with persistent GI bleed following colonoscopy after polpy removed, ultimately requiring general surgery intervention. Patient admitted to ICU due to hypotension due to acute blood loss. Received 3 units PRBC's since admission Hbg this morning at 9.3 Monitor Hbg. Per surgery and GI, if patient has additional bleeding - will need transferred for IR intervention. Patient with chronic afib, s/p dual chamber pacemaker (atrial lead turned off), RV pacing 50% -Metoprolol tartrate 50 mg BID held on admission due to hypotension -Diltiazem 120 mg daily - held on admission due to hypotension -Hold anticoagulation due to acute GI bleed. -This morning, BP improving and metoprolol tartrate 12.5 mg BID resumed. -He had recurrent episode of lightheadedness with hypotension and Afib RVR upon trying to get out of bed. Symptoms resolved when patient returning to bed. -Consider adding IV digoxin to aid with HR while patient is hypotensive. -Hopeful we can titrate metoprolol as BP improves and bleeding stabilizes. -Echo this admission with hyperdynamic LVEF in setting of volume depletion. Case discussed with Dr. Segovia I spent a total of 60 minutes on the date of service in preparation, delivery, and documentation of the care provided to this patient, excluding any time spent in the performance of separately billed services. Sharmaine Caal PA-C Department of Cardiology, [facility] This chart was completed in part utilizing Speech Voice Recognition Software. Grammatical errors, random word insertions, pronoun errors, and incomplete sentences are an occasional consequence of this system due to software limitations, ambient noise, and hardware issues. Any formal questions or concerns about the content, text, or information contained within the body of this dictation should be directly addressed to the provider for clarification. Supervising Physician Co-Signing Physician Notes Attending attestation: Case reviewed with the advanced practitioner. I have personally performed a history and physical examination on the patient. I have reviewed the advanced practitioner's documentation on the date of service referenced in note, and I agree with, and take responsibility for the plan of care. Subjective: Patient without any acute cardiac complaints during my assessment. Atrial fibrillation with a rate just around 100 bpm present during my assessment. Systolic blood pressure ranging from 80-100's. Denies subjective palpitations. Denies additional blood per rectum overnight last night or this morning. Exam: Cardiovascular: Irregular rhythm, no murmurs, no edema Data: Echocardiogram performed 02/05/2025 revealed hyperdynamic left ventricular ejection fraction, LVEF greater than 70%, moderate concentric left ventricular hypertrophy, moderate left atrial lodgment, moderate aortic valve sclerosis without stenosis, mild aortic valve regurgitation, mild mitral regurgitation, trivial loculated pericardial effusion without tamponade. EKG performed 02/05/2025 at 1357 interpreted independently: Atrial fibrillation 81 bpm, T wave inversions noted in the inferior leads as well as the precordial leads. Compared to the EKG dated 02/20/2019, the T wave changes were noted at that time as well. Impression/ Plan: -Permanent atrial fibrillation with underlying intermittent heart block status post permanent pacemaker, ventricular paces 56% the time per most recent device interrogation in Nov, 2024. -Acute GI bleed after removal of large polyp. --Agree with reinitiating low-dose metoprolol to tartrate 12.5 mg twice daily. -- Will proceed with 1 dose of IV digoxin 0.125 mg IV x 1 now and will follow. -- Vital signs certainly appear to have had a favorable trend since returning from the operating room on 02/06/2025. I spent a total of 20 minutes coordinating, documenting, and providing care for this patient excluding time spent in the performance of separately billed services or time spent by another provider. Agusto Segovia DO History of Present Illness Reason for Consultation: Afib RVR; GI bleed Requesting Physician: Sylvia Rincon Attending Physician: Jose Salazar MD History of Present Illness Patient is a 74 year old male who was admitted to [facility] due to GI bleeding after complications from a outpatient coloscopy after removal of a polyp. Required repeat sigmoidoscopy and bleeding not able to be controlled with clips, then sent to OR with general surgery for further treatment and packing. Bleeding resolved. Treated with 3 total units PRBC on 02/05 and 02/06. During admission patient hypotensive with acute GI blood loss. Oral home diltiazem and metoprolol on hold upon admission. Anticoagulation also discontinued. metoprolol tartrate 12.5 mg BID was resumed this morning. This morning, nursing staff was attempting to get patient out of bed. He became lightheaded and dizzy. HR margaux to 150-180's and SBP in the 70's. He was assisted back to bed. Vital signs improved. Patient denied chest pain/dyspnea. Cardiology consulted to assist with management of afib. Long history of afib, now persistent for many years. Underlying dual chamber pacer (atrial leads turned off), RV pacing about 50%. Had been on metoprolol and diltiazem. At time of consult, patient resting in bed. Feeling well from cardiac standpoint. Has not attempted to get out of bed again. HR in the 90-110s. BP acceptable. Nurse is concerned with HR spiking with minimal activity. History includes: 1. PAF, on Apixaban, sotalol initiation 04/2016 but having break through PAF; started on amiodarone 05/17/2016-stopped 02/2017 due to hyperthyroidism and Low DLCO2; back on metoprolol. Now chronic/persistent atrial fibrillation 2. NICM EF 45% 3. CHB/TBS S/P dual chamber ppm 10/16/2014, Gen change 03/2023 (occluded unable to upgrade) 4. HTN 5. HLD 6. History of AAA S/P EVAR Allergies Allergy/AdvReac Type Severity Reaction Status Date / Time Rszwrah-KVC-JpQ Reductase Allergy Verified 02/05/25 08:29 Inhibitor [Zoxslum-Ujl-Cfy Reductase Inhibitor] Home Medications Medication Instructions Recorded Confirmed Type cyanocobalamin (vitamin B-12) 500 500 mcg PO DAILY 03/16/19 02/05/25 History mcg tablet omeprazole 20 mg capsule,delayed 20 mg PO DAILY 03/16/19 02/05/25 History release apixaban 5 mg tablet (Eliquis) 5 mg PO BID 06/27/19 02/05/25 History levothyroxine 25 mcg capsule 25 mcg PO DAILYBB 06/27/19 02/05/25 History cholecalciferol (vitamin D3) 25 1,000 unit PO DAILY #30 caps 04/11/20 02/05/25 Rx mcg (1,000 unit) capsule (Vitamin D3) budesonide-formoterol HFA 80 1 inh inhalation BID 04/06/23 02/05/25 History mcg-4.5 mcg/actuation aerosol inhaler (Symbicort) rosuvastatin 40 mg tablet 40 mg PO DAILY 04/06/23 02/05/25 History diltiazem HCl 120 mg 120 mg PO QAM 02/05/25 02/05/25 History capsule,extended release 24 hr metoprolol tartrate 50 mg tablet 50 mg PO BID 02/05/25 02/05/25 History Patient History Medical History (Updated 02/07/25 @ 13:38 by Sharmaine Caal PA-C) Pacemaker Atrial fibrillation Hypertension CKD (chronic kidney disease), stage IV GERD (gastroesophageal reflux disease) Pneumatosis of intestines On anticoagulant therapy Surgical History (Updated 02/06/25 @ 16:06 by Keanu Mcgarry MD) S/P AAA repair Hx of cholecystectomy Family History Mother Hypertension Stroke Father Myocardial infarction, Onset Age: 51 Social History Smoking Status: Never smoker Second Hand Exposure: No; Do You Dip or Chew Tobacco: No; Hx Alcohol Use: No Hx Substance Use: No Preferred Language: Hungarian Communication Ability: Effective Adjustment Clerk Required: No Beliefs That Will Affect Care: None marital status: Current Living Situation: Spouse and Other Current Living Situation Comment: Lives with daughter as well as current occupational status: employed Other Information That Helps Us Care for You: No Feels Safe at Home: Yes Safety Concerns: Feels Safe At This Time Assistive Devices: None Review of Systems Review of Systems: All systems reviewed & are unremarkable except as noted in HPI & below Physical Exam Constitutional: WD/WN, vitals as above + ill appearing; no acute distress Neck: normal visual inspection Respiratory: normal respiratory effort, lungs clear to auscultation Cardiovascular: Rate/Rhythm: + irregularly irregular Heart Sounds: no murmur (No audible murmur) Vessels: no JVD Extremities: no edema Gastrointestinal (Abdomen): normal bowel sounds, soft, nontender, no hepatosplenomegaly Musculoskeletal: no cyanosis or clubbing, extremities motor strength 5/5 Neurologic: PERRL, EOMI, accommodation nl, no face palsy, no dysarthria Psychiatric: A+Ox3, euthymic affect Results & Data Vital Signs (Past 12 Hours) Vital Signs Temp Pulse Resp BP Pulse Ox O2 Del Method O2 Flow Rate 02/07/25 08:57 120 H 02/07/25 08:00 114/69 02/07/25 08:00 37.4 C 121 H 16 91 02/07/25 07:30 Nasal Cannula 2 02/07/25 07:00 96/71 L 02/07/25 07:00 37.4 C 112 H 12 97 02/07/25 06:42 37.4 C 104 H 20 94 02/07/25 06:30 92/64 L 02/07/25 06:18 37.4 C 121 H 21 92 02/07/25 06:00 37.3 C 109 H 15 95 02/07/25 06:00 111/72 02/07/25 05:39 37.3 C 106 H 14 97 02/07/25 05:09 37.3 C 90 17 96 02/07/25 04:45 37.3 C 93 H 15 95 02/07/25 04:32 107/71 02/07/25 04:15 37.3 C 97 H 24 94 02/07/25 04:03 37.3 C 95 H 15 95 02/07/25 04:00 103/71 02/07/25 03:36 37.3 C 114 H 18 87 L 02/07/25 03:30 37.3 C 95 H 22 89 L 02/07/25 03:30 99/71 L 02/07/25 03:00 37.3 C 106 H 23 88 L 02/07/25 02:36 86/66 L 02/07/25 02:36 86/66 L 02/07/25 02:36 37.2 C 128 H 18 88 L 02/07/25 02:30 83/71 L 02/07/25 02:30 37.2 C 140 H 14 95 02/07/25 02:27 37.2 C 144 H 21 93 02/07/25 02:00 103/68 02/07/25 01:57 37.3 C 138 H 21 93 02/07/25 01:36 37.2 C 115 H 22 94 02/07/25 01:06 37.2 C 124 H 14 94 02/07/25 01:01 119/76 02/07/25 00:39 37.1 C 138 H 16 96 02/07/25 00:32 90/67 L Laboratory Results CBC 02/06/25 02/06/25 02/07/25 Range/Units 19:10 23:48 04:24 WBC 7.52 7.06 (4.8-10.8) K/ul RBC 2.52 L 3.27 L (4.70-6.10) M/uL Hgb 7.5 L D 10.1 L 9.3 L (14.0-18.0) g/dl Hct 22.3 L 29.5 L 28.0 L (42.0-52.0) % Plt Count 134 140 (130-400) K/uL Neut # (Auto) 5.86 (1.40-6.50) K/uL Lymph # (Auto) 0.85 L (1.20-3.40) K/uL [place] # (Auto) 0.62 H (0.11-0.59) K/uL Eos # (Auto) 0.11 (0.00-0.50) K/uL Baso # (Auto) 0.03 (0.00-0.20) K/uL Comprehensive Metabolic Panel 02/06/25 02/07/25 Range/Units 20:40 04:24 Sodium 141 138 (136-145) mmol/L Potassium 3.7 3.9 (3.5-5.1) mmol/L Chloride 112 H 113 H (98-107) mmol/L Carbon Dioxide 22 22 (21-32) mmol/L BUN 17 15 (6-23) mg/dl Creatinine 1.44 H 1.43 H (0.6-1.4) mg/dl Glucose 116 H 128 H (70-99(Fasting)) mg/dl Calcium 7.5 L 7.3 L (8.6-10.3) mg/dl Intake and Output 02/06/25 02/07/25 02/07/25 22:59 06:59 14:59 Intake Total 1320 / 5134.416 1537.083 / 5134.416 571.25 / 571.25 Output Total 226 / 527 300 / 527 140 / 140 Balance 1094 / 4607.416 1237.083 / 4607.416 431.25 / 431.25 Intake: IV 520 / 3344.416 1227.083 / 3344.416 571.25 / 571.25 Calcium Gluconate 1,000 mg In 120 / 120 60 ml @ 240 mls/hr IV Q15M [facility] Rx#:[id number] Ciprofloxacin / D5w 400 mg In 200 / 398.333 198.333 / 398.333 200 ml @ 100 mls/hr IV Q12H [facility] Rx#:[id number] Lactated Ringer's 1,000 ml @ 75 428.75 / 428.75 571.25 / 571.25 mls/hr IV .[id number] [facility] Rx#: [id number] Magnesium Sulfate / D5w 1 gm In 300.000 / 300.000 100 ml @ 50 mls/hr IV Q2H [facility] Rx#:[id number] PANTOprazole 40 mg In Dextrose 100 / 300 5% Mini-B 100 ml @ 8 MG/HR 20 mls/hr IV Q5H [facility] Rx#:[id number] Potassium Chloride / Wtr 10 meq 200 / 200 In 100 ml @ 100 mls/hr IV Q1H [facility] Rx#:[id number] metroNIDAZOLE 500 mg In 100 ml 100 / 200 100 / 200 @ 100 mls/hr IV Q12H [facility] Rx#: [id number] IV Perioperative 800 / 800 Intake (Blood Product) Amt 0 / 310 310 / 310 Packed Cells, Leukoreduced 0 / 310 310 / 310 Unit [id number] Output: Estimated Blood Loss 0 / 0 Urine Amount (Catheter) 225 / 525 300 / 525 140 / 140 Temp Sensing Macario 225 / 525 300 / 525 140 / 140 # Bowel Movements 1 / 2 Other: Weight 102.7 kg Diagnostic Findings Telemetry reviewed: Afib with variable rates. Currently 90-110 at rest. Earlier today he had periods of afib RVR. EKG reviewed from 02/05/25: Afib with controlled rates on admission ST/T wave abnormality in anterolateral leads No significant change from prior EKG in Aug 2024 - scanned to [facility] Echo reviewed: Normal LVEF, EF > 70% Moderate concentric LVH Mild AI Mild MR Trivial loculated anterior pericardial effusion No evidence of tamponade Abdomen/Pelvis CTA 02/05/25 06:44 CT ANGIOGRAM OF THE ABDOMEN AND PELVIS CLINICAL HISTORY: Left lower quadrant abdominal pain. Hematochezia. COMPARISON STUDY: Abdominal CT dated 06/26/2019 TECHNIQUE: Following the IV administration of 120 cc of Optiray 320, CT angiogram of the abdomen and pelvis was performed from the lung bases the proximal femora. Images are reviewed in the axial, sagittal, and coronal planes. 3-D MIPS images are created and assessed. IV contrast was administered without complication. A dose lowering technique was utilized adhering to the principles of ALARA. CT DOSE: 1665.94 mGy.cm FINDINGS: Lower chest: The heart is enlargement noting a small pericardial effusion. Pacemaker leads are in place. The coronary arteries are densely calcified. There is bibasilar scarring/atelectasis. No airspace consolidation or pleural effusion is identified. There is a small hiatal hernia. Liver: The contrast-enhanced liver is normal in size, contour, and attenuation. There is no intrahepatic biliary ductal dilatation. The main portal veins appear patent. There is a 4.5 cm left lobe cyst. Additional subcentimeter hepatic hypodensities also likely represent cysts but are too small for definitive characterization. Gallbladder: Surgically absent noting clips in the gallbladder fossa. Spleen: Normal in size and attenuation noting heterogeneous arterial phase enhancement. Pancreas: Moderately atrophic and grossly unremarkable. Adrenal glands: A 4.3 cm right adrenal lesion containing macroscopic fat is similar to previous. The left adrenal gland is normal in appearance. Kidneys: The contrast enhanced kidneys demonstrate cortical atrophy and are without hydronephrosis. The kidneys enhance symmetrically. There are 2 indeterminate lesions arising from the lower pole of the right kidney which measure up to 2.3 cm. Abdominal aorta and iliac arteries: There is advanced atherosclerotic calcification of the abdominal aorta. The patient is status post aortobiiliac stent graft repair of an infrarenal abdominal aortic aneurysm. The residual aneurysm sac measures 5.4 x 5.2 cm (AP x transverse). The stent graft is widely patent. There is no evidence of endoleak on this single phase examination. The abdominal aorta is normal in course and caliber. The iliac arteries are widely patent bilaterally. Major branches of the abdominal aorta: The celiac trunk and superior mesenteric artery are patent. 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 This is opacified distally via retrograde flow. Hepatic arterial anatomy is conventional. The splenic artery is patent. There are 2 right renal arteries and a single left renal artery. These arise from the interstices of the stent and are patent. There is at least moderate stenosis at the origin of the dominant right renal artery. Bowel: There is moderate colonic diverticulosis without CT evidence of acute diverticulitis. No bowel obstruction is seen. A metallic foreign body/clip is noted in the rectum. Moderate fecal retention is seen throughout the colon. There are large duodenal diverticula. The appendix is well-visualized and normal. There is mild wall thickening of the rectosigmoid with surrounding infiltration. Hyperdense intraluminal material within the rectosigmoid there is an blood products. No active extravasation is seen at this time. Peritoneum: There is no intraperitoneal free air or abdominal ascites. There is a fat-containing umbilical hernia. Lymphadenopathy: None. Pelvic viscera: The prostate gland is enlarged and heterogeneous. The bladder wall is thickened/trabeculated indicating chronic outlet obstruction. There are bilateral fat-containing groin hernias. Skeletal structures: The skeletal structures are osteopenic. There is mild lumbosacral spondylosis. Degenerative sclerosis is seen in the sacroiliac joints. No lytic or blastic bony lesions are seen. Chronic deformity and postsurgical change is noted in the right proximal femur. There are chroni c/healed right-sided rib fractures. IMPRESSION: 1. A metallic foreign body or surgical clip is noted in the rectum. Correlate clinically. 2. There is mild wall thickening of the rectosigmoid colon with surrounding infiltration. Correlate clinically for evidence of a nonspecific proctocolitis. 3. Mildly hyperdense material within the rectosigmoid lumen may represent blood products. There is no contrast extravasation to suggest active GI bleeding at the time of examination. 4. Colonic diverticulosis without CT evidence of acute diverticulitis. 5. The patient is status post aortobiiliac stent graft repair of an infrarenal abdominal aortic aneurysm. The residual aneurysm sac measures 5.4 x 5.2 cm. 6. There is at least moderate stenosis at the origin of the dominant right renal artery. 7. 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 The vessel is opacified distally by retrograde flow. 8. Cardiomegaly noting a small to moderate pericardial effusion. 9. There are 2 indeterminate right lower pole renal lesions which likely represent cysts but are difficult to definitively characterize. A nonemergent renal ultrasound is recommended in follow-up. 10. Additional findings as above. Medications Administered Current Inpatient Medications Acetaminophen (Acetaminophen 325 Mg Tab) 650 mg PO Q4H PRN PRN Reason: Pain or Fever Stop: 03/07/25 13:36 Cyanocobalamin (Cyanocobalamin (B-12) 500 Mcg Tablet) 500 mcg PO DAILY [facility] Stop: 03/08/25 08:59 Last Admin: 02/07/25 08:32 Dose: 500 mcg Fluticasone/Vilanterol (Fluticasone/Vilanterol 100/25mcg 14 Puffs/Inhaler) 1 puffs INH Q24H [facility]; Protocol Stop: 03/07/25 20:59 Last Admin: 02/06/25 22:11 Dose: 1 puffs Pantoprazole Sodium 40 mg/ (Dextrose) 100 mls @ 20 mls/hr IV Q5H [facility] Stop: 03/07/25 09:59 Last Admin: 02/06/25 22:12 Dose: Not Given Ciprofloxacin (Cipro / D5w) 400 mg in 200 mls @ 100 mls/hr IV Q12H [facility]; Protocol Stop: 02/15/25 13:59 Last Infusion: 02/07/25 03:59 Dose: Infused Metronidazole (Flagyl) 500 mg in 100 mls @ 100 mls/hr IV Q12H [facility]; Protocol Stop: 02/15/25 13:59 Last Infusion: 02/07/25 03:59 Dose: Infused Lactated Ringer's (Lr) 1,000 mls @ 75 mls/hr IV .[id number] [facility] Stop: 02/09/25 22:14 Last Admin: 02/07/25 11:49 Dose: 75 mls/hr Levothyroxine Sodium (Levothyroxine Sodium 25 Mcg Tablet) 25 mcg PO DAILYBB [facility] Stop: 03/08/25 06:29 Last Admin: 02/07/25 07:12 Dose: 25 mcg Metoprolol Tartrate (Metoprolol Tartrate 25 Mg Tab) 12.5 mg PO BID [facility] Stop: 03/09/25 01:44 Last Admin: 02/07/25 09:35 Dose: 12.5 mg Ondansetron HCl (Ondansetron Inj 2 Mg/Ml 2 Ml Vial) 4 mg IV Q6H PRN PRN Reason: Nausea Stop: 03/07/25 13:36 Polyethylene Glycol (Polyethylene (Miralax) 17 Gm Pack) 17 gm PO DAILY PRN PRN Reason: Constipation Stop: 03/07/25 13:36 Rosuvastatin Calcium (Rosuvastatin Calcium 20 Mg Tab) 40 mg PO DAILY [facility] Stop: 03/08/25 08:59 Last Admin: 02/07/25 08:32 Dose: 40 mg Vitamin D (Cholecalciferol 25 Mcg (1000 Units) Tab) 25 mcg PO DAILY [facility] Stop: 03/08/25 08:59 Last Admin: 02/07/25 08:32 Dose: 25 mcg PG Care Time/CCT Total # of Minutes Spent Total Time Spent with Patient: Total time spent is greater than 50% in coordination of care (as documented) at patient's floor/unit and/or counseling patient: 60 Coding Level of Care Code 81939 INT INP/OBS CARE 3/75MIN History Comprehensive Exam Comprehensive Medical Decision Making High Complexity Diagnoses Hypotension due to blood loss I95.89; R58 Hemorrhage of colon following colonoscopy K91.840 Chronic atrial fibrillation I48.20 Pacemaker Z95.0 Time Spent (min) 80 Comment 60 minutes by Esther Caal PA-C, [address] Segovia
[2025-02-07] MEDS: DIGOXIN 125 MCG in SYRINGE 9.5 ML IV STA (14:22)
--- NOTE | 2025-02-07 16:26 | Hospitalist Progress Note ---
Date of Service February 07, 2025 Assessment & Plan (1) Rectal bleeding: (2) Abnormal computed tomography angiography (CTA) of abdomen and pelvis: Plan Patient is a 74-year-old male with past medical history significant for AAA s/p EVAR in September 2016, permanent atrial fibrillation anticoagulated on Eliquis, CHB s/p pacemaker placement, history of nonischemic cardiomyopathy with reduced EF [TTE 02/2024: LVEF = 55%], left atrial enlargement, aortic valve sclerosis, HTN, HLD, hiatal hernia with GERD, CKD stage IIIb [baseline Cr 1.6-1.9] and other problems listed below who presented to the ED with complaint of diffuse rectal bleeding which began around 4AM this morning. #Lower GI Bleeding, Rectum #History of recent colonscopy w/ polyp removal on 01/24/25 -CTA abd/pelvis: mild wall thickening of the rectosigmoid colon w/ surrounding infiltration, mildly hyperdense material within the rectosigmoid lumen may represent blood products (there is no contrast extravasation to suggest -active GI bleeding at the time of examination) -Recent colonscopy performed at [facility] on 01/24/25, Dr. Moraes -50mm polyp in the anorectum removed via endoscopic submucosal dissection with endoscopic suturing required for closure -Pathology consistent with a tubulovillous adenoma -Hgb 13.8 on admission -recurrent bleeding this morning post sigmoidoscopy yesterday, s/p repeat sigmoidoscopy then taken for surgical ablation for arterial bleed Plan: -GI consulted, appreciate assistance on difficult case -surgery consulted, appreciate assistance with ablation -bid protonix -if rebleeds will need transferred for IR ablation vs. surgical intervention, per surgery and GI -appreciate ICU assistance with care. #HTN #Permanent afib -cardiology consulted, appreciate recs -digoxin loaded with improvement in rates #HLD -Continue statin #CKD stage IIIb -Cr stable, baseline Cr 1.6-1.9 per chart review #Hypothyroidism -Continue levothyroxine #Asthma -No s/sx of acute exacerbation #H/o AAA s/p EVAR in 09/2016 -F/w [facility] vasc surgery; appears stable --> residual aneurysm sac measures 5.4 x 5.2cm on abd/pelvis CTA #Incidental CTA abd/pelvis findings 1. Cardiomegaly w/ small to moderate pericardial effusion -Pt asymptomatic in this regard; denies any CP/SOB -Prior TTE, 02/2024: LVEF = 55%, mildly increased concentric LV wall thickness, mildly enlarged LA, mild AR, mild MR, mild TR, mildly enlarged aortic root/proximal ascending thoracic aorta -Check routine TTE --> ? poss cards eval pending these results 2. 4.5cm left lobe liver cyst -LFTs unremarkable -Outpt liver US advised 3. 4.3 cm right adrenal lesion containing macroscopic fat is similar to previous -Outpt monitoring advised 4. Advanced atherosclerotic calcification of the abdominal aorta -Continue statin therapy 5. 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 Moderate stenosis at the origin of the dominant right renal artery 7. 2 indeterminate right lower pole renal lesions which likely represent cysts but are difficult to definitively characterize -Outpt renal US advised -Renal fx currently stable, continue to monitor 8. Bladder wall is thickened/trabeculated indicating chronic outlet obstruction -Currently urinating w/o issue, continue to monitor I spent a total of 50 minutes in direct patient care, including [id number] time with the patient and/or family, reviewing medical records, ordering and reviewing diagnostic tests, and coordinating care with other healthcare providers. This time includes: history taking, physical examination, medical decision making, counseling, ECG interpretation, imaging interpretation, lab interpretation, orders, and education, excluding time spent in the performance of separately billed services. Admission and Anticipated Discharge Date Admission Date: February 05, 2025 Subjective Patient seen and examined at bedside. Patient feels better than he did yesterday. Had a difficult day yesterday, with repeat sigmoidoscopy leading to surgical ablation due to bleeding artery. Review of Systems Review of Systems: CONSTITUTIONAL: Patient denies fevers, chills, sweats and weight changes. EYES: Patient denies any visual symptoms. EARS, NOSE, AND THROAT: No difficulties with hearing. No symptoms of rhinitis or sore throat. CARDIOVASCULAR: Patient denies chest pains, palpitations, orthopnea and paroxysmal nocturnal dyspnea. RESPIRATORY: No dyspnea on exertion, no wheezing or cough. GI: rectal bleeding, anisha red blood per rectum : No urinary hesitancy or dribbling. No nocturia or urinary frequency. No abnormal urethral discharge. MUSCULOSKELETAL: No myalgias or arthralgias. NEUROLOGIC: No chronic headaches, no seizures. Patient denies numbness, tingling or weakness. PSYCHIATRIC: Patient denies problems with mood disturbance. No problems with anxiety. ENDOCRINE: No excessive urination or excessive thirst. DERMATOLOGIC: Patient denies any rashes or skin changes. Physical Exam Physical Exam: Gen: A&O 3 NAD HEENT: NCAT, EOMI, not icteric. External ears normal. No rhinorrhea. Moist mucous membranes. Neck: Supple, full range of motion, no observable masses, No meningeal sign. Lungs: No Respiratory distress. CV: tachycardic, regular rhythm Abdomen: Soft, nondistended, No rebound tenderness. MSK: No joint swelling, no redness. cold extremities, diminished cap refill Skin: No rashes, petechiae, lesions. Normal color per patient. Neuro: Normal Gait, Grossly intact. Psych: Appropriate for situation. Results & Data Results & Data Vital Signs (Past 12 Hours) Vital Signs Temp Pulse Resp BP Pulse Ox O2 Del Method O2 Flow Rate 02/07/25 14:22 103 H 02/07/25 13:00 82 16 96 02/07/25 13:00 105/77 02/07/25 12:09 109 H 21 96 02/07/25 12:00 109/70 02/07/25 11:06 101 H 22 97 02/07/25 11:00 89/61 L 02/07/25 10:57 96 H 15 88 L 02/07/25 10:12 115 H 13 90 02/07/25 10:02 85/66 L 02/07/25 09:06 37.4 C 120 H 22 95 02/07/25 09:01 98/70 L 02/07/25 08:57 120 H 02/07/25 08:00 114/69 02/07/25 08:00 37.4 C 121 H 16 91 02/07/25 07:30 Nasal Cannula 2 02/07/25 07:00 96/71 L 02/07/25 07:00 37.4 C 112 H 12 97 02/07/25 06:42 37.4 C 104 H 20 94 02/07/25 06:30 92/64 L 02/07/25 06:18 37.4 C 121 H 21 92 02/07/25 06:00 37.3 C 109 H 15 95 02/07/25 06:00 111/72 02/07/25 05:39 37.3 C 106 H 14 97 02/07/25 05:09 37.3 C 90 17 96 02/07/25 04:45 37.3 C 93 H 15 95 02/07/25 04:32 107/71 Laboratory Results -personally reviewed, Hgb drop from last night but relatively stable, creatinine stable Medications Administered Cyanocobalamin (Cyanocobalamin (B-12) 500 Mcg Tablet) 500 mcg PO DAILY SANDHYA Stop: 03/08/25 08:59 Last Admin: 02/07/25 08:32 Dose: 500 mcg Documented By: Admin: 02/06/25 08:12 Dose: 500 mcg Documented By: CARLIE Fluticasone/Vilanterol (Fluticasone/Vilanterol 100/25mcg 14 Puffs/Inhaler) 1 puffs INH Q24H SANDHYA; Protocol Stop: 03/07/25 20:59 Last Admin: 02/06/25 22:11 Dose: 1 puffs Documented By: Admin: 02/05/25 20:34 Dose: 1 puffs Documented By: ELOY Pantoprazole Sodium 40 mg/ (Dextrose) 100 mls @ 20 mls/hr IV Q5H SANDHYA Stop: 03/07/25 09:59 Last Admin: 02/06/25 22:12 Dose: Not Given Documented By: Infusion: 02/06/25 21:28 Dose: Infused Documented By: ESHam Admin: 02/06/25 21:25 Dose: Not Given Documented By: Admin: 02/06/25 12:52 Dose: 8 mg/hr, 20 mls/hr Documented By: Infusion: 02/06/25 12:52 Dose: Infused Documented By: Admin: 02/06/25 08:10 Dose: 8 mg/hr, 20 mls/hr Documented By: Infusion: 02/06/25 07:55 Dose: Infused Documented By: Admin: 02/06/25 02:55 Dose: 8 mg/hr, 20 mls/hr Documented By: Infusion: 02/06/25 02:55 Dose: Infused Documented By: Admin: 02/05/25 22:07 Dose: 8 mg/hr, 20 mls/hr Documented By: Infusion: 02/05/25 22:07 Dose: Infused Documented By: Admin: 02/05/25 17:46 Dose: 8 mg/hr, 20 mls/hr Documented By: Infusion: 02/05/25 17:46 Dose: Infused Documented By: Admin: 02/05/25 13:41 Dose: 8 mg/hr, 20 mls/hr Documented By: MIKE Ciprofloxacin (Cipro / D5w) 400 mg in 200 mls @ 100 mls/hr IV Q12H SANDHYA; Vanessa col Stop: 02/15/25 13:59 Last Admin: 02/07/25 14:23 Dose: 100 mls/hr Documented By: Infusion: 02/07/25 03:59 Dose: Infused Documented By: Admin: 02/07/25 02:00 Dose: 100 mls/hr Documented By: Infusion: 02/06/25 16:14 Dose: Infused Documented By: Admin: 02/06/25 14:14 Dose: 100 mls/hr Documented By: Infusion: 02/06/25 04:38 Dose: Infused Documented By: Admin: 02/06/25 01:38 Dose: 100 mls/hr Documented By: Infusion: 02/05/25 16:08 Dose: Infused Documented By: Admin: 02/05/25 14:06 Dose: 100 mls/hr Documented By: MIKE Metronidazole (Flagyl) 500 mg in 100 mls @ 100 mls/hr IV Q12H SANDHYA; Protocol Stop: 02/15/25 13:59 Last Admin: 02/07/25 14:23 Dose: 100 mls/hr Documented By: Infusion: 02/07/25 03:59 Dose: Infused Documented By: Admin: 02/07/25 02:00 Dose: 100 mls/hr Documented By: Infusion: 02/06/25 15:45 Dose: Infused Documented By: Admin: 02/06/25 14:14 Dose: 100 mls/hr Documented By: Infusion: 02/06/25 02:42 Dose: Infused Documented By: Admin: 02/06/25 01:38 Dose: 100 mls/hr Documented By: Infusion: 02/05/25 16:20 Dose: Infused Documented By: Admin: 02/05/25 15:19 Dose: 100 mls/hr Documented By: MIKE Lactated Ringer's (Lr) 1,000 mls @ 75 mls/hr IV .[id number] S[facility]HYA Stop: 02/09/25 22:14 Last Admin: 02/07/25 11:49 Dose: 75 mls/hr Documented By: Infusion: 02/07/25 11:37 Dose: Infused Documented By: Infusion: 02/07/25 03:59 Dose: 75 mls/hr Documented By: Admin: 02/06/25 22:16 Dose: 75 mls/hr Documented By: VALENCIA Levothyroxine Sodium (Levothyroxine Sodium 25 Mcg Tablet) 25 mcg PO DAILYBB S[facility]HYA Stop: 03/08/25 06:29 Last Admin: 02/07/25 07:12 Dose: 25 mcg Documented By: Admin: 02/06/25 05:13 Dose: 25 mcg Documented By: ELOY Metoprolol Tartrate (Metoprolol Tartrate 25 Mg Tab) 12.5 mg PO BID [facility]A Stop: 03/09/25 01:44 Last Admin: 02/07/25 09:35 Dose: 12.5 mg Documented By: Admin: 02/07/25 01:55 Dose: 12.5 mg Documented By: VALENCIA Rosuvastatin Calcium (Rosuvastatin Calcium 20 Mg Tab) 40 mg PO DAILY SANDHYA Stop: 03/08/25 08:59 Last Admin: 02/07/25 08:32 Dose: 40 mg Documented By: Admin: 02/06/25 08:12 Dose: 40 mg Documented By: CARLIE Vitamin D (Cholecalciferol 25 Mcg (1000 Units) Tab) 25 mcg PO DAILY SANDHYA Stop: 03/08/25 08:59 Last Admin: 02/07/25 08:32 Dose: 25 mcg Documented By: Admin: 02/06/25 08:12 Dose: 25 mcg Documented By: CARLIE
[2025-02-08 07:11] LABS: Hematocrit (blood only) 27.0 % (42.0-52.0); Hemoglobin 9.2 g/dl (14.0-18.0); Mean Corpuscular Hemoglobin 29.5 pg (25.0-34.0); Mean Corpuscular Volume 86.5 fL (80.0-100.0); Platelet Count 134 K/uL (130-400); RDW Standard Deviation 47.8 fL (36.4-46.3); Red Blood Count 3.12 M/uL (4.70-6.10); White Blood Count 5.13 K/ul (4.8-10.8)
[2025-02-08 07:44] LABS: Anion Gap 5.0 (3-11); Blood Urea Nitrogen 11.0 mg/dl (6-23); Calcium 7.3 mg/dl (8.6-10.3); Carbon Dioxide 24.0 mmol/L (21-32); Chloride 111.0 mmol/L (98-107); Creatinine Clr Calc Pharmacy 64.2 ml/min; Glucose 86.0 mg/dl (70-99(Fasting)); Magnesium 1.8 mg/dl (1.7-2.4); Potassium 3.7 mmol/L (3.5-5.1); Sodium 140.0 mmol/L (136-145)
[2025-02-08 07:45] LABS: INR 1.1 (0.9-1.1); Prothrombin Time 12.1 Seconds (9.0-12.0)
[2025-02-08] MEDS: CALCIUM GLUCONATE 1,000 MG/60 ML BAG IV STA (08:51)
[2025-02-08 10:58] VITALS: TEMP 97.7
--- NOTE | 2025-02-08 10:58 | Cardiology Progress Note ---
Date of Service February 08, 2025 Assessment & Plan (1) Hypotension due to blood loss: (2) Hemorrhage of colon following colonoscopy: (3) Chronic atrial fibrillation: (4) Pacemaker: Plan 02/07/25 Patient admitted with persistent GI bleed following colonoscopy after polpy removed, ultimately requiring general surgical intervention. Patient admitted to ICU due to hypotension due to acute blood loss. Received 3 units PRBC's since admission Hbg this morning at 9.3 Monitor Hbg. Per surgery and GI, if patient has additional bleeding - will need transferred for IR intervention. Patient with chronic afib, s/p dual chamber pacemaker (atrial lead turned off), RV pacing 50% -Metoprolol tartrate 50 mg BID held on admission due to hypotension -Diltiazem 120 mg daily - held on admission due to hypotension -Hold anticoagulation due to acute GI bleed. -This morning, BP improving and metoprolol tartrate 12.5 mg BID resumed. -He had recurrent episode of lightheadedness with hypotension and Afib RVR upon trying to get out of bed. Symptoms resolved when patient returning to bed. -Consider adding IV digoxin to aid with HR while patient is hypotensive. -Hopeful we can titrate metoprolol as BP improves and bleeding stabilizes. -Echo this admission with hyperdynamic LVEF in setting of volume depletion. 02/08/25: Hbg relatively stable since yesterday and no reported or recurrent GI bleeding noted. Monitor. Afib with variable rates noted. Rates increase with minimal exertion. He received on dose of IV digoxin yesterday with improved HR's. BP improved and now borderline elevated this morning. Increase metoprolol tartrate to 25 mg BID (home dose was 50 mg BID). Continue to hold home dose diltiazem 120 mg daily as well. Hold anticoagulation for now. Resume when able and GI bleeding has resolved. Case discussed with Dr. Hankins I spent a total of 30 minutes on the date of service in preparation, delivery, and documentation of the care provided to this patient, excluding any time spent in the performance of separately billed services. Sharmaine Caal PA-C Department of Cardiology, [facility] This chart was completed in part utilizing Speech Voice Recognition Software. Grammatical errors, random word insertions, pronoun errors, and incomplete sentences are an occasional consequence of this system due to software limitations, ambient noise, and hardware issues. Any formal questions or concerns about the content, text, or information contained within the body of this dictation should be directly addressed to the provider for clarification. Admission and Anticipated Discharge Date Admission Date: February 05, 2025 Supervising Physician Co-Signing Physician Notes I have personally performed a history and physical examination on the patient. I have reviewed the advance practitioner's documentation, and I agree with, and take responsibility for the plan of care. 74-year-old male admitted to the hospital due to lower GI bleeding secondary to polypectomy. Hemoglobin stable today after transfusion of packed red blood cells (total 3 units). Reports recurrent rectal bleeding earlier today. He became acutely lightheaded and a code purple was called. Rate controlled atrial fibrillation noted on telemetry. Anticoagulation on hold since admission. Continue Lopressor as ordered. Agree with transfer to tertiary care center for evaluation and treatment by interventional radiology. Tony Hankins DO, [facility] I spent a total of 25 minutes on the date of service in preparation, delivery, and documentation of the care provided to this patient, excluding any time spent in the performance of separately billed services. Subjective Patient resting in bed feeling well from cardiac standpoint. Denies chest pain, SOB, palpitations. No recurrent dizziness, although he has yet to be out of bed this morning. No recurrent GI bleeding noted overnight. Review of Systems Review of Systems: All systems reviewed & are unremarkable except as noted in HPI & below Physical Exam Constitutional: WD/WN, vitals as above no acute distress Neck: normal visual inspection Respiratory: normal respiratory effort, lungs clear to auscultation Cardiovascular: Rate/Rhythm: + irregularly irregular Heart Sounds: no murmur (No audible murmur) Vessels: no JVD Extremities: no edema Gastrointestinal (Abdomen): normal bowel sounds, soft, nontender, no hepatosplenomegaly Musculoskeletal: no cyanosis or clubbing, extremities motor strength 5/5 Neurologic: PERRL, EOMI, accommodation nl, no face palsy, no dysarthria Psychiatric: A+Ox3, euthymic affect Results & Data Vital Signs (Past 12 Hours) Vital Signs Temp Pulse Pulse Resp BP Pulse Ox O2 Del Method 02/08/25 09:15 Room Air 02/08/25 08:34 36.4 C L 115 H 18 149/92 H 97 Room Air 02/08/25 07:00 97 H 02/08/25 03:24 36.7 C 101 H 20 115/78 98 Room Air 02/08/25 00:00 36.7 C 80 20 122/87 97 Room Air Laboratory Results Coagulation 02/08/25 Range/Units 05:50 PT 12.1 H (9.0-12.0) Seconds CBC 02/08/25 Range/Units 05:50 WBC 5.13 (4.8-10.8) K/ul RBC 3.12 L (4.70-6.10) M/uL Hgb 9.2 L (14.0-18.0) g/dl Hct 27.0 L (42.0-52.0) % Plt Count 134 (130-400) K/uL Comprehensive Metabolic Panel 02/08/25 Range/Units 05:50 Sodium 140 (136-145) mmol/L Potassium 3.7 (3.5-5.1) mmol/L Chloride 111 H (98-107) mmol/L Carbon Dioxide 24 (21-32) mmol/L BUN 11 (6-23) mg/dl Creatinine 1.32 (0.6-1.4) mg/dl Glucose 86 (70-99(Fasting)) mg/dl Calcium 7.3 L (8.6-10.3) mg/dl Intake and Output 02/07/25 02/08/25 02/08/25 22:59 06:59 14:59 Intake Total 300 / 2171.25 1300 / 2171.25 1060 / 1060 Output Total 1086 / 1676 450 / 1676 Balance -786 / 495.25 850 / 495.25 1060 / 1060 Intake: IV 300 / 2171.25 1300 / 2171.25 1060 / 1060 Calcium Gluconate 1,000 mg In 60 / 60 60 ml @ 240 mls/hr IV NOW STA Rx#:[id number] Ciprofloxacin / D5w 400 mg In 200 / 400 200 / 400 200 ml @ 100 mls/hr IV Q12H SANDHYA Rx#:[id number] Lactated Ringer's 1,000 ml @ 75 1000 / 1571.25 mls/hr IV .[id number] SANDHYA Rx#: [id number] Sodium Chloride 0.9% 1,000 ml @ 1000 / 1000 15 mls/hr IV .Q24H ST[facility] Rx#: [id number] metroNIDAZOLE 500 mg In 100 ml 100 / 200 100 / 200 @ 100 mls/hr IV Q12H [facility] Rx#: [id number] Output: Urine Amount (Catheter) 1085 / 1675 450 / 1675 Temp Sensing Macario 1085 / 1675 450 / 1675 # Bowel Movements Other: Weight 108.1 kg Weight Measurement Method Built in [facility] Diagnostic Findings Telemetry reviewed: Afib with variable rates ranging 90-110 bmp Medications Administered Current Inpatient Medications Acetaminophen (Acetaminophen 325 Mg Tab) 650 mg PO Q4H PRN PRN Reason: Pain or Fever Stop: 03/07/25 13:36 Cyanocobalamin (Cyanocobalamin (B-12) 500 Mcg Tablet) 500 mcg PO DAILY [facility] Stop: 03/08/25 08:59 Last Admin: 02/08/25 08:35 Dose: 500 mcg Fluticasone/Vilanterol (Fluticasone/Vilanterol 100/25mcg 14 Puffs/Inhaler) 1 puffs INH Q24H [facility]; Protocol Stop: 03/07/25 20:59 Last Admin: 02/07/25 23:09 Dose: Not Given Pantoprazole Sodium 40 mg/ (Dextrose) 100 mls @ 20 mls/hr IV Q5H [facility] Stop: 03/07/25 09:59 Last Admin: 02/06/25 22:12 Dose: Not Given Lactated Ringer's (Lr) 1,000 mls @ 75 mls/hr IV .[id number] [facility] Stop: 02/09/25 22:14 Last Admin: 02/08/25 02:02 Dose: 75 mls/hr Levothyroxine Sodium (Levothyroxine Sodium 25 Mcg Tablet) 25 mcg PO DAILYBB [facility] Stop: 03/08/25 06:29 Last Admin: 02/08/25 06:10 Dose: 25 mcg Metoprolol Tartrate (Metoprolol Tartrate 25 Mg Tab) 12.5 mg PO BID [facility] Stop: 03/09/25 01:44 Last Admin: 02/08/25 08:35 Dose: 12.5 mg Ondansetron HCl (Ondansetron Inj 2 Mg/Ml 2 Ml Vial) 4 mg IV Q6H PRN PRN Reason: Nausea Stop: 03/07/25 13:36 Pantoprazole Sodium (Pantoprazole 40 Mg Tab) 40 mg PO BID [facility] Stop: 03/09/25 20:59 Last Admin: 02/08/25 08:35 Dose: 40 mg Polyethylene Glycol (Polyethylene (Miralax) 17 Gm Pack) 17 gm PO DAILY PRN PRN Reason: Constipation Stop: 03/07/25 13:36 Rosuvastatin Calcium (Rosuvastatin Calcium 20 Mg Tab) 40 mg PO DAILY [facility] Stop: 03/08/25 08:59 Last Admin: 02/08/25 08:35 Dose: 40 mg Vitamin D (Cholecalciferol 25 Mcg (1000 Units) Tab) 25 mcg PO DAILY [facility] Stop: 03/08/25 08:59 Last Admin: 02/08/25 08:35 Dose: 25 mcg PG Care Time/CCT Total # of Minutes Spent Total Time Spent with Patient: Total time spent is greater than 50% in coordination of care (as documented) at patient's floor/unit and/or counseling patient: 30 Coding Level of Care Code 84512 SUB INP/OBS CARE 3/50MIN Diagnoses Hypotension due to blood loss I95.89; R58 Hemorrhage of colon following colonoscopy K91.840 Chronic atrial fibrillation I48.20 Pacemaker Z95.0
--- NOTE | 2025-02-08 11:23 | Gastroenterology Progress Note ---
Date of Service February 08, 2025 Assessment & Plan (1) Hemorrhage of colon following colonoscopy: Plan: No further GI bleeding. Continue to monitor H/H. If re-bleeds--> he would need transfer for IR. Would advise avoiding constipation/hard stools/straining. Consider Miralax/Colace supportively. Encourage fluid consumption. Continue antibiotics as previously advised. Holding Eliquis at this time. Admission and Anticipated Discharge Date Admission Date: February 05, 2025 Supervising Physician Co-Signing Physician Notes Patient transferred to [facility] [place] for GI bleeding following a code purple Patient became orthostatic which prompted code purple Subjective Patient is a 74 yo male with post-polypectomy bleed. No further bleeding today. H/H 9.2/27.0. Patient denies any abdominal pain. He denies a bowel movement since 02/06/25. He is passing gas Review of Systems Constitutional: no fever and no chills Gastrointestinal: no abdominal pain Physical Exam Constitutional: well developed Respiratory: normal respiratory effort Gastrointestinal (Abdomen): normal bowel sounds, soft, nontender, no hepatosplenomegaly Results & Data Results & Data Vital Signs (Past 12 Hours) Vital Signs Temp Pulse Pulse Resp BP Pulse Ox O2 Del Method 02/08/25 10:57 36.5 C 56 L 20 114/80 97 Room Air 02/08/25 09:15 Room Air 02/08/25 08:34 36.4 C L 115 H 18 149/92 H 97 Room Air 02/08/25 07:00 97 H 02/08/25 03:24 36.7 C 101 H 20 115/78 98 Room Air 02/08/25 00:00 36.7 C 80 20 122/87 97 Room Air PG Care Time/CCT Total # of Minutes Spent Total Time Spent with Patient: Total time spent is greater than 50% in coordination of care (as documented) at patient's floor/unit and/or counseling patient: Coding Level of Care Code 28600 SUB INP/OBS CARE 2/35MIN Diagnoses Hemorrhage of colon following colonoscopy K91.840
[2025-02-08] MEDS: METOPROLOL TARTRATE 25 MG TAB PO ONE (11:26)
[2025-02-08] MEDS: OPTIRAY 320 125ml IV ONE (12:20)
[2025-02-08 12:23] LABS: Hematocrit (blood only) 30.9 % (42.0-52.0); Hemoglobin 10.3 g/dl (14.0-18.0); Immature Granulocytes # (auto) 0.05 K/uL (0.01-0.20); Immature Granulocytes % (auto) 0.6 %; Mean Corpuscular Hemoglobin 29.3 pg (25.0-34.0); Mean Corpuscular Volume 88.0 fL (80.0-100.0); Platelet Count 169 K/uL (130-400); RDW Standard Deviation 48.5 fL (36.4-46.3); Red Blood Count 3.51 M/uL (4.70-6.10); White Blood Count 8.09 K/ul (4.8-10.8)
[2025-02-08] MEDS: LACTATED RINGER'S 500 ML IV SCH (12:28)
--- NOTE | 2025-02-08 12:57 | CT Scan Report ---
CT ANGIOGRAM OF THE ABDOMEN AND PELVIS COMBO CLINICAL HISTORY: Hematochezia. COMPARISON STUDY: CT angiogram of the abdomen and pelvis dated 02/05/2025. Abdominal CT dated 06/26/20 TECHNIQUE: Before and following the IV administration of 119 cc of Optiray 320, CT angiogram of the a bdomen and pelvis was performed from the lung bases the proximal femora. Images are reviewed in the a xial, sagittal, and coronal planes. 3-D MIPS images are created and assessed. IV contrast was adminis tered without complication. A dose lowering technique was utilized adhering to the principles of ALA RA. CT DOSE: 3372.4 mGy.cm FINDINGS: Lower chest: The heart is enlargement noting a small to moderate pericardial effusion. Pacemaker lead s are in place. The coronary arteries are densely calcified. There are small pleural effusions with d ependent consolidation. These are new from 02/05/2025. There is a small hiatal hernia. Liver: The contrast-enhanced liver is normal in size, contour, and attenuation. There is no intrahepa tic biliary ductal dilatation. The main portal veins appear patent. There is a 4.5 cm left lobe cyst. Additional subcentimeter hepatic hypodensities also likely represent cysts but are too small for def initive characterization. Gallbladder: Surgically absent noting clips in the gallbladder fossa. Spleen: Normal in size and attenuation noting heterogeneous arterial phase enhancement. Pancreas: Moderately atrophic and grossly unremarkable. Adrenal glands: A 4.3 cm right adrenal lesion containing macroscopic fat is similar to previous. The left adrenal gland is normal in appearance. Kidneys: The contrast enhanced kidneys demonstrate cortical atrophy and are without hydronephrosis. N o renal calculi are identified on the unenhanced series. The kidneys enhance symmetrically. Right low er pole cysts measure up to 2.3 cm. Abdominal aorta and iliac arteries: There is advanced atherosclerotic calcification of the abdominal aorta. The patient is status post aortobiiliac stent graft repair of an infrarenal abdominal aortic a neurysm. The residual aneurysm sac measures 5.4 x 5.2 cm (AP x transverse). The stent graft is widely patent. There is no evidence of endoleak on this single phase examination. The iliac arteries are wi chelsie patent bilaterally. Major branches of the abdominal aorta: The celiac trunk and superior mesenteric artery are patent. Th ere is mild stenosis of the origin of the celiac artery. 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 The vessel is opacified distally via retr ograde flow. Hepatic arterial anatomy is conventional. The splenic artery is patent. There are 2 righ t renal arteries and a single left renal artery. These arise from the interstices of the stent and ar e patent. There is at least moderate stenosis at the origin of the dominant right renal artery. Bowel: There is moderate colonic diverticulosis without CT evidence of acute diverticulitis. No bowel obstruction is seen. A metallic foreign body/clip is noted in the rectum. There are large duodenal diverticula. The appendix is well-visualized and normal. No intraluminal extravasation of contrast i s seen at this time. Peritoneum: There is no intraperitoneal free air or abdominal ascites. There is a fat-containing umbi lical hernia. Lymphadenopathy: None. Pelvic viscera: The bladder is decompressed around a Macario catheter and not well evaluated. The prost ate gland is enlarged and heterogeneous. There are bilateral fat-containing groin hernias. Skeletal structures: The skeletal structures are osteopenic. There is mild lumbosacral spondylosis. D egenerative sclerosis is seen in the sacroiliac joints. No lytic or blastic bony lesions are seen. Ch ronic deformity and postsurgical change is noted in the right proximal femur. There are chronic/heale d right-sided rib fractures. IMPRESSION: 1. A metallic foreign body or surgical clip is is again seen in the rectum. Correlate clinically. 2. No acute infectious or inflammatory findings are identified in the abdomen or pelvis. Mild wall th ickening of the rectosigmoid questioned on 02/05/2025 has resolved. 3. There is no CT evidence of active GI bleeding at the time of examination. 4. Colonic diverticulosis without CT evidence of acute diverticulitis. 5. The patient is status post aortobiiliac stent graft repair of an infrarenal abdominal aortic aneur ysm. The residual aneurysm sac measures 5.4 x 5.2 cm. 6. There is at least moderate stenosis at the origin of the dominant right renal artery, and at least mild stenosis at the origin of the celiac trunk. 7. 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 The vessel is opacified distally by retrograde flow. 8. Cardiomegaly noting a small to moderate pericardial effusion. 9. Small pleural effusions are new from previous. 10. Additional findings as above. ACT 112: Negative or not required by law. Electronically signed by: Willie Maurer M.D. 02/08/2025 12:55 PM
[2025-02-08 13:27] VITALS: O2SAT 98
[2025-02-08] MEDS: LACTATED RINGER'S 500 ML IV ONE (13:33)
[2025-02-08 13:52] VITALS: BP 123/82; PULSE 80; RESP 16
--- NOTE | 2025-02-08 16:35 | Discharge Summary ---
Discharge Summary Date of Service February 08, 2025 Principal Dx & Hospital Course #1 = Principal Diagnosis (1) Rectal bleeding: (2) Abnormal computed tomography angiography (CTA) of abdomen and pelvis: Plan Patient is a 74-year-old male with past medical history significant for AAA s/p EVAR in September 2016, permanent atrial fibrillation anticoagulated on Eliquis, CHB s/p pacemaker placement, history of nonischemic cardiomyopathy with reduced EF [TTE 02/2024: LVEF = 55%], left atrial enlargement, aortic valve sclerosis, HTN, HLD, hiatal hernia with GERD, CKD stage IIIb [baseline Cr 1.6-1.9] and other problems listed below who presented to the ED with complaint of diffuse rectal bleeding which began around 4AM this morning. #Lower GI Bleeding, Rectum #History of recent colonscopy w/ polyp removal on 01/24/25 -CTA abd/pelvis: mild wall thickening of the rectosigmoid colon w/ surrounding infiltration, mildly hyperdense material within the rectosigmoid lumen may represent blood products (there is no contrast extravasation to suggest -active GI bleeding at the time of examination) -Recent colonscopy performed at [facility] on 01/24/25, Dr. Moraes -50mm polyp in the anorectum removed via endoscopic submucosal dissection with endoscopic suturing required for closure -Pathology consistent with a tubulovillous adenoma -Hgb 13.8 on admission -recurrent bleeding this morning post sigmoidoscopy yesterday, s/p repeat sigmoidoscopy then taken for surgical ablation for arterial bleed Plan: -GI consulted, appreciate assistance on difficult case -surgery consulted, appreciate assistance with ablation -bid protonix -if rebleeds will need transferred for IR ablation vs. surgical intervention, per surgery and GI -appreciate ICU assistance with care. #HTN #Permanent afib -cardiology consulted, appreciate recs -digoxin loaded with improvement in rates #HLD -Continue statin #CKD stage IIIb -Cr stable, baseline Cr 1.6-1.9 per chart review #Hypothyroidism -Continue levothyroxine #Asthma -No s/sx of acute exacerbation #H/o AAA s/p EVAR in 09/2016 -F/w [facility] vasc surgery; appears stable --> residual aneurysm sac measures 5.4 x 5.2cm on abd/pelvis CTA #Incidental CTA abd/pelvis findings 1. Cardiomegaly w/ small to moderate pericardial effusion -Pt asymptomatic in this regard; denies any CP/SOB -Prior TTE, 02/2024: LVEF = 55%, mildly increased concentric LV wall thickness, mildly enlarged LA, mild AR, mild MR, mild TR, mildly enlarged aortic root/proximal ascending thoracic aorta -Check routine TTE --> ? poss cards eval pending these results 2. 4.5cm left lobe liver cyst -LFTs unremarkable -Outpt liver US advised 3. 4.3 cm right adrenal lesion containing macroscopic fat is similar to previous -Outpt monitoring advised 4. Advanced atherosclerotic calcification of the abdominal aorta -Continue statin therapy 5. 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 Moderate stenosis at the origin of the dominant right renal artery 7. 2 indeterminate right lower pole renal lesions which likely represent cysts but are difficult to definitively characterize -Outpt renal US advised -Renal fx currently stable, continue to monitor 8. Bladder wall is thickened/trabeculated indicating chronic outlet obstruction -Currently urinating w/o issue, continue to monitor Notes For Next Care Provider Patient is a 74-year-old male with past medical history significant for AAA s/p EVAR in September 2016, permanent atrial fibrillation anticoagulated on Eliquis, CHB s/p pacemaker placement, history of nonischemic cardiomyopathy with reduced EF [TTE 02/2024: LVEF = 55%], left atrial enlargement, aortic valve sclerosis, HTN, HLD, hiatal hernia with GERD, CKD stage IIIb [baseline Cr 1.6-1.9] and other problems listed below who presented to the ED with complaint of diffuse rectal bleeding. Had colonoscopy on 01/26/2025 with 5mm popectomy. Admitted to medicine, on medicine GI performed sigmoidoscopy with clipping of bleeding polyp site. Next day, stood up, became orthostatic, diffuse bright red blood per rectum. Repeat sigmoidoscopy found arterial bleed unable to be clipped, surgery co nsulted, placed a patch and embolization, required pressors for hemorrhagic shock in ICU. Cardiology consulted for afib with RVR, loaded with digoxin with improvement. Hgb stabilized. 1.5 days later, patient was in chair and became unresponsive, blood on pad. ON 02/08/2025 GI and surgery recommended transfer to tertiary care center given complexity of bleed. Medication Changes From Visit -see below Admission HPI Per Admitting Provider Patient is a 74-year-old male with past medical history significant for AAA s/p EVAR in September 2016, permanent atrial fibrillation anticoagulated on Eliquis, CHB s/p pacemaker placement, history of nonischemic cardiomyopathy with reduced EF [TTE 02/2024: LVEF = 55%], left atrial enlargement, aortic valve sclerosis, HTN, HLD, hiatal hernia with GERD, CKD stage IIIb [baseline Cr 1.6-1.9] and other problems listed below who presented to the ED with complaint of diffuse rectal bleeding. History obtained from the patient, discussion with the ED provider and associated chart review. Patient endorses diffuse, anisha red rectal bleeding which started spontaneously this morning around 4AM and has since then been incessant in nature. Mentions it awoke him from sleep. Currently on anticoagulation therapy with Eliquis 5mg BID given history of permanent atrial fibrillation. Last took Eliquis yesterday around 8PM. Has not yet taken any of his home medications today. Denies any lightheadedness/dizziness, SOB or chest pain. Describes some mild cramping in his left lower abdominal region. Recently underwent colonoscopy performed by Dr. Moraes at [facility] on 01/24/2025. Had a 50mm polyp in the anorectum removed via endoscopic submucosal dissection with endoscopic suturing required for closure. Pathology consistent with a tubulovillous adenoma. Patient states he initially had a small amount of anisha blood in his stools following the colonoscopy however this resolved in 1-2 days. This morning is the first time he has experienced any further rectal bleeding since the procedure. Discharge Exam Gen: A&O 3 NAD HEENT: NCAT, EOMI, not icteric. External ears normal. No rhinorrhea. Moist mucous membranes. Neck: Supple, full range of motion, no observable masses, No meningeal sign. Lungs: No Respiratory distress. CV: tachycardic, regular rhythm Abdomen: Soft, nondistended, No rebound tenderness. MSK: No joint swelling, no redness. cold extremities, diminished cap refill Skin: No rashes, petechiae, lesions. Normal color per patient. Neuro: Normal Gait, Grossly intact. Psych: Appropriate for situation. Updated Medication List Medication Instructions Recorded Confirmed Type cyanocobalamin (vitamin B-12) 500 500 mcg PO DAILY 03/16/19 02/05/25 History mcg tablet levothyroxine 25 mcg capsule 25 mcg PO DAILYBB 06/27/19 02/05/25 History cholecalciferol (vitamin D3) 25 1,000 unit PO DAILY #30 caps 04/11/20 02/05/25 Rx mcg (1,000 unit) capsule (Vitamin D3) budesonide-formoterol HFA 80 1 inh inhalation BID 04/06/23 02/05/25 History mcg-4.5 mcg/actuation aerosol inhaler (Symbicort) rosuvastatin 40 mg tablet 40 mg PO DAILY 04/06/23 02/05/25 History metoprolol tartrate 25 mg tablet 25 mg PO BID #60 tabs 02/08/25 Rx pantoprazole 40 mg tablet,delayed 40 mg PO BID #60 tabs 02/08/25 Rx release Hospital Stay Data Consultations 02/05/25 09:22 Consult Gastroenterology Stat ED Decision to Admit Stat 02/06/25 16:56 Consult General Surgery Stat 02/06/25 20:14 Consult Accounts Administrator Routine 02/07/25 09:50 Consult Cardiology Routine Procedures Performed Operation Date: 02/06/25 16:45 Actual Procedures p Flexible Sigmoidoscopy Hemostasis - Dylan Hua Case, DO Diagnostic Imagining Performed 02/05/25 06:44 CTA abdomen pelvis w con [CT angio abdomen pelvis w con] Stat 02/08/25 12:00 CTA abd pelvis wo/w con [CT angio abd pelvis wo/w con] Stat Pending Results Patient Have Any Pending Studies at Discharge: No Discharge Instructions Given to Patient (Per Discharging Provider) 1. Transfer to [facility]. Total Time Total Time Spent Total Time Spent (In Minutes): I spent a total of 55 minutes in direct patient care, including [id number] time with the patient and/or family, reviewing medical records, ordering and reviewing diagnostic tests, and coordinating care with other healthcare providers. This time includes: history taking, physical examination, medical decision making, counseling, ECG interpretation, imaging interpretation, lab interpretation, orders, and education, excluding time spent in the performance of separately billed services.
[2025-02-08] MEDS ORDERED: METOPROLOL TARTRATE 25 MG TAB PO SCH (21:00)
== END 2025-02-08 14:20 | disposition short-term general hospital (02) | DRG 920 ==
LOC: ED 06:25 → SUATTDRO 09:35 → 4W 09:35 → 1E 02-06 19:55 → 2S 02-07 19:02

== ENCOUNTER 2025-03-01 11:47 | Inpatient (IN) ==
--- NOTE | 2025-03-01 12:02 | Emergency Department Note ---
Impression & Plan YOVANA (acute kidney injury), Lightheadedness, Weakness ED Provider Note NAME: NILES MOORE AGE: 74 SEX: M : 1950 ARRIVES VIA: Walk-In INFORMANT: Patient ED PROVIDER(S): Jorge Doty DO CHIEF COMPLAINT: Weakness HPI: Patient is a 74-year-old male with a past medical history of A-fib, tachybradycardia syndrome, GI bleed status post colonoscopy for weakness and lightheadedness. Symptoms initially started after being discharged in the mid January. Patient had scope/colonoscopy performed around January 24. He had a rebleed around the the and was admitted and received transfusions. Since being discharged he feels very weak and rundown. He was at his still runner and referred him. Denies any chest pain but admits to shortness of breath and just feeling weak and rundown. He feels very lightheaded anytime he gets up and feels like he is going to fall. Denies any black or dark tarry stools. ADDITIONAL HISTORY OBTAINED: Per HPI Chronic Medical/Social Conditions Affecting Care: Per HPI PAST MEDICAL HISTORY:See Below PAST SURGICAL HISTORY:See Below FAMILY HISTORY:See Below SOCIAL HISTORY:See Below HOME MEDICATIONS:See Below ALLERGIES:See Below VITALS:See Below PHYSICAL EXAMINATION: GENERAL: Sitting up in bed, alert, well appearing, well nourished, no distress, non-toxic EYE EXAM: normal conjunctiva. PERRL and EOM's grossly intact. OROPHARYNX: no exudate, no erythema, lips, buccal mucosa, and tongue normal and mucous membranes are moist NECK: supple, no nuchal rigidity, no adenopathy, non-tender LUNGS: Clear to auscultation. Normal chest wall mechanics HEART: no murmurs, S1 normal and S2 normal ABDOMEN: abdomen soft, non-tender, normo-active bowel sounds, no masses, no rebound or guarding. UPPER EXTREMITIES: upper extremities are grossly normal. LOWER EXTREMITIES: No pitting edema. NEURO EXAM: Normal sensorium, cranial nerves II-XII grossly intact, normal speech, no gross weakness of arms, no gross weakness of legs. MEDICAL DECISION MAKING: Patient is a 74-year-old male who presents ER for the above-stated complaint. IV was established and blood work is obtained. Labs show no significant leukocytosis or anemia. BMP with a creatinine of 2.1 up from baseline of 1.3. LFTs bilirubin and lipase was unremarkable. UA was clean. Patient was typed and screened. He was given IV fluids. Per report he was hypotensive in the office. Chest x-ray and EKG were unremarkable. He was discussed with the hospitalist for further evaluation management and treatment. Do favor majority of his symptoms are likely caused by Lasix/overdiuresis as he notes he was recently started on this. Consults/Care Managements Discussions: Per [facility] Triage Nursing notes reviewed. Limited review of prior medical records performed Vital Signs: reviewed and remarkable for no significant abnormalities Differential diagnosis: Infection, dehydration, metabolic abnormality, hypo/hyperglycemia, electrolyte disturbance, anemia, hypoxia, cardiac sources, intracerebral event, toxicologic, neurologic, as well as other pathologies. ER treatment provided: See below Diagnostics interpreted by me include EKG and cardiac monitoring as listed below: -Cardiac Monitoring: An order was placed for continuous cardiac monitoring. The monitor shows a rate of 80 with sinus rhythm. -ECG: A-fib rate of 67 Normal axis T wave inversions in the inferior leads QTc 429 -Laboratory studies:Interpreted by me as stated above in MDM and shown below. Imaging studies: Xrays: As interpreted by me: Portable AP upright 1 view of the chest shows no focal Lutrate CTs show: none Procedures:none Critical Care: None Past Med/Surg History Problem List (Updated 03/01/25 @ 15:00 by Jorge Doty DO) Weakness (Acute) Lightheadedness (Acute) YOVANA (acute kidney injury) (Acute) Chronic atrial fibrillation Hypotension due to blood loss Acute blood loss anemia Encounter for pre-operative examination Abnormal computed tomography angiography (CTA) of abdomen and pelvis Hemorrhage of colon following colonoscopy BRBPR (bright red blood per rectum) (Acute) Rectal bleeding Pneumoperitoneum (Acute) Hypothyroidism (Chronic) Hyperlipidemia (Chronic) Pneumonia (Acute) Hypomagnesemia (Acute) Hypophosphatemia (Acute) Tachy-adrio syndrome (Chronic) Medical History Pacemaker Atrial fibrillation Hypertension CKD (chronic kidney disease), stage IV GERD (gastroesophageal reflux disease) Pneumatosis of intestines On anticoagulant therapy Surgical History Sigmoidoscopy performed (02/06/25) Case History of rectal surgery (02/06/25) Rectal exam under anesthesia - Dr Kessler S/P AAA repair Hx of cholecystectomy Family History Mother Hypertension Stroke Father Myocardial infarction, Onset Age: 51 Social History Smoking Status: Never smoker Second Hand Exposure: No; Do You Dip or Chew Tobacco: No; Hx Alcohol Use: No Hx Substance Use: No Preferred Language: Salvadorean Communication Ability: Effective Quality Process Lead Required: No Beliefs That Will Affect Care: None marital status: Current Living Situation: Spouse and Other Current Living Situation Comment: Lives with daughter as well as current occupational status: employed Feels Safe at Home: Yes Assistive Devices: None Allergies Allergies Allergy/AdvReac Type Severity Reaction Status Date / Time Daznizw-JKZ-DuF Reductase Allergy Verified 03/01/25 13:47 Inhibitor [Yvglfeu-Xiu-Vbv Reductase Inhibitor] Home Meds Home Medications Medication Instructions Recorded Confirmed levothyroxine 25 mcg capsule 25 mcg PO DAILYBB 06/27/19 03/01/25 budesonide-formoterol HFA 80 1 inh inhalation BID 04/06/23 03/01/25 mcg-4.5 mcg/actuation aerosol inhaler (Symbicort) rosuvastatin 40 mg tablet 40 mg PO DAILY 04/06/23 03/01/25 apixaban 5 mg tablet (Eliquis) 5 mg PO BID 03/01/25 03/01/25 cholecalciferol (vitamin D3) 25 25 mcg PO DAILY 03/01/25 03/01/25 mcg (1,000 unit) capsule (Vitamin D3) cyanocobalamin (vitamin B-12) 500 500 mcg PO DAILY 03/01/25 03/01/25 mcg tablet diltiazem HCl 120 mg 120 mg PO QAM 03/01/25 03/01/25 capsule,extended release 24 hr furosemide 20 mg tablet 20 mg PO QAM 03/01/25 03/01/25 nystatin 100,000 unit/gram topical 1 applic topical DAILY 03/01/25 03/01/25 cream potassium chloride 20 mEq 20 meq PO BID 03/01/25 03/01/25 tablet,extended release(part/cryst) Previous Rx's Medication Instructions Recorded metoprolol tartrate 25 mg tablet 25 mg PO BID #60 tabs 02/08/25 pantoprazole 40 mg tablet,delayed 40 mg PO BID #60 tabs 02/08/25 release Results & Data (ED) Vital Signs Vital Signs - 24 hr 03/01/25 11:54 03/01/25 11:57 03/01/25 12:52 Temperature 36.4 C L Temperature Source Oral Pulse Rate 77 63 Pulse Rate from SpO2 Sensor Respiratory Rate 19 Respiratory Effort / Characteristics Non-Labored Spontaneous Respiratory Depth Normal Blood Pressure 106/73 Blood Pressure Mean 84 Pulse Oximetry 100 Oxygen Delivery Method Room Air Room Air Sepsis Recent Fever Within 48 Hours No Sepsis New/Unexplained Change in Mental Status No Sepsis Action Taken by Nursing No Action Required 03/01/25 12:54 03/01/25 13:00 Temperature Temperature Source Pulse Rate 60 61 Pulse Rate from SpO2 Sensor 68 64 Respiratory Rate 22 17 Respiratory Effort / Characteristics Respiratory Depth Blood Pressure Blood Pressure Mean Pulse Oximetry 98 95 Oxygen Delivery Method Sepsis Recent Fever Within 48 Hours Sepsis New/Unexplained Change in Mental Status Sepsis Action Taken by Nursing Laboratory Data 03/01/25 12:03 03/01/25 12:03 Lab Results 03/01/25 03/01/25 03/01/25 Range/Units 12:03 12:11 13:26 WBC 5.19 (4.8-10.8) K/ul RBC 4.57 L (4.70-6.10) M/uL Hgb 13.6 L (14.0-18.0) g/dl POC Hgb 13.9 L (14.0-18.0) g/dl Hct 42.0 (42.0-52.0) % POC Hct 41 L (42-52) % MCV 91.9 (80.0-100.0) fL MCH 29.8 (25.0-34.0) pg MCHC 32.4 (32.0-36.0) g/dL RDW Std Deviation 57.5 H (36.4-46.3) fL RDW Coeff of Kady 17.0 H (11.5-14.5) % Plt Count 250 (130-400) K/uL MPV 10.4 (9.4-12.4) fL Immature Gran % (Auto) 0.2 % Neut % (Auto) 53.5 % Lymph % (Auto) 31.8 % Roosevelt % (Auto) 11.4 % Eos % (Auto) 2.3 % Baso % (Auto) 0.8 % Neut # (Auto) 2.78 (1.40-6.50) K/uL Lymph # (Auto) 1.65 (1.20-3.40) K/uL Roosevelt # (Auto) 0.59 (0.11-0.59) K/uL Eos # (Auto) 0.12 (0.00-0.50) K/uL Baso # (Auto) 0.04 (0.00-0.20) K/uL Immature Gran # (Auto) 0.01 (0.01-0.20) K/uL POC Sodium 140 (135-144) mmol/L Sodium 140 (136-145) mmol/L POC Potassium 4.6 (3.3-5.0) mmol/L Potassium 4.6 (3.5-5.1) mmol/L POC Chloride 104 (101-112) mmol/L Chloride 104 (98-107) mmol/L Carbon Dioxide 27 (21-32) mmol/L POC Total CO2 23 L (24-31) mmol/L Anion Gap 9 (3-11) POC Anion Gap 18.0 (16-25) mmol/L POC BUN 31 H (7-18) mg/dl BUN 32 H (6-23) mg/dl Creatinine 2.10 H (0.6-1.4) mg/dl POC Creatinine 2.2 H (0.6-1.3) mg/dl Est Cr Clr Drug Dosing 36.3 ml/min eGFR 32.22 BUN/Creatinine Ratio 15.2 (10-20) Glucose 104 H (70-99(Fasting)) mg/dl POC Glucose (other) 100 H (70-99) mg/dl Calcium 10.1 (8.6-10.3) mg/dl POC Ioniz Calcium Mariah 1.20 (1.12-1.32) mmol/l Total Bilirubin 1.1 H (0.2-1.0) mg/dl AST 21 (13-39) U/L ALT 10 (7-52) U/L Alkaline Phosphatase 69 (34-104) U/L Troponin I High Sens 10.3 (0-20) pg/ml Total Protein 7.4 (6.0-8.3) gm/dl Albumin 3.9 (3.4-5.0) gm/dl Globulin 3.5 (2.5-4.0) gm/dl Albumin/Globulin Ratio 1.1 (0.9-2) Lipase 31 (11-82) U/L Urine Color Yellow Urine Appearance Clear (Clear) Urine pH 6.0 (4.5-7.5) Ur Specific Sabin 1.008 (1.000-1.030) Urine Protein Negative (Negative) Urine Glucose (UA) Negative (Negative) Urine Ketones Negative (Negative) Urine Blood Negative (Negative) Urine Nitrite Negative (Negative) Urine Bilirubin Negative (Negative) Urine Urobilinogen Negative (Negative) Ur Leukocyte Esterase Negative (Negative) Urine Comment Blood Type A Positive Antibody Screen NEGATIVE Administered Medications Sodium Chloride (Nss) 1,000 mls @ 125 mls/hr IV .Q8H SANDHYA Stop: 03/01/25 22:29 Last Admin: 03/01/25 14:55 Dose: 125 mls/hr Documented By: DAYTON Discontinued Medications Sodium Chloride (Nss) 1,000 mls @ 999 mls/hr IV .Q1H1M ONE Stop: 03/01/25 12:57 Last Infusion: 03/01/25 14:17 Dose: Infused Documented By: Admin: 03/01/25 12:06 Dose: 999 mls/hr Documented By: JONATHAN Metoprolol Tartrate (Metoprolol Tartrate 1 Mg/Ml Vial) 5 mg IV NOW STA Stop: 03/01/25 13:16 Last Admin: 03/01/25 13:44 Dose: Not Given Documented By: ELEANOR Imaging Data Radiologist's Impression: Chest X-Ray 03/01/25 11:57 XR chest 1V portable CLINICAL HISTORY: Chest pain, nonspecific COMPARISON STUDY: 04/06/2023 FINDINGS: Stable pacemaker. Heart size and pulmonary vasculature are normal. No consolidation or pleural effusion. No pneumothorax. IMPRESSION: No acute findings. ACT 112: Negative or not required by law. Electronically signed by: Dudley Zamarripa M.D. 03/01/2025 12:19 PM Discharge Plan Visit Data Chief Complaint: Referred by Doctor Stated Complaint: REFERRED BY DR ED Provider: Jorge Doty Discharge Problem: YOVANA (acute kidney injury), Lightheadedness, Weakness Condition: Fair Forms Stand Alone Forms: My [facility] Prescriptions Prescriptions: No Action levothyroxine 25 mcg capsule 25 mcg PO DAILYBB rosuvastatin 40 mg Tablet 40 mg PO DAILY budesonide-formoterol [Symbicort] 80-4.5 mcg/actuation Hfa Aerosol Inhaler 1 inh INHALATION BID pantoprazole 40 mg Tablet,Delayed Release (Dr/Ec) 40 mg PO BID Qty: 60 0RF metoprolol tartrate 25 mg Tablet 25 mg PO BID Qty: 60 0RF Patient Comments: Pt was recently on 50mg twice daily but says after recent hospital stay he was decreased to 25mg twice daily potassium chloride 20 mEq tablet,ER particles/crystals 20 meq PO BID nystatin 100,000 unit/gram cream 1 applic TOPICAL DAILY diltiazem HCl 120 mg capsule,extended release 24hr 120 mg PO QAM furosemide 20 mg tablet 20 mg PO QAM Eliquis 5 mg Tablet 5 mg PO BID cyanocobalamin (vitamin B-12) 500 mcg Tablet 500 mcg PO DAILY cholecalciferol (vitamin D3) [Vitamin D3] 25 mcg (1,000 unit) Capsule 25 mcg PO DAILY Referrals Referrals: Mariano Spicer MD [Primary Care Provider] -
[2025-03-01] MEDS: SODIUM CHLORIDE 0.9% 1,000 ML IV ONE (12:06)
[2025-03-01 12:19] LABS: Hematocrit (blood only) 42.0 % (42.0-52.0); Hemoglobin 13.6 g/dl (14.0-18.0); Immature Granulocytes # (auto) 0.01 K/uL (0.01-0.20); Immature Granulocytes % (auto) 0.2 %; Mean Corpuscular Hemoglobin 29.8 pg (25.0-34.0); Mean Corpuscular Volume 91.9 fL (80.0-100.0); Platelet Count 250 K/uL (130-400); RDW Standard Deviation 57.5 fL (36.4-46.3); Red Blood Count 4.57 M/uL (4.70-6.10); White Blood Count 5.19 K/ul (4.8-10.8)
--- NOTE | 2025-03-01 12:20 | XRay Report ---
XR chest 1V portable CLINICAL HISTORY: Chest pain, nonspecific COMPARISON STUDY: 04/06/2023 FINDINGS: Stable pacemaker. Heart size and pulmonary vasculature are normal. No consolidation or pleu ral effusion. No pneumothorax. IMPRESSION: No acute findings. ACT 112: Negative or not required by law. Electronically signed by: Dudley Zamarripa M.D. 03/01/2025 12:19 PM
[2025-03-01 12:38] LABS: Alanine Aminotransferase 10.0 U/L (7-52); Albumin Globulin Ratio 1.1 (0.9-2); Alkaline Phosphatase 69.0 U/L (34-104); Anion Gap 9.0 (3-11); Bilirubin,Total 1.1 mg/dl (0.2-1.0); Blood Urea Nitrogen 32.0 mg/dl (6-23); Calcium 10.1 mg/dl (8.6-10.3); Carbon Dioxide 27.0 mmol/L (21-32); Chloride 104.0 mmol/L (98-107); Creatinine Clr Calc Pharmacy 36.3 ml/min; Globulin 3.5 gm/dl (2.5-4.0); Glucose 104.0 mg/dl (70-99(Fasting)); Lipase 31.0 U/L (11-82); Potassium 4.6 mmol/L (3.5-5.1); Sodium 140.0 mmol/L (136-145); Total Protein 7.4 gm/dl (6.0-8.3)
[2025-03-01] MEDS: METOPROLOL TARTRATE 1 MG/ML VIAL IV STA (13:44)
[2025-03-01 13:48] LABS: Appearance Urine Clear (Clear); Glucose Urine UA Negative (Negative)
--- NOTE | 2025-03-01 14:36 | History & Physical Report ---
Date of Service March 01, 2025 Assessment & Plan (1) Lightheadedness: (2) Orthostatic hypotension: Plan: Patient is 74 year old male with PMH AAA s/p EVAR in September 2016, permanent atrial fibrillation anticoagulated on Eliquis, CHB s/p pacemaker placement, history of nonischemic cardiomyopathy, repeat echo on 02/05/25 EF: >70%, aortic valve sclerosis, HTN, HLD, hiatal hernia with GERD, CKD stage IIIb presented to ER with c/o lightheadedness x 1 week and generalized weakness. Lightheadedness Orthostatic hypotension Appears to be overdiuresis and clinically dry. In ER afebrile, vitals stable Was given 1L NSS in ER Gentle IVF for another 1L total Hold lasix Continue metoprolol tartrate, diltiazem with holding parameters Orthostatic vitals Fall precautions PT/OT eval CBC, BMP in am #YOVANA on CKD IIIb BUN: 32, Cr: 2.1. Cr: 1.8 on01/29/25 In ER given 1 L NSS Hold Lasix Monitor renal functions #Permanent atrial fibrillation Continue Eliquis, metoprolol #HTN Continue diltiazem, metoprolol with holding parameters #HLD Continue rosuvastatin #Asthma No sign exacerbation Continue home inhalers #Recent colon hemorrhage No recurrent bleeding #Hypothyroidism Continue levothyroxine DVT Prophylaxis On Eliquis Admit telemetry Full Code as per discussion with pt Follows with Dr Spicer for routine care Pt was seen and care coordinated with Dr Cervantes. See addendum I spent a total of 73 minutes reviewing notes, outpatient records, labs, medication, coordinating, documenting and providing care for this patient excluding time spent in the performance of separately billed services and excluding time spent by another provider/QHP. History of Present Illness Chief Complaint: lightheaded Primary Care Provider: Mariano Spicer MD Patient is 74 year old male with PMH AAA s/p EVAR in September 2016, permanent atrial fibrillation anticoagulated on Eliquis, CHB s/p pacemaker placement, history of nonischemic cardiomyopathy, repeat echo on 02/05/25 EF: >70%, aortic valve sclerosis, HTN, HLD, hiatal hernia with GERD, CKD stage IIIb presented to ER with c/o lightheadedness x 1 week and generalized weakness. Per inpatient chart review hospitalization 02/05/25-02/08/25 for rectal bleeding. H/O colonoscopy performed at [facility] on 01/24/[address] Moraes with 50mm polyp in the anorectum removed via endoscopic submucosal dissection with endoscopic suturing required for closure. Had recurrent rectal bleeding and s/p sigmoidoscopy 02/05/25 & repeat sigmoidoscopy 02/06/25 and s/p surgical ablation for arterial bleed on 02/06/25. He recieved IVF and PRBC transfusion during that admission. Patient reports since returning home has not had any further rectal bleeding and is taking Eliquis. He states he has felt generally weak and hasn't returned to his baseline yet. Per outpatient chart review had F/U with PCP on 02/12/25 and had noted diffuse edema and was started on Lasix 20mg daily and potassium supplement. He reports is urinating frequently since on Lasix. States he is having lightheadedness with standing and has to sit down this week. Denies syncope or LOC. He states his mouth feels really dry. Today he was seen in nephrology clinic and found to have reported BP of 74/53, P: 73 and referred to ER. States BMs softer and haven't returned to baseline yet. Denies fever/chills, diaphoresis, N/V, JOSEPH, dizziness, syncope, vision changes, neck pain, CP, SOB, palpitations, cough, sore throat, choking, otalgia, rhinorrhea, abdominal pain, paresthesias, weakness, extremity weakness, extremity edema, rashes, urinary symptoms. Allergies Allergy/AdvReac Type Severity Reaction Status Date / Time Vssvkjm-EIU-SqY Reductase Allergy Verified 03/01/25 13:47 Inhibitor [Upliceg-Tlc-Mgf Reductase Inhibitor] Home Medications Medication Instructions Recorded Confirmed Type levothyroxine 25 mcg capsule 25 mcg PO DAILYBB 06/27/19 03/01/25 History budesonide-formoterol HFA 80 1 inh inhalation BID 04/06/23 03/01/25 History mcg-4.5 mcg/actuation aerosol inhaler (Symbicort) rosuvastatin 40 mg tablet 40 mg PO DAILY 04/06/23 03/01/25 History metoprolol tartrate 25 mg tablet 25 mg PO BID #60 tabs 02/08/25 03/01/25 Rx pantoprazole 40 mg tablet,delayed 40 mg PO BID #60 tabs 02/08/25 03/01/25 Rx release apixaban 5 mg tablet (Eliquis) 5 mg PO BID 03/01/25 03/01/25 History cholecalciferol (vitamin D3) 25 25 mcg PO DAILY 03/01/25 03/01/25 History mcg (1,000 unit) capsule (Vitamin D3) cyanocobalamin (vitamin B-12) 500 500 mcg PO DAILY 03/01/25 03/01/25 History mcg tablet diltiazem HCl 120 mg 120 mg PO QAM 03/01/25 03/01/25 History capsule,extended release 24 hr furosemide 20 mg tablet 20 mg PO QAM 03/01/25 03/01/25 History nystatin 100,000 unit/gram topical 1 applic topical DAILY 03/01/25 03/01/25 History cream potassium chloride 20 mEq 20 meq PO BID 03/01/25 03/01/25 History tablet,extended release(part/cryst) Past Med/Surg History Problem List (Updated 03/01/25 @ 15:05 by Leticia Guevara PA-C) Orthostatic hypotension Weakness (Acute) Lightheadedness (Acute) YOVANA (acute kidney injury) (Acute) Chronic atrial fibrillation Hypotension due to blood loss Acute blood loss anemia Encounter for pre-operative examination Abnormal computed tomography angiography (CTA) of abdomen and pelvis Hemorrhage of colon following colonoscopy BRBPR (bright red blood per rectum) (Acute) Rectal bleeding Pneumoperitoneum (Acute) Hypothyroidism (Chronic) Hyperlipidemia (Chronic) Pneumonia (Acute) Hypomagnesemia (Acute) Hypophosphatemia (Acute) Tachy-dario syndrome (Chronic) Medical History Pacemaker Atrial fibrillation Hypertension CKD (chronic kidney disease), stage IV GERD (gastroesophageal reflux disease) Pneumatosis of intestines On anticoagulant therapy Surgical History Sigmoidoscopy performed (02/06/25) Dr Gatica History of rectal surgery (02/06/25) Rectal exam under anesthesia - Dr Kessler S/P AAA repair Hx of cholecystectomy Family History Mother Hypertension Stroke Father Myocardial infarction, Onset Age: 51 Social History Smoking Status: Former smoker Smoking End Date: 60 years ago; Second Hand Exposure: No; Do You Dip or Chew Tobacco: No; Tobacco Cessation Education Requested by Patient: No Hx Alcohol Use: Yes Hx Substance Use: No Preferred Language: Spanish Communication Ability: Effective 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 Beliefs That Will Affect Care: None marital status: Current Living Situation: Spouse Current Living Situation Comment: daughter and current occupational status: employed Other Information That Helps Us Care for You: No Feels Safe at Home: Yes Safety Concerns: Feels Safe At This Time Assistive Devices: Glasses Review of Systems Review of Systems: All systems reviewed & are unremarkable except as noted in HPI & below Physical Exam Physical Exam: General: no distress, WDWN Head: normocephalic, atraumatic Eyes: conjunctiva non-injected, anicteric ENT: normal inspection external ears, nose, mucous membranes dry Neck: supple, trachea midline Lungs: clear, no respiratory distress, no wheezing/rhonchi/rales CV: irregularly irregular, rate 62, no JVD, no pretibial edema Abd: normal BS, soft, non-tender Ext: no cyanosis, no calf tenderness Neuro: A&O x 3, no focal deficits noted, normal affect Skin: warm, dry Results & Data Results & Data Vital Signs (Past 12 Hours) Vital Signs Temp Pulse Resp BP Pulse Ox O2 Del Method 03/01/25 13:00 61 17 95 03/01/25 12:54 60 22 98 03/01/25 12:52 63 03/01/25 11:57 Room Air 03/01/25 11:54 36.4 C L 77 19 106/73 100 Room Air Laboratory Results Short CBC 03/01/25 Range/Units 12:03 WBC 5.19 (4.8-10.8) K/ul Hgb 13.6 L (14.0-18.0) g/dl Hct 42.0 (42.0-52.0) % Plt Count 250 (130-400) K/uL BMP 03/01/25 12:03 Sodium 140 Potassium 4.6 Chloride 104 Carbon Dioxide 27 BUN 32 H Creatinine 2.10 H Glucose 104 H Calcium 10.1 Liver Function 03/01/25 Range/Units 12:03 Total Bilirubin 1.1 H (0.2-1.0) mg/dl AST 21 (13-39) U/L ALT 10 (7-52) U/L Alkaline Phosphatase 69 (34-104) U/L Albumin 3.9 (3.4-5.0) gm/dl Urine 03/01/25 Range/Units 13:26 Urine Color Yellow Urine Appearance Clear (Clear) Urine pH 6.0 (4.5-7.5) Ur Specific Allison 1.008 (1.000-1.030) Urine Protein Negative (Negative) Urine Glucose (UA) Negative (Negative) Diagnostic Findings Chest X-Ray 03/01/25 11:57 XR chest 1V portable CLINICAL HISTORY: Chest pain, nonspecific COMPARISON STUDY: 04/06/2023 FINDINGS: Stable pacemaker. Heart size and pulmonary vasculature are normal. No consolidation or pleural effusion. No pneumothorax. IMPRESSION: No acute findings. ACT 112: Negative or not required by law. Electronically signed by: Dudley Zamarripa M.D. 03/01/2025 12:19 PM Code Status & VTE Plan VTE Prophylaxis Plan VTE Prophylaxis will be ordered: Yes Supervising Physician Co-Signing Physician Notes I have seen and discussed the case with the collaborating advanced practitioner. I agree with the above H&P. I have reviewed and confirmed the patients medical history, the findings on physical examination, and the patients diagnosis and treatment plan with Paola HECK and agree with the information document ed. In short, Mr. Andrew is a 74 yo gentleman who was admitted for recent GIB and ultimately experienced iatrogenic volume overload. PCP prescribed lasix which helped with volume status, however patient noted to be hypotensive and with YOVANA. Patient reports swelling in hands and ankles completely resolved. Reports feeling much improved s/p IVF upon arrival. Exam notable for a pleasant gentleman, no edema noted, dry mucus membranes on exam, RRR, and CTABL. #Orthostasis #YVOANA on CKD likely multifactorial iso dehydration (baseline hgb 9-10, 13 on arrival), antihypertensives s/p 1 L IVF continue IVF for 1L, encourage po intake discontinue lasix hold parameters on bp meds orthostatic vitals in am #Chronic anemia labs appear hemoconcentrated, imagine the hgb to drop to 9-10 after fluid resuscitation no reports of melena/hematochezia Rest of plan as above I spent a total of 25 minutes coordinating, documenting, and providing care for this patient excluding time spent in the performance of separately billed services. All of the aforementioned completed outside of collaborating with the assigned advanced practitioner for a full treatment plan. I have reviewed the advanced practitioner's documentation, and I agree with, and take responsibility for the plan of care
[2025-03-01] MEDS: SODIUM CHLORIDE 0.9% 1,000 ML IV SCH (14:55)
--- NOTE | 2025-03-01 15:27 | Electrocardiogram Report ---
Test Reason : Blood Pressure : */* mmHG Vent. Rate : 67 BPM Atrial Rate : * BPM P-R Int : * ms QRS Dur : 98 ms QT Int : 406 ms P-R-T Axes : * -15 -13 degrees QTcB Int : 429 ms Atrial fibrillation with occasional ventricular-paced complexes Incomplete right bundle branch block Nonspecific ST abnormality Abnormal ECG When compared with ECG of 05-Feb-2025 13:57, Electronic ventricular pacemaker has replaced Atrial fibrillation Confirmed by Christian Puente ([id number]) on 03/01/2025 3:27:35 PM Referred By: Confirmed By: Christian Puente
[2025-03-01] MEDS ORDERED: POLYETHYLENE (MIRALAX) 17 GM PACK PO PRN (16:50)
[2025-03-01] MEDS ORDERED: ACETAMINOPHEN 325 MG TAB PO PRN (16:50)
[2025-03-01] MEDS ORDERED: ONDANSETRON INJ 2 MG/ML 2 ML VIAL IV PRN (16:50)
[2025-03-01] MEDS ORDERED: MAGNESIUM HYDROXIDE SUSP 30 ML UDC PO PRN (16:50)
[2025-03-01] MEDS: FLUTICASONE/VILANTEROL 100/25MCG 14 PUFFS/INHALER INH SCH (21:01)
[2025-03-01] MEDS: METOPROLOL TARTRATE 25 MG TAB PO SCH (21:01)
[2025-03-01] MEDS: APIXABAN 5 MG TABLET PO SCH (21:01)
[2025-03-02] MEDS: LEVOTHYROXINE SODIUM 25 MCG TABLET PO SCH (05:53)
[2025-03-02 06:27] LABS: Hematocrit (blood only) 33.4 % (42.0-52.0); Hemoglobin 11.0 g/dl (14.0-18.0); Mean Corpuscular Hemoglobin 30.0 pg (25.0-34.0); Mean Corpuscular Volume 91.0 fL (80.0-100.0); Platelet Count 168 K/uL (130-400); RDW Standard Deviation 56.1 fL (36.4-46.3); Red Blood Count 3.67 M/uL (4.70-6.10); White Blood Count 4.07 K/ul (4.8-10.8)
[2025-03-02 07:17] LABS: Alanine Aminotransferase 7.0 U/L (7-52); Albumin Globulin Ratio 1.4 (0.9-2); Alkaline Phosphatase 52.0 U/L (34-104); Anion Gap 9.0 (3-11); Bilirubin,Total 1.1 mg/dl (0.2-1.0); Blood Urea Nitrogen 31.0 mg/dl (6-23); Calcium 8.7 mg/dl (8.6-10.3); Carbon Dioxide 24.0 mmol/L (21-32); Chloride 107.0 mmol/L (98-107); Creatinine Clr Calc Pharmacy 39.1 ml/min; Globulin 2.3 gm/dl (2.5-4.0); Glucose 85.0 mg/dl (70-99(Fasting)); Potassium 4.3 mmol/L (3.5-5.1); Sodium 140.0 mmol/L (136-145); Total Protein 5.6 gm/dl (6.0-8.3)
[2025-03-02] MEDS: ROSUVASTATIN CALCIUM 20 MG TAB PO SCH (08:46)
[2025-03-02] MEDS: CHOLECALCIFEROL 25 MCG (1000 UNITS) TAB PO SCH (08:46)
[2025-03-02] MEDS: CYANOCOBALAMIN (B-12) 500 MCG TABLET PO SCH (08:47)
[2025-03-02] MEDS: SODIUM CHLORIDE 0.9% 1,000 ML IV SCH (10:32)
--- NOTE | 2025-03-02 16:14 | Hospitalist Progress Note ---
Date of Service March 02, 2025 Assessment & Plan (1) Lightheadedness: (2) Orthostatic hypotension: Plan: 74 year old male with PMH AAA s/p EVAR in September 2016, permanent atrial fibrillation anticoagulated on Eliquis, CHB s/p pacemaker placement, history of nonischemic cardiomyopathy, repeat echo on 02/05/25 EF: >70%, aortic valve sclerosis, HTN, HLD, hiatal hernia with GERD, CKD stage IIIb presented to ER with c/o lightheadedness x 1 week and generalized weakness. Lightheadedness Orthostatic hypotension Appears to be overdiuresis and clinically dry at presentation. In ER afebrile, vitals stable s/p ivf w/ improvement Hold lasix Continue metoprolol tartrate, diltiazem with holding parameters Orthostatic vitals +ve, follow. Fall precautions. Compression stockings. PT/OT eval CBC, BMP in am #YOVANA on CKD IIIb: Presenting BUN: 32, Cr: 2.1. Cr: 1.8 on01/29/25. c/w ivf, follow. #Permanent atrial fibrillation: Continue Eliquis, metoprolol #HTN: Continue diltiazem, metoprolol with holding parameters #HLD: Continue rosuvastatin #Asthma: No sign exacerbation. Continue home inhalers #Recent colon hemorrhage: No recurrent bleeding #Hypothyroidism: Continue levothyroxine DVT Prophylaxis: On Eliquis Admission and Anticipated Discharge Date Admission Date: March 01, 2025 Subjective Patient was seen and examined at bedside. Patient was lying in bed, on room air, NAD, resting comfortably. Patient still has orthostasis but reports his symptoms is improving. Will continue with IV fluids today. Patient denies shortness of breath or chest pain or cough or abdominal pain or nausea or vomiting. Physical Exam 2 Physical Exam: General: no distress, WDWN Head: normocephalic, atraumatic Eyes: conjunctiva non-injected, anicteric ENT: normal inspection external ears, nose, mucous membranes moist Neck: supple, trachea midline Lungs: clear, no respiratory distress, no wheezing/rhonchi/rales CV: irregularly irregular, no JVD, no pretibial edema Abd: normal BS, soft, non-tender Ext: no cyanosis, no calf tenderness Neuro: A&O x 3, no focal deficits noted, normal affect Skin: warm, dry Results & Data Results & Data Vital Signs (Past 12 Hours) Vital Signs Temp Pulse Resp BP Pulse Ox O2 Del Method 03/02/25 15:58 36.2 C L 65 18 108/71 97 Room Air 03/02/25 11:14 36.3 C L 84 18 110/75 94 Room Air 03/02/25 07:44 36.3 C L 77 18 119/83 96 Room Air
[2025-03-03 06:27] LABS: Hematocrit (blood only) 33.7 % (42.0-52.0); Hemoglobin 10.8 g/dl (14.0-18.0); Mean Corpuscular Hemoglobin 29.5 pg (25.0-34.0); Mean Corpuscular Volume 92.1 fL (80.0-100.0); Platelet Count 153 K/uL (130-400); RDW Standard Deviation 57.0 fL (36.4-46.3); Red Blood Count 3.66 M/uL (4.70-6.10); White Blood Count 3.83 K/ul (4.8-10.8)
[2025-03-03 06:55] LABS: Anion Gap 5.0 (3-11); Blood Urea Nitrogen 29.0 mg/dl (6-23); Calcium 8.6 mg/dl (8.6-10.3); Carbon Dioxide 27.0 mmol/L (21-32); Chloride 109.0 mmol/L (98-107); Creatinine Clr Calc Pharmacy 42.4 ml/min; Glucose 92.0 mg/dl (70-99(Fasting)); Magnesium 1.7 mg/dl (1.7-2.4); Potassium 4.0 mmol/L (3.5-5.1); Sodium 141.0 mmol/L (136-145)
[2025-03-03 07:40] VITALS: RESP 18
[2025-03-03 11:18] VITALS: TEMP 97.3
--- NOTE | 2025-03-03 12:31 | Discharge Summary ---
Date of Service March 03, 2025 Admission HPI Per Admitting Provider Patient is 74 year old male with PMH AAA s/p EVAR in September 2016, permanent atrial fibrillation anticoagulated on Eliquis, CHB s/p pacemaker placement, history of nonischemic cardiomyopathy, repeat echo on 02/05/25 EF: >70%, aortic valve sclerosis, HTN, HLD, hiatal hernia with GERD, CKD stage IIIb presented to ER with c/o lightheadedness x 1 week and generalized weakness. Per inpatient chart review hospitalization 02/05/25-02/08/25 for rectal bleeding. H/O colonoscopy performed at [facility] on 01/24/[address] Moraes with 50mm polyp in the anorectum removed via endoscopic submucosal dissection with endoscopic suturing required for closure. Had recurrent rectal bleeding and s/p sigmoidoscopy 02/05/25 & repeat sigmoidoscopy 02/06/25 and s/p surgical ablation for arterial bleed on 02/06/25. He recieved IVF and PRBC transfusion during that admission. Patient reports since returning home has not had any further rectal bleeding and is taking Eliquis. He states he has felt generally weak and hasn't returned to his baseline yet. Per outpatient chart review had F/U with PCP on 02/12/25 and had noted diffuse edema and was started on Lasix 20mg daily and potassium supplement. He reports is urinating frequently since on Lasix. States he is having lightheadedness with standing and has to sit down this week. Denies syncope or LOC. He states his mouth feels really dry. Today he was seen in nephrology clinic and found to have reported BP of 74/53, P: 73 and referred to ER. States BMs softer and haven't returned to baseline yet. Denies fever/chills, diaphoresis, N/V, JOSEPH, dizziness, syncope, vision changes, neck pain, CP, SOB, palpitations, cough, sore throat, choking, otalgia, rhinorrhea, abdominal pain, paresthesias, weakness, extremity weakness, extremity edema, rashes, urinary symptoms. Admission Exam Per Admitting Provider General: no distress, WDWN Head: normocephalic, atraumatic Eyes: conjunctiva non-injected, anicteric ENT: normal inspection external ears, nose, mucous membranes dry Neck: supple, trachea midline Lungs: clear, no respiratory distress, no wheezing/rhonchi/rales CV: irregularly irregular, rate 62, no JVD, no pretibial edema Abd: normal BS, soft, non-tender Ext: no cyanosis, no calf tenderness Neuro: A&O x 3, no focal deficits noted, normal affect Skin: warm, dry Principal Diagnosis Lightheadedness Orthostatic hypotension YOVANA on CKD IIIb Discharge Exam General: no distress, WDWN Head: normocephalic, atraumatic Eyes: conjunctiva non-injected, anicteric ENT: normal inspection external ears, nose, mucous membranes moist Neck: supple, trachea midline Lungs: clear, no respiratory distress, no wheezing/rhonchi/rales CV: irregularly irregular, no JVD, no pretibial edema Abd: normal BS, soft, non-tender Ext: no cyanosis, no calf tenderness Neuro: A&O x 3, no focal deficits noted, normal affect Skin: warm, dry Discharge Data Allergies Allergy/AdvReac Type Severity Reaction Status Date / Time Fucdpeo-YJO-HlH Reductase Allergy Verified 03/01/25 13:47 Inhibitor [Glgllan-Kmf-Qfq Reductase Inhibitor] Consultations 03/01/25 13:14 ED Decision to Admit Stat Hospital Course (1) Lightheadedness: (2) Orthostatic hypotension: 74 year old male with PMH AAA s/p EVAR in September 2016, permanent atrial fibrillation anticoagulated on Eliquis, CHB s/p pacemaker placement, history of nonischemic cardiomyopathy, repeat echo on 02/05/25 EF: >70%, aortic valve sclerosis, HTN, HLD, hiatal hernia with GERD, CKD stage IIIb presented to ER with c/o lightheadedness x 1 week and generalized weakness. Lightheadedness Orthostatic hypotension Appears to be overdiuresis and clinically dry at presentation. In ER afebrile, vitals stable s/p ivf w/ improvement Hold lasix Continue metoprolol tartrate, diltiazem with holding parameters Orthostatic vitals neg today per RN, Pt w/ no positional lightheadedness c/w Compression stockings. Pt advised to further discuss lasix w/ pcp office in a week time. #YOVANA on CKD IIIb: Presenting BUN: 32, Cr: 2.1. Cr: 1.8 on01/29/25. s/p ivf, Cr improved. #Permanent atrial fibrillation: Continue Eliquis, metoprolol. Occasional increase in HR w/ activity to 110s-120s. Pt advised to take 50 mg metoprolol tart in AM and 25 mg in PM. Also advised to f/u w/ cardio in 2-4 weeks. #HTN: Continue diltiazem, metoprolol with holding parameters #HLD: Continue rosuvastatin #Asthma: No sign exacerbation. Continue home inhalers #Recent colon hemorrhage: No recurrent bleeding #Hypothyroidism: Continue levothyroxine DVT Prophylaxis: On Eliquis Patient's was given a phone call and updated on plan of care and given discharge instructions. Following instructions were communicated at the point of discharge: Follow-up with your primary care physician within a week time and likely you will need labs CBC/CMP/magnesium/phosphorus. You were admitted for orthostatic hypotension, you were recently started on Lasix. Continue to hold your Lasix until further evaluation by your primary care office as an outpatient within a week time. You were occasionally noted to have increased heart rate, take your metoprolol 50 mg in the morning and 25 mg in the evening. Follow-up with your cardiology in 2 to 4 weeks time upon discharge. Take your medications as prescribed. Please make sure that you are able to get your medications today by calling your pharmacy before you leave the hospital so that your treatment continuity is not broken. Home Health Attestation I certify that this patient is under my care and that I, or a physicians product development assistant working with me, had a face to-face encounter that meets the home health [id number] encounter requirements with this patient. The encounter with the patient was in whole, or in part, for the following medical condition, which is the primary reason for home health care (list medical condition): I certify that, based on my findings, the following services are medically ne cessary home health services: My clinical findings support the need for the above services because: Further, I certify that my clinical findings support that this patient is homebound (i.e. absences from home require considerable and taxing effort and are for medical reasons or jainism services or infrequently or of short duration when for other reasons) because: Certification for Home Health Services: Based on the above findings, I certify that this patient is confined to the home and needs intermittent senior care care, physical therapy and/or speech therapy or continues to need occupational therapy. The patient is under my care, and I have initiated the establishment of the plan of care. This patient will be followed by a physician who will periodically review the plan of care. Total Time Total Time Spent Total Time Spent (In Minutes): 35 Discharge Plan Discharge Items Patient Disposition: Home - Self-Care Reason For Visit: LIGHTHEADED Discharge Diagnosis: Lightheadedness Orthostatic hypotension YOVANA on CKD IIIb Condition on Discharge: Fair Activity: As commented below Activity Comment: Slow transition with changing positions Non-emergency contact: Primary Care Provider Call non-emergency contact if: you have any medication questions Follow-up/Referrals: Mariano Spicer MD [Primary Care Provider] - Diet: Heart Healthy Addtl Attending Provider Instructions: Follow-up with your primary care physician within a week time and likely you will need labs CBC/CMP/magnesium/phosphorus. You were admitted for orthostatic hypotension, you were recently started on Lasix. Continue to hold your Lasix until further evaluation by your primary care office as an outpatient within a week time. You were occasionally noted to have increased heart rate, take your metoprolol 50 mg in the morning and 25 mg in the evening. Follow-up with your cardiology in 2 to 4 weeks time upon discharge. Take your medications as prescribed. Please make sure that you are able to get your medications today by calling your pharmacy before you leave the hospital so that your treatment continuity is not broken. Pending Studies at Discharge: No Stand-Alone Forms: [facility], Smoking Cessation Medications and DC Order Prescriptions: Continued levothyroxine 25 mcg capsule 25 mcg PO DAILYBB rosuvastatin 40 mg Tablet 40 mg PO DAILY budesonide-formoterol [Symbicort] 80-4.5 mcg/actuation Hfa Aerosol Inhaler 1 inh INHALATION BID pantoprazole 40 mg Tablet,Delayed Release (Dr/Ec) 40 mg PO BID Qty: 60 0RF nystatin 100,000 unit/gram cream 1 applic TOPICAL DAILY diltiazem HCl 120 mg capsule,extended release 24hr 120 mg PO QAM Eliquis 5 mg Tablet 5 mg PO BID cyanocobalamin (vitamin B-12) 500 mcg Tablet 500 mcg PO DAILY cholecalciferol (vitamin D3) [Vitamin D3] 25 mcg (1,000 unit) Capsule 25 mcg PO DAILY metoprolol tartrate 25 mg Tablet 25 mg PO BID Qty: 60 0RF Patient Comments: Pt was recently on 50mg twice daily but says after recent hospital stay he was decreased to 25mg twice daily Rx Instructions: Take 2 tablets in AM and 1 tab in the evening. Held potassium chloride 20 mEq tablet,ER particles/crystals 20 meq PO BID Hold Instructions: Resume on 03/19/25. hold this med when lasix is on hold. furosemide 20 mg tablet 20 mg PO QAM Hold Instructions: Resume on 03/19/25. Hold until further evaluation by PCP office in a week time of discharge. Discharge Orders: Discharge Order (Routine); Ordered 03/03/25 Ordered By: Samir Cano Admission Data Admit Date/Time: 03/01/25 14:06 Attending Provider: Samir Cano Admit Provider: Sinai Cervantes Primary Care Provider: Mariano Spicer Other Providers: Sinai Cervantes
[2025-03-03 12:52] VITALS: BP 108/71; PULSE 65; O2SAT 98
[2025-03-03] MEDS: METOPROLOL TARTRATE 25 MG TAB PO SCH (13:19)
== END 2025-03-03 13:35 | disposition home or self-care (01) | DRG 312 ==
LOC: ED 11:47 → 4W 14:06 → SUATTDRO 14:06 → 4W 15:41

== ENCOUNTER 2025-03-22 22:46 | Inpatient (IN) ==
--- NOTE | 2025-03-22 22:57 | Emergency Department Note ---
Impression & Plan Atrial fibrillation with rapid ventricular response, Hypomagnesemia, Nausea, vomiting and diarrhea, Acute dehydration ED Provider Note Name: NILES MOORE Age: 74 Sex: Male Arrives Via: Ambulance Informant: Patient ED Provider: Michael Gomes MD Chief Complaint: Illness Impression: As per impressions above Medical Decision Makin-year-old male with 5 hours of nausea vomiting diarrhea worsening weakness. Now to the point where he is unable to control his bowels. He did take his medicines this evening but vomited them up. He arrives in A-fib RVR, dehydrated and uncomfortable appearing. He was given a liter of saline along with Zofran. His A-fib RVR treated with Lopressor 5 mg x 2. Blood pressure remained stable. He was bit hypoxic requiring nasal cannula O2. Chest x-ray is fortunately unremarkable without significant fluid overload. Laboratory workup was not consistent with significant sepsis. Stool study is negative for obvious pathogens. Could be that the patient is having a severe reaction to food poisoning versus other viral gastroenteritis. He is soft nontender abdomen would hold off on imaging at this time. Laboratory workup shows mildly low magnesium which was repleted. Kidney functions relatively stable. Given the persistence in A-fib his inability to tolerate p.o. and the degree of dehydration he has from just a few hours of symptoms hospitalization is likely warranted. Hospitalist was consulted for further management. Triage/Nursing Notes reviewed by Me External Chart Review by me: A discharge summary from 03/03/2025 was reviewed by me for past medical history. Differential:Infection, dehydration, metabolic abnormality, hypo/hyperglycemia, electrolyte disturbance, anemia, hypoxia, cardiac sources, intracerebral event, toxicologic, neurologic, as well as other pathologies. Vital Signs: reviewed and remarkable for tachycardia Interventions: Normal saline bolus 1 L IV, Zofran 4 mg IV, Lopressor 5 mg IV x 2, magnesium 1 g IV Labs:ED labs Reviewed by me and remarkable for hypomagnesemia Imagin view chest x-ray as per my interpretation no infiltrate or effusion appreciated. He does have a moderately enlarged heart but this is consistent with previous chest x-ray. EKG:As per my interpretation. Indication weakness. Atrial fibrillation with rapid ventricular response at 119 bpm QTc of 483. PAC is noted. No ischemia is appreciated. When compared to EKG of March 01, 2025 he is no longer in a ventricular paced rhythm. Cardiac/Tele Monitoring: Cardiac Monitoring: An Order was placed for continuous cardiac monitoring. The monitor shows a rate of 110 with a afib rhythm. Consults:Discussed with Dr. You of the [facility] Hospitalist service who will further evaluate patient for management Plan: Disposition:Hospitalization. Condition: Fair History of Present Illness: 74-year-old male arrives for evaluation of weakness. Patient with 5 hours of nausea vomiting and diarrhea. Patient notes diarrhea is the point that he cannot even control it. He eaten a double cheeseburger at [employer] a few hours earlier. Notes some mild abdominal discomfort but not specifically pain. No chest pain, shortness of breath, syncope. Denies any actual palpitations fevers swelling or other concerning signs or symptoms. He is complaining though that he feels very dehydrated with a dry mouth. Patient unable to tolerate p.o. medications this evening. Patient was recently hospitalized for renal failure. Past Medical History:See Below Home Medications:See Below Allergies:See Below Vitals:Blood Pressure: 126/90, Pulse 132, RR 22, T 36.4C, O2 98% on RA Physical Exam: GENERAL: Patient is dehydrated/anxious appearing and in mild distress. Dry mucous membranes RESPIRATORY: No dyspnea. Clear to auscultation and equal bilaterally. CARDIOVASCULAR: Tachycardia irregular.No murmur appreciated. GASTROINTESTINAL: Abdomen soft, non-tender, no peritonitis. EXTREMITIES: Normal motion all extremities, no cyanosis, no edema. NEUROLOGIC: Alert and oriented. No focal neurologic deficits appreciated SKIN: No rash, no jaundice, no diaphoresis. PSYCH: Appropriate GCS: 15 ED Course: Times/Reassessments: Multiple repeat evaluations patient. He does appear a bit better after IV fluids and Zofran however he did develop some mild hypoxia. Heart rate has come down to the low 100s from the initial 130s to 140s. Critical Care: I have personally spent 45 minutes of critical care time in the direct management of this patient. A-fib RVR with hypomagnesemia and dehydration. This was a life/limb threatening event. This 45 minutes is in excess of all separately billable procedures. Michael Gomes MD Past Med/Surg History Problem List (Updated 03/23/25 @ 03:34 by Michael Gomes MD) Acute dehydration (Acute) Nausea, vomiting and diarrhea (Acute) Hypomagnesemia (Acute) Atrial fibrillation with rapid ventricular response (Acute) Orthostatic hypotension Weakness (Acute) Lightheadedness (Acute) YOVANA (acute kidney injury) (Acute) Chronic atrial fibrillation Hypotension due to blood loss Acute blood loss anemia Abnormal computed tomography angiography (CTA) of abdomen and pelvis Hemorrhage of colon following colonoscopy BRBPR (bright red blood per rectum) (Acute) Rectal bleeding Pneumoperitoneum (Acute) Hypothyroidism (Chronic) Hyperlipidemia (Chronic) Pneumonia (Acute) Hypomagnesemia (Acute) Hypophosphatemia (Acute) Tachy-dario syndrome (Chronic) Medical History Pacemaker Atrial fibrillation Hypertension CKD (chronic kidney disease), stage IV GERD (gastroesophageal reflux disease) Pneumatosis of intestines On anticoagulant therapy Surgical History Sigmoidoscopy performed (02/06/25) Dr Case History of rectal surgery (02/06/25) Rectal exam under anesthesia - Dr Kessler S/P AAA repair Hx of cholecystectomy Family History Mother Hypertension Stroke Father Myocardial infarction, Onset Age: 51 Social History Smoking Status: Never smoker Second Hand Exposure: No; Do You Dip or Chew Tobacco: No; Hx Alcohol Use: Yes Hx Substance Use: No Preferred Language: Lithuanian Communication Ability: Effective 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 Beliefs That Will Affect Care: None marital status: Current Living Situation: Spouse Current Living Situation Comment: daughter and current occupational status: employed Feels Safe at Home: Yes Assistive Devices: Glasses Allergies Allergies Allergy/AdvReac Type Severity Reaction Status Date / Time Xwazmax-AOE-YuP Reductase Allergy Verified 03/01/25 13:47 Inhibitor [Ylejfmh-Oxy-Cnh Reductase Inhibitor] Home Meds Home Medications Medication Instructions Recorded Confirmed levothyroxine 25 mcg capsule 25 mcg PO DAILYBB 06/27/19 03/01/25 budesonide-formoterol HFA 80 1 inh inhalation BID 04/06/23 03/01/25 mcg-4.5 mcg/actuation aerosol inhaler (Symbicort) rosuvastatin 40 mg tablet 40 mg PO DAILY 04/06/23 03/01/25 apixaban 5 mg tablet (Eliquis) 5 mg PO BID 03/01/25 03/01/25 cholecalciferol (vitamin D3) 25 25 mcg PO DAILY 03/01/25 03/01/25 mcg (1,000 unit) capsule (Vitamin D3) cyanocobalamin (vitamin B-12) 500 500 mcg PO DAILY 03/01/25 03/01/25 mcg tablet diltiazem HCl 120 mg 120 mg PO QAM 03/01/25 03/01/25 capsule,extended release 24 hr furosemide 20 mg tablet 20 mg PO QAM 03/01/25 03/01/25 nystatin 100,000 unit/gram topical 1 applic topical DAILY 03/01/25 03/01/25 cream potassium chloride 20 mEq 20 meq PO BID 03/01/25 03/01/25 tablet,extended release(part/cryst) Previous Rx's Medication Instructions Recorded pantoprazole 40 mg tablet,delayed 40 mg PO BID #60 tabs 02/08/25 release metoprolol tartrate 25 mg tablet 25 mg PO BID #60 tabs 03/03/25 Results & Data (ED) Vital Signs Vital Signs - 24 hr 03/22/25 23:01 03/22/25 23:15 03/22/25 23:21 Temperature 36.4 C L Temperature Source Oral Pulse Rate 117 H 120 H 115 H Pulse Rate [Apical] Respiratory Rate 24 Blood Pressure 137/109 H 151/107 H Blood Pressure [Right Arm] Blood Pressure Mean 118 Blood Pressure Mean [Right Arm] Pulse Oximetry 98 Oxygen Delivery Method Room Air Oxygen Flow Rate Sepsis Recent Fever Within 48 Hours No Sepsis New/Unexplained Change in Mental Status No Sepsis Action Taken by Nursing Physician Notified 03/22/25 23:30 03/22/25 23:52 03/23/25 00:04 Temperature Temperature Source Pulse Rate 125 H 114 H Pulse Rate [Apical] 120 H Respiratory Rate 18 Blood Pressure 134/89 Blood Pressure [Right Arm] 142/99 H Blood Pressure Mean Blood Pressure Mean [Right Arm] 113 Pulse Oximetry 98 Oxygen Delivery Method Room Air Oxygen Flow Rate Sepsis Recent Fever Within 48 Hours Sepsis New/Unexplained Change in Mental Status Sepsis Action Taken by Nursing 03/23/25 00:30 03/23/25 01:00 03/23/25 01:30 Temperature Temperature Source Pulse Rate 102 H Pulse Rate [Apical] 105 H 99 H Respiratory Rate 24 20 Blood Pressure 150/117 H Blood Pressure [Right Arm] 143/112 H 123/74 Blood Pressure Mean Blood Pressure Mean [Right Arm] 122 90 Pulse Oximetry 98 99 Oxygen Delivery Method Nasal Cannula Nasal Cannula Oxygen Flow Rate 2 2 Sepsis Recent Fever Within 48 Hours Sepsis New/Unexplained Change in Mental Status Sepsis Action Taken by Nursing 03/23/25 03:25 Temperature Temperature Source Pulse Rate 106 H Pulse Rate [Apical] Respiratory Rate Blood Pressure Blood Pressure [Right Arm] Blood Pressure Mean Blood Pressure Mean [Right Arm] Pulse Oximetry Oxygen Delivery Method Oxygen Flow Rate Sepsis Recent Fever Within 48 Hours Sepsis New/Unexplained Change in Mental Status Sepsis Action Taken by Nursing Laboratory Data 03/22/25 23:02 03/22/25 23:02 Lab Results 03/22/25 03/22/25 Range/Units 22:58 23:02 WBC 5.16 (4.8-10.8) K/ul RBC 4.47 L (4.70-6.10) M/uL Hgb 13.2 L (14.0-18.0) g/dl Hct 40.4 L (42.0-52.0) % MCV 90.4 (80.0-100.0) fL MCH 29.5 (25.0-34.0) pg MCHC 32.7 (32.0-36.0) g/dL RDW Std Deviation 50.9 H (36.4-46.3) fL RDW Coeff of Kady 15.3 H (11.5-14.5) % Plt Count 177 (130-400) K/uL MPV 10.6 (9.4-12.4) fL Immature Gran % (Auto) 0.2 % Neut % (Auto) 71.6 % Lymph % (Auto) 19.4 % [place] % (Auto) 7.8 % Eos % (Auto) 0.6 % Baso % (Auto) 0.4 % Neut # (Auto) 3.70 (1.40-6.50) K/uL Lymph # (Auto) 1.00 L (1.20-3.40) K/uL [place] # (Auto) 0.40 (0.11-0.59) K/uL Eos # (Auto) 0.03 (0.00-0.50) K/uL Baso # (Auto) 0.02 (0.00-0.20) K/uL Immature Gran # (Auto) 0.01 (0.01-0.20) K/uL Sodium 145 (136-145) mmol/L Potassium 3.5 (3.5-5.1) mmol/L Chloride 110 H (98-107) mmol/L Carbon Dioxide 24 (21-32) mmol/L Anion Gap 11 (3-11) BUN 29 H (6-23) mg/dl Creatinine 1.79 H (0.6-1.4) mg/dl Est Cr Clr Drug Dosing Not Reportable eGFR 39.03 BUN/Creatinine Ratio 16.2 (10-20) Glucose 128 H (70-99(Fasting)) mg/dl Calcium 9.3 (8.6-10.3) mg/dl Magnesium 1.4 L (1.7-2.4) mg/dl Total Bilirubin 1.0 (0.2-1.0) mg/dl Direct Bilirubin 0.2 (0-0.2) mg/dl AST 17 (13-39) U/L ALT 8 (7-52) U/L Alkaline Phosphatase 68 (34-104) U/L Total Protein 6.9 (6.0-8.3) gm/dl Albumin 3.8 (3.4-5.0) gm/dl Lipase 31 (11-82) U/L Stl C. cayetanensis PCR Not Detected (NotDetected) Stool Rotavirus A PCR Not Detected (NotDetected) Stl Adenov F 40/41 PCR Not Detected (NotDetected) Stool Astrovirus (PCR) Not Detected (NotDetected) Stool Campylobacter PCR Not Detected (NotDetected) Stool Cryptosporidium PCR Not Detected (NotDetected) Stl E.coli Shiga Tox PCR Not Detected (NotDetected) Stl Enterotoxigenic E PCR Not Detected (NotDetected) Stool EPEC (PCR) Not Detected (NotDetected) Stool EAEC (PCR) Not Detected (NotDetected) Stl E. histolytica PCR Not Detected (NotDetected) Stool Giardia Lamblia PCR Not Detected (NotDetected) Stool Salmonella PCR Not Detected (NotDetected) Stool Sapovirus (PCR) Not Detected (NotDetected) Stl P. shigelloides PCR Not Detected (NotDetected) Stl Shigella/EIEC PCR Not Detected (NotDetected) St Y.enterocolitica PCR Not Detected (NotDetected) Stool Vibrio (PCR) Not Detected (NotDetected) Stl Vibrio cholerae PCR Not Detected (NotDetected) Stl Norovirus GI/GII PCR Not Detected (NotDetected) Administered Medications Discontinued Medications Sodium Chloride (Nss) 1,000 mls @ 999 mls/hr IV .Q1H1M ONE Stop: 03/22/25 23:54 Last Infusion: 03/23/25 00:42 Dose: Infused Documented By: Admin: 03/22/25 23:21 Dose: 999 mls/hr Documented By: AN Magnesium Sulfate/Dextrose (Magnesium Sulfate / D5w) 1 gm in 100 mls @ 100 mls/hr IV NOW STA Stop: 03/23/25 00:46 Last Infusion: 03/23/25 01:10 Dose: Infused Documented By: Admin: 03/23/25 00:04 Dose: 100 mls/hr Documented By: AN Metoprolol Tartrate (Metoprolol Tartrate 1 Mg/Ml Vial) 5 mg IV NOW STA Stop: 03/22/25 23:19 Last Admin: 03/22/25 23:21 Dose: 5 mg Documented By: AN Metoprolol Tartrate (Metoprolol Tartrate 1 Mg/Ml Vial) 5 mg IV NOW STA Stop: 03/22/25 23:43 Last Admin: 03/23/25 00:04 Dose: 5 mg Documented By: AN Ondansetron HCl (Ondansetron Inj 2 Mg/Ml 2 Ml Vial) 4 mg IV NOW STA Stop: 03/22/25 22:55 Last Admin: 03/22/25 23:21 Dose: 4 mg Documented By: AN Imaging Data Radiologist's Impression: Chest X-Ray 03/23/25 00:26 EXAM: XR chest 1V portable CLINICAL HISTORY: Hypoxia, afib rvr. TECHNIQUE: An X-ray image of the chest is obtained in AP projection. COMPARISON: 03/01/2025 CR. FINDINGS: Pulmonary Parenchyma: Prominent bronchovascular marking and the hilar shadows at both lung duque denoting congestive changes Slightly obscured left costophrenic recess with linear atelectatic plates seen at the lower left lung zone. No evidence of consolidation, collapse, or focal opacities. No pulmonary nodules are identified. No Right pleural effusion or pleural thickening. Heart and Mediastinum: Heart size and shape are normal. No mediastinal widening or masses. No hilar or mediastinal lymphadenopathy. The cardiac pacemaker seen in place Bony Thorax: Spondylo- Degenerative changes Bony thorax appears intact without fractures or deformities. Soft Tissues: Soft tissues overlying the chest wall are unremarkable. IMPRESSION: 1. Prominent bronchovascular markings and hilar shadows in both lung duque, denoting congestive changes. 2. Slightly obscured left costophrenic recess with linear atelectatic plates seen at the lower left lung zone. 3. Otherwise, no time interval changes. Electronically signed by Ronny Kerr 03-23-2025 02:50 AM Discharge Plan Visit Data Chief Complaint: GI Assessment Stated Complaint: N/V/D, INCONTINENT OF STOOL ED Provider: Michael Gomes Discharge Problem: Atrial fibrillation with rapid ventricular response, Hypomagnesemia, Nausea, vomiting and diarrhea, Acute dehydration Patient Disposition: Admitted As Inpatient Condition: Fair Forms Stand Alone Forms: My [facility] Prescriptions Prescriptions: No Action levothyroxine 25 mcg capsule 25 mcg PO DAILYBB rosuvastatin 40 mg Tablet 40 mg PO DAILY budesonide-formoterol [Symbicort] 80-4.5 mcg/actuation Hfa Aerosol Inhaler 1 inh INHALATION BID pantoprazole 40 mg Tablet,Delayed Release (Dr/Ec) 40 mg PO BID Qty: 60 0RF potassium chloride 20 mEq tablet,ER particles/crystals 20 meq PO BID Hold Instructions: Resume on 03/19/25. hold this med when lasix is on hold. nystatin 100,000 unit/gram cream 1 applic TOPICAL DAILY diltiazem HCl 120 mg capsule,extended release 24hr 120 mg PO QAM furosemide 20 mg tablet 20 mg PO QAM Hold Instructions: Resume on 03/19/25. Hold until further evaluation by PCP office in a week time of discharge. Eliquis 5 mg Tablet 5 mg PO BID cyanocobalamin (vitamin B-12) 500 mcg Tablet 500 mcg PO DAILY cholecalciferol (vitamin D3) [Vitamin D3] 25 mcg (1,000 unit) Capsule 25 mcg PO DAILY metoprolol tartrate 25 mg Tablet 25 mg PO BID Qty: 60 0RF Patient Comments: Pt was recently on 50mg twice daily but says after recent hospital stay he was decreased to 25mg twice daily Rx Instructions: Take 2 tablets in AM and 1 tab in the evening. Referrals Referrals: Mariano Spicer MD [Primary Care Provider] -
[2025-03-22] MEDS: ONDANSETRON INJ 2 MG/ML 2 ML VIAL IV STA (23:21)
[2025-03-22] MEDS: METOPROLOL TARTRATE 1 MG/ML VIAL IV STA (23:21)
[2025-03-22] MEDS: SODIUM CHLORIDE 0.9% 1,000 ML IV ONE (23:21)
[2025-03-22 23:25] LABS: Hematocrit (blood only) 40.4 % (42.0-52.0); Hemoglobin 13.2 g/dl (14.0-18.0); Mean Corpuscular Hemoglobin 29.5 pg (25.0-34.0); Mean Corpuscular Volume 90.4 fL (80.0-100.0); Platelet Count 177 K/uL (130-400); RDW Standard Deviation 50.9 fL (36.4-46.3); Red Blood Count 4.47 M/uL (4.70-6.10); White Blood Count 5.16 K/ul (4.8-10.8)
[2025-03-22 23:42] LABS: Alanine Aminotransferase 8 U/L (7-52); Alkaline Phosphatase 68 U/L (34-104); Anion Gap 11 (3-11); Bilirubin,Total 1.0 mg/dl (0.2-1.0); Blood Urea Nitrogen 29 mg/dl (6-23); Calcium 9.3 mg/dl (8.6-10.3); Carbon Dioxide 24 mmol/L (21-32); Chloride 110 mmol/L (98-107); Glucose 128 mg/dl (70-99(Fasting)); Lipase 31 U/L (11-82); Magnesium 1.4 mg/dl (1.7-2.4); Potassium 3.5 mmol/L (3.5-5.1); Sodium 145 mmol/L (136-145); Total Protein 6.9 gm/dl (6.0-8.3)
[2025-03-22 23:46] LABS: Immature Granulocytes # (auto) 0.01 K/uL (0.01-0.20); Immature Granulocytes % (auto) 0.2 %
[2025-03-22 23:50] VITALS: TEMP 97.5
[2025-03-23] MEDS: MAGNESIUM SULFATE / D5W 1 GM/100 ML BAG IV STA (00:04)
[2025-03-23] MEDS: METOPROLOL TARTRATE 1 MG/ML VIAL IV STA (00:04)
[2025-03-23 00:35] LABS: Adenovirus F 40/41 PCR Not Detected (NotDetected); Campylobacter PCR Not Detected (NotDetected); Enteroaggregative E.coli(EAEC) Not Detected (NotDetected); Shiga-like Toxin E.coli (STEC) Not Detected (NotDetected); Vibrio species PCR Not Detected (NotDetected)
--- NOTE | 2025-03-23 02:50 | XRay Report ---
EXAM: XR chest 1V portable CLINICAL HISTORY: Hypoxia, afib rvr. TECHNIQUE: An X-ray image of the chest is obtained in AP projection. COMPARISON: 03/01/2025 CR. FINDINGS: Pulmonary Parenchyma: Prominent bronchovascular marking and the hilar shadows at both lung duque denoting congestive changes Slightly obscured left costophrenic recess with linear atelectatic plates seen at the lower left lung zone. No evidence of consolidation, collapse, or focal opacities. No pulmonary nodules are identified. No Right pleural effusion or pleural thickening. Heart and Mediastinum: Heart size and shape are normal. No mediastinal widening or masses. No hilar or mediastinal lymphadenopathy. The cardiac pacemaker seen in place Bony Thorax: Spondylo- Degenerative changes Bony thorax appears intact without fractures or deformities. Soft Tissues: Soft tissues overlying the chest wall are unremarkable. IMPRESSION: 1. Prominent bronchovascular markings and hilar shadows in both lung duque, denoting congestive changes. 2. Slightly obscured left costophrenic recess with linear atelectatic plates seen at the lower left lung zone. 3. Otherwise, no time interval changes. Electronically signed by Ronny Kerr 03-23-2025 02:50 AM
--- NOTE | 2025-03-23 03:52 | History & Physical Report ---
Date of Service March 23, 2025 Assessment & Plan (1) Nausea, vomiting and diarrhea: Plan: 74-year-old male with past medical history significant for dyslipidemia, hypothyroidism, lesion of adrenal gland, hiatal hernia with GERD, uncomplicated asthma, abdominal aortic aneurysm status post endovascular stent graft, nonischemic cardiomyopathy, thrombosis of mesenteric artery, hypertension, permanent atrial fibrillation, status post pacemaker, history of CHF, left atrial enlargement, GERD, CKD stage III, comes in because of nausea, vomiting and diarrhea. Patient ate double cheeseburger at [employer] and few hours later he had persistent nausea, vomiting and diarrhea for 5 hours and which prompted him come to the ER. Was not able to take his evening medications. In the ER he was in rapid A-fib required IV Lopressor x 2. Was dehydrated and was given fluids in the ER. Currently his nausea has improved. Diarrhea has slowed down. When he came in he had a lot of abdominal pain currently resolved. Denies any chest pain or shortness of breath. No cough. No headache. No runny nose or sore throat. Currently resting comfortably and hemodynamically stable. Wants to go home soon. Nausea vomiting and diarrhea Started after eating double cheeseburger at [employer] Currently improved Stool studies came back negative Continue gentle fluids Antiemetics as needed Observe in the hospital Rapid A-fib History of permanent A-fib Received IV Lopressor x 2 in the ER Could not take evening pills because of nausea Continue home metoprolol and Eliquis for now IV Lopressor prn. Close monitor Hypomagnesia Will replace follow labs CKD stage III Presented with creatinine 1.7 which is around baseline We will follow labs Nonischemic cardiomyopathy EF 45 to 49% echo 2022 EF greater than 70% echo 02/05/2025 Complete heart block, tachybradycardia syndrome status post dual-chamber pacemaker in 2014 Hypertension On metoprolol Will monitor Hyperlipidemia On Crestor Hypothyroidism On Synthyroid GERD PPI Anemia hx of Gi bleed hb 13.2 will follow labs DVT prophylaxis Eliquis Disposition Observation telemetry Full code. History of Present Illness Chief Complaint: Nausea, vomiting and diarrhea Primary Care Provider: Mariano Spicer MD 74-year-old male with past medical history significant for dyslipidemia, hypothyroidism, lesion of adrenal gland, hiatal hernia with GERD, uncomplicated asthma, abdominal aortic aneurysm status post endovascular stent graft, nonischemic cardiomyopathy, thrombosis of mesenteric artery, hypertension, permanent atrial fibrillation, status post pacemaker, history of CHF, left atrial enlargement, GERD, CKD stage III, comes in because of nausea, vomiting and diarrhea. Patient ate double cheeseburger at [employer] and few hours later he had persistent nausea, vomiting and diarrhea for 5 hours and which prompted him come to the ER. Was not able to take his evening medications. In the ER he was in rapid A-fib required IV Lopressor x 2. Was dehydrated and was given fluids in the ER. Currently his nausea has improved. Diarrhea has slowed down. When he came in he had a lot of abdominal pain currently resolved. Denies any chest pain or shortness of breath. No cough. No headache. No runny nose or sore throat. Currently resting comfortably and hemodynamically stable. Wants to go home soon. Past medical history. As mentioned above. Past surgical history. endovascular repair of abdominal aortic aneurysm. Colonoscopy. Colonoscopy with endoscopic mucosal resection. Cholecystectomy. Sigmoidoscopy. Social history. . Quit smoking 1961. Smoked 1 pack a day for 1 year. No alcohol use. No drug use. Family history. Father had heart disorder. Mother had hypertension and stroke. Maternal grandfather had heart disorder. Paternal grandfather had heart disorder. Allergies Allergy/AdvReac Type Severity Reaction Status Date / Time Ibcwarx-ADD-CqB Reductase Allergy Verified 03/01/25 13:47 Inhibitor [Bmlocva-Cvh-Eie Reductase Inhibitor] Home Medications Medication Instructions Recorded Confirmed Type apixaban 5 mg tablet (Eliquis) 5 mg PO BID 03/23/25 03/23/25 History budesonide-formoterol HFA 80 1 inh inhalation BID 03/23/25 03/23/25 History mcg-4.5 mcg/actuation aerosol inhaler (Symbicort) cholecalciferol (vitamin D3) 25 25 mcg PO DAILY 03/23/25 03/23/25 History mcg (1,000 unit) tablet (Vitamin D3) cyanocobalamin (vitamin B-12) 500 500 mcg PO DAILY 03/23/25 03/23/25 History mcg tablet levothyroxine 25 mcg tablet 25 mcg PO DAILY 03/23/25 03/23/25 History metoprolol tartrate 50 mg tablet 50 mg PO BID 03/23/25 03/23/25 History pantoprazole 40 mg tablet,delayed 40 mg PO DAILY 03/23/25 03/23/25 History release (Protonix) rosuvastatin 40 mg tablet (Crestor) 40 mg PO DAILY 03/23/25 03/23/25 History Past Med/Surg History Problem List (Updated 03/23/25 @ 03:34 by Michael Gomes MD) Acute dehydration (Acute) Nausea, vomiting and diarrhea (Acute) Hypomagnesemia (Acute) Atrial fibrillation with rapid ventricular response (Acute) Orthostatic hypotension Weakness (Acute) Lightheadedness (Acute) YOVANA (acute kidney injury) (Acute) Chronic atrial fibrillation Hypotension due to blood loss Acute blood loss anemia Abnormal computed tomography angiography (CTA) of abdomen and pelvis Hemorrhage of colon following colonoscopy BRBPR (bright red blood per rectum) (Acute) Rectal bleeding Pneumoperitoneum (Acute) Hypothyroidism (Chronic) Hyperlipidemia (Chronic) Pneumonia (Acute) Hypomagnesemia (Acute) Hypophosphatemia (Acute) Tachy-dario syndrome (Chronic) Medical History Pacemaker Atrial fibrillation Hypertension CKD (chronic kidney disease), stage IV GERD (gastroesophageal reflux disease) Pneumatosis of intestines On anticoagulant therapy Surgical History Sigmoidoscopy performed (02/06/25) Dr Gatica History of rectal surgery (02/06/25) Rectal exam under anesthesia - Dr Kessler S/P AAA repair Hx of cholecystectomy Family History Mother Hypertension Stroke Father Myocardial infarction, Onset Age: 51 Social History Smoking Status: Never smoker Second Hand Exposure: No; Do You Dip or Chew Tobacco: No; Hx Alcohol Use: Yes Hx Substance Use: No Preferred Language: Trinidadian Communication Ability: Effective Shake Sawyer Required: No Beliefs That Will Affect Care: None marital status: Current Living Situation: Spouse Current Living Situation Comment: daughter and current occupational status: employed Feels Safe at Home: Yes Safety Concerns: Feels Safe At This Time Assistive Devices: Glasses Review of Systems Review of Systems: All systems reviewed & are unremarkable except as noted in HPI & below Physical Exam Physical Exam: General- Not in distress Head- atraumatic Eyes- PERRL. ENT- oropharynx clear Neck- supple, no JVD. Lungs- clear to auscultation no wheezing or crackles Heart- regular rhythm; tachycardia no murmur, no gallop. Abdomen- normal bowel sounds, soft, nontender, no distension Extremities- no pretibial edema, no erythema seen. Neuro- alert, oriented PERRL, no facial palsy; no dysarthria; moves extremites Results & Data Results & Data Vital Signs (Past 12 Hours) Vital Signs Temp Pulse Pulse Resp BP BP Pulse Ox 03/23/25 03:25 106 H 03/23/25 01:30 99 H 20 123/74 99 03/23/25 01:00 105 H 24 143/112 H 98 03/23/25 00:30 102 H 150/117 H 03/23/25 00:04 114 H 134/89 03/22/25 23:52 125 H 03/22/25 23:30 120 H 18 142/99 H 98 03/22/25 23:21 115 H 151/107 H 03/22/25 23:15 120 H 03/22/25 23:01 36.4 C L 117 H 24 137/109 H 98 O2 Del Method O2 Flow Rate 03/23/25 03:25 03/23/25 01:30 Nasal Cannula 2 03/23/25 01:00 Nasal Cannula 2 03/23/25 00:30 03/23/25 00:04 03/22/25 23:52 03/22/25 23:30 Room Air 03/22/25 23:21 03/22/25 23:15 03/22/25 23:01 Room Air Diagnostic Findings Laboratory Results WBC 5.16 K/ul (4.8-10.8) 03/22/25 23:02 RBC 4.47 M/uL (4.70-6.10) L 03/22/25 23:02 Hgb 13.2 g/dl (14.0-18.0) L 03/22/25 23:02 Hct 40.4 % (42.0-52.0) L 03/22/25 23:02 MCV 90.4 fL (80.0-100.0) 03/22/25 23:02 MCH 29.5 pg (25.0-34.0) 03/22/25 23:02 MCHC 32.7 g/dL (32.0-36.0) 03/22/25 23:02 RDW Std Deviation 50.9 fL (36.4-46.3) H 03/22/25 23:02 RDW Coeff of Kady 15.3 % (11.5-14.5) H 03/22/25 23:02 Plt Count 177 K/uL (130-400) 03/22/25 23:02 MPV 10.6 fL (9.4-12.4) 03/22/25 23:02 Immature Gran % (Auto) 0.2 % 03/22/25 23:02 Neut % (Auto) 71.6 % 03/22/25 23:02 Lymph % (Auto) 19.4 % 03/22/25 23:02 [place] % (Auto) 7.8 % 03/22/25 23:02 Eos % (Auto) 0.6 % 03/22/25 23:02 Baso % (Auto) 0.4 % 03/22/25 23:02 Neut # (Auto) 3.70 K/uL (1.40-6.50) 03/22/25 23:02 Lymph # (Auto) 1.00 K/uL (1.20-3.40) L 03/22/25 23:02 [place] # (Auto) 0.40 K/uL (0.11-0.59) 03/22/25 23:02 Eos # (Auto) 0.03 K/uL (0.00-0.50) 03/22/25 23:02 Baso # (Auto) 0.02 K/uL (0.00-0.20) 03/22/25 23:02 Immature Gran # (Auto) 0.01 K/uL (0.01-0.20) 03/22/25 23:02 Sodium 145 mmol/L (136-145) 03/22/25 23:02 Potassium 3.5 mmol/L (3.5-5.1) 03/22/25 23:02 Chloride 110 mmol/L (98-107) H 03/22/25 23:02 Carbon Dioxide 24 mmol/L (21-32) 03/22/25 23:02 Anion Gap 11 (3-11) 03/22/25 23:02 BUN 29 mg/dl (6-23) H 03/22/25 23:02 Creatinine 1.79 mg/dl (0.6-1.4) H 03/22/25 23:02 Est Cr Clr Drug Dosing Not Reportable 03/22/25 23:02 eGFR 39.03 03/22/25 23:02 BUN/Creatinine Ratio 16.2 (10-20) 03/22/25 23:02 Glucose 128 mg/dl (70-99(Fasting)) H 03/22/25 23:02 Calcium 9.3 mg/dl (8.6-10.3) 03/22/25 23:02 Magnesium 1.4 mg/dl (1.7-2.4) L 03/22/25 23:02 Total Bilirubin 1.0 mg/dl (0.2-1.0) 03/22/25 23:02 Direct Bilirubin 0.2 mg/dl (0-0.2) 03/22/25 23:02 AST 17 U/L (13-39) 03/22/25 23:02 ALT 8 U/L (7-52) 03/22/25 23:02 Alkaline Phosphatase 68 U/L (34-104) 03/22/25 23:02 Total Protein 6.9 gm/dl (6.0-8.3) 03/22/25 23:02 Albumin 3.8 gm/dl (3.4-5.0) 03/22/25 23:02 Lipase 31 U/L (11-82) 03/22/25 23:02 Stl C. cayetanensis PCR Not Detected (NotDetected) 03/22/25 22:58 Stool Rotavirus A PCR Not Detected (NotDetected) 03/22/25 22:58 Stl Adenov F 40/41 PCR Not Detected (NotDetected) 03/22/25 22:58 Stool Astrovirus (PCR) Not Detected (NotDetected) 03/22/25 22:58 Stool Campylobacter PCR Not Detected (NotDetected) 03/22/25 22:58 Stool Cryptosporidium PCR Not Detected (NotDetected) 03/22/25 22:58 Stl E.coli Shiga Tox PCR Not Detected (NotDetected) 03/22/25 22:58 Stl Enterotoxigenic E PCR Not Detected (NotDetected) 03/22/25 22:58 Stool EPEC (PCR) Not Detected (NotDetected) 03/22/25 22:58 Stool EAEC (PCR) Not Detected (NotDetected) 03/22/25 22:58 Stl E. histolytica PCR Not Detected (NotDetected) 03/22/25 22:58 Stool Giardia Lamblia PCR Not Detected (NotDetected) 03/22/25 22:58 Stool Salmonella PCR Not Detected (NotDetected) 03/22/25 22:58 Stool Sapovirus (PCR) Not Detected (NotDetected) 03/22/25 22:58 Stl P. shigelloides PCR Not Detected (NotDetected) 03/22/25 22:58 Stl Shigella/EIEC PCR Not Detected (NotDetected) 03/22/25 22:58 St Y.enterocolitica PCR Not Detected (NotDetected) 03/22/25 22:58 Stool Vibrio (PCR) Not Detected (NotDetected) 03/22/25 22:58 Stl Vibrio cholerae PCR Not Detected (NotDetected) 03/22/25 22:58 Stl Norovirus GI/GII PCR Not Detected (NotDetected) 03/22/25 22:58 Impressions Chest X-Ray 03/23/25 00:26 EXAM: XR chest 1V portable CLINICAL HISTORY: Hypoxia, afib rvr. TECHNIQUE: An X-ray image of the chest is obtained in AP projection. COMPARISON: 03/01/2025 CR. FINDINGS: Pulmonary Parenchyma: Prominent bronchovascular marking and the hilar shadows at both lung duque denoting congestive changes Slightly obscured left costophrenic recess with linear atelectatic plates seen at the lower left lung zone. No evidence of consolidation, collapse, or focal opacities. No pulmonary nodules are identified. No Right pleural effusion or pleural thickening. Heart and Mediastinum: Heart size and shape are normal. No mediastinal widening or masses. No hilar or mediastinal lymphadenopathy. The cardiac pacemaker seen in place Bony Thorax: Spondylo- Degenerative changes Bony thorax appears intact without fractures or deformities. Soft Tissues: Soft tissues overlying the chest wall are unremarkable. IMPRESSION: 1. Prominent bronchovascular markings and hilar shadows in both lung duque, denoting congestive changes. 2. Slightly obscured left costophrenic recess with linear atelectatic plates seen at the lower left lung zone. 3. Otherwise, no time interval changes. Electronically signed by Ronny Kerr 03-23-2025 02:50 AM ECG Additional Comments: ECG. Atrial fibrillation with rapid ventricular response with PVCs with rate of 119. Nonspecific ST anterior abnormalities. QTc 483. Code Status & VTE Plan VTE Prophylaxis Plan VTE Prophylaxis will be ordered: Yes
[2025-03-23] MEDS: MAGNESIUM SULFATE / D5W 1 GM/100 ML BAG IV SCH (04:02)
[2025-03-23] MEDS: LACTATED RINGER'S 1,000 ML IV SCH (04:03)
[2025-03-23] MEDS ORDERED: METOPROLOL TARTRATE 1 MG/ML VIAL IV PRN (04:20)
[2025-03-23] MEDS ORDERED: ACETAMINOPHEN 325 MG TAB PO PRN (04:20)
[2025-03-23] MEDS ORDERED: NITROGLYCERIN SL 0.4 MG/TAB TAB SL PRN (04:20)
[2025-03-23] MEDS ORDERED: ONDANSETRON INJ 2 MG/ML 2 ML VIAL IV PRN (04:20)
[2025-03-23] MEDS: LEVOTHYROXINE SODIUM 25 MCG TABLET PO SCH (07:03)
[2025-03-23 07:38] LABS: Hematocrit (blood only) 36.0 % (42.0-52.0); Hemoglobin 11.4 g/dl (14.0-18.0); Mean Corpuscular Hemoglobin 29.0 pg (25.0-34.0); Mean Corpuscular Volume 91.6 fL (80.0-100.0); Platelet Count 152 K/uL (130-400); RDW Standard Deviation 51.4 fL (36.4-46.3); Red Blood Count 3.93 M/uL (4.70-6.10); White Blood Count 4.77 K/ul (4.8-10.8)
[2025-03-23 07:58] LABS: Anion Gap 6.0 (3-11); Blood Urea Nitrogen 26.0 mg/dl (6-23); Calcium 8.5 mg/dl (8.6-10.3); Carbon Dioxide 25.0 mmol/L (21-32); Chloride 113.0 mmol/L (98-107); Creatinine Clr Calc Pharmacy 46.2 ml/min; Glucose 129.0 mg/dl (70-99(Fasting)); Magnesium 2.4 mg/dl (1.7-2.4); Potassium 3.6 mmol/L (3.5-5.1); Sodium 144.0 mmol/L (136-145)
[2025-03-23 08:35] LABS: Immature Granulocytes # (auto) 0.01 K/uL (0.01-0.20); Immature Granulocytes % (auto) 0.2 %
[2025-03-23] MEDS: METOPROLOL TARTRATE 50 MG TAB PO SCH (10:00)
[2025-03-23] MEDS: CYANOCOBALAMIN (B-12) 500 MCG TABLET PO SCH (10:00)
[2025-03-23] MEDS: ROSUVASTATIN CALCIUM 20 MG TAB PO SCH (10:00)
[2025-03-23] MEDS: APIXABAN 5 MG TABLET PO SCH (10:00)
[2025-03-23] MEDS: CHOLECALCIFEROL 25 MCG (1000 UNITS) TAB PO SCH (10:00)
[2025-03-23] MEDS: FLUTICASONE/VILANTEROL 100/25MCG 14 PUFFS/INHALER INH SCH (10:22)
[2025-03-23 12:48] VITALS: O2SAT 98
--- NOTE | 2025-03-23 13:04 | Discharge Summary ---
Date of Service March 23, 2025 Admission HPI Per Admitting Provider 74-yo M with past medical history significant for dyslipidemia, hypothyroidism, lesion of adrenal gland, hiatal hernia with GERD, uncomplicated asthma, abdominal aortic aneurysm status post endovascular stent graft, nonischemic cardiomyopathy, thrombosis of mesenteric artery, hypertension, permanent atrial fibrillation, status post pacemaker, history of CHF, left atrial enlargement, GERD, CKD stage III, comes in because of nausea, vomiting and diarrhea. Patient ate double cheeseburger at [employer] and few hours later he had persistent nausea, vomiting and diarrhea for 5 hours and which prompted him come to the ER. Was not able to take his evening medications. In the ER he was in rapid A-fib required IV Lopressor x 2. Was dehydrated and was given fluids in the ER. Currently his nausea has improved. Diarrhea has slowed down. When he came in he had a lot of abdominal pain currently resolved. Denies any chest pain or shortness of breath. No cough. No headache. No runny nose or sore throat. Currently resting comfortably and hemodynamically stable. Wants to go home soon. Past medical history. As mentioned above. Past surgical history. endovascular repair of abdominal aortic aneurysm. Colon oscopy. Colonoscopy with endoscopic mucosal resection. Cholecystectomy. Sigmoidoscopy. Social history. . Quit smoking 1961. Smoked 1 pack a day for 1 year. No alcohol use. No drug use. Family history. Father had heart disorder. Mother had hypertension and stroke. Maternal grandfather had heart disorder. Paternal grandfather had heart disorder. Admission Exam Per Admitting Provider General- Not in distress Head- atraumatic Eyes- PERRL. ENT- oropharynx clear Neck- supple, no JVD. Lungs- clear to auscultation no wheezing or crackles Heart- regular rhythm; tachycardia no murmur, no gallop. Abdomen- normal bowel sounds, soft, nontender, no distension Extremities- no pretibial edema, no erythema seen. Neuro- alert, oriented PERRL, no facial palsy; no dysarthria; moves extremites Principal Diagnosis Nausea, vomiting, diarrhea Episode of tachycardia - Afib with RVR secondary to above Discharge Exam General- Not in distress Head- atraumatic Eyes- PERRL. ENT- oropharynx clear Neck- supple, no JVD. Lungs- clear to auscultation no wheezing or crackles Heart- S1, S2, HR in 80s, no murmur Abdomen- normal bowel sounds, soft, nontender, no distension Extremities- no pretibial edema, no erythema seen. Neuro- alert, oriented PERRL, no facial palsy; no dysarthria; moves extremities Discharge Data Allergies Allergy/AdvReac Type Severity Reaction Status Date / Time Zmbwify-SDQ-VaA Reductase Allergy Verified 03/01/25 13:47 Inhibitor [Wqnctqk-Vii-Jul Reductase Inhibitor] Consultations 03/23/25 00:27 ED Decision to Admit Stat Hospital Course (1) Nausea, vomiting and diarrhea: 74 yo M with dyslipidemia, hypothyroidism, lesion of adrenal gland, hiatal hernia with GERD, uncomplicated asthma, abdominal aortic aneurysm status post endovascular stent graft, nonischemic cardiomyopathy, thrombosis of mesenteric artery, hypertension, permanent atrial fibrillation, status post pacemaker, history of CHF, left atrial enlargement, GERD, CKD stage III, comes in because of nausea, vomiting and diarrhea. Patient ate double cheeseburger at [employer] and few hours later he had persistent nausea, vomiting and diarrhea for 5 hours and which prompted him come to the ER. Was not able to take his evening medications. In the ER he was in rapid A-fib required IV Lopressor x 2. Was dehydrated and was given fluids in the ER. On admission his nausea has improved. Diarrhea has slowed down. When he came in he had a lot of abdominal pain, on admission resolved. Denies any chest pain or shortness of breath. No cough. No headache. No runny nose or sore throat. On admission resting comfortably and hemodynamically stable. Wants to go home soon. 03/23 Notified by RN in ED Pt wants to go home. Pt has no longer any diarrhea, stool pct negative. He has no nausea or vomiting. Tolerated clear liquid diet. Asked for him to have some crackers and he had that as well and tolerated. He walks to bathroom by himself, denies any dizziness, lightheadedness, chest pain, shortness of breath. Denies abd. pain. Denies any blood in stool. Nausea vomiting and diarrhea - resolved Started after eating double cheeseburger at [employer] Currently improved / resolved Stool studies - negative Received gentle fluids Antiemetics as needed Observe in the hospital Currently feels well, n/v/d resolved and pt requesting discharge. Discussed further monitoring and advancing diet further but pt prefers to go home. He plans to advance his diet and plans to hydrate well. Rapid A-fib - resolved History of permanent A-fib Received IV Lopressor x 2 in the ER Could not take evening pills because of nausea Continue home metoprolol and Eliquis for now IV Lopressor prn. Close monitor HR now in 80s Hypomagnesia replaced, current Mg 2.4 CKD stage III Presented with creatinine 1.7 which is around baseline We will follow labs Nonischemic cardiomyopathy EF 45 to 49% echo 2022 EF greater than 70% echo 02/05/2025 Complete heart block, tachybradycardia syndrome status post dual-chamber pacemaker in 2014 Hypertension On metoprolol monitor Hyperlipidemia On Crestor Hypothyroidism On Synthyroid GERD PPI Anemia hx of Gi bleed hb 13.2 on admission, 11.4 after IVF, previous Hgb 11.0 on 03/02/25 Pt denies any bleed Total Time Total Time Spent Total Time Spent (In Minutes): 40 Discharge Plan Discharge Items Patient Disposition: Home - Self-Care Reason For Visit: N/V/D, TACHYCARDIA Discharge Diagnosis: Nausea, vomiting, diarrhea Episode of tachycardia - Afib with RVR secondary to above Condition on Discharge: Fair Activity: Per Instructions section Non-emergency contact: Primary Care Provider Call non-emergency contact if: you have any medication questions and your symptoms worsen Follow-up/Referrals: Mariano Spicer MD [Primary Care Provider] - Diet: Heart Healthy Addtl Attending Provider Instructions: Follow up with primary care physician within 1 week. Make sure to stay well hydrated. Advance your diet slowly, recommend to eat at home, have self prepared meals and cooked thoroughly for next couple of days until you feel back to your normal health state. Pending Studies at Discharge: No Stand-Alone Forms: My [facility], Smoking Cessation Medications and DC Order Prescriptions: Continued levothyroxine 25 mcg Tablet 25 mcg PO DAILY cyanocobalamin (vitamin B-12) 500 mcg Tablet 500 mcg PO DAILY pantoprazole [Protonix] 40 mg Tablet,Delayed Release (Dr/Ec) 40 mg PO DAILY metoprolol tartrate 50 mg Tablet 50 mg PO BID rosuvastatin [Crestor] 40 mg Tablet 40 mg PO DAILY cholecalciferol (vitamin D3) [Vitamin D3] 25 mcg (1,000 unit) Tablet 25 mcg PO DAILY budesonide-formoterol [Symbicort] 80-4.5 mcg/actuation Hfa Aerosol Inhaler 1 inh INHALATION BID Eliquis 5 mg Tablet 5 mg PO BID Discharge Orders: Discharge Order (Routine); Ordered 03/23/25 Ordered By: Silvino Zaragoza/Other Patient Handouts: AFib, ED Diarrhea, Unknown Cause, ED Vomiting (Adult) Admission Data Admit Date/Time: 03/23/25 03:33 Attending Provider: Silvino Nogueira Admit Provider: Cornel You Primary Care Provider: Mariano Spicer Other Providers: Cornel You Other Interventions: Discharge Summary Assessment (RN) Last Done: 03/23/25 13:24
[2025-03-23] MEDS: POTASSIUM CHLORIDE CRTAB 20 MEQ TABCR PO STA (13:23)
[2025-03-23 13:26] VITALS: BP 129/86; PULSE 101; RESP 20
== END 2025-03-23 13:39 | disposition home or self-care (01) | DRG 392 ==
LOC: ED 22:46 → EDINP 03-23 03:33